=== PATIENT | male | born 1955 | race Caucasian/White ===

== ENCOUNTER 2019-07-03 11:59 | Outpatient (CLI) | payer BC, SELFPAY ==
--- NOTE | ~2019-07-03 | PE_ITS ---
EXAMINATION: PET skull to mid thigh DATE: 07/03/2019 13:53 INDICATION: Nodular sclerosis Hodgkin's lymphoma. TECHNIQUE: 11 mCi of 18-fluorodeoxyglucose (18-FDG) was administered i.v. Low dose computed tomograph y (CT) images were acquired from the base of the brain to the proximal thighs for attenuation correct ion and anatomic localization. Positron emission tomography (PET) images were acquired after injectio n. Images including fused PET/CT images were reconstructed in axial, coronal, and sagittal planes. Au tomatic exposure control is employed as a dose reduction technique. COMPARISON: None FINDINGS: Head/neck: There is mild symmetric uptake in the mucosal space without associated mass, likely physiologic. No s ignificant cervical lymphadenopathy. Chest: There is mediastinal lymphadenopathy. For instance right paratracheal lymph node measures 12 mm, imag e 251. No significant abnormal FDG uptake in these lymph nodes. No significant pleural or pericardial effusion. There is dependent atelectasis. No endobronchial lesions. No suspicious pulmonary nodules or masses. Abdomen/pelvis/proximal thighs: The liver, spleen, pancreas, adrenal glands and left kidney are unremarkable. There is a 5.5 cm hypod ense mass of the right kidney laterally measuring 29 Hounsfield units. Cannot exclude solid component s. There is a cyst in the lower pole of the right kidney measuring 7 cm. There are scattered areas of FDG uptake in the colon without associated mass, likely physiologic. There are enlarged left periaor tic lymph nodes without abnormal FDG uptake. For example on image 462, lymph node measures 4.3 cm. No nobstructive bowel gas pattern. No abnormal pelvic masses or fluid collections. Bones/Soft tissues: No hypermetabolic activity in the bones or soft tissues. IMPRESSION: 1. Enlarged mediastinal and retroperitoneal lymphadenopathy without abnormal FDG uptake, possibly courtney ated lymphoma versus reactive lymph nodes. No hypermetabolic activity is identified in the neck, ches t, abdomen or pelvis. Reviewed, dictated and finalized at location A. IMPRESSION: 1. Enlarged mediastinal and retroperitoneal lymphadenopathy without abnormal FD G uptake, possibly treated lymphoma versus reactive lymph nodes. No hypermetabo lic activity is identified in the neck, chest, abdomen or pelvis.
[2019-07-03 12:16] LABS: Glucose Point of Care 98 (65-105)
== END 2019-07-03 12:00 | disposition home or self-care (01) ==
LOC: ANHIMG 12:01
PROVIDERS: PCP Family Medicine; Visit Provider Internal Medicine Hematology & Oncology
DX: C81.18 Nodular sclerosis Hodgkin lymphoma, lymph nodes of multiple sites (principal); R59.0 Localized enlarged lymph nodes
CPT/HCPCS: 78815; A9552

== ENCOUNTER 2020-01-10 15:05 | Outpatient (CLI) | payer BC, SELFPAY ==
--- NOTE | ~2020-01-10 | CT_ITS ---
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 TECHNIQUE: Computed tomography (CT) of the chest, abdomen, and pelvis was performed without intraveno us contrast. Automated exposure control and iterative reconstruction technique were employed. The dos e-length product was 2097.10 mGy-cm. COMPARISON: PET/CT 07/03/19 FINDINGS: CHEST CT: There is mild emphysema. There is minimal atelectasis bilaterally. No pleural effusion. There is a ri ght internal jugular port with tip in region. The heart size is normal. There are coronary artery bismark cifications. No pericardial effusion. There is mediastinal and left supraclavicular lymphadenopathy. For example, a 2.5 x 1.6 cm right paratracheal node previously measured 1.7 x 1.0 cm. There is mild t horacic spondylosis. ABDOMEN/PELVIS CT: The liver and gallbladder are normal. There is mild splenomegaly measuring 13.5 cm. The pancreas and adrenal glands are normal. There are cysts in the kidneys measuring up to 6.9 cm on the right. The pr ostate is mildly enlarged. There are no dilated loops of bowel. There is gastrohepatic, periportal, a ortocaval, left para-aortic, and bilateral common iliac lymphadenopathy. For example, a 2.5 x 2.3 cm left common iliac node previously measured 2.1 x 1.9 cm. A 4.1 x 3.4 cm left para-aortic node previou sly measured 3.0 x 2.1 cm. There is no free intraperitoneal fluid. Is a benign bone island in left is chium. There are benign bone islands in the proximal femora. There is severe lumbar spondylosis. IMPRESSION: 1. Worsened lymphadenopathy in the chest, abdomen, and pelvis, consistent with lymphoma. 2. Mild splenomegaly. Reviewed, dictated and finalized at location A. ST PATHOLOGY ASSOCIATE PROFESSOR
[2020-01-10 15:51] LABS: Estimated Glomerular Filt Rate > 60
== END 2020-01-10 15:06 | disposition home or self-care (01) ==
LOC: ANHIMG 15:07
PROVIDERS: PCP Family Medicine; Visit Provider Internal Medicine Hematology & Oncology
DX: C81.18 Nodular sclerosis Hodgkin lymphoma, lymph nodes of multiple sites (principal); R16.1 Splenomegaly, not elsewhere classified
CPT/HCPCS: 71260; 74177; Q9967

== ENCOUNTER 2020-01-17 14:51 | Outpatient (CLI) | payer BC, SELFPAY ==
[2020-01-17 15:10] LABS: Basophils Percent Auto 0.4 % (0.2-1.2); Eosinophils Absolute Auto 0.2 K/mm3 (0-0.3); Eosinophils Percent Auto 3.2 % (0-4.4); Hematocrit 39.3 % (42.0-52.0); Hemoglobin 13.2 g/dL (14.0-18.0); Immature Granulocyte Absolute 0.15 K/mm3 (0.00-0.031); Immature Granulocyte Percent A 2.2 % (0-0.5); Lymphocytes Absolute Auto 1.31 K/mm3 (0.9-3.2); Mean Corpuscular HGB Conc 33.6 g/dl (32-36); Mean Corpuscular Hemoglobin 26.9 pg (26-34); Mean Corpuscular Volume 80.2 fl (80-100); Mean Platelet Volume 8.3 fl (7.4-10.4); Monocytes Absolute Auto 0.7 K/mm3 (0.1-0.6); Monocytes Percent Auto 9.6 % (2.6-8.5); Neutrophils Absolute Auto 4.5 K/mm3 (1.3-6.7); Neutrophils Percent Auto 65.6 % (45.5-73.1); Platelet Count Result 247 k/mm3 (150-375); Red Cell Distribution Width 14.6 % (11.5-14.5); White Blood Count 6.9 K/mm3 (4.5-10.0)
[2020-01-17 15:14] LABS: Blood Urea Nitrogen 16 mg/dL (8-26); Carbon Dioxide 25 mmol/L (22-30); Chloride 102 mmol/L (98-109); Estimated Glomerular Filt Rate > 60; Glucose 105 mg/dL (70-105); Potassium 4.2 mmol/L (3.5-4.9); Sodium 139 mmol/L (138-146)
[2020-01-17 18:10] LABS: Alanine Aminotransferase 30 U/L (4-50); Albumin Level 4.2 g/dL (3.5-5.1); Alkaline Phosphatase 164 U/L (38-126); Anion Gap 9 mmol/L (8-16); Aspartate Amino Transferase 28 U/L (17-59); Bilirubin,Total 0.9 mg/dL (0.2-1.3); Blood Urea Nitrogen 17 mg/dL (9-20); Calcium 10.2 mg/dL (8.4-10.2); Carbon Dioxide 27 mmol/L (22-30); Chloride 102 mmol/L (98-107); Estimated Glomerular Filt Rate > 60; Glucose 108 mg/dL (75-110); Lactate Dehydrogenase 390 U/L (313-618); Potassium 4.5 mmol/L (3.4-5.0); Sodium 138 mmol/L (137-145)
[2020-01-18 16:45] LABS: Erythrocyte Sedimentation Rate 28 mm/hr (0-20)
== END 2020-01-17 14:52 | disposition home or self-care (01) ==
LOC: ANHLAB 14:53
PROVIDERS: PCP Family Medicine; Visit Provider Internal Medicine Hematology & Oncology
DX: C81.18 Nodular sclerosis Hodgkin lymphoma, lymph nodes of multiple sites (principal)
CPT/HCPCS: 36415; 80048; 80053; 83615; 85025; 85652

== ENCOUNTER 2020-02-07 07:11 | Outpatient (CLI) | payer BC, SELFPAY ==
--- NOTE | ~2020-02-07 | PE_ITS ---
EXAMINATION: PET skull to mid thigh DATE: 02/07/2020 09:56 INDICATION: Hodgkin's lymphoma TECHNIQUE: 11.3 mCi of 18-fluorodeoxyglucose (18-FDG) was administered i.v. Low dose computed tomogra phy (CT) images were acquired from the base of the brain to the proximal thighs for attenuation corre ction and anatomic localization. Positron emission tomography (PET) images were acquired after inject ion. Images including fused PET/CT images were reconstructed in axial, coronal, and sagittal planes. Automatic exposure control is employed as a dose reduction technique. Automated exposure control and iterative reconstruction technique were employed. COMPARISON: CT dated 01/10/2020 and PET/CT dated 07/03/2019 FINDINGS: Head/neck: There is left supraclavicular lymphadenopathy measuring 2.3 cm greatest dimension. Max SUV is 4.6. Chest: There is enlarged mediastinal lymph nodes in the prevascular space, right paratracheal and subcarinal locations with abnormal FDG uptake, compatible with known lymphoma. For example right paratracheal l ymph node has a maximum SUV of 3.55. No focal airspace consolidation. No pulmonary nodules or masses. Abdomen/pelvis/proximal thighs: There is abnormal retroperitoneal lymphadenopathy with abnormal FDG uptake. There are enlarged lymph nodes in the gastrohepatic, periportal, aortocaval, left periaortic and bilateral common iliac artery locations. Nonobstructive bowel gas pattern. There is severe lumbar spondylosis. Bones/Soft tissues: No osseous abnormality. No hypermetabolic activity in the bones or soft tissues. IMPRESSION: 1. Progression of abnormal lymphadenopathy of the lower neck, chest, abdomen and pelvis with associat ed elevated FDG uptake, compatible with patient's known lymphoma. Reviewed, dictated and finalized at location B. MARKER IMPRESSION: 1. Progression of abnormal lymphadenopathy of the lower neck, chest, abdomen an d pelvis with associated elevated FDG uptake, compatible with patient's known l ymphoma.
[2020-02-07 07:57] LABS: Glucose Point of Care 105 (65-105)
== END 2020-02-07 07:12 | disposition home or self-care (01) ==
PROVIDERS: PCP Family Medicine; Visit Provider Internal Medicine Hematology & Oncology
DX: C81.18 Nodular sclerosis Hodgkin lymphoma, lymph nodes of multiple sites (principal)
CPT/HCPCS: 78815; A9552

== ENCOUNTER 2020-03-19 10:08 | Outpatient (CLI) | payer BC, SELFPAY ==
--- NOTE | ~2020-03-19 | US_ITS ---
EXAMINATION: US biopsy lymph node DATE: 03/19/2020 11:18 INDICATION: Left supraclavicular lymphadenopathy. Hodgkin's disease. TECHNIQUE: The procedure including the risks, benefits, and alternatives was discussed with the patie nt. Risks discussed included bleeding and infection. The patient understood the risks and agreed to p roceed. The skin overlying the left supraclavicular region was prepped and draped in usual sterile fa shion. Anesthetic was administered with 1% lidocaine subcutaneously. An 18 gauge core biopsy needle was then used to obtain 6 core biopsy specimens under continuous sonographic guidance. The entry sit e was cleaned and dressed. There were no immediate complications. FINDINGS: Ultrasound images demonstrate the needle in a 1.6 x 1.3 cm left supraclavicular lymph node. IMPRESSION: 1. Ultrasound-guided core needle biopsy of an enlarged left supraclavicular lymph node. Reviewed, dictated and finalized at location A. ER MANAGEMENT PROFESSOR IMPRESSION: 1. Ultrasound-guided core needle biopsy of an enlarged left supraclavicular lym ph node.
== END 2020-03-19 10:09 | disposition home or self-care (01) ==
PROVIDERS: PCP Family Medicine; Visit Provider Surgery
DX: C81.90 Hodgkin lymphoma, unspecified, unspecified site (principal)
CPT/HCPCS: 38505; 76942; 88108; 88184; 88185; 88305; 88342

== ENCOUNTER 2020-06-03 13:05 | Outpatient (CLI) | payer BC, SELFPAY ==
--- NOTE | ~2020-06-03 | PE_ITS ---
EXAMINATION: PET skull to mid thigh DATE: 06/03/2020 15:33 INDICATION: Classic Hodgkin's lymphoma. TECHNIQUE: Blood glucose level was 163 mg/dL. 11.470 mCi of 18-fluorodeoxyglucose (18-FDG) was admini stered i.v. Low dose computed tomography (CT) images were acquired from the base of the brain to the proximal thighs for attenuation correction and anatomic localization. Automated exposure control was employed. Dose-length product (DLP) was 1291 mGy-cm. Positron emission tomography (PET) images were a cquired in the same distribution. COMPARISON: PET CT 02/07/2020 FINDINGS: Head/neck: There is a mildly enlarged left supraclavicular node with maximum SUV of 2.8. Chest: There is mild atelectasis bilaterally. No pleural effusion. Cardiomegaly is noted. There are c oronary artery calcifications. No pericardial effusion. There is a right internal jugular port with t ip in right atrium. There is mediastinal lymphadenopathy with increased activity. For example, a 4.9 x 1.7 cm prevascular node demonstrates maximum SUV of 4.7 and previously measured 4.3 x 1.7 cm. Abdomen/pelvis/proximal thighs: The normal liver maximum SUV is 4.7. There is mild splenomegaly, whic h may be secondary to obesity. The pancreas and adrenal glands are normal. There are cysts in the kid neys measuring up to 7.1 cm on the right. There is periportal, aortocaval, left para-aortic, and bila teral common iliac lymphadenopathy with increased activity. For example, a left para-aortic node manfred ures 5.1 x 3.1 cm with maximum SUV of 4.1 that previously measured 4.6 x 4.0 cm. There are no dilated loops of bowel. There is no free intraperitoneal fluid. There is no osseous malignancy. IMPRESSION: 1. Lymphadenopathy in the neck, chest, abdomen, and pelvis with increased activity, stable from 2019, consistent with lymphoma. Reviewed, dictated and finalized at location A. IMPRESSION: 1. Lymphadenopathy in the neck, chest, abdomen, and pelvis with increased activ ity, stable from 02/07/2020, consistent with lymphoma.
[2020-06-03 13:43] LABS: Glucose Point of Care 163 (65-105)
== END 2020-06-03 13:06 | disposition home or self-care (01) ==
PROVIDERS: PCP Family Medicine
DX: C81.70 Other Hodgkin lymphoma, unspecified site (principal)
CPT/HCPCS: 78815; 82948; A9552

== ENCOUNTER 2023-12-21 15:44 | Outpatient (CLI) | payer OTHER, SELFPAY ==
--- NOTE | 2023-12-21 15:30 | ECG_ITS ---
Test Date: 2023-12-21 16:00:24 Measurements Intervals [place] Rate: 79 P: 263 VT: 99 QRS: -14 QRSD: 101 T: 50 QT: 356 QTc: 410 Interpretive Statements PROBABLE SINUS RHYTHM OR ECTOPIC ATRIAL RHYTHM ABNORMAL RHYTHM ECG WARNING: DATA QUALITY MAY AFFECT INTERPRETATION No previous ECG available for comparison Electronically Signed On 12-22-2023 10:07:37 CDT by Andrey Collins M.D.
== END 2023-12-21 15:45 | disposition home or self-care (01) ==
PROVIDERS: Visit Provider Urology
DX: R31.0 Gross hematuria (principal); I10 Essential (primary) hypertension; Z01.818 Encounter for other preprocedural examination; R94.31 Abnormal electrocardiogram [ECG] [EKG]
CPT/HCPCS: 87086; 93005

== ENCOUNTER 2023-12-28 04:48 | Day surgery (SDC) | payer OTHER, SELFPAY ==
[2023-12-19 12:59] VITALS: BMI 37.6
--- NOTE | 2023-12-19 13:37 | PC.NURSE ---
Addendum entered by Callie Haro RN 12/19/23 13:51: TYPO- DATE OF SURGERY IS 12/28/23. Original Note: Report to the Outpatient Waiting Room, entrance under the green pavilion located off [facility], at time ___12:30PM____ on date ___1-____. Planned Procedure Time: ___2:30PM .? Time changes happen often and if your time is changed the preop area will call you the afternoon before. - You and your visitor will be asked to self-screen and do not enter if you have any COVID symptoms. Please call surgeon if you need to reschedule. - A mask is optional within the hospital at this time. Patients may have clear liquids (water, carbonated beverages, clear teas, apple juice) until 3 hours prior to surgery with a maximum of 20 ounces. - No food from midnight until time of surgery and no smoking. Take only the following medications with a SIP of water on the morning of surgery: ___METOPROLOL. MAY TAKE OXYCODONE NEEDED. DO NOT STOP ANY OF YOUR OTHER PRESCRIPTION MEDICATIONS PRIOR TO SURGERY EXCEPT THE FOLLOWING Medications to discontinue per physician HOLD XERALTO PER DR MORENO'S CALLING TO CONFIRM. HOLD ALL VITAMINS/SUPPLEMENTS 3 DAYS PRE-OP PER ANESTHESIA- LAST DOSE 12/24/23. Please no make-up, nail hebrew, hairspray, perfume, deodorant, or body powder the day of surgery.? No jewelry (including any body piercings) or valuables the day of surgery, leave them at home.? Please take a shower or bath the night before, or the morning of, surgery with an antibacterial soap.? Wear comfortable, loose fitting clothing.? - Jewelry must be removed prior to entering the operating room.? Rings and piercings that are not removed may be cut off. - The hospital will not accept responsibility for valuables.? - Please leave all valuables, including medications, at home the day of surgery. If you are going home after surgery, a licensed dumpcart driver must drive you home.? - NO public transportation without another adult if you receive anesthesia. - We recommend that an adult stay with you for 24 hours following discharge. - We also recommend that you do not drive, make important decision, drink alcoholic beverages, or take any drugs that were not prescribed by your health care provider for at least 24 hours after your discharge time. Follow any additional instructions given to you from your surgeon. Telephone instructions given to ____PATIENT & WIFE and asked if any additional questions and then verbalized understanding. Patient advised to call surgeon office or pre surgery nurse liaison [phone] if any additional questions.
[2023-12-28] VITALS (9 sets, daily range): BP systolic 141–165; BP diastolic 51–82; PULSE 62–77; RESP 12–14; TEMP 36.1; O2SAT 93–100
[2023-12-28 09:38] LABS: Glucose Point of Care 124 mg/dl (65-105)
[2023-12-28] MEDS: ACETAMINOPHEN 500 MG TABLET 1000 MG PO (09:40)
[2023-12-28] MEDS: LACTATED RINGERS 1,000 ML 30 ML IV CONT ×2 (10:00→13:36)
--- NOTE | 2023-12-28 10:49 | WPDHPUPDATE1 ---
History and Physical Update Update Date/Time: 12/28/23 10:49 History and Physical has been reviewed, including an updated exam of the patient. There are NO changes in the patient's condition. Risks, benefits, and alternatives have been discussed and questions answered. Patient agrees to proceed with procedure.
--- NOTE | 2023-12-28 11:00 | WPDANESEPPF ---
Anes - Initial Pre Proc Eval Procedure: Operation Date: 12/28/23 11:00 Proposed Procedures p Circumcision, - Jose C Ramos MD s Flexible Cystoscopy - Jose C Ramos MD Date/Time: 12/28/23 11:00 Surgeon: Jose C Ramos MD Pre Op Diagnosis: phimosis, gross hematuria Patient Data Age: 67 Gender: M Height: 1.88 m Weight: 131.4 kg Last Vital Signs Temp 36.1 C L 12/28/23 10:00 Pulse 77 12/28/23 10:00 Resp 14 12/28/23 10:00 BP 141/68 H 12/28/23 10:00 Pulse Ox 98 12/28/23 10:00 O2 Del Method Room Air 12/28/23 10:00 Allergies Allergy/AdvReac Type Severity Reaction Status Date / Time codeine AdvReac Mild N & V Verified 12/28/23 10:19 Home Medications Medication Instructions Recorded Confirmed Type atorvastatin 40 mg tablet 40 mg PO DAILY 05/18/19 12/26/23 History lisinopril 10 mg tablet 10 mg PO QAM 05/18/19 12/26/23 History metformin 1,000 mg tablet 1,000 mg PO BID 05/18/19 12/26/23 History polyethylene glycol 3350 17 gram 17 g PO DAILY PRN Constipation 05/18/19 12/26/23 History oral powder packet (Miralax) docusate sodium 50 mg capsule 50 mg PO BID 11/22/23 12/26/23 History (Stool Softener) ferrous sulfate 325 mg (65 mg 325 mg PO DIRECTED 11/22/23 12/26/23 History iron) tablet furosemide 40 mg tablet 40 mg PO DIRECTED 11/22/23 12/26/23 History insulin glargine-yfgn 100 unit/mL See Rx Instructions .Route .COMPLEX 11/22/23 12/26/23 History (3 mL) subcutaneous pen metoprolol tartrate 50 mg tablet 50 mg PO BID 11/22/23 12/26/23 History oxycodone 5 mg tablet 5 mg PO Q4H PRN Pain (Scale Score 11/22/23 12/28/23 History 4-6) potassium chloride 20 mEq 20 meq PO DIRECTED 11/22/23 12/26/23 History tablet,extended release rivaroxaban 20 mg tablet (Xarelto) 20 mg PO DAILY 11/22/23 12/26/23 History spironolactone 50 mg tablet 50 mg PO QAM 11/22/23 12/26/23 History dapagliflozin propanediol 10 mg 10 mg PO DAILY 12/19/23 12/26/23 History tablet (Farxiga) insulin aspart U-100 100 unit/mL See Rx Instructions .Route .COMPLEX 12/19/23 12/26/23 History subcutaneous solution multivitamin (Multiple Vitamins 1 tablet PO DAILY 12/19/23 12/26/23 History tablet) tirzepatide 7.5 mg/0.5 mL 7.5 mg subcut WEEKLY 12/19/23 12/26/23 History subcutaneous pen injector (Mounjaro) Laboratory Tests 12/28/23 09:35 POC Capillary Glucose 124 H mg/dl (65-105) Patient hx anesthesia problems: none Family hx anesthesia problems: none Results Review: All pre-operative results and documents have been reviewed as part of the pre-operative evaluation. [facility] Past Medical History Medical History Diabetes High cholesterol HTN (hypertension) Surgical History Surgical History H/O skin graft Kidney stone Toe amputee Family History Family History Father Enlarged heart Mother Diabetes mellitus Breast cancer Heart disease Skin cancer Sibling Cancer Other Cancer Hypertension Social History Social History Smoking status: Never smoker Alcohol intake: never Substance use: unknown Living arrangements: with family Additional living arrangements comments: Occupation/Education: unemployed Additional occupation/education comments: disabled Gender identity (if verbalized by the patient): Male Spiritual care concerns: No Anes - Eval Final PreProcedure Day of Procedure 12/28/23 11:00 Patient weight: obese Heart: regular rate and rhythm Lungs: decreased breath sounds Airway: Mallampati scale class II Neurological: alert and oriented Last oral intake: >/= 8 hours ASA classification: III Emergent: no Anesthetic plan: proceed Anesthesia type and monitoring: general LMA Results Review
[2023-12-28] MEDS: ceFAZolin 3 GM/D5W 100 ML 100 ML IVPB (11:20)
--- NOTE | 2023-12-28 12:33 | P.OP_ITS ---
Procedure Note - Detailed Date of Procedure 12/28/23 Pre-op Diagnosis phimosis, gross hematuria Post-op Diagnosis Same Procedure Performed Circumcision Flexible cystoscopy Surgeon Jose C Ramos MD Anesthesia General Description of Procedure Informed consent was obtained. Patient taken aspirin. He was given p reoperative IV antibiotics. He was induced anesthesia. Patient was shaved and then prepped. The preputial skin was very phimotic and could not be fully retracted. We then performed a penile block with 0.5% Marcaine without epinephrine. This point we then incised the dorsal skin in order to expose the glans penis. Patient was then re-prepped with Betadine. The glans was irritated/erythematous with no mass noted. We irrigated copiously. This point, we inserted a flexible cystoscope the urethra was normal in caliber, there was mild bilobar prostatic hyperplasia, inspection of the bladder revealed mild/moderate trabeculation with no mass or lesion or stones, there were bilateral orthotopic ureteral orifices. Bladder was emptied through the scope. At this point the scope was removed. We then excised preputial skin ventrally and was sent to specimen. We then reapproximated the dartos layer with 3-0 Vicryl suture. The skin was thickened due to his years of phimosis however were able to nicely reapproximate skin layers without tension. Skin was reapproximated in quadrants of 3-0 chromic, followed by interrupted 3-0 and 4-0 chromic sutures. There was a nice cosmetic result. A compressive dressing was placed the patient was taken to recovery room stable condition Pathology Yes Complications No immediate complications Condition Stable Disposition PACU
[2023-12-28 12:43] LABS: Glucose Point of Care 102 mg/dl (65-105)
[2023-12-28] MEDS: ONDANSETRON INJ 4 MG/2 ML VIAL IV PUSH (13:40)
== END 2023-12-28 15:02 | disposition home or self-care (01) ==
PROVIDERS: Visit Provider Urology
PROC: (CPT 54161; principal; 2023-12-28 11:00)
PROC: 0TJB8ZZ Inspection of Bladder, Via Natural or Artificial Opening Endoscopic (ICD-10-PCS; CPT 52000; 2023-12-28 11:00)
DX: N47.1 Phimosis (principal); E11.9 Type 2 diabetes mellitus without complications; E78.00 Pure hypercholesterolemia, unspecified; I10 Essential (primary) hypertension; E66.9 Obesity, unspecified; Z68.37 Body mass index [BMI] 37.0-37.9, adult; Z79.891 Long term (current) use of opiate analgesic; Z79.01 Long term (current) use of anticoagulants; Z79.84 Long term (current) use of oral hypoglycemic drugs; Z79.1 Long term (current) use of non-steroidal anti-inflammatories (NSAID); Z79.85 Long-term (current) use of injectable non-insulin antidiabetic drugs; Z80.3 Family history of malignant neoplasm of breast; Z84.0 Family history of diseases of the skin and subcutaneous tissue; Z82.49 Family history of ischemic heart disease and other diseases of the circulatory system
CPT/HCPCS: 52000; 54150; 82948; 87086; 88304; 93005; A9270; J0690; J2405; J2590; J2704; J7030; J7120

== ENCOUNTER 2024-03-27 09:42 | Outpatient (CLI) | payer MEDICARE, SELFPAY ==
--- NOTE | ~2024-03-27 | CT_ITS ---
CT of the Abdomen and Pelvis: Indication: Renal cyst Technique: 2.5 mm axial scans were obtained through the abdomen and pelvis prior to and following in travenous administration of 100 cc of Omnipaque 350. Dose reduction technique was used on this scan b y utilizing automated exposure control and iterative reconstruction technique. The dose-length produc t (DLP) was 2455.24 mGy-cm. COMPARISON: 01/10/2020 Findings: Scans through the lung bases are unremarkable. There is a 3 cm hypodense, noncystic mass in the upper liver centrally (series 6 image 30), essential ly stable from prior exam. The spleen, pancreas, gallbladder, and adrenal glands are within normal li mits. Multiple bilateral nonobstructing stones are present, measuring 1 cm the right kidney, and 1 cm left kidney. Multiple bilateral renal cysts are present. A right upper pole renal cyst shows thin ca lcified septations, unchanged. No evidence of aortic aneurysm. There is extensive retroperitoneal/perinephric lymphadenopathy, similar in distribution to prior exam , with some lymph nodes increased in size (example (axial 76, node measuring 3.7 x 2.0 cm anterior to the aorta, previously 2.6 x 1.3 cm). No bowel obstruction or bowel wall thickening. There is no evid ence to suggest acute appendicitis. Images through the pelvis were performed. Urinary bladder unremarkable. No pelvic mass seen. No pelvi c or inguinal lymphadenopathy evident. No ascites. Impression: Retroperitoneal/para-aortic lymphadenopathy is similar in distribution, with mild increase in size, w hich could reflect mild interval progression of lymphoma. Multiple renal cysts, including a minimally complicated right renal cyst. No suspicious renal lesion seen. Multiple bilateral nonobstructing renal stones, as above. 3 cm nonspecific hypodense hepatic mass. Relative stability from prior exam suggests benignity, but t his is indeterminate. Reviewed, dictated and finalized at location M. D NURSE Impression: Retroperitoneal/para-aortic lymphadenopathy is similar in distribution, with mi ld increase in size, which could reflect mild interval progression of lymphoma. Multiple renal cysts, including a minimally complicated right renal cyst. No mora spicious renal lesion seen. Multiple bilateral nonobstructing renal stones, as above. 3 cm nonspecific hypodense hepatic mass. Relative stability from prior exam sug gests benignity, but this is indeterminate.
== END 2024-03-27 09:43 | disposition home or self-care (01) ==
PROVIDERS: Visit Provider Student in an Organized Health Care Education/Training Program
DX: N28.1 Cyst of kidney, acquired (principal); N20.0 Calculus of kidney
CPT/HCPCS: 74178; Q9967

== ENCOUNTER 2024-05-04 09:42 | Outpatient (CLI) | payer MEDICARE, SELFPAY | END 2024-05-04 09:43 | disposition home or self-care (01) | LOC: ANHIMG 09:44 | PROVIDERS: Visit Provider Urology | DX: N28.1 Cyst of kidney, acquired (principal) | CPT/HCPCS: 74018 ==

== ENCOUNTER 2024-07-13 11:14 | Outpatient (CLI) | payer MEDICARE, SELFPAY ==
--- OUTSIDE RECORDS SUMMARY | 2024-07-13 11:18 | XMS_ITS | Encounter Summary ---
Author Organization [facility] Address [address] [facility] [place] [address] Care Team Providers Care Wirer Name Role Phone Gi Pulliam MD Primary Care Provider [phone] Sea Humphries MD Unavailable [phone] Kael Negron MD Unavailable [phone] Jaqui Colin MD Unavailable [phone] Janene Arriaga MD Unavailable [phone] Federico Garcia MD Unavailable [phone] Vijaya Ulrich PharmD Unavailable Unavaila Chandler Avila PharmD Unavailable Unavailab Val Lenz RN Unavailable Unavailable Elaine Poole RN Unavailable Unavailab Rina Trinidad Unavailable Letty vailable Cathi, Ayanna John WORM PICKER-BUSINESS PROCESS MANAGER Unavailable [phone] Yadi Dean RN Unavailable Unavailable Nicole Ramos RN Unavailable Unavailable Loreto Oliveros RN Unavailable UnavailAditi Marin LCSW Unavailable Unavailab Kaia Agee WORM PICKER-BUSINESS PROCESS MANAGER Unavailable [phone] Kassandra Richard RN Unavailable Unavaila ble Ezra, Doris J RN Unavailable Unavailable Encounter Details Date Type Department Care Team (Late Contact Info) Description 03/19/[address] [facility] Care Pathology Lab [address] [place] [address] Venkat Pineda MD [address] [address] Hodgkin lymphoma, unspecified, unspecified site Social History Tobacco Use Types Packs/Day Years Used Date Smoking Tobacco: Never Smokeless Tobacco: Never Alcohol Use Standard Drinks/Week Comments No 0 (1 standard drink = 0.6 oz pur e alcohol) Sex and Gender Information Value Date Recorded Sex Assigned at Not on file Legal Sex Male 8:20 PM CDT Gender Identity Male 09/05/2023 9:57 AM CDT Sexual Orientation Not on file documented as of this encounter Plan of Treatment Upcoming Encounters Date Type Department Care Team ([facility] Contact Info) Description 09/11/2024 12:45 PM CDT Appointment [facility] [address] [place] [id number] Jaqui Colin MD [address] [place] [address] OF HEMATOLOGY [place] [address] 09/11/2024 1:45 PM CDT Appointment [facility] [address] [place] [id number] Jaqui Colin MD [address] [place] [address] OF HEMATOLOGY [place] [address] 09/11/2024 3:00 PM CDT Office Visit [facility] - Hematology/Oncology [address] [place] [phone] Jaqui Colin MD [address] [place] [address] OF HEMATOLOGY [place] [address] documented as of this encounter Procedures Procedure Name Priority Date/Time Associated Diagnosis Comments FLOW CYTOMETRY TISSUE PANEL Routine 03/19/2020 10:43 AM SENIOR INSTRUMENTATION ENGINEER Hodgkin lymphoma, unspecified, unspecified site documented in this encounter Results * FLOW CYTOMETRY TISSUE PANEL (03/19/2020 10:43 AM SENIOR INSTRUMENTATION ENGINEER) Case Report Flow Cytometry Case: [id number] Authorizing Provider: Venkat Pineda MD Collected: 03/19/2020 10:43 AM Ordering Location: [facility] Pathology Lab Received: 03/19/2020 02:29 PM Pathologist: Fredis Peres MD Specimen: 11:47 AM [facility] PATHOLOGY LAB Final Diagnosis Lymph node, L+ supr a , flow cytometric immunophenotypic analysis: - No clonal B-cell population detected - Mildly increased CD4:CD8 ratio in T-cells with no immunophenotypic aberrancies - See interpretation. 11:47 AM [facility] Flow Cytometry Interpretation The L+ supra lymph node specimen has a viability of 100%. Most of the cells are within the lymphocyte gate (92%). Within this region, there is no monotypic B-cell population identified (kappa: lambda ratio = 0.9:1). There is no aberrant co-expression of CD5 or CD10 on mature B-cells. There is no immunophenotypically aberrant or expanded T-cell population seen, but the CD4:CD8 ratio is mildly increased (CD4:CD8 ratio = 6.7:1). A cytospin prepared from the flow cytometry specimen is reviewed for quality assurance inspector purposes. Due to their large size outside the regular gating parameters, certain lymphomas such as Hodgkin lymphoma or anaplastic large cell lymphoma may not be detected by this analysis. Morphologic correlation is recommended. 11:47 AM [facility] Flow Cytometry Results Differential Result Comment Flow Cell Count /uL 1,800 Total Viability % 100.0 Lymphocytes % 940 Dim CD45 Region % 0 Monocytes % 2 Granulocytes % 4 11:47 AM [facility] Reason for test Hodgkin lymphoma, unspecified, unspecified site 11:47 AM [facility] Client Specimen ID # [id number] 11:47 AM [facility] Number of markers 16 were performed. A-2 Flow CD3 A-4 Flow CD10 A-6 Flow CD20 A-7 Flow CD23 A-12 Flow CD2 A-13 Flow CD4 A-16 Flow CD1a A-3 Flow CD5 A-5 Flow CD19 A-8 Flow CD34 A-9 Flow CD45 A-14 Flow CD7 A-15 Flow CD8 A-17 Flow CD30 A-10 [place]+CD19+ A-11 Lambda+CD19+ 11:47 AM [facility] Disclaimer Test performed at [facility], [address] [place], [place], [address]. *The established laboratory minimum viability is 70%. Values below the minimum may result in the failure to find an abnormal population of cells. This test was developed and its performance characteristics determined by the Flow Cytometry Laboratory. It has not been cleared by the [place] Food and Drug Administration (FDA). The FDA has determined that such clearance or approval is not necessary. This test is used for clinical purposes. It should not be regarded as investigational or for research. This laboratory is regulated under the Clinical Laboratory Improvement Amendments of 1998 (CLIA) as a qualified to perform high complexity clinical testing. 11:47 AM [facility] Embedded Images 11:47 AM [facility] Pathology/Cytolo gy 03/19/2020 10:43 AM SENIOR INSTRUMENTATION ENGINEER 03/19/2020 2:29 PM SENIOR INSTRUMENTATION ENGINEER Venkat Pineda MD LAB - PATHOLOGY/CYTOLOGY ORDER JOSE Final Result [facility] PATHOLOGY LAB [address] [place] [address]. [place], [place] [id number] [place] [address] documented in this encounter Visit Diagnoses Diagnosis Hodgkin lymphoma, unspecified, unspecified site (HCC) documented in this encounter Additional Health Concerns Infection Onset Date Last Indicated Resolved Time COVID-19 Under Investigation 09/15/2020 09/15/2020 09/15/2020 9:18 PM CDT COVID-19 Under Investigation 12/10/2020 12/10/2020 12/11/2020 4:17 AM CDT COVID-19 Confirmed 03/12/2021 04/02/2021 2 4:33 AM SENIOR INSTRUMENTATION ENGINEER COVID-19 Under Investigation 03/19/2021 03/19/2021 03/19/2021 4:42 PM SENIOR INSTRUMENTATION ENGINEER COVID-19 Under Investigation 04/14/2021 04/14/2021 04/25/2021 4:33 AM SENIOR INSTRUMENTATION ENGINEER COVID-19 Under Investigation 09/29/2021 09/29/2021 09/29/2021 8:59 PM CDT documented as of this encounter Care Teams Wirer Relationship Specialty Start Date End Date Gi Pulliam MD [address] [place] [address] PCP - General Family Medicine 10/17/18 Sea Humphries MD [address] [place] [address] Referring Physician Medical Oncology 02/19/20 Kael Negron MD [address] [place] [address] Hematology and Oncology 02/19/20 03/26/21 Jaqui Colin MD [address] OF HEMATOLOGY & [place] [address] Hematology and Oncology 02/19/20 Janene Arriaga MD [address] OF HEMATOLOGY [place] [address] Hematology and Oncology 02/19/20 Federico Garcia MD [address] OF HEMATOLOGY [place] [address] Hematology and Oncology 02/19/20 Vijaya Ulrich, PharmD 02/19/20 Chandler Rosario, PharmD Pharmacist 02/19/20 11/25/20 Val Pisano, RN 02/19/20 Elaine Poole RN 02/19/20 11/25/20 Rina Argueta 02/19/20 Ayanna Winkler, JOHNNA-BUSINESS PROCESS MANAGER Family Medicine 02/19/20 Yadi Dean, RN Registered Nurse 02/19/20 03/26/21 Nicole Ramos, RN Registered Nurse 02/19/20 11/25/20 Loreto Oliveros, RN Registered Nurse 02/19/20 11/25/20 Aditi Ladd, [facility] Surveillance Supervisor 02/19/20 Kaia Munroe, JOHNNA-BUSINESS PROCESS MANAGER [address] [facility] [place] [address] Advance Practice Nurse Family Medicine 08/05/20 Kassandra Richard, RN Registered Nurse 03/27/21 Doris Munguia, RN Registered Nurse 06/03/21 documented as of this encounter
--- OUTSIDE RECORDS SUMMARY | 2024-07-13 11:18 | XMS_ITS | Clinical Summary ---
Author Organization [facility] Next Jump Address [address] [place] [address] Care Team Providers Care Fish Farm Laborer Name Role Phone Gi Pulliam MD Primary Care Provider [phone] Sea Humphries MD Unavailable [phone] Jaqui Colin MD Unavailable [phone] Janene Arriaga MD Unavailable [phone] Federico Garcia MD Unavailable [phone] Vijaya Ulrich PharmD Unavailable Unavaila Val Licea RN Unavailable Unavailable AmadorRina Pineda Unavailable Letty vailable Cathi, Ayanna John SOAP WORKER-HEEL ROOM SUPERVISOR Unavailable [phone] Aditi Ladd LCSW Unavailable Unavailab Kaia Agee SOAP WORKER-HEEL ROOM SUPERVISOR Unavailable [phone] Kassandra Richard RN Unavailable Unavaila Doris Sandy RN Unavailable Unavailable Source Comments [facility],non-owned Affiliates and Associated Physician Practices is amultiple site organization consisting of ambulatory clinics and hospital sitesin [place], [place], [place] and [place]. This disclosure is being madepursuant to the Care Everywhere program and may not contain all information available regarding this patient. Last updated 17.[facility] Health Allergies Active Allergy Reactions Criticality Noted Date Comments Codeine Nausea and/or Vomiting,Dizziness Low 09/2018 Medications * Be aware that medications may not be up to date on this document. Alwaysverify current medications with the patient. atorvastatin (LIPITOR) 40 MG tabletIndication s:Altered mental status, unspecified altered mental status type Take 1 tablet by mouth once daily 30 tablet 1 12/21/19 19 Active docusate sodium (COLACE) 100 MG capsuleIndicatio ns:Constipation Take 1 (one) capsule by mouth 2 times daily Reasons: Constipation Active insulin glargine (Lantus/Semglee) 100 units/ml injection Inject 40 (forty) Units subcutaneously 2 times daily 05/16/19 22 Active insulin lispro (HUMALOG;ADMELOG ) 100 UNIT/ML pen Inject 30 (thirty) Units subcutaneously 3 times daily with meals 05/16/19 22 Active metoprolol tartrate (LOPRESSOR) 25 MG tablet Take 1 (one) tablet by mouth 2 times daily 05/17/19 22 Active rivaroxaban (XARELTO) 20 MG tablet Take 1 (one) tablet by mouth once daily 04/03/19 22 Active BD INSULIN SYRINGE U/F 30G X 1/2 0.5 ML MISC USE TO INJECT 4 TIMES DAILY 04/27/19 22 Active LAWRENCE CONTOUR NEXT TEST test strip USE TO TEST BLOOD SUGAR 3 TIMES DAILY 04/27/19 22 Active metFORMIN (GLUCOPHAGE) 1000 MG tablet Take 1 (one) tablet by mouth 2 times daily with morning and evening meal Active potassium chloride ER (KLOR-CON) 20 MEQ tablet TAKE 1 TABLET BY MOUTH EVERY DAY 90 tablet 2 07/14/19 22 Active furosemide (Lasix) 40 MG tablet TAKE 1 TABLET BY MOUTH EVERY DAY 90 tablet 1 10/31/19 22 Active Additional Information Patient taking differently: 40 mg Oral EVERY OTHER DAY, Reported on 09/27/2023 spironolactone (Aldactone) 50 MG tabletIndication s:Primary hypertension Take 1 (one) tablet by mouth once daily 03/24/19 24 Active multiple vitamins with iron tablet tablet Take 1 (one) tablet by mouth daily with food Active cetirizine (ZyrTEC) 10 MG tablet Take 1 (one) tablet by mouth once daily Active Mounjaro 7.5 MG/0.5ML injection INJECT 7.5 MG INTO THE SKIN ONCE A WEEK. 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) Take 1 (one) tablet by mouth every 6 hours as needed for Pain 120 tablet 04/19/19 25 Active ferrous sulfate 325 (65 FE) MG tabletIndication s:Low iron TAKE 1 TABLET BY MOUTH EVERY OTHER DAY NEEDED 45 tablet 1 05/18/19 25 Active Active Problems Problem Noted Date Diagnosed Date Hodgkin lymphoma, unspecifie d Hodgkin lymphoma type, unspecified body region 07/19/2023 BMI 40.0-44.9, adult 05/05/2023 Dyslipidemia 05/05/2023 History of auto stem cell transplant 05/26/2022 Colon adenomas 03/10/2021 Overview (03/10/2021): 11/15/16 colonoscopy ([facility] [place] polyps per patient 03/10/21 colonoscopy: multiple diminutive adenomas removed, repeat in 3 years. 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 Left proximal ureteral calculus is no longer seen however there is a tiny, 4 mm calculus within the proximal ureter. Left renal calculi are no longer seen. Stable right kidney including a complex midpole lesion containing calcified septations. These lesions are incompletely characterized without contrast. Further evaluation with MRI is suggested. Retroperitoneal and left iliac chain adenopathy. Considerations include neoplastic involvement such as metastatic disease and lymphoma as well as inflammatory or infectious adenopathy. 08/05/15 - CT abdomen/pelvis: the abnormal retroperitoneal adenopathy involving the distal periaortic lymph nodes as well as the left iliac lymph node is again appreciated. Overall, the appearance is stable. The previously noted left sided nephroureteral stent has been removed. Bilateral renal cysts are again demonstrated. A complex cyst is demonstrated involving the right kidney and appears unchanged. Last Assessment & Plan: He is stable clinically with no signs or symptoms of underlying lymphoma with no B symptoms or abdominal pain or lymphadenopathy. I will see him one more time in 6 months but advised him to contact us for B symptoms, frequent infections, peripheral lymphadenopathy. I reassured them that he may have mild reactive lymphadenopathy and there is no need for intervention for that. They both verbalized understanding of today's discussion, were satisfied with the office visit, and had no further questions. 03/20/2015 - CT abdomen/pelvis: New left ureteral stent extending from the renal pelvis to the bladder with slightly decreased hydronephrosis. Left proximal ureteral calculus is no longer seen however there is a tiny, 4 mm calculus within the proximal ureter. Left renal calculi are no longer seen. Stable right kidney including a complex midpole lesion containing calcified septations. These lesions are incompletely characterized without contrast. Further evaluation with MRI is suggested. Retroperitoneal and left iliac chain adenopathy. Considerations include neoplastic involvement such as metastatic disease and lymphoma as well as inflammatory or infectious adenopathy. 08/05/15 - CT abdomen/pelvis: the abnormal retroperitoneal adenopathy involving the distal periaortic lymph nodes as well as the left iliac lymph node is again appreciated. Overall, the appearance is stable. The previously noted left sided nephroureteral stent has been removed. Bilateral renal cysts are again demonstrated. A complex cyst is demonstrated involving the right kidney and appears unchanged. Last Assessment & Plan: He is stable clinically with no signs or symptoms of underlying lymphoma with no B symptoms or abdominal pain or lymphadenopathy. I will see him one more time in 6 months but advised him to contact us for B symptoms, frequent infections, peripheral lymphadenopathy. I reassured them that he may have mild reactive lymphadenopathy and there is no need for intervention for that. They both verbalized understanding of today's discussion, were satisfied with the office visit, and had no further questions. High triglycerides 10/09/2013 Benign hypertension 10/02/2013 Diabetes mellitus, type II Overview (09/21/2020): last A1C 08/2018 Resolved Problems Problem Noted Date Diagnosed Date Resolved Date Type 2 diabetes mellitus wit h hyperglycemia, with long-term current use of insulin 05/05/2021 Fever 12/10/2020 12/24/2020 Seizure 10/01/2020 05/19/2021 Hypocalcemia 09/21/2020 03/10/2021 Hyponatremia 09/21/2020 03/10/2021 UTI (urinary tract infection) 09/17/2020 10/02/2020 Altered mental status 09/17/20202021 Fever 09/17/2020 10/02/2020 Nausea vomiting and diarrhea 09/15/2020 09/17/2020 High risk for chemotherapy-i nduced infectious complication 07/08/2020 05/19/2021 COVID-19 03/05/2020 09/18/2020 Cough 04/15/2019 05/13/2019 Hypoxia 04/15/2019 02/25/2020 Community acquired pneumonia of left lower lobe of lung 04/15/2019 03/10/2021 Infiltrate of left lung pres ent on chest x-ray 04/15/2019 03/10/2021 Altered mental status 12/17/20182019 Chronic recurrent sinusitis 07/04/2018 02/25/2020 Dyspnea 01/03/2018 03/10/2021 Cough 12/27/2017 11/24/2018 Sinusitis 12/27/2017 11/24/2018 Hospital discharge follow-up 12/14/2017 02/25/2020 Cellulitis 08/12/2017 02/25/2020 BMI 36.0-36.9,adult 11/02/2016 02/25/20 20 Toe infection 10/27/2016 09/18/2020 Microcytic anemia 04/08/2015 09/18/2020 Overview (10/27/2018): Hb has been around 11 - 12 g, with MCV of 80. Last Assessment & Plan: Mild microcytosis persists, but his hemoglobin is within normal limits. We'll monitor it. Hb has been around 11 - 12 g, with MCV of 80. Last Assessment & Plan: Mild microcytosis persists, but his hemoglobin is within normal limits. We'll monitor it. Microcytic anemia 04/08/2015 09/18/2020 Overview (07/07/2020): Hb has been around 11 - 12 g, with MCV of 80. Last Assessment & Plan: Mild microcytosis persists, but his hemoglobin is within normal limits. We'll monitor it. 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) 05/08/2024 2:20 PM LEAD MASON TENDER - 05/08/2024 11:59 PM LEAD MASON TENDER Hospital Encounter [facility] [address] [place] [phone] Jaqui Colin MD Discharge Disposition: Home or Self Care 05/08/2024 12:15 PM LEAD MASON TENDER - 05/08/2024 2:19 PM LEAD MASON TENDER Hospital Encounter [facility] [address] [place] [address] Jaqui Colin MD Discharge Disposition: Home or Self Care 05/08/2024 11:15 AM LEAD MASON TENDER - 05/08/2024 12:14 PM LEAD MASON TENDER Hospital Encounter [facility] [address] [place] [address] Jaqui Colin MD Discharge Disposition: Home or Self Care 05/08/2024 Travel 05/03/2024 Orders Only [facility] - Hematology/Oncology [address] [place] [address] Jaqui Colin MD 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 (AF LURIA, FLUZONE TRIVALENT; 6MO+) (IIV3) 12/15/2015 COVID MODERNA 12+ yr 50mcg/0.5mL 02/07/2023 COVID PFIZER BIVALENT 12Y+ 30mcg/0.3ML 3,01/13/2022 Covid Pfizer primary Monoval ent 12+ yr 0.3ml 11/10/2021,09/08/2021,08/11/2021 DTAP 5 PERTUSSIS ANTIGENS 03/23/2022,01/13/2022, 11/10/2021 HEP A/HEP B 05/26/2022,01/13/2022,11/10/2021 HEP B VACCINE, ADULT 3 DOSE 12/14/2023, 4,10/06/2022 HIB-PRP-T 4 DOSE 03/23/2022,01/13/2022, 2 INFLUENZA VACCINE 12/27/2019,11/22/2017,12/12/19 17 INFLUENZA VACCINE, ADJUVANTE D, QUADR. (FLUAD QUADRIVALENT; 65Y+) (AIIV4) 12/14/2023,12/21/2022 INFLUENZA VACCINE, HIGH-DOSE , QUADR. (FLUZONE HIGH-DOSE QUADRIVALENT; 65Y+), 0.7 ML (HD-IIV4) 12/14/2023,01/13/2022,12/22/2020(Defer red: See Comments - held per conversation wth Meron OROPEZA/Dr. Colin, as paitent to receive high-dose steroids today) MENINGOCOCCAL ACWY MENVEO 01/13/2022,11/10/2021 MMR VACCINE 04/21/2023 Meningococcal B Recombinant 2 Dose, IM 4,04/21/2023 PNEUMOCOCCAL PPSV23 05/26/2022,11/22/2017 POLIO IPV 03/23/2022,01/13/2022,11/10/2021 Pneumococcal Pcv13 Conj 03/23/2022,01/13/2022, TDAP (7yrs+) 11/22/2017 Zoster Hzv Vacc Recombinant Inj Im 01/13/2022, iNFLUENZA VACCINE, RECOM-MICHAELS, QUADR. (FLUBLOCK QUADRIVALENT; 18Y+) (RIV4) 12/27/2019 Family History Medical History Relation Name Comments Cancer - Breast Mother Cancer - Other Mother Cancer - Skin, Non Melanoma Mother Diabetes - Type 2 Mother Cancer - Other Other Analilia/sister Cancer - Other Sister 1 Cancer - Other Sister 2 Relation Name Status Comments Mother Other Analilia/sister Alive Sister 1 Sister 2 Social History Tobacco Use Types Packs/Day Years Used Date Smoking Tobacco: Never Smokeless Tobacco: Never Alcohol Use Standard Drinks/Week Comments No 0 (1 standard drink = 0.6 oz pur e alcohol) AUDIT-C Answer Date Recorded Q1: How often do you have a drink containing alcohol? Never 07/26/2023 Q2: How many drinks containi ng alcohol do you have on a typical day when you are drinking? Patient does not drink Q3: How often do you have si x or more drinks on one occasion? Never 07/26/2023 Overall Financial Resource Strain (CARDIA) Answe r Date Recorded How hard is it for you to pa y for the very basics like food, housing, medical care, and heating? Not hard at all 07/26/2023 [facility] Occup[facility] - Occupational Stress Questionnaire Answer Date Recorded Do you feel stress - tense, restless, nervous, or anxious, or unable to sleep at night because your mind is troubled all the time - these days? To some extent 07/26/2023 Hunger Vital Sign Answer Date Recorded Within the past 12 months, y ou worried that your food would run out before you got the money to buy more. Never true 07/26/19 24 Within the past 12 months, t he food you bought just didn't last and you didn't have money to get more. Never true 07/26/2023 PRAPARE - Transportation Answer Date Re corded In the past 12 months, has l ack of transportation kept you from medical appointments or from getting medications? No 07/06 In the past 12 months, has l ack of transportation kept you from meetings, work, or from getting things needed for daily living? No 07/26/2023 Housing Stability Vital Sign Answer Silverio e Recorded In the last 12 months, was t here a time when you were not able to pay the mortgage or rent on time? No 07/26/2023 In the last 12 months, how many places have you lived? 1 07/26/2023 In the last 12 months, was t here a time when you did not have a steady place to sleep or slept in a alf (including now)? No 07/26/2023 Sex and Gender Information Value Date Recorded Sex Assigned at Not on file Legal Sex Male 8:20 PM CDT Gender Identity Male 09/05/2023 9:57 AM CDT Sexual Orientation Not on file Last Filed Vital Signs Vital Sign Reading Time Taken Comments Blood Pressure 137/74 05/08/2024 3:45 PM LEAD MASON TENDER Pulse 62 05/08/2024 3:45 PM LEAD MASON TENDER Temperature 36.3 C (97.3 F) 05/08/2024 3:45 PM LEAD MASON TENDER Respiratory Rate 20 05/08/2024 3:45 PM LEAD MASON TENDER Oxygen Saturation 97% 05/08/2024 3:45 PM LEAD MASON TENDER Inhaled Oxygen Concentration - - Weight 136.5 kg (301 lb) 05/08/2024 3:45 PM LEAD MASON TENDER Height 186.7 cm (6' 1.5 ) 12/23/2023 12:22 PM CD T Body Mass Index 39.17 12/23/2023 12:22 PM CDT Plan of Treatment Upcoming Encounters Date Type Department Care Team (Late st Contact Info) Description 09/11/2024 12:45 PM CDT Appointment [facility] [address] [place] [phone] Jaqui Colin MD [address] [place] [address] OF HEMATOLOGY & [place] [address] 09/11/2024 1:45 PM CDT Appointment [facility] [address] [place] [phone] Jaqui Colin MD [address] [place] [address] OF HEMATOLOGY & [place] [address] 09/11/2024 3:00 PM CDT Office Visit [facility] - Hematology/Oncology [address] [place] [address] Jaqui Colin MD [address] [place] [address] OF HEMATOLOGY & [place] [address] Health Maintenance Due Date Last Done Comments COLOGUARD (AGES 45-75) - COLON CA SCREENING 1956 CT COLONOGRAPHY - COLON CA SCREENING 1955 FIT - COLON CA SCREENING 1955 FLEX SIG - COLON CA SCREENING 1955 Respiratory Syncytial Virus (RSV) Vaccine Pt: or over 60 yrs (1 - Risk 60-74 years 1-dose series) 2016 DIABETES-FOOT EXAM WITH MONOFILAMENT 10/27/2018 DIABETES RETINOPATHY SCREENING 10/05/2022 10/05/2020, 10/04/2020 COVID-19 VACCINE ( season) 2023 02/07/2023, 10/06/2022, 01/13/2022, Additional history exists DEPRESSION SCREENING 03/07/2024 DIABETES - URINE PROTEIN SCREENING 03/07/2024 02/10/2022, 08/22/2018 MEDICARE AWV CALENDAR YEAR 2024 DIABETES-HGB A1C 08/23/2024 02/23/2024, 01/2024, 07/27/2023, Additional history exists DIABETES-SERUM CREATININE 05/08/20252024, 01/31/2024, 12/14/2023, Additional history exists COLON MONITORING 03/10/2031 03/10/2021, 03/10/2021 COLONOSCOPY - COLON CA SCREENING 03/10/2031 03/10/2021, 03/10/2021 Colorectal Cancer Screening 03/10/2031 DTAP/TDAP/TD VACCINES (5 - Td or Tdap) 03/23/2032 03/23/2022, 01/13/2022, 11/10/2021, Additional history exists HEPATITIS C SCREENING Completed 02/24/2021 , 02/25/2020, 12/19/2018, Additional history exists MENINGOCOCCAL GROUPS A/C/Y/W VACCINE Aged Out 01/13/2022, 11/10/2021 No longer eligibl e based on patient's age to complete this topic ZOSTER VACCINE Completed 01/13/2022, 09/08/2021 HIB VACCINE Aged Out 03/23/2022, 11/2021, 11/10/2021 No longer eligible based on patient's age to complete this topic PNEUMOCOCCAL VACCINE 50+ Completed 023, 03/23/2022, 01/13/2022, Additional history exists HEPATITIS B VACCINE Completed 12/14/2023, 04/21/2023, 10/06/2022, Additional history exists INFLUENZA VACCINE Completed 12/14/2023, , 12/21/2022, Additional history exists MENINGOCOCCAL (Group B) VACCINE SHARED DECISION-MAKING Aged Out 12/14/2023, 04/21/2023 No longer eligibl e based on patient's age to complete this topic HPV VACCINE Aged Out No longer eligi ble based on patient's age to complete this topic Goals Goal Patient Goal Type Associated Problems Recent Progress Patient-Stated? Author Medication Management General On track( 021 9:57 AM LEAD MASON TENDER) No Mercedes Cooper, RN Note: Expected end date: ongoing Interventions: Take all medications as prescribed Medical Devices Implanted Type Area Transferrer Device Identifier Shelf Expiration Date Model / Serial / Lot Tray Cath 12fr 23cm Hkmn Trifusion 3 Lum Implanted:Qty: 1 on 03/12/2021 by Julian Starks MD at [facility] Left: Chest Wall [employer] 10/04/2022 [id number] / / [id number] Procedures Procedure Name Priority Date/Time Associated Diagnosis Comments PET CT SKULL TO MID THIGH Routine 05/08/2024 2:21 PM LEAD MASON TENDER 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 ERYTHROCYTE SEDIMENTATION RATE STAT 05/08/2024 12:57 PM LEAD MASON TENDER 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 COMPREHENSIVE METABOLIC PANEL STAT 05/08/2024 12:57 PM LEAD MASON TENDER 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 CBC W AUTO DIFFERENTIAL STAT 05/08/2024 12:57 PM LEAD MASON TENDER 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 GLUCOSE SCREEN - POCT (IP) [facility] STAT 05/08/2024 12:40 PM LEAD MASON TENDER HEMOGLOBIN A1C Routine 07/27/2023 1:11 AM CDT ENDOSCOPY, COLON, SCREENING Routine 03/10/2021 11:38 AM LEAD MASON TENDER HEPATITIS C ANTIBODY Routine 02/24/2021 11:55 AM LEAD MASON TENDER Pre-transplant evaluation for stem cell transplant 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 Redemonstrated numerous hypermetabolic lymph nodes throughout the left lower neck, mediastinum, left hilum, and abdominopelvic regions as well as the spleen, many of which are grossly unchanged or slightly decreased in metabolic activity. However, there is slight interval increase of FDG uptake within a few of these regions including a right paraesophageal and a portacaval lymph node. Overall, findings are compatible with mixed response to therapy (Deauville 4). 2. Grossly unchanged multiple areas of increased FDG uptake throughout the cutaneous soft tissues of left anterior lower leg, likely representing cellulitis. 3. Interval decrease of FDG uptake of a hypermetabolic focus within the left hip joint, likely representing synovitis. Recommend clinical correlation with patient's history and exam findings. This study was dictated by resident inspector Chris Morocho MD and reviewed and edited by the attending. > Dictated by Chris Morocho (Plasterer Helper) 05/08/2024 1:09 PM I, Tod Bruno DO have personally reviewed and interpreted this examination/study. > Interpreting Provider: Tod Bruno DO on 05/08/2024 3:41 PM Narrative 05/08/2024 3:41 PM LEAD MASON TENDER PROCEDURE: PET CT SKULL TO MID THIGH DATE/TIME OF EXAM: 05/08/2024 1:08 PM CLINICAL INFORMATION: None relevant/not provided if blank. 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 Referring Physician: Jaqui Colin MD HISTORY: 68-year-old male patient with history of recurrent classical Hodgkin's lymphoma with multiple relapses, status post autologous stem cell transplant on 2021, status post immunotherapy, most recent PET scan from 01/31/2024 revealed disease progression, currently on immunotherapy maintenance. Evaluate for subsequent treatment strategy. TECHNIQUE: 10.6 mCi of F-18 FDG by IV in the right antecubital fossa. PET/CT image acquisition from top of the head to the feet after approximately 60 minutes post-injection with the CT being low-dose, non-contrast. No separate report for the CT was used for attenuation correction and anatomic localization. Blood glucose level at the time of injection was 175 mg/dl. Patient's BMI is 37.9 kg/m . COMPARISON: Multiple priors, most recent FDG PET/CT from 01/31/2024 reviewed. FINDINGS: For reference, SUVmax of liver is 4.8 (previously 5.2). SUV max of mediastinal blood pool is 4.2 (previously 4.2). Head and neck: There is physiological FDG activity throughout the brain parenchyma. No abnormal FDG focus is present. No hypermetabolic or enlarged cervical lymph node is identified. Chest: A right internal jugular accessed central venous catheter, with the tip in junction. There is slight interval increase in FDG uptake of a right paraesophageal lymph node located at the level of noah (SUV max 4.2 versus 3.9). A few other mediastinal lymph nodes in aortopulmonary window and paratracheal/precarinal regions are grossly unchanged or decreased in metabolic activity. For reference, a 1.2 cm short axis precarinal lymph node demonstrates FDG uptake with SUV max 3.3 (4.2 previously). Previously demonstrated FDG avid left hilar lymph node is also slightly decreased in metabolic activity (SUV max 3.4 versus 4.3 previously). A left lower cervical/supraclavicular lymph node is grossly stable in metabolic activity. The lungs are clear of focal consolidation. No pleural effusion or focal pleural thickening is identified. There is no evidence of pneumothorax. No suspicious hypermetabolic pulmonary nodule is identified. The heart size is normal. Coronary atherosclerosis is present. No pericardial effusion is present. Abdomen and pelvis: Redemonstrated heterogenous hypermetabolic foci throughout the spleen, overall with grossly unchanged metabolic activity. For reference, hypermetabolic lesions within the anterior spleen with SUV max of 6.6 (6.8 previously). There is interval increase of metabolic activity of a portocaval lymph node (SUV max 7.7 versus 6.9 previously). Numerous other hypermetabolic retroperitoneal lymph nodes are grossly unchanged in FDG avidity. For reference, conglomerated left paraortic lymph nodes demonstrate SUV max 11.6 (11.5 previously). Numerous photopenic bilateral renal cysts are grossly stable. Within the limitations of a noncontrast examination, the visceral abdominal organs are otherwise unremarkable. There is normal FDG activity throughout the small and large bowel. No free air or free fluid is identified within the abdomen. Atherosclerotic calcification of the abdominal aorta and its branches is identified. Musculoskeletal: No suspicious lytic or blastic lesions are identified. A hypermetabolic focus within the left hip joint is decreased in FDG uptake (SUV max 5.6 versus 9.3 previously) and likely represents synovitis. No abnormal FDG uptake is otherwise seen within the osseous structures. Multilevel degenerative changes throughout the spinal column are identified. There is grossly unchanged skin thickening with increased metabolic activity of the cutaneous soft tissues throughout the left anterior lower leg, likely representing cellulitis. Procedure Note Tod Bruno, DO - 05/08/2024 PROCEDURE: PET CT SKULL TO MID THIGH DATE/TIME OF EXAM: 05/08/2024 1:08 PM CLINICAL INFORMATION: None relevant/not provided if blank. 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 Referring Physician: Jaqui Colin MD HISTORY: 68-year-old male patient with history of recurrent classical Hodgkin's lymphoma with multiple relapses, status post autologous stemcell transplant on 2021, status post immunotherapy, most recent PET scan from 01/31/2024 revealed disease progression, currently on immunotherapy maintenance. Evaluate for subsequent treatment strategy. TECHNIQUE: 10.6 mCi of F-18 FDG by IV in the right antecubital fossa. PET/CT image acquisition from top of the head to the feet after approximately 60 minutes post-injection with the CT being low-dose, non-contrast. No separate report for the CT was used for attenuation correction and anatomic localization. Blood glucose level at the time of injection was 175 mg/dl. Patient's BMI is 37.9 kg/m . COMPARISON: Multiple priors, most recent FDG PET/CT from 01/31/2024 reviewed. FINDINGS: For reference, SUVmax of liver is 4.8 (previously 5.2). SUV max of mediastinal blood pool is 4.2 (previously 4.2). Head and neck: There is physiological FDG activity throughout the brain parenchyma. No abnormal FDG focus is present. No hypermetabolic or enlarged cervicallymph node is identified. Chest: A right internal jugular accessed central venous catheter, with the tipin junction. There is slight interval increase in FDG uptake of a rightparaesophageal lymph node located at the level of noah (SUV max 4.2 versus 3.9). Afew other mediastinal lymph nodes in aortopulmonary window and paratracheal/precarinal regions are grossly unchanged or decreased in metabolic activity. For reference, a 1.2 cm short axis precarinal lymph node demonstrates FDG uptake with SUV max 3.3 (4.2 previously).Previously demonstrated FDG avid left hilar lymph node is also slightly decreasedin metabolic activity (SUV max 3.4 versus 4.3 previously). A left lower cervical/supraclavicular lymph node is grossly stable in metabolic activity. The lungs are clear of focal consolidation. No pleural effusion or focal pleural thickening is identified. There is no evidence of pneumothorax.No suspicious hypermetabolic pulmonary nodule is identified. The heart size is normal. Coronary atherosclerosis is present. No pericardial effusion is present. Abdomen and pelvis: Redemonstrated heterogenous hypermetabolic foci throughout the spleen, overall with grossly unchanged metabolic activity. For reference, hypermetabolic lesions within the anterior spleen with SUV max of 6.6(6.8 previously). There is interval increase of metabolic activity of a portocaval lymphnode (SUV max 7.7 versus 6.9 previously). Numerous other hypermetabolic retroperitoneal lymph nodes are grossly unchanged in FDG avidity. For reference, conglomerated left paraortic lymph nodes demonstrate SUV max 11.6 (11.5 previously). Numerous photopenic bilateral renal cysts are grossly stable. Within the limitations of a noncontrast examination, the visceral abdominal organsare otherwise unremarkable. There is normal FDG activity throughout thesmall and large bowel. No free air or free fluid is identified within the abdomen.Atherosclerotic calcification of the abdominal aorta and its branches is identified. Musculoskeletal: No suspicious lytic or blastic lesions are identified. A hypermetabolic focus within the left hip joint is decreased in FDG uptake (SUV max 5.6 versus 9.3 previously) and likely represents synovitis. No abnormal FDG uptake is otherwise seen within the osseous structures. Multilevel degenerative changes throughout the spinal column are identified. Thereis grossly unchanged skin thickening with increased metabolic activity ofthe cutaneous soft tissues throughout the left anterior lower leg, likely representing cellulitis. IMPRESSION: 1. Redemonstrated numerous hypermetabolic lymph nodes throughout theleft lower neck, mediastinum, left hilum, and abdominopelvic regions as wellas the spleen, many of which are grossly unchanged or slightly decreased in metabolic activity. However, there is slight interval increase of FDG uptake within a few of these regions including a right paraesophageal bo portacaval lymph node. Overall, findings are compatible with mixedresponse to therapy (Deauville 4). 2. Grossly unchanged multiple areas of increased FDG uptake throughoutthe cutaneous soft tissues of left anterior lower leg, likely representing cellulitis. 3. Interval decrease of FDG uptake of a hypermetabolic focus within the left hip joint, likely representing synovitis. Recommend clinical correlation with patient's history and exam findings. This study was dictated by resident inspector Chris Morocho MD and reviewed and edited by the attending. > Dictated by Chris Morocho (Plasterer Helper) 05/08/2024 1:09 PM Tod Gupta DO have personally reviewed and interpreted this examination/study. > Interpreting Provider: Tod Bruno DO on 05/08/2024 3:41 PM Jaqui Colin MD NM ORDERABLES Final Result * (ABNORMAL) ERYTHROCYTE SEDIMENTATION RATE (05/08/2024 12:57 PM LEAD MASON TENDER) Erythrocyte Sedimentation Rate Westergren 22(H) 0 - 20 MM/HR 05/08/2024 1:16 PM [facility] Blood BLOOD SPECIMEN / Unknown Venipuncture / Unknown 05/08/2024 12:57 PM [employer]ON TENDER 05/08/2024 12:58 PM [employer]AD [employer]ON TENDER Jaqui Colin MD LAB - HEMATOLOGY ORDERABLES Fin al Result [facility] [address] [place] [id number] [phone] * (ABNORMAL) CBC W AUTO DIFFERENTIAL (05/08/2024 12:57 PM LEAD MASON TENDER) WBC 6.8 4.0 - 10.7 x10E9/L 05/08/2024 1:03 PM [facility] RBC Count 3.49(L) 4.30 - 5.80 x10E12/L 05/08/2024 1:03 PM [facility] Hemoglobin 10.1(L) 13.3 - 17.5 g/dL 05/08/2024 1:03 PM [facility] Hematocrit 31.0(L) 38.7 - 51.1 % 05/08/2024 1:03 PM [facility] MCV 88.8 80.0 - 98.0 fL 05/08/2024 1:03 PM [facility] MCH 28.9 26.7 - 33.6 pg 05/08/2024 1:03 PM [facility] MCHC 32.6 31.7 - 36.3 g/dL 05/08/2024 1:03 PM [facility] RDW-CV 14.2 11.3 - 14.8 % 05/08/2024 1:03 PM [facility] Platelet Count 251 150 - 420 x10E9/L 05/08/2024 1:03 PM [facility] MPV 8.6 7.8 - 11.4 fL 05/08/2024 1:03 PM [facility] Preliminary Absolute Neutrophil 4.44 1.60 - 7.50 x10E9/L 05/08/2024 1:03 PM [facility] Neutrophil % 65.9 41.0 - 74.0 % 05/08/2024 1:03 PM [facility] Lymphocyte % 16.4(L) 17.0 - 47.0 % 05/08/2024 1:03 PM [facility] Monocyte % 9.6 3.0 - 11.0 % 05/08/2024 1:03 PM [facility] Eosinophil % 6.5 0.0 - 7.0 % 05/08/2024 1:03 PM [facility] Basophil % 0.3 0.0 - 1.6 % 05/08/2024 1:03 PM [facility] Immature Granulocytes % 1.3(H) 0.0 - 1.0 % 05/08/2024 1:03 PM [facility] Neutrophil Absolute 4.44 1.60 - 7.50 x10E9/L 05/08/2024 1:03 PM [facility] Lymphocyte Absolute 1.11 1.00 - 4.40 x10E9/L 05/08/2024 1:03 PM [facility] Monocyte Absolute 0.65 0.15 - 1.00 x10E9/L 05/08/2024 1:03 PM [facility] Eosinophil Absolute 0.44 0.00 - 0.60 x10E9/L 05/08/2024 1:03 PM [facility] Basophil Absolute 0.02 0.00 - 0.13 x10E9/L 05/08/2024 1:03 PM [facility] Blood BLOOD SPECIMEN / Unknown Venipuncture / Unknown 05/08/2024 12:57 PM [employer] 05/08/2024 12:58 PM [employer]AD [employer]ON TENDER us Jaqui Colin MD LAB - HEMATOLOGY ORDERABLES Fin al Result [facility] [address] [place] [address], [facility] [phone] * (ABNORMAL) COMPREHENSIVE METABOLIC PANEL (05/08/2024 12:57 PM LEAD [employer]ON TENDER) BUN 30(H) 7 - 26 mg/dL 05/08/2024 1:28 PM [facility] Creatinine 1.13 0.71 - 1.16 mg/dL 05/08/2024 1:28 PM [facility] Sodium 138 136 - 145 mmol/L 05/08/2024 1:28 PM [facility] Potassium 4.7(H) 3.5 - 4.5 mmol/L 05/08/2024 1:28 PM [facility] Chloride 106 98 - 107 mmol/L 05/08/2024 1:28 PM [facility] CO2 25 22 - 29 mmol/L 05/08/2024 1:28 PM [facility] Glucose 158(H) 70 - 99 mg/dL 05/08/2024 1:28 PM [facility] Calcium 9.6 8.4 - 10.2 mg/dL 05/08/2024 1:28 PM [facility] Protein Total 6.4 6.0 - 8.3 g/dL 05/08/2024 1:28 PM [facility] Albumin 3.9 3.4 - 5.0 g/dL 05/08/2024 1:28 PM [facility] Bilirubin Total 0.7 0.2 - 1.2 mg/dL 05/08/2024 1:28 PM [facility] Alkaline Phosphatase 159(H) 40 - 150 U/L 05/08/2024 1:28 PM [facility] ALT 22 5 - 55 U/L 05/08/2024 1:28 PM [facility] AST 17 5 - 34 U/L 05/08/2024 1:28 PM [facility] Anion Gap 7 6 - 16 05/08/2024 1:28 PM [facility] BUN/Creatinine Ratio 27(H) 7 - 23 05/08/2024 1:28 PM [facility] Osmolality Calculated 295 275 - 295 mOsm/kg 05/08/2024 1:28 PM [facility] Albumin/Globulin Ratio 1.6 1.1 - 2.3 05/08/2024 1:28 PM [facility] eGFR by CKD-EPI 71(L) >=90 mL/min/1.7 3 m2 05/08/2024 1:28 PM [facility] Blood BLOOD SPECIMEN / Unknown Venipuncture / Unknown 05/08/2024 12:57 PM [employer]ON [employer]END[employer] 05/08/2024 12:58 PM [employer] TENDER Jaqui Colin MD LAB - CHEMISTRY ORDERABLES Christine l Result [facility] [address] [place] [address], [facility] [phone] * (ABNORMAL) GLUCOSE SCREEN - POCT (IP) [facility] (05/08/2024 12:40 PM LEAD MASON TENDER) Pathologist [facility] Glucose WB/POC 175(A) 70 - 99 mg/dL [facility] PO[facility] TEST[facility] Blood BLOOD SPECIMEN / Unknown 05/08/2024 12:40 PM LEAD [employer]ON TENDER Jaqui Colin MD LAB - POINT OF CARE ORDERABLES Final Result [facility] PO[facility] TEST[facility] [address] [place] [address], [place] [phone] * (ABNORMAL) HEMOGLOBIN A1C (07/27/2023 1:11 AM CDT) Hemoglobin A1c 6.6(H) <=5.6 % 07/27/2023 9:32 AM T [facility] Estimated Average Glucose 143 mg/dL 07/27/2023 9:32 AM T [facility] Comment: HbA1c Interpretation: Normal : < 5.7% Pre-diabetes: 5.7-6.4% Diabetes: Equal to or greater than 6.5% Test results diagnostic of diabetes should be repeated for confirmation. Treatment target values recommended by ADA and other clinical organizations should be used to evaluate metabolic control in patients. Reference: [place] [employer], Standards of Care in Diabetes -2020 In patients 70 years and older consider HbA1c target range of 7.0-7.5% (Reference: Timothy Hardy, et al. JAMDA. 2012) The Sebia assay for the measurement of HbA1c is a National Glycohemoglobin Standardization Program (NGSP) certified method. Blood BLOOD SPECIMEN / Unknown Venipuncture / Unknown 07/27/2023 1:11 AM CDT 07/27/2023 1:20 AM CDT Kitty Humphries MD LAB - CHEMISTRY ORDERABLES Final Result [address] [address], [facility] [phone] * ENDOSCOPY, COLON, SCREENING (03/10/2021 11:38 AM LEAD MASON TENDER) Report Endoscopy POC Endoscopy Department Report _ Patient Name: Nelson Bond Procedure Date: 03/10/2021 11:38 AM Date of : 1955 Classification: Outpatient Gender: Male Ethnicity: Not or Race: White _ Providers: Simone Mccallum MD, Stanton Louis (Fellow) Referring MD: Gi Pulliam (Referring MD) Procedure: Colonoscopy Indications: High risk colon cancer surveillance: Personal history of colonic polyps Medications: Monitored Anesthesia Care Description of Procedure: Pre-Anesthesia Assessment: - Prior to the procedure, a History and Physical was performed, and patient medications and allergies were reviewed. The patient's tolerance of previous anesthesia was also reviewed. The risks and benefits of the procedure and the sedation options and risks were discussed with the patient. All questions were answered, and informed consent was obtained. Prior Anticoagulants: The patient has taken Xarelto (rivaroxaban), last dose was 3 days prior to procedure. ASA Grade Assessment: III - A patient with severe systemic disease. After reviewing the risks and benefits, the patient was deemed in satisfactory condition to undergo the procedure. After I obtained informed consent, the scope was passed under direct vision. Throughout the procedure, the patient's blood pressure, pulse, and oxygen saturations were monitored continuously. The PCF-[id number] was introduced through the anus and advanced to the cecum, identified by appendiceal orifice and ileocecal valve. The colonoscopy was somewhat difficult due to inadequate bowel prep. Successful completion of the procedure was aided by applying abdominal pressure. The patient tolerated the procedure well. The quality of the bowel preparation was evaluated using the BBPS (Laughlin Bowel Preparation Scale) with scores of: Right Colon = 2 (minor amount of residual staining, small fragments of stool and/or opaque liquid, but mucosa seen well), Transverse Colon = 2 (minor amount of residual staining, small fragments of stool and/or opaque liquid, but mucosa seen well) and Left Colon = 2 (minor amount of residual staining, small fragments of stool and/or opaque liquid, but mucosa seen well). The total BBPS score equals 6. The quality of the bowel preparation was inadequate. The ileocecal valve, appendiceal orifice, and rectum were photographed. Findings: The perianal and digital rectal examinations were normal. Four sessile polyps were found in the transverse colon, ascending colon and cecum. The polyps were 3 to 5 mm in size. These polyps were removed with a jumbo cold forceps. Resection and retrieval were complete. Verification of patient identification for the specimen was done by the nurse using the patient's name and date. Estimated blood loss was minimal. Five sessile polyps were found in the transverse colon, ascending colon and cecum. The polyps were 6 to 8 mm in size. These polyps were removed with a cold snare. Resection and retrieval were complete. Verification of patient identification for the specimen was done by the nurse using the patient's name and date. Estimated blood loss was minimal. A 10 mm polyp was found in the sigmoid colon. The polyp was pedunculated. The polyp was removed with a cold snare. Resection and retrieval were complete. Verification of patient identification for the specimen was done by the nurse using the patient's name and date. Estimated blood loss was minimal. Semi-liquid stool was found in the entire colon, interfering with visualization. The retroflexed view of the distal rectum and anal verge was normal and showed no anal or rectal abnormalities. Estimated Blood Loss: Estimated blood loss was minimal. Complications: No immediate complications. Impression: - Preparation of the colon was inadequate. - Four 3 to 5 mm polyps in the transverse colon, in the ascending colon and in the cecum, removed with a jumbo cold forceps. Resected and retrieved. - Six 6 to 8 mm polyps in the transverse colon, in the ascending colon, in the cecum and the sigmoid, removed with a cold snare. Resected and retrieved. - Stool in the entire examined colon. - The distal rectum and anal verge are normal on retroflexion view. Recommendation: - Patient has a contact number available for emergencies. The signs and symptoms of potential delayed complications were discussed with the patient. Return to normal activities tomorrow. Written discharge instructions were provided to the patient. - Resume Xarelto tomorrow 03/11/2021 - Continue present medications. - Await pathology results. - Repeat colonoscopy in 3 years for surveillance with extended preparation, as the patient was not clear with two days prep. - Return to referring physician as previously scheduled. Attending Participation: I was present and participated during the entire procedure, including non-banegas portions. Procedure Code(s): --- Professional --- 62668, Colonoscopy, flexible; with removal of tumor(s), polyp(s), or other lesion(s) by snare technique 26355, 59, Colonoscopy, flexible; with biopsy, single or multiple Diagnosis Code(s): --- Professional --- K63.5, Polyp of colon Z86.010, Personal history of colonic polyps CPT copyright 2019 [place] [employer]. All rights reserved. The codes documented in this report are preliminary and upon medical records coder review may be revised to meet current compliance requirements. Simone Mccallum MD 03/10/2021 1:43:34 PM This report has been signed electronically. Note Initiated On: 03/10/2021 11:38 AM Number of Addenda: [address] [address] [facility] 03/10/2021 11:3 8 AM LEAD MASON TENDER us Stanton Louis MD GI PROCEDURE ORDERABLES Edited R esult - Final Performing Organization Address [facility] Co de Phone Number [facility] * HEPATITIS C ANTIBODY (02/24/2021 11:55 AM LEAD MASON TENDER) Hepatitis C Antibody Non-react marcy Non-reac tive 02/24/2021 1:11 PM LEAD MASON TENDER [facility] Comment:Hepatitis C Antibody screen indicates no serologic evidence of past or current infection with Hepatitis C Virus. Patients with unexplained liver disease who are immunocompromised or suspected of having acute Hepatitis C infection may benefit from Nucleic Acid Test (AJ) for Hepatitis C Viral RNA to confirm Hepatitis C status. Blood BLOOD SPECIMEN / Unknown Venipuncture / Unknown 02/24/2021 11:55 AM LEAD MASON TENDER 02/24/2021 12:03 PM LEAD MASON TENDER us Jaqui Colin MD LAB - CHEMISTRY ORDERABLES Christine l Result Performing Organization Address [facility]/ZIP Co de Phone Number [address] [address], [facility] [phone] from Last 3 Months or Most Recently Relevant to Health Maintenance Insurance [facility] MANAGED MEDICARE ADV Advance Directives Documents on File Type Date Recorded Patient Document Improvement Specialist Expl anation Adv Directive/Living Will/POA 06/22/2021 6:30 PM * Full Code (Latest Code Status on File) Date Activated Date Inactivated Comments 07/26/2023 6:13 PM 07/28/2023 3:20 PM * Full Code Date Activated Date Inactivated Comments 04/27/2021 5:45 PM 05/16/2021 7:48 PM * Full Code Date Activated Date Inactivated Comments 12/10/2020 10:15 PM 12/19/2020 4:23 PM * Full Code Date Activated Date Inactivated Comments 10/15/2020 6:25 PM 10/24/2020 11:57 AM * Full Code Date Activated Date Inactivated Comments 10/01/2020 2:23 PM 10/15/2020 6:04 PM Care Teams [employer] Farm Laborer Relationship Specialty Start Date End Date Gi Pulliam MD [address] [address] PCP - General Family Medicine 10/17/18 Sea Humphries MD [address] [address] Referring Physician Medical Oncology 02/19/20 Jaqui Colin MD [address] DIV OF HEMATOLOGY & [place] [address] Hematology and Oncology 02/19/20 Janene Arriaga MD [address] DIV OF HEMATOLOGY & [place] [address] Hematology and Oncology 02/19/20 Federico Garcia MD [address] DIV OF HEMATOLOGY & [place] [address] Hematology and Oncology 02/19/20 Vijaya Ulrich, PharmD 02/19/20 Val Pisano RN 02/19/20 Rina Argueta 02/19/20 Ayanna Winkler SOAP WORKER-HEEL ROOM SUPERVISOR Family Medicine 02/19/20 Aditi Ladd, [facility] Loan Expeditor 02/19/20 Kaia Munroe SOAP WORKER-HEEL ROOM SUPERVISOR [address] DIV OF HEMATOLOGY & [place] [address] Advance Practice Nurse Family Medicine 08/05/20 Kassandra Richard, RN Registered Nurse 03/27/21 Doris Munguia, RN Registered Nurse 06/03/21
--- OUTSIDE RECORDS SUMMARY | 2024-07-13 11:18 | XMS_ITS | Encounter Summary ---
Author Organization [facility] Address [address] [place] [address] Care Team Providers Care Avionics Installer Name Role Phone Gi Pulliam MD Primary Care Provider [phone] Taylor Ball RN Unavailable [phone] Tomás Howell MD Unavailable Jaqui Colin MD Unavailable Jose C Ramos MD Unavailable [phone] Sea Humphries MD Unavailable [phone] Encounter Details Date Type Department Care Team (Late st Contact Info) Description 01/13/2018 Abstract [facility] Family Medicine [facility] [address] [place] [address] Gi Pulliam MD [address] [place] [id number] Social History Tobacco Use Types Packs/Day Years Used Date Smoking Tobacco: Never Smokeless Tobacco: Never Alcohol Use Standard Drinks/Week Comments No 0 (1 standard drink = 0.6 oz pur e alcohol) AUDIT-C Answer Date Recorded Frequency of Alcohol Consumption Never 11/22/2017 Average Number of Drinks Not on file 018 Frequency of Binge Drinking Not on file 11/05 Sex and Gender Information Value Date Recorded Sex Assigned at Male 11/22/2017 9:54 PM CDT Legal Sex Male 8:08 PM CDT Gender Identity Male 11/22/2017 9:54 PM CDT Sexual Orientation Straight 11/22/2017 9: 54 PM CDT documented as of this encounter Plan of Treatment Upcoming Encounters Date Type Department Care Team (Late st Contact Info) Description 08/30/2024 2:40 PM CDT Office Visit [facility] Family Medicine [facility] [address] [place] [phone] Gi Pulliam MD [address] [place] [address] documented as of this encounter Visit Diagnoses Not on filedocumented in this encounter Additional Health Concerns Infection Onset Date Last Indicated Resolved Time COVID-19 Rule Out 01/25/2020 01/25/2020 01/30/2020 9:30 AM ANGLE ROLL OPERATOR COVID-19 Rule Out 01/22/2022 01/22/2022 01/22/2022 9:10 PM ANGLE ROLL OPERATOR Influenza - Seasonal 01/22/2022 01/22/2022 023 12:33 AM ANGLE ROLL OPERATOR COVID-19 Rule Out 03/05/2023 03/05/2023 03/05/2023 5:49 PM ANGLE ROLL OPERATOR COVID-19 Rule Out 03/07/2023 03/07/2023 03/08/2023 9:02 AM ANGLE ROLL OPERATOR Parainfluenza 03/07/2023 03/07/2023 03/17/2023 12: 32 AM ANGLE ROLL OPERATOR documented as of this encounter Care Teams Avionics Installer Relationship Specialty Start Date End Date Gi Pulliam MD PCP - General FAMILY PRACTICE 08/02/17 Taylor Ball, RN [address] [place] [address] Replanter (Ambulatory) REGISTERED NURSE 05/19/21 Tomás Howell MD [address] [place] [address] UROLOGY 01/24/24 Jaqui Colin MD [address] [facility] [place] [address] Gynecologic Oncology 01/24/24 Jose C Ramos MD [address] [facility] [address] [place] [address] Consulting Physician UROLOGY 03/12/24 Sea Humphries MD [address] [facility] [address] [place] [address] HEMATOLOGY/ONCOLOGY 03/12/24 documented as of this encounter
--- OUTSIDE RECORDS SUMMARY | 2024-07-13 11:18 | XMS_ITS | Encounter Summary ---
Author Organization [facility] Address [facility] [place] [address] Care Team Providers Care Therapist Radiation Name Role Phone Gi Pulliam MD Primary Care Provider [phone] Sea Humphries MD Unavailable [phone] Jaqui Colin MD Unavailable [phone] Janene Arriaga MD Unavailable [phone] Federico Garcia MD Unavailable [phone] Vijaya Ulrich PharmD Unavailable Unavaila Val Licea RN Unavailable Unavailable [facility] Mccloud Unavailable Letty vailable Cathi, Ayanna John GEOTHERMAL HEAT PUMP MACHINIST-PRODUCT REPRESENTATIVE Unavailable [phone] Aditi Ladd LCSW Unavailable Unavailab Kaia Agee GEOTHERMAL HEAT PUMP MACHINIST-PRODUCT REPRESENTATIVE Unavailable [phone] Kassandra Richard RN Unavailable Unavaila Doris Sandy RN Unavailable Unavailable Reason for Visit * Reason Comments Refill Request Encounter Details Date Type Department Care Team (Late st Contact Info) Description 11/27/2022 Refill [facility] - Hematology/Oncology [address] [place] [address] Jaqui Colin MD [address] [place] [address] OF HEMATOLOGY [place] [address] Refill Request Social History Tobacco Use Types Packs/Day Years Used Date Smoking Tobacco: Never Smokeless Tobacco: Never Alcohol Use Standard Drinks/Week Comments No 0 (1 standard drink = 0.6 oz pur e alcohol) AUDIT-C Answer Date Recorded Q1: How often do you have a drink containing alc ohol? Never 04/27/2021 Average Number of Drinks Not on file 022 Frequency of Binge Drinking Not on file 04/08 Sex and Gender Information Value Date Recorded Sex Assigned at Not on file Legal Sex Male 8:20 PM CDT Gender Identity Male 09/05/2023 9:57 AM CDT Sexual Orientation Not on file documented as of this encounter Functional Status * Is person deaf or have serious hearing difficulty? Answer Date of Assessment Author No 05/16/2021 4:55 PM Parmjit Bell RN * Is person blind or have serious difficulty seeing? Answer Date of Assessment Author No 05/16/2021 4:55 PM Parmjit Bell RN * Does person have serious difficulty walking/climbing stairs? Answer Date of Assessment Author No 05/16/2021 4:55 PM Parmjit Bell RN * Does person have difficulty dressing/bathing? Answer Date of Assessment Author No 05/16/2021 4:55 PM Parmjit Bell RN * Does person have difficulty doing errands alone? Answer Date of Assessment Author Yes 05/16/2021 4:55 PM Parmjit Bell RN documented as of this encounter Mental Status * Does person have difficulty concentrating/remembering/making decisions? Answer Entry Date Author No 05/16/2021 4:55 PM Parmjit Bell RN documented in this encounter Plan of Treatment Upcoming Encounters Date Type Department Care Team (Late st Contact Info) Description 09/11/2024 12:45 PM CDT Appointment [facility] [address] [place] [address] Jaqui Colin MD [address] [place] [address] OF HEMATOLOGY [place] [address] 09/11/2024 1:45 PM CDT Appointment [facility] [address] [place] [phone] Jaqui Colin MD [address] [facility] OF HEMATOLOGY [place] [address] 09/11/2024 3:00 PM CDT Office Visit [facility] - Hematology/Oncology [address] [place] [address] Jaqui Colin MD [address] [facility] OF HEMATOLOGY [place] [address] documented as of this encounter Goals Goal Patient Goal Type Associated Problems Recent Progress Patient-Stated? Author Medication Management General On track( 021 9:57 AM BAG SEWER) Mercedes Minor, RN Note: Expected end date: ongoing Interventions: Take all medications as prescribed documented as of this encounter Visit Diagnoses Not on filedocumented in this encounter Care Teams Therapist Radiation Relationship Specialty Start Date End Date Gi Pulliam MD [address] [place] [address] PCP - General Family Medicine 10/17/18 Sea Humphries MD [address] [place] [address] Referring Physician Medical Oncology 02/19/20 Jaqui Colin MD [address] [facility] OF HEMATOLOGY [place] [address] Hematology and Oncology 02/19/20 Janene Arriaga MD [address] [facility] OF HEMATOLOGY [place] [address] Hematology and Oncology 02/19/20 Federico Garcia MD [address] OF HEMATOLOGY [place] [address] Hematology and Oncology 02/19/20 Vijaya Ulrich, PharmD 02/19/20 Val Pisano, RN 02/19/20 Rina Argueta 02/19/20 Ayanna Winkler APRN-PRODUCT REPRESENTATIVE Family Medicine 02/19/20 Aditi Ladd, [facility] Chief Engineer Drilling And Recovery 02/19/20 Kaia Munroe GEOTHERMAL HEAT PUMP MACHINIST-PRODUCT REPRESENTATIVE [address] OF HEMATOLOGY [place] [address] Advance Practice Nurse Family Medicine 08/05/20 Kassandra Richard, RN Registered Nurse 03/27/21 Doris Munguia, RN Registered Nurse 06/03/21 documented as of this encounter
--- OUTSIDE RECORDS SUMMARY | 2024-07-13 11:18 | XMS_ITS ---
Author Organization [facility] Address [address] [place] [address] Care Team Providers Care Chief Environmental Commitment Officer Name Role Phone Gi Pulliam MD Primary Care Provider [phone] Sea Humphries MD Unavailable [phone] Jaqui Colin MD Unavailable [phone] Janene Arriaga MD Unavailable [phone] Federico Garcia MD Unavailable [phone] Vijaya Ulrich PharmD Unavailable Unavaila Val Licea RN Unavailable Unavailable AmadorRina Pineda Unavailable Letty vailable Cathi, Ayanna John FABRICATION LEAD-CLAIM PROCESSOR Unavailable [phone] Aidti Ladd LCSW Unavailable Unavailab Kaia Agee FABRICATION LEAD-CLAIM PROCESSOR Unavailable Kassandra Richard RN Unavailable Unavaila Doris Sandy RN Unavailable Unavailable Active Problems Problem Noted Date Diagnosed Date Hodgkin lymphoma, unspecifie d Hodgkin lymphoma type, unspecified body region 07/19/2023 BMI 40.0-44.9, adult 05/05/2023 Dyslipidemia 05/05/2023 History of auto stem cell transplant 05/26/2022 Colon adenomas 03/10/2021 Overview (03/10/2021): 11/15/16 colonoscopy ([facility]): polyps per patient 03/10/21 colonoscopy: multiple diminutive [...] type II Overview (09/21/2020): last A1C 08/2018 Current Treatment and Therapy Plans No current plan information found. Past Treatment and Therapy Plans ONCOLOGY ADJUNCTIVE CARE Plan Name Start Date Discontinue Date Treatment Medications Discontinue Reason Plan Provider Cycles BMT MOBILIZATION + COLLECTION - AUTOLOGOUS HPC APHERESIS (FILGRASTIM + PLERIXAFOR) 2 06/17/2021 No medications scheduled. Therapy Complete Jaqui Colin MD 3 of 3 cycles started BMT MOBILIZATION + COLLECTION - AUTOLOGOUS HPC APHERESIS (FILGRASTIM + PLERIXAFOR) 03/11/2021 03/22/2021 No medications scheduled. Not Started Jaqui Colin MD 3 of 3 cycles started ONCOLOGY TREATMENT Plan Name Start Date Discontinue Date Treatment Medications Discontinue Reason Plan Provider Cycles LYMPHOMA (NIVOLUMAB) Q14 DAYS 07/19/19 24 10/26/2023 nivolumab (Opdivo) infusion Patient Preference Jaqui Colin MD 7 of 13 cycles started ANAPLASTIC LYMPHOMA OR HODGKINS (BRENTUXIMAB) Q21 DAYS 07/01/19 22 07/05/2023 brentuximab vedotin (Adcetris) Infusion Therapy Complete Jaqui Colin MD 8 of 16 cycles started BMT CONDITIONING [id number] SCHEMA A - (BEAM) CARMUSTINE + ETOPOSIDE + CYTARABINE + MELPHALAN 05/04/19 22 06/17/2021 carmustine (BCNU) Infusioncytarabine (Cytosar) Infusionetoposide (Vepesid) 1250 mL infusionmelphalan (Alkeran) infusion Therapy Complete Jaqui Colin MD 2 of 2 cycles started LYMPHOMA OR HODGKINS (BRENTUXIMAB) Q21 DAYS 12/02/19 21 04/16/2021 brentuximab vedotin (Adcetris) Infusion Therapy Complete Jaqui Colin MD 5 of 16 cycles started HODGKINS (Pembrolizumab GEMCITABINE VINORELBINE DOXORUBICIN LIPOSOMAL) Q21 DAYS - TRANSPLANT NAIVE 07/22/19 21 11/19/2020 DOXOrubicin liposomal (Doxil)DOXOrubicin liposomal (Doxil) infusion </= 90 mggemcitabine (Gemzar)gemcitibine (Gemzar) infusion (38 mg/ml)pembrolizumab (Keytruda) InfusionvinORELbine (Navelbine) infusion Not Tolerated Jaqui Colin MD 1 of 2 cycles started HODGKINS (DOXORUBICIN BLEOMYCIN VINBLASTINE DACARBAZINE) Q28 DAYS (ABVD) 12/06/19 19 07/08/2020 dacarbazine (DTIC) infusionDOXOrubicin (Adriamycin)vinBLASti ne (Velsar) Infusion Therapy Complete Carolin Nguyen MD 5 of 6 cycles started THERAPY PLAN Plan Name Start Date Discontinue Date Treatment Medications Discontinue Reason Plan Provider BMT [facility] SUPPORTIVE CARE [facility] USE ONLY 06/16/2020 07/05/2023 No medications scheduled. Therapy Complete Ayanna Winkler, AALIYAH Lifetime Dose Tracking * Chemical Lifetime Dose Automatic Entry Manual Entr y Doxorubicin 278.358 mg/m2 (760 mg) 278.358 mg/m2 (760 mg) 0 mg/m2 (0 mg) Dose Length Product 26,051.94 mGy-cm 26,051.94 mGy-cm 0 mGy-cm Resolved Problems Problem Noted Date Diagnosed Date [...]
--- OUTSIDE RECORDS SUMMARY | 2024-07-13 11:18 | XMS_ITS | Encounter Summary ---
Author Organization [facility] Address [facility], [facility] [place] [address] Care Team Providers Care Cytotechnologist Supervisor Name Role Phone Gi Pulliam MD Primary Care Provider [phone] Taylor Ball RN Unavailable [phone] Tomás Howell MD Unavailable Jaqui Colin MD Unavailable Jose C Ramos MD Unavailable [phone] Sea Humphries MD Unavailable [phone] Encounter Details Date Type Department Care Team (Latest Contact Info) Description 11/21/2017 Abstract [facility] Slim Frank MD Social History Tobacco Use Types Packs/Day Years Used Date Smoking Tobacco: Never Assessed AUDIT-C Answer Date Recorded Frequency of Alcohol [...] PM CDT documented as of this encounter Functional Status documented as of this encounter Plan of Treatment Upcoming Encounters Date Type Department Care Team ( Contact Info) Description 08/30/2024 2:40 PM CDT Office Visit [facility] Family Medicine [place] [phone] Gi Pulliam MD [address] [place] [address] documented as of this encounter Visit Diagnoses Not on filedocumented in this encounter Additional Health Concerns Infection Onset Date Last Indicated Resolved Time COVID-19 Rule Out 01/25/2020 01/25/2020 01/30/2020 9:30 AM MOLDER APPRENTICE COVID-19 Rule Out 01/22/2022 01/22/2022 01/22/2022 9:10 PM MOLDER APPRENTICE Influenza - Seasonal 01/22/2022 01/22/2022 023 12:33 AM MOLDER APPRENTICE COVID-19 Rule Out 03/05/2023 03/05/2023 03/05/2023 5:49 PM MOLDER APPRENTICE COVID-19 Rule Out 03/07/2023 03/07/2023 03/08/2023 9:02 AM MOLDER APPRENTICE Parainfluenza 03/07/2023 03/07/2023 03/17/2023 12: 32 AM MOLDER APPRENTICE documented as of this encounter Care Teams Cytotechnologist Supervisor Relationship Specialty Start Date End Date Gi Pulliam MD PCP - General FAMILY PRACTICE 08/02/17 Taylor Ball RN [address] [place], [place] [address] Dealer Development Manager (Ambulatory) REGISTERED NURSE 05/19/21 Tomás Howell MD [address] [place] [address] UROLOGY 01/24/24 Jaqui Colin MD [address] OF HEMATOLOGY & [place] [address] Gynecologic Oncology 01/24/24 Jose C Ramos MD [address] [place] [address] Consulting Physician UROLOGY 03/12/24 Sea Humphries MD [address] [facility] [address] [place] [address] HEMATOLOGY/ONCOLOGY 03/12/24 documented as of this encounter
--- OUTSIDE RECORDS SUMMARY | 2024-07-13 11:18 | XMS_ITS ---
Author Organization [facility] Address [address] [facility] [address] [place], [place] [id number] Care Team Providers Care Commercial Pest Control Representative Name Role Phone LAURENCE BRANCH Unavailable [phone] Gi Pulliam Unavailable Unavailable REASON FOR VISIT *General care Encounters Encounter Location Date Provider Diagnosis [facility] [place] [address] [id number] 03/12/2024 LAURENCE BRANCH Plan Of Treatment Next Appt Details Provider Name:LAURENCE BRANCH, 02:40:00 PM, [address], [facility], [place], [place], [id number], Progress Notes * LINDA TAPIA RDOB: (68 yo M)Acc No.[id number]:03/12/2024 Patient: Tiara LINDA BONILLA Provider: Jaqui Branch DPM :1955 A ge:68 Y S ex:Male Date:03/12/2024 Address:[address] [place], [place] [id number] Subjective: * Chief Complaints: * 1 . *General care. * Medical History: Objective: * Vitals: Assessment: Plan: * Treatment: * Billing Information: * Visit Code: * Procedure Codes: * Electronic signature of LAURENCE BRANCH DPM on 07/13/2024 at 11:17 AM CDT Sign off status: Pending * Provider: Jaqui Branch DPM Date: 0 03/12/2024 Generated for Angel mckeon/Allyssa/Jyoti on: 0 07/13/2024 11:17 AM CDT
--- OUTSIDE RECORDS SUMMARY | 2024-07-13 11:18 | XMS_ITS | Encounter Summary ---
Author Organization [facility] Address [address] [facility] [place] [address] Care Team Providers Care Airframe Technical Officer Name Role Phone Gi Pulliam MD Primary Care Provider [phone] Sea Humphries MD Unavailable [phone] Kael Negron MD Unavailable [phone] Jaqui Colin MD Unavailable [phone] Janene Arriaga MD Unavailable [phone] Federico Garcia MD Unavailable [phone] Vijaya Ulrich PharmD Unavailable Unavaila Chandler Avila PharmD Unavailable Unavailab Val Lenz RN Unavailable Unavailable Elaine Poole RN Unavailable Unavailab Rina Trinidad Unavailable Letty vailable Cathi, Ayanna John OPTIMIZATION SPECIALIST-INVESTIGATIVE ASSISTANT Unavailable [phone] Yadi Dean RN Unavailable Unavailable Nicole Ramos RN Unavailable Unavailable Loreto Oliveros RN Unavailable UnavailAditi Marin LCSW Unavailable Unavailab Kaia Agee OPTIMIZATION SPECIALIST-INVESTIGATIVE ASSISTANT Unavailable [phone] Kassandra Richard RN Unavailable Unavaila ble Ezra, Doris J RN Unavailable Unavailable Encounter Details Date Type Department Care Team (Late Contact Info) Description 12/19/2018 Lab Requisition [facility] Care Pathology Lab [address] [place] [address] Roni Smallwood MD [address] [place] [address] Social History Tobacco Use Types Packs/Day Years [...] Encounters Date Type Department Care Team (Late Contact Info) Description 09/11/2024 12:45 PM CDT Appointment [facility] [address] [place] [address] Jaqui Colin MD [address] [place] [address] OF HEMATOLOGY [place] [address] 09/11/2024 1:45 PM CDT Appointment [facility] [address] [place] [address] Jaqui Colin MD [address] [place] [address] OF HEMATOLOGY [place] [address] 09/11/2024 3:00 PM CDT Office Visit [facility] - Hematology/Oncology [address] [place] [address] Jaqui Colin MD [address] [place] [address] OF HEMATOLOGY [place] [address] documented as of this encounter Procedures Procedure Name Priority Date/Time Associated Diagnosis Comments FLOW CYTOMETRY BLOOD PROFILE Routine 12/19/2018 12:05 PM CDT documented in this encounter Results * FLOW CYTOMETRY BLOOD PROFILE (12/19/2018 12:05 PM CDT) Case Report Flow Cytometry Case: [id number] Authorizing Provider: Roni Smallwood MD Collected: 12/19/2018 12:05 PM Ordering Location: [facility] Pathology Lab Received: 12/19/2018 02:51 PM Pathologist: Aurelia Sorto MD Specimen: Blood 9:08 AM CDT [facility] Final Diagnosis Peripheral blood, fl ow cytometric immunophenotypic analysis: - No evidence of non-Hodgkin lymphoma or high-grade myeloid neoplasm. - See interpretation. 9:08 AM T [facility] Flow Cytometry Results Differential Result Comment WBC Count /uL 3,700 Total Viability % 100.0 Lymphocytes % 71 Dim CD45 Region % 4 Monocytes % 12 Granulocytes % 13 9:08 AM CDT [facility] Flow Cytometry Interpretation The peripheral blood specimen has a viability of 100%. The lymphocyte gate is relatively expanded. Within this region, there is no monotypic B-cell population identified (kappa: lambda ratio = 1.1:1). There is no immunophenotypically aberrant T-cell population seen (CD4:CD8 ratio = 4:1). There is no significant blast population identified. A peripheral blood smear prepared from the flow cytometry specimen is reviewed for senior quality analyst purposes. Overall, the peripheral blood specimen shows no evidence of involvement by a non-Hodgkin lymphoma or a high-grade myeloid neoplasm. Correlation with clinical findings is required. KR/MM 9:08 AM CDT [facility] Reason for test Lymphocytosis 9:08 AM CDT [facility] Client Specimen ID # [id number] 9:08 AM T [facility] Disclaimer Test performed at [facility], [address] [place] [address], [address]. *The established laboratory minimum viability is 70%. [...] qualified to perform high complexity clinical testing. 9 9:08 AM CDT [facility] Embedded Images 9 9:08 AM CDT [facility] Number of markers 16 were performed. A-2 Flow CD10 A-3 Flow CD13 A-5 Flow CD20 A-11 Flow CD2 A-12 Flow CD4 A-15 Flow CD1a A-1 Flow CD5 A-4 Flow CD19 A-6 Flow CD33 A-7 Flow CD34 A-8 Flow CD45 A-13 Flow CD7 A-14 Flow CD8 A-16 Flow CD30 A-9 [place]+CD19+ A-10 Lambda+CD19+ 9 9:08 AM CDT [facility] Blood BLOOD SPECIMEN / Unknown 12/19/2018 12:05 PM CDT 12/19/2018 2:51 PM CDT us Imaad Anson Smallwood MD LAB - PATHOLOGY/CYTOLOGY ORD ERABLES Final Result Performing Organization Address City/State/[facility] Co de Phone Number [facility] [address] [phone] documented in this encounter Visit Diagnoses Not on filedocumented in this encounter Additional Health Concerns Infection Onset Date Last Indicated Resolved Time COVID-19 Under Investigation 09/15/2020 09/15/2020 09/15/2020 9:18 PM CDT COVID-19 Under Investigation 12/10/2020 12/10/2020 12/11/2020 4:17 AM CDT COVID-19 Confirmed 03/12/2021 04/02/2021 4:33 AM APPLICATION MANAGER COVID-19 Under Investigation 03/19/2021 03/19/2021 03/19/2021 4:42 PM APPLICATION MANAGER COVID-19 Under Investigation 04/14/2021 04/14/2021 04/25/2021 4:33 AM APPLICATION MANAGER COVID-19 Under Investigation 09/29/2021 09/29/2021 09/29/2021 8:59 PM CDT documented as of this encounter Care Teams Airframe Technical Officer Relationship Specialty Start Date End Date Gi Pulliam MD [address] [place] [address] PCP - General Family Medicine 10/17/18 Sea Humphries MD [address] [place] [address] Referring Physician Medical Oncology 02/19/20 Kael Negron MD [address] [place] [address] Hematology and Oncology 02/19/20 03/26/21 Jaqui Colin MD [address] DIV OF HEMATOLOGY [place] [address] Hematology and Oncology 02/19/20 Janene Arriaga MD [address] DIV OF HEMATOLOGY & [place] [address] Hematology and Oncology 02/19/20 Federico Garcia MD [address] DIV OF HEMATOLOGY & [place] [address] Hematology and Oncology 02/19/20 Vijaya Ulrich, PharmD 02/19/20 Chandler Rosario, MartD Pharmacist 02/19/20 11/25/20 Val Pisano RN 02/19/20 Elaine Poole RN 02/19/20 11/25/20 Rina Argueta 02/19/20 Ayanna Winkler, OPTIMIZATION SPECIALIST-INVESTIGATIVE ASSISTANT Family Medicine 02/19/20 Yadi Dean, RN Registered Nurse 02/19/20 03/26/21 Nicole Ramos, RN Registered Nurse 02/19/20 11/25/20 Loreto Oliveros, RN Registered Nurse 02/19/20 11/25/20 Aditi Ladd, [facility] Skiver Counter 02/19/20 Kaia Munroe, OPTIMIZATION SPECIALIST-INVESTIGATIVE ASSISTANT [address] [facility] [place] [address] Advance Practice Nurse Family Medicine 08/05/20 Kassandra Richard, RN Registered Nurse 03/27/21 Doris Munguia, RN Registered Nurse 06/03/21 documented as of this encounter
--- OUTSIDE RECORDS SUMMARY | 2024-07-13 11:18 | XMS_ITS | Clinical Summary ---
Author Organization [facility] Address [address] [place] [address] Care Team Providers Care Supply Chain Planner Name Role Phone Gi Pulliam MD Primary Care Provider [phone] Allergies Active Allergy Reactions Criticality Noted Date Comments Codeine Nausea And Vomiting,Nausea Only High 02/21/2015 Other reaction(s): Dizziness Medications amLODIPine (NORVASC) 10 MG tablet Take 1 tablet (10 mg total) by mouth daily. 30 tablet 10/24/2020 Active atorvastatin (LIPITOR) 40 MG tablet Take 1 tablet (40 mg total) by mouth daily. 30 tablet 10/24/2020 Active furosemide (LASIX) 20 MG tablet Take 1 tablet (20 mg total) by mouth 2 (two) times a day before meals. 60 tablet 10/23/2020 Active hydrALAZINE (APRESOLINE) 25 MG tablet Take 1 tablet (25 mg total) by mouth every 8 (eight) hours. 90 tablet 10/23/2020 Active insulin lispro 100 UNIT/ML injection Inject 30 Units under the skin 3 (three) times a day before meals. 10 mL 10/23/2020 Active insulin glargine (LANTUS) 100 UNIT/ML injection Inject 45 Units under the skin 2 (two) times a day. 10 mL 10/23/2020 Active lisinopril (ZESTRIL) 40 MG tablet Take 1 tablet (40 mg total) by mouth daily. 30 tablet 10/24/2020 Active melatonin (SM Melatonin) tablet Take 2 tablets (6 mg total) by mouth nightly. 0 10/23/2020 Active metoprolol tartrate (LOPRESSOR) 50 MG tablet Take 1 tablet (50 mg total) by mouth 2 (two) times a day. 60 tablet 10/23/2020 Active polyethylene glycol (MIRALAX) 17 g packet Take 17 g by mouth nightly. 10 each 10/23/2020 Active potassium chloride (KLOR-CON) 20 MEQ CR tablet Take 1 tablet (20 mEq total) by mouth daily. 30 tablet 10/24/2020 Active rivaroxaban (XARELTO) tablet Take 1 tablet (20 mg total) by mouth daily with dinner. 30 tablet 10/23/2020 Active thiamine (thiamine) 100 MG tablet Take 1 tablet (100 mg total) by mouth daily. 30 tablet 10/24/2020 Active valACYclovir (VALTREX) 500 MG tablet Take 1 tablet (500 mg total) by mouth 2 (two) times a day. 0 10/23/2020 Active Active Problems Problem Noted Date Diagnosed Date Encephalopathy 10/15/2020 Hodgkin lymphoma 10/15/2020 Essential hypertension 10/15/2020 Hyperlipidemia 10/15/2020 Neuropathy 10/15/2020 Atrial fibrillation 10/15/2020 Wernicke's encephalopathy 10/15/2020 Resolved Problems Problem Noted Date Diagnosed Date Resolved Date Meningitis 10/15/2020 10/15/2020 Family History Medical History Relation Name Comments Cancer Mother Diabetes Mother Relation Name Status Comments Mother Social History Tobacco Use Types Packs/Day Years Used Date Smoking Tobacco: Never Alcohol Use Standard Drinks/Week Comments Not Currently 0 (1 standard drink = 0.6 oz pur e alcohol) Sex and Gender Information Value Date Recorded Sex Assigned at Not on file Legal Sex Male 11:52 AM EDT Gender Identity Not on file Sexual Orientation Not on file Last Filed Vital Signs Vital Sign Reading Time Taken Comments Blood Pressure 121/58 10/24/2020 8:22 AM CDT Pulse 67 10/24/2020 8:22 AM CDT Temperature 37.1 C (98.7 F) 10/23/2020 7:25 PM CDT Respiratory Rate 18 10/23/2020 7:25 PM CDT Oxygen Saturation 95% 10/23/2020 7:25 PM CDT Inhaled Oxygen Concentration - - Weight 133.8 kg (295 lb) 10/19/2020 9:08 AM CDT Height 185.4 cm (6' 1 ) 10/15/2020 6:23 PM CDT Body Mass Index 38.92 10/15/2020 6:23 PM CDT Plan of Treatment Not on file Advance Directives * Full Resuscitation (Latest Code Status on File) Date Activated Date Inactivated Comments 10/15/2020 7:16 PM 10/24/2020 2:56 PM Care Teams Supply Chain Planner Relationship Specialty Start Date End Date Gi Pulliam MD [address] [place] [address] PCP - General Family Medicine 10/15/20
--- OUTSIDE RECORDS SUMMARY | 2024-07-13 11:18 | XMS_ITS | Encounter Summary ---
Author Organization [facility] Address [address] [facility] [place] [address] Care Team Providers Care Edge Banding Off Bearer Name Role Phone Gi Pulliam MD Primary Care Provider [phone] Sea Humphries MD Unavailable [phone] Kael Negron MD Unavailable [phone] Jaqui Colin MD Unavailable [phone] Janene Arriaga MD Unavailable [phone] Federico Garcia MD Unavailable [phone] Vijaya Ulrich PharmD Unavailable Unavaila Chandler Avila PharmD Unavailable Unavailab Val Lenz RN Unavailable Unavailable Elaine Poole RN Unavailable Unavailab Rina Trinidad Unavailable Letty vailable Cathi, Ayanna John FLEXIBLE SHAFT WINDER-MANAGER WATER Unavailable [phone] Yadi Dean RN Unavailable Unavailable Nicole Ramos RN Unavailable Unavailable Loreto Oliveros RN Unavailable UnavailAditi Marin LCSW Unavailable Unavailab Kaia Agee FLEXIBLE SHAFT WINDER-MANAGER WATER Unavailable [phone] Kassandra Richard RN Unavailable Unavaila ble Ezra, Doris J RN Unavailable Unavailable Encounter Details Date Type Department Care Team (Late Contact Info) Description 03/21/2020 Lab Requisition [facility] Care Pathology Lab [address] [place] [address] Venkat Pineda MD [address] [address] Illness, unspecified Social History Tobacco Use Types Packs/Day Years [...] Upcoming Encounters Date Type Department Care Team ([facility] Contact Info) Description 09/11/2024 12:45 PM CDT Appointment [facility] PET [address] [place] [address] Jaqui Colin MD [address] [place] [address] OF HEMATOLOGY & [place] [address] 09/11/2024 1:45 PM CDT Appointment [facility] PET [address] [place] [address] Jaqui Colin MD [address] [place] [address] OF HEMATOLOGY [place] [address] 09/11/2024 3:00 PM CDT Office Visit [facility] - Hematology/Oncology [address] [place] [phone] Jaqui Colin MD [address] [place] [address] OF HEMATOLOGY [place] [address] documented as of this encounter Procedures Procedure Name Priority Date/Time Associated Diagnosis Comments PATHOLOGY TISSUE Routine 03/19/2020 10:4 3 AM LOCKSTITCH FRONT EDGE TAPE SEWER Illness, unspecified documented in this encounter Results * PATHOLOGY TISSUE (03/19/2020 10:43 AM [facility]) Case Report Surgical Pathology Report Case: [id number] Authorizing Provider: Venkat Pineda MD Collected: 03/19/2020 10:43 AM Ordering Location: [facility] Pathology Lab Received: 03/21/2020 08:29 AM Pathologist: Fredis Peres MD Specimen: Lymph Node Biopsy 03/24/2020 2:[address] [facility] PATHOLOGY LAB Final Diagnosis Lymph node, needle core biopsy: - Small fragments of lymphoid tissue, limited for full evaluation of lymphoma. - See description. 03/24/2020 2:[address] [facility] PATHOLOGY LAB Microscopic Description and Comment Review of the lymph node core biopsy specimen reveals small fragments of lymphoid tissue, limited for full evaluation of lymphoma. CD30 and CD15 highlight a single larger cell. However, the specimen is too small for definitive evaluation. All controls worked appropriately. All controls worked appropriately. Recommend excision biopsy for further evaluation, if clinically indicated. Concurrent flow cytometry ([id number]) shows no clonal B-cell population detected, and mildly increased CD4:CD8 ratio in T-cells with no immunophenotypic aberrancies. 03/24/2020 2:[address] [facility] PATHOLOGY LAB Clinical History The patient is a 64 year-old man with left supraclavicular lymphadenopathy. 03/24/2020 2:[address] [facility] PATHOLOGY LAB Materials Received Received are 6 slide(s) and 1 block (A1) labeled [id number] along with a copy of the outside pathology report. [place] [address]. All original materials are returned to the referring institution, along with a copy of our final report. 03/24/2020 2:[address] [facility] PATHOLOGY LAB Disclaimer The performance characteristics of all immunohistochemical and indirect immunofluorescence stains (if any) cited in this report were determined by the Histopathology Laboratory of [facility]. Some of these tests were developed by our own laboratory and have not been cleared or approved by the US Food and Drug Administration. The FDA does not require this test to go through premarket FDA review. These tests are used for clinical purposes. They should not be regarded as investigational or for research. This laboratory is certified under the Clinical Laboratory Improvement Amendments (CLIA) as qualified to perform high complexity clinical laboratory testing. This case has been personally reviewed and interpreted by the attending (teaching) pathologist. 03/24/2020 2:[address] [facility] PATHOLOGY LAB Embedded Images 03/24/2020 2:[address] [facility] PATHOLOGY LAB Pathology/Cytolo gy BIOPSY OF LYMPH NODE / Unknown 03/19/2020 10:43 AM LOCKSTITCH FRONT EDGE TAPE SEWER 03/21/2020 8:29 AM LOCKSTITCH FRONT EDGE TAPE SEWER Venkat Pineda MD LAB - PATHOLOGY/CYTOLOGY ORDER JOSE Final Result [facility] PATHOLOGY LAB [address] [phone] documented in this encounter Visit Diagnoses Diagnosis Illness, unspecified documented in this encounter Additional Health Concerns Infection Onset Date Last Indicated Resolved Time COVID-19 Under Investigation 09/15/2020 09/15/2020 09/15/2020 9:18 PM CDT COVID-19 Under Investigation 12/10/2020 12/10/2020 12/11/2020 4:17 AM CDT COVID-19 Confirmed 03/12/2021 04/02/2021 4:33 AM LOCKSTITCH FRONT EDGE TAPE SEWER COVID-19 Under Investigation 03/19/2021 03/19/2021 03/19/2021 4:42 PM LOCKSTITCH FRONT EDGE TAPE SEWER COVID-19 Under Investigation 04/14/2021 04/14/2021 04/25/2021 4:33 AM LOCKSTITCH FRONT EDGE TAPE SEWER COVID-19 Under Investigation 09/29/2021 09/29/2021 09/29/2021 8:59 PM CDT documented as of this encounter Care Teams Edge Banding Off Bearer Relationship Specialty Start Date End Date Gi Pulliam MD [address] [place] [address] PCP - General Family Medicine 10/17/18 Sea Humphries MD [address] [place] [address] Referring Physician Medical Oncology 02/19/20 Kael Negron MD [address] [place] [address] Hematology and Oncology 02/19/20 03/26/21 Jaqui Colin MD [address] OF HEMATOLOGY [place] [address] Hematology and Oncology 02/19/20 Janene Arriaga MD [address] OF HEMATOLOGY [place] [address] Hematology and Oncology 02/19/20 Federico Garcia MD [address] OF HEMATOLOGY [place] [address] Hematology and Oncology 02/19/20 Vijaya Ulrich, PharmD 02/19/20 Chandler Rosario, PharmD Pharmacist 02/19/20 11/25/20 Val Pisano, RN 02/19/20 Elaine Poole RN 02/19/20 11/25/20 Rina Argueta 02/19/20 Ayanna Winkler APRN-MANAGER WATER Family Medicine 02/19/20 Yadi Dean, RN Registered Nurse 02/19/20 03/26/21 Nicole Ramos, RN Registered Nurse 02/19/20 11/25/20 Loreto Oliveros, RN Registered Nurse 02/19/20 11/25/20 Aditi Ladd, CLASSIFIED ADVERTISING SUPERVISOR Chief Human Resources Officer 02/19/20 Kaia Munroe APRN-TERRIE [address] [facility] OF HEMATOLOGY [place] [address] Advance Practice Nurse Family Medicine 08/05/20 Kassandra Richard, RN Registered Nurse 03/27/21 Doris Munguia RN Registered Nurse 06/03/21 documented as of this encounter
--- OUTSIDE RECORDS SUMMARY | 2024-07-13 11:18 | XMS_ITS ---
Author Organization [facility] Address [address] [facility] [address] [place], [place] [id number] Care Team Providers Care Utility Porter Name Role Phone LAURENCE BRANCH Unavailable [phone] Gi Pulliam Unavailable Unavailable REASON FOR VISIT *Diabetic foot exam, sick Encounters Encounter Location Date Provider Diagnosis [facility] [address] [id number] 06/11/2024 LAURENCE BRANCH Plan Of Treatment Next Appt Details Provider Name:LAURENCE BRANCH, 02:40:00 PM, [address], [facility], [place], [place], [id number], Progress Notes * LINDA TAPIA RDOB: (68 yo M)Acc No.[id number]:06/11/2024 Patient: Tiara LINDA BONILLA Provider: Jaqui Branch DPM :1955 A ge:68 Y S ex:Male Date:06/11/2024 Address:[address] [place], [place] [id number] Subjective: * Chief Complaints: * 1 . *Diabetic foot exam, sick. * Medical History: Objective: * Vitals: Assessment: Plan: * Treatment: * Billing Information: * Visit Code: * Procedure Codes: * Electronic signature of LAURENCE BRANCH DPM on 07/13/2024 at 11:18 AM CDT Sign off status: Pending * Provider: Jaqui Branch DPM Date: 0 06/11/2024 Generated for Angel Harris/Jyoti on: 0 07/13/2024 11:18 AM CDT
--- OUTSIDE RECORDS SUMMARY | 2024-07-13 11:18 | XMS_ITS ---
Author Organization [facility] Address [address] 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 Assessment & Plan (03/23/2016 4:14 PM SUPERVISOR AIRPLANE FLIGHT ATTENDANT): Mild microcytosis persists, but his hemoglobin is within normal limits. We'll monitor it. Assessment & Plan (04/08/2015 12:23 PM SUPERVISOR AIRPLANE FLIGHT ATTENDANT): Hb is sl better today, but he still has microcytosis. Will check serum iron panel and proceed further. Retroperitoneal lymphadenopathy 03/31/2015 Overview (08/07/2015): 03/20/2015 - CT abdomen/pelvis: New left ureteral [...] involving the right kidney and appears unchanged. Assessment & Plan (03/23/2016 4:15 PM SUPERVISOR AIRPLANE FLIGHT ATTENDANT): He is stable clinically with no signs [...] office visit, and had no further questions. Assessment & Plan (08/12/2015 12:08 PM CDT): I discussed the stable CT scan showing persistent and unchanged retroperitoneal lymphadenopathy. With no change in lymph node size, no B-symptoms, I don't believe he has underlying lymphoproliferative process, and they are probably reactive. I reassured him that it is safe to monitor him with no B-symptoms or change in his blood counts. Will see him in about 6 months with labs but sooner depending on his clinical situation and plan further imaging. They both verbalized understanding of today's discussion, were satisfied with the office visit, and had no further questions. Assessment & Plan (04/08/2015 12:28 PM SUPERVISOR AIRPLANE FLIGHT ATTENDANT): I had a long discussion with Zenon and his and explained the causes of abdominal lymphadenopathy. They include infection, inflammation, lymphoproliferative process, chronic leukemias. With his recent intra-abdominal inflammation due to renal calculi, I feel that he has reactive lymphadenopathy. He has no B-symptoms, organomegaly, or any other clinical features suggestive of a lymphoproliferative process. Will check basic labs including CBC, CMP and LDH and contact him with labs from today. Should they be within normal limits and not suggest marrow infiltration, I feel that it is safe to monitor him and repeat CT scan in about 3-4 months. I've explained that there is no role of PET/CT in him with no documented malignancy. I advised him to contact us in the interim for B-symptoms, frequent infections. Otherwise, we'll see him in about [address]. They both verbalized understanding of today's discussion, were satisfied with the office visit, and had no further questions. Current Treatment and Therapy Plans No current plan information found. Past Treatment and Therapy Plans No past plan information found. Lifetime Dose Tracking * Chemical Lifetime Dose Automatic Entry Manual Entr y Effective Dose 50 mSv 50 mSv 0 mSv Total DLP 4,253 DLP 4,253 DLP 0 DLP CTDIvol Max 74.9 mGy 74.9 mGy 0 mGy CTDIvol Min 74.9 mGy 74.9 mGy 0 mGy
--- OUTSIDE RECORDS SUMMARY | 2024-07-13 11:18 | XMS_ITS | Encounter Summary ---
Author Organization [facility] Address [address] [place] [address] Care Team Providers Care Linux Server Administrator Name Role Phone Gi Pulliam MD Primary Care Provider [phone] Sea Humphries MD Unavailable [phone] Kael Negron MD Unavailable [phone] Jaqui Colin MD Unavailable [phone] Janene Arriaga MD Unavailable [phone] Federico Garcia MD Unavailable [phone] Vijaya Ulrich PharmD Unavailable Unavaila Chandler Avila PharmD Unavailable Unavailab Val Lenz RN Unavailable Unavailable Elaine Poole RN Unavailable Unavailab Rina Trinidad Unavailable Letty vailable Cathi, Ayanna John TRAFFIC RECORDER-APARTMENT COORDINATOR Unavailable [phone] Yadi Dean RN Unavailable Unavailable Nicole Ramos RN Unavailable Unavailable Loreto Oliveros RN Unavailable UnavailAditi Marin LCSW Unavailable Unavailab Kaia Agee TRAFFIC RECORDER-APARTMENT COORDINATOR Unavailable [phone] Kassandra Richard RN Unavailable Unavaila ble Ezra, Doris J RN Unavailable Unavailable Encounter Details Date Type Department Care Team (Late Contact Info) Description 04/23/2019 Telephone [facility] [address] [place] [address] Tequila Hallman MD [address] [place] [address] Social History Tobacco Use Types Packs/Day Years [...] Upcoming Encounters Date Type Department Care Team ([facility] Contact Info) Description 09/11/2024 12:45 PM CDT Appointment [facility] [address] [place] [address] Jaqui Colin MD [address] [facility] OF HEMATOLOGY [place] [address] 09/11/2024 1:45 PM CDT Appointment [facility] [address] [place] [address] Jaqui Colin MD [address] [facility] OF HEMATOLOGY [place] [address] 09/11/2024 3:00 PM CDT Office Visit [facility] - Hematology/Oncology [address] [place] [address] [place] [address] [place] [address] OF HEMATOLOGY [place] [address] documented as of this encounter Visit Diagnoses Not on filedocumented in this encounter Additional Health Concerns Infection Onset Date Last Indicated Resolved Time COVID-19 Under Investigation 09/15/2020 09/15/2020 09/15/2020 9:18 PM CDT COVID-19 Under Investigation 12/10/2020 12/10/2020 12/11/2020 4:17 AM CDT COVID-19 Confirmed 03/12/2021 04/02/2021 4:33 AM MANAGER COMPETITIVE INTELLIGENCE COVID-19 Under Investigation 03/19/2021 03/19/2021 03/19/2021 4:42 PM MANAGER COMPETITIVE INTELLIGENCE COVID-19 Under Investigation 04/14/2021 04/14/2021 04/25/2021 4:33 AM MANAGER COMPETITIVE INTELLIGENCE COVID-19 Under Investigation 09/29/2021 09/29/2021 09/29/2021 8:59 PM CDT documented as of this encounter Care Teams Linux Server Administrator Relationship Specialty Start Date End Date Gi Pulliam MD [address] [place] [address] PCP - General Family Medicine 10/17/18 Sea Humphries MD [address] [place] [address] Referring Physician Medical Oncology 02/19/20 Kael Negron MD [address] [place] [address] Hematology and Oncology 02/19/20 03/26/21 Jaqui Colin MD [address] OF HEMATOLOGY [place] [address] Hematology and Oncology 02/19/20 Janene Arriaga MD [address] DIV OF HEMATOLOGY & [place] [address] Hematology and Oncology 02/19/20 Federico Garcia MD [address] DIV OF HEMATOLOGY & [place] [address] Hematology and Oncology 02/19/20 Vijaya Ulrich, PharmD 02/19/20 Chandler Rosario, PharmD Pharmacist 02/19/20 11/25/20 Val Pisano, RN 02/19/20 Elaine Poole RN 02/19/20 11/25/20 Rina Argueta 02/19/20 Ayanna Winkler TRAFFIC RECORDER-APARTMENT COORDINATOR Family Medicine 02/19/20 Yadi Dean, RN Registered Nurse 02/19/20 03/26/21 Nicole Ramos, RN Registered Nurse 02/19/20 11/25/20 Loreto Oliveros, RN Registered Nurse 02/19/20 11/25/20 Aditi Ladd, [facility] Cushion Padder 02/19/20 Kaia Munroe, TRAFFIC RECORDER-APARTMENT COORDINATOR [address] DIV OF HEMATOLOGY [place] [address] Advance Practice Nurse Family Medicine 08/05/20 Kassandra Richard, RN Registered Nurse 03/27/21 Doris Munguia, RN Registered Nurse 06/03/21 documented as of this encounter
--- OUTSIDE RECORDS SUMMARY | 2024-07-13 11:18 | XMS_ITS | Encounter Summary ---
Author Organization [facility] Address [address] [place] [address] Care Team Providers Care Etymology Teacher Name Role Phone Gi Pulliam MD Primary Care Provider Encounter Details Date Type Department Care Team (Late Contact Info) Description 07/09/2024 Orders Only [facility] Oncology and Hematology [address] [place] [address] Sea Humphries MD [address] [place] [address] Benign hypertension Social History Tobacco Use Types Packs/Day Years Used Date Smoking Tobacco: Never Smokeless Tobacco: Never Alcohol Use Standard Drinks/Week Comments No 0 (1 standard drink = 0.6 oz pur e alcohol) Sex and Gender Information Value Date Recorded Sex Assigned at Not on file Legal Sex Male 1:56 PM SENIOR QUALITY METHODS SPECIALIST Gender Identity Not on file Sexual Orientation Straight 12/16/2023 2: 59 PM CDT documented as of this encounter Plan of Treatment Upcoming Encounters Date Type Department Care Team (Late st Contact Info) Description 07/13/2024 1:00 PM CDT Office Visit [facility] Oncology and Hematology - [address] [place] [address] Sea Humphries MD [address] [place] [address] documented as of this encounter Visit Diagnoses Diagnosis Benign hypertension Essential hypertension, benign documented in this encounter Care Teams Etymology Teacher Relationship Specialty Start Date End Date Gi Pulliam MD [address] [place] [address] PCP - General Family Practice 10/10/17 documented as of this encounter
--- OUTSIDE RECORDS SUMMARY | 2024-07-13 11:18 | XMS_ITS | Patient Health Record ---
Author Organization [facility] Address [address] [place], [place] [id number] Care Team Providers Care [employer] Supervisor Name Role Phone LAURENCE BRANCH Unavailable [phone] Gi Pulliam Unavailable Unavailable Allergies Allergen (clinical drug ingredient) Drug/Non Drug Allergy documented on EMR Reaction Allergy Type Onset Date Status codeine Codeine Unknown Drug Allergy 12/01/2017 active Reason For Referral Reason ESSENCE REFERRAL ( L EVEL 3 ) [id number] Diagnosis 1 Tinea unguium (B35.1 ) Referring Provider First Name Gi Referring Provider Last Name Heraclio Referred Organization [facility] Referred Provider LAURENCE BRANCH Referred Address [address],[place], [id number], Referred Provider Specialty Podiatry Referral Priority Routine Medications Medication SIG (Take, Route, Frequency, Duration) Notes Start Date End Date Status potassium chloride 2.67 MEQ/ML Oral Solution ORAL potassium chloride 2.67 MEQ/ML Oral SolutionOriginal Medicationpotassium chloride 2.67 MEQ/ML Oral Solution *Reorder from [employer] for eRx and Interaction Alerts* 12/01/2017 Active metformin hydrochloride 1000 MG Oral Tablet ORAL metformin hydrochloride 1000 MG Oral TabletOriginal Medicationmetformin hydrochloride 1000 MG Oral Tablet *Reorder from [employer] for eRx and Interaction Alerts* 12/01/2017 Active aspirin 81 MG Delayed Release Oral Tablet [Aspir-Low] ORAL aspirin 81 MG Delayed Release Oral Tablet [Aspir-Low]Original Medicationaspirin 81 MG Delayed Release Oral Tablet [Aspir-Low] *Reorder from [facility] for eRx and Interaction Alerts* 12/01/2017 Active 3 ML insulin glargine 100 UNT/ML Pen Injector [Lantus] 3 ML insulin glargine 100 UNT/ML Pen Injector [Lantus]Original Medication3 ML insulin glargine 100 UNT/ML Pen Injector [Lantus] *Reorder from [facility] for eRx and Interaction Alerts* 12/01/2017 Active 0.5 ML dulaglutide 1.5 MG/ML Auto-Injector [Trulicity] 0.5 ML dulaglutide 1.5 MG/ML Auto-Injector [Trulicity]Original Medication0.5 ML dulaglutide 1.5 MG/ML Auto-Injector [Trulicity] *Reorder from [facility] for eRx and Interaction Alerts* 12/01/2017 Active Lisinopril 20 MG Oral Tablet ORAL lisinopril 20 MG Oral TabletOriginal Medicationlisinopril 20 MG Oral Tablet *Reorder from [facility] for eRx and Interaction Alerts* 12/01/2017 Active Immunizations Vaccine Route Administration Date Status Comme nts Influenza, high dose seasonal Unknown 02/14/2023 Admini stered Encounters Encounter Location Date Provider Diagnosis [facility] [address] [place] [address] [id number] 07/09/2024 LAURENCE SNOOK Tinea unguium B35.1 ; Pain in right toe(s) M79.674 ; Pain in left toe(s) M79.675 ; Atherosclerosis of [place] arteries of extremities with intermittent claudication, bilateral legs I70.213 and Type 2 diabetes mellitus with other circulatory complications E11.59 [facility] [address] [place] [address] [id number] 08/22/2023 LAURENCE SNOOK Tinea unguium B35.1 ; Pain in right toe(s) M79.674 ; Pain in left toe(s) M79.675 ; Atherosclerosis of [place] arteries of extremities with intermittent claudication, bilateral legs I70.213 and Type 2 diabetes mellitus with other circulatory complications E11.59 [facility] [address] [place] [address] [id number] 12/05/2023 LAURENCE SNOOK Tinea unguium B35.1 ; Type 2 diabetes mellitus with other circulatory complications E11.59 ; Pain in right toe(s) M79.674 ; Pain in left toe(s) M79.675 and Atherosclerosis of [place] arteries of extremities with intermittent claudication, bilateral legs I70.213 [facility] [address] [place], [place] [id number] 02/01/2024 LAURENCE BRANCH Assessments Encounter Date Diagnosis (ICD Code) Assessment Notes Treatment Notes Treatment Clinical Notes Section Notes 08/22/2023 Tinea unguium (ICD-10 - B35.1) NAIL DEBRIDEMENT: Nails 1-5 Bilateral were debrided extensively with nail nippers and emery board, reducing length and girth to pink healthy tissue with any subungual debris and necrotic tissue removed 08/22/2023 Pain in right toe(s) (ICD-10 - M79.674) 12/05/2023 Tinea unguium (ICD-10 - B35.1) NAIL DEBRIDEMENT: Nails 1-5 right, 1-4 left were debrided extensively with nail nippers and emery board, reducing length and girth to pink healthy tissue with any subungual debris and necrotic tissue removed 12/05/2023 Type 2 diabetes mellitus with other circulatory complications (ICD-10 - E11.59) Diabetic Foot Care: The patient was educated on diabetes and the lower extremity. The patient was instructed to check his feet daily to report any problems or signs of infection immediately. The patient was provided written information on Diabetic Foot Care as well as the Amputation Prevention Guide. 07/09/2024 Tinea unguium (ICD-10 - B35.1) NAIL DEBRIDEMENT: Nails 1-5 Bilateral were debrided extensively with nail nippers and emery board, reducing length and girth to pink healthy tissue with any subungual debris and necrotic tissue removed 07/09/2024 Pain in right toe(s) (ICD-10 - M79.674) 12/05/2023 Pain in right toe(s) (ICD-10 - M79.674) 08/22/2023 Pain in left toe(s) (ICD-10 - M79.675) 08/22/2023 Atherosclerosis of [place] arteries of extremities with intermittent claudication, bilateral legs (ICD-10 - I70.213) 12/05/2023 Pain in left toe(s) (ICD-10 - M79.675) 07/09/2024 Pain in left toe(s) (ICD-10 - M79.675) 07/09/2024 Atherosclerosis of [place] arteries of extremities with intermittent claudication, bilateral legs (ICD-10 - I70.213) 12/05/2023 Atherosclerosis of [place] arteries of extremities with intermittent claudication, bilateral legs (ICD-10 - I70.213) 08/22/2023 Type 2 diabetes mellitus with other circulatory complications (ICD-10 - E11.59) Diabetic Foot Care: The patient was educated on diabetes and the lower extremity. The patient was instructed to check his feet daily to report any problems or signs of infection immediately. The patient was provided written information on Diabetic Foot Care as well as the Amputation Prevention Guide. 07/09/2024 Type 2 diabetes mellitus with other circulatory complications (ICD-10 - E11.59) Diabetic Foot Care: The patient was educated on diabetes and the lower extremity. The patient was instructed to check his feet daily to report any problems or signs of infection immediately. The patient was provided written information on Diabetic Foot Care as well as the Amputation Prevention Guide. Plan Of Treatment Next Appt Details Provider Name:LAURENCE JOSE CARLOS, 02:40:00 PM, [address], [facility], [place], [place], [id number], Insurance Providers Payer Name Payer Address Payer Phone Subscriber Number Group Number Insured Name Patient Relationship to Insured Coverage Start Date Coverage End Date [employer] [place] [address] [id number] LINDA HARMON Self - patient is the insured Medical (General) History Medical History History ICD Code Diabetic
--- OUTSIDE RECORDS SUMMARY | 2024-07-13 11:18 | XMS_ITS | Clinical Summary ---
Author Organization [facility] Address [address] [place] [address] Care Team Providers Care Senior Commissary Agent Name Role Phone Gi Pulliam MD Primary Care Provider [phone] Taylor Ball RN Unavailable [phone] Tomás Howell MD Unavailable Jaqui Colin MD Unavailable Jose C Ramos MD Unavailable [phone] Sea Humphries MD Unavailable [phone] Allergies Active Allergy Reactions Criticality Noted Date Comments Codeine Nausea and Vomiting, Nausea Only,Dizziness High 02/21/2015 Medications polyethylene glycol packet Take 240 mLs (17 g total) by mouth daily as needed for Constipation. 0 019 Active Multiple Vitamin (MULTIVITAMIN ADULT OR)Indications:s upplement Take 1 tablet by mouth daily. Indications: supplement 021 Active docusate sodium 100 MG capsuleIndicatio ns:Stool softener Take 1 capsule (100 mg total) by mouth 2 (two) times daily. Indications: Stool softener 021 Active oxyCODONE 5 MG capsuleIndicatio ns:Chronic Pain Take 1 capsule (5 mg total) by mouth every 6 (six) hours as needed (pain). Indications: Chronic Pain 022 Active ferrous sulfate, 65 mg elemental, 325 (65 FE) MG tablet Taking QOD 022 Active cetirizine (ZYRTEC) 10 MG tablet Take 1 tablet (10 mg total) by mouth daily as needed. Active triamcinolone (KENALOG) 0.1 % creamIndications :Rash Apply topically 2 (two) times daily as needed. 15 g 1 024 Active dapagliflozin (FARXIGA) 10 MG tablet Take 1 tablet (10 mg total) by mouth daily. 024 Active insulin aspart (NOVOLOG) 100 UNIT/ML injection (VIAL)Indication s:Type 2 diabetes mellitus with hyperglycemia, with long-term current use of insulin ([facility]) INJECT 30 UNITS EACH MEAL ALONG WITH SLIDING SCALE UP TO 12 UNITS/MEAL. MAX 126 UNITS/DAY 120 mL 1 024 Active Glucose Blood (BLOOD GLUCOSE TEST STRIPS 333) StripIndications :Type 2 diabetes mellitus without complication, with long-term current use of insulin ([facility]) 1 strip by In Vitro route 4 (four) times daily. Use to test blood sugar QID 200 strip 2 024 Active Additional Information Patient taking differently:1 strip In VitroDaily as needed, Has CGM, Reported on 05/24/2024 spironolactone (ALDACTONE) 50 MG tabletIndication s:Primary hypertension TAKE 1 TABLET BY MOUTH EVERY DAY 90 tablet 1 024 Active metoprolol tartrate (LOPRESSOR) 50 MG tabletIndication s:Benign hypertension TAKE 1 TABLET BY MOUTH TWICE A DAY 180 tablet 2 025 Active Continuous Glucose Production Counter (FREESTYLE TERESITA 3 READER) DeviceIndication s:Type 2 diabetes mellitus with stage 2 chronic kidney disease, with long-term current use of insulin ([facility]) Use to monitor glucose continuously 1 each 025 Active Continuous Glucose Sensor (FREESTYLE TERESITA 3 PLUS SENSOR) MiscIndications: Type 2 diabetes mellitus with stage 2 chronic kidney disease, with long-term current use of insulin ([facility]) Use one sensor to continuously monitor glucose for 15 days 2 each 6 025 Active XARELTO 20 MG Tab tabletIndication s:Atrial fibrillation, unspecified type ([facility]) TAKE 1 TABLET BY MOUTH DAILY WITH SUPPER. 90 tablet 1 025 Active furosemide (LASIX) 40 MG tabletIndication s:Chronic diastolic heart failure ([facility]) Take 1 tablet (40 mg total) by mouth 3 (three) times a week. Takes 40 mg tue/tue/Tuesday per oncologist.- does not take other days 40 tablet 025 Active Insulin Syringe-Needle U-100 (INSULIN SYRINGE .5CC/31GX5/16 ) 31G X 5/16 0.5 ML MiscIndications: Type 2 diabetes mellitus with stage 2 chronic kidney disease, with long-term current use of insulin ([facility]) Use to administer insulin daily 100 each 1 025 Active metFORMIN (GLUCOPHAGE) 1000 MG tabletIndication s:Type 2 diabetes mellitus with hyperglycemia, with long-term current use of insulin ([facility]) TAKE 1 TABLET BY MOUTH TWICE A DAY FOR DIABETES 180 tablet 025 Active magnesium oxide (MAG-OX) 250 MG tablet Take 1 tablet (250 mg total) by mouth daily. Active insulin glargine (LANTUS) 100 UNIT/ML injection (PEN)Indications :Type 2 diabetes mellitus with hyperglycemia, with long-term current use of insulin ([facility]) Inject 42 units SQ QAM and 35 units SQ QPM 25 mL 2 025 Active semaglutide (OZEMPIC) 2 MG/3ML injection (PEN)Indications :Diabetes Mellitus Inject 0.25 mg into the skin every 7 days. Indications: Diabetes 3 mL 025 Active KLOR-CON M20 20 MEQ tabletIndication s:Hypokalemia TAKE 1 TABLET BY MOUTH EVERY DAY NEEDED FOR PREVENTION OF LOW POTASSIUM 90 tablet 025 Active hydrOXYzine (ATARAX) 25 MG tablet Take 1 tablet (25 mg total) by mouth every 8 (eight) hours as needed. 025 Active lisinopril (PRINIVIL) 10 MG tabletIndication s:Primary hypertension Take 0.5 tablets (5 mg total) by mouth daily. 025 Active atorvastatin (LIPITOR) 40 MG tabletIndication s:High triglycerides TAKE 1 TABLET BY MOUTH EVERY DAY 90 tablet 2 025 Active doxycycline hyclate (VIBRAMYCIN) 100 MG capsuleIndicatio ns:Chronic maxillary sinusitis Take 1 capsule (100 mg total) by mouth 2 (two) times daily for 7 days. 14 capsule 025 2024 Active atorvastatin (LIPITOR) 40 MG tabletIndication s:High triglycerides take 1 tablet by mouth every day 90 tablet 2 024 2024 Discontinued lisinopril (PRINIVIL) 10 MG tabletIndication s:Primary hypertension Take 1 tablet (10 mg total) by mouth daily. 024 2024 Discontinued(R eorder) Active Problems Problem Noted Date Diagnosed Date Polyneuropathy due to type 2 diabetes mellitus ([facility]/HCC) 03/14/2024 History of amputation of lesser toe ([facility]) Dyslipidemia 05/05/2023 Morbid (severe) obesity due to excess calories 0 03/17/2023 Body mass index (BMI) 40.0-44.9, adult Sepsis ([facility]) 03/05/2023 History of auto stem cell transplant ([facility]) 05/26/2022 Care Management 08/17/2021 Colon adenomas 03/10/2021 Overview (07/06/2021): 11/15/16 colonoscopy ([facility]): polyps per patient 03/10/21 colonoscopy: multiple diminutive adenomas removed, repeat in 3 years. NAFLD (nonalcoholic fatty liver disease) 021 Overview (07/06/2021): 02/24/21 Fibroscan CAP 400, LSM 15.6 kPa (highly variable readings, low confidence in stiffness measurement) 03/05/21 MRI/MRE: normal liver contours, no evidence of cirrhosis, normal liver stiffness Paroxysmal atrial fibrillation ([facility]HS/HCC) 10/15/2020 Hodgkin lymphoma, unspecifie d Hodgkin lymphoma type, unspecified body region ([facility]/HCC) 10/15/2020 Neuropathy 10/15/2020 Encephalopathy 10/15/2020 Wernicke's encephalopathy 10/15/2020 Hyperlipidemia 10/15/2020 Seizure ([facility]) 10/01/2020 Hypocalcemia 09/21/2020 Hyponatremia 09/21/2020 High risk for chemotherapy-induced infectious co mplication 07/08/2020 COVID-19 03/05/2020 Infiltrate of left lung present on chest x-ray 0 04/15/2019 Hypoxia 04/15/2019 Altered mental status 12/17/2018 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 ([facility]) 11/07/2018 Chronic recurrent sinusitis 07/04/2018 Seasonal allergies 07/04/2018 Dyspnea 01/03/2018 Sinusitis 12/27/2017 Cough 12/27/2017 Osteomyelitis of toe ([facility]) 8 Osteomyelitis ([facility]) 11/22/2017 Diabetes mellitus, type II ([facility]) Overview (07/06/2021): last A1C 8, 08/2018 Ulcer of toe due to diabetes ([facility]) 0 11/22/2017 Cellulitis 08/12/2017 Onychomycosis of toenail 07/14/2017 Type 2 diabetes mellitus wit h other diabetic neurological complication ([facility]) 05/05/2017 Class 3 obesity 10/27/2016 Severe obesity (BMI 35.0-39.9) with comorbidity 10/27/2016 Microcytic anemia 04/08/2015 Overview (11/09/2018): Overview: Hb has been around 11 - 12 g, with MCV of 80. Last Assessment & Plan: Mild microcytosis persists, but his hemoglobin is within normal limits. We'll monitor it. Overview: Hb has been around 11 - 12 g, with MCV of 80. Last Assessment & Plan: Mild microcytosis persists, but his hemoglobin is within normal limits. We'll monitor it. Hb has been around 11 - 12 g, with MCV of 80. Last Assessment & Plan: Mild microcytosis persists, but his hemoglobin is within normal limits. We'll monitor it. Retroperitoneal lymphadenopathy 03/31/2015 Overview (12/23/2017): Overview: 03/20/2015 - CT abdomen/pelvis: New left ureteral [...] had no further questions. High triglycerides 10/09/2013 Resolved Problems Problem Noted Date Diagnosed Date Resolved Date Community acquired pneumonia of left lower lobe of lung 04/15/2019 11/06/2019 Hospital discharge follow-up 12/14/2017 11/16/2019 Benign hypertension 10/02/2013 11/06/19 20 Encounters Date Type Department Care Team Description 07/09/2024 Telephone [facility] [address] [place] [address] Gi Pulliam MD Medication Request 07/05/2024 3:00 PM CDT Office Visit [facility] [address] [place] [address] Gi Pulliam MD Diabetes (On ozempic seems allright); Sinus Problem (Having sinus drainage started on Tuesday, has coughed up green tinted phlem but nose discharge is clear, no testing done, pt takes allergy med at , but denies using otc med) 07/05/2024 Results Follow-Up [address] [phone] Gi Pulliam MD A1C (BACK OFFICE), COMPREHENSIVE METABOLIC PANEL, LIPID PANEL, Additional followed-up results: 2 07/05/2024 Travel 06/08/2024 Scan HEALTH INFO SRVCS Scanned, [facility] 06/01/2024 Scan HEALTH INFO SRVCS Scanned, [facility] 05/30/2024 Patient Outreach [address] [phone] Jesica Laura, PARTS FABRICATOR Care Management 05/29/2024 Patient Outreach [address] [phone] Taylor Ball, RN Care Management 05/24/2024 3:00 PM CDT Office Visit [address] [phone] Gi Pulliam MD Diabetes (Discuss semglee change to lantus due to insurance formulary ); Chronic Kidney Disease; Atrial Fibrillation; Hypertension; Hyperlipidemia; Obesity 05/24/2024 Travel 05/08/2024 Scan HEALTH INFO SRVCS Scanned, [facility] 05/04/2024 Scan HEALTH INFO SRVCS Scanned, [facility] 04/24/2024 Scan HEALTH INFO SRVCS Scanned, [facility] from Last 3 Months Immunizations Immunization Administration Dates Next Due Arexvy Respiratory Syncytial Virus (RSV, adjuvanted) 0.5 mL, PF 12/30/2023 Dtap (Generic) 03/23/2022,01/13/2022,11/10/2021 Fluad influenza vaccine, Eyad drivalent (aIIV4), Inactivated, adjuvanted, preservative free, 0.5 mL,IM use 12/21/2022 Flublok (Quadrivalent) 12/27/2019 Fluzone High Dose (IIV, triv alent, 0.5mL) 02/14/2023 Fluzone High Dose - >Age 65 (Prefilled Syringe) 12/14/2023,01/13/2022 Hepatitis A/Hepatitis B(Twinrix) 05/26/2022,11/2021,11/10/2021 Hepatitis B (Generic: Adult) 12/14/2023,04/21/19 24,10/06/2022 Hib (Omni-Hib) 03/23/2022,01/13/2022,11/10/2021 Influenza (Generic) 12/27/2019, 8,12/10/2016,05/2015 Influenza Adult (Generic) 11/22/2017,12/10/2016 N-1-1 ([employer]) COVID-19 AD26 VACCINE 0.5 ML IM SUSP 05/13/2020 MENINGOCOCCAL A C Y&W-135 oligosaccharide (MENVEO) 01/13/2022,11/10/2021 MMR (MMRII) 04/21/2023 MODERNA COVID-19 (12+), MRNA , LNP-S, PF, 50 MCG/0.5 ML (SPIKEVAX) 12/30/2023,02/07/2023 Meningcoccal Group B (Bexser o)(aka Meningitis) 12/14/2023,04/21/2023 PFIZER COVID-19 (KINCAID CAP), MRNA, LNP-S, PF, 30 MCG/0.3 ML JOSE LUIS-SUCROSE, IM 11/10/2021,09/08/2021,08/11/2021 PFIZER COVID-19 BIVALENT (12 +) mRNA, LNP-S, PF, 30 MCG/0.3 ML DOSE 10/06/2022,01/13/2022 Pneumococcal (Pneumovax 23) 05/26/2022, 8 Pneumococcal (Prevnar 13) 03/23/2022,01/13/2022, 11/10/2021 Polio IPV (Ipol) 03/23/2022,01/13/2022, 2 Shingrix 01/13/2022,09/08/2021 Tdap (Generic) 11/22/2017 Family History Medical History Relation Comments Coronary artery disease Father Breast Cancer Mother Diabetes Mother Hypertension Mother Cancer Sister Relation Status Comments Father Mother Sister Social History Tobacco Use Types Packs/Day Years Used Date Smoking Tobacco: Never Smokeless Tobacco: Never Tobacco Cessation:Counseling Given: No Alcohol Use Standard Drinks/Week Comments No 0 (1 standard drink = 0.6 oz pur e alcohol) [facility] Utilities Answer Date Recorded In the past 12 months has th e [employer], gas, oil, or water [employer] threatened to shut off services in your home? No 03/06/2023 Humiliation, Afraid, Rape, and Kick questionnair e Answer Date Recorded Within the last year, have y ou been afraid of your partner or ex-partner? No 03/06/2023 Within the last year, have y ou been humiliated or emotionally abused in other ways by your partner or ex-partner? No Within the last year, have y ou been kicked, hit, slapped, or otherwise physically hurt by your partner or ex-partner? No 03/06/2023 Within the last year, have y ou been raped or forced to have any kind of sexual activity by your partner or ex-partner? No 03/06/2023 AUDIT-C Answer Date Recorded Frequency of Alcohol Consumption Never 11/22/2017 Average Number of Drinks Not on file 018 Frequency of Binge Drinking Not on file 11/05 Overall Financial Resource Strain (CARDIA) Answe r Date Recorded How hard is it for you to pa y for the very basics like food, housing, medical care, and heating? Not hard at all 03/06/2023 PHQ-2 Answer Date Recorded Patient Health Questionnaire-2 Score 0 07/05/2024 Hunger Vital Sign Answer Date Recorded Within the past 12 months, y ou worried that your food would run out before you got the money to buy more. Never true 03/06/20 23 Within the past 12 months, t he food you bought just didn't last and you didn't have money to get more. Never true 03/06/2023 PRAPARE - Transportation Answer Date Re corded In the past 12 months, has l ack of transportation kept you from medical appointments or from getting medications? No 02/06 In the past 12 months, has l ack of transportation kept you from meetings, work, or from getting things needed for daily living? No 03/06/2023 Housing Stability Vital Sign Answer Silverio e Recorded In the last 12 months, was t here a time when you were not able to pay the mortgage or rent on time? No 03/06/2023 In the last 12 months, how many places have you lived? 1 03/06/2023 In the last 12 months, was t here a time when you did not have a steady place to sleep or slept in a half-way (including now)? No 03/06/2023 Housing Stability Vital Sign Answer Silverio e Recorded In the last 12 months, was t here a time when you were not able to pay the mortgage or rent on time? No 03/06/2023 Number of Times Moved in the Last Year Not on fi le 03/06/2023 Homeless in the Last Year Not on file 2022 Sex and Gender Information Value Date Recorded Sex Assigned at Male 11/22/2017 9:54 PM CDT Legal Sex Male 8:08 PM CDT Gender Identity Male 11/22/2017 9:54 PM CDT Sexual Orientation Straight 11/22/2017 9: 54 PM CDT Last Filed Vital Signs Vital Sign Reading Time Taken Comments Blood Pressure 98/60 07/05/2024 3:[address] Nails's manual read Pulse 74 07/05/2024 2:50 PM CDT Temperature 36.3 C (97.4 F) 07/05/2024 2:50 PM CDT Respiratory Rate 16 07/05/2024 2:50 PM CDT Oxygen Saturation 96% 07/05/2024 2:5 0 PM CDT Inhaled Oxygen Concentration - - Weight 135.4 kg (298 lb 9.6 oz) 07/05/2024 2:50 PM CDT Height 190.5 cm (6' 3 ) 07/05/2024 2:50 PM CDT Body Mass Index 37.32 07/05/2024 2:50 PM CDT Plan of Treatment Upcoming Encounters Date Type Department Care Team (Late st Contact Info) Description 08/30/2024 2:40 PM CDT Office Visit [facility] Family Medicine [facility] [address] [place] [address] Gi Pulliam MD [address] [place] [address] Health Maintenance Due Date Last Done Comments Annual Medicare Wellness Visit 2021 COVID-19 Vaccine (8 - Pfizer risk 2023- season) 2024 12/30/2023, 02/07/2023, 10/06/2022, Additional history exists Diabetes: Retinopathy Eye Exam 11/16/2024 11/17/2023 Hemoglobin A1C 11/24/2024 05/24/2024, 02/04, 11/16/2023, Additional history exists Kidney Health Evaluation 07/02/2025 07/02/2024 Lipid Panel 07/02/2025 07/02/2024, 03/09, 04/05/2023, Additional history exists Colorectal Cancer Screening Colonoscopy (10 Years) 11/15/2026 11/15/2016 DTaP, Tdap and Td Vaccines (5 - Td or Tdap) 03/23/2032 03/23/2022, 01/13/2022, 11/10/2021, Additional history exists Meningococcal Vaccine Aged Out 01/13/2022, 022 No longer eligible based on patient's age to complete this topic Zoster Vaccines Completed 01/13/2022, 09/08/2021 Pneumococcal Vaccine: 50+ Years Completed 05/26/2022, 03/23/2022, 01/13/2022, Additional history exists Hepatitis C Completed 09/21/2022, 03/08, 02/24/2021, Additional history exists Meningococcal B Vaccine Aged Out 12/14/2023, 04/21 No longer eligible based on patient's age to complete this topic RSV Immunization or 60+ Years Completed 12/30/2023 PHQ-2 (Physician Conway) Completed 07/05/2024 RSV Immunizations Under 20 Months Aged Out No longer eligible based on patient's age to complete this topic Goals Goal Patient Goal Type Associated Problems Recent Progress Patient-Stated? Author Pt will attend follow up appts General On track(2024 12:44 PM CDT) Lindsey Ruiz RN Medications - demonstrates understanding of how and when to take anticoagulants, dietary restrictions, and signs and symptoms to report to PCP General On track(2024 12:44 PM CDT) Lindsey Ruiz RN Establish Plan for Symptom Monitoring DM General On track(2024 12:44 PM CDT) Taylor Desir, RN Note: DM: Patient to follow diabetic medication regimen. Patient will maintain a carb consistent diet and avoid concentrated sweets. Patient will monitor blood sugar readings at least twice a day and call provider with consistent readings <80 and >200. If symptoms of excessive hunger, blurred vision, shakiness, light headedness, anxiety present, check blood sugar if able or treat the hypoglycemia. If glucose is less than 70, take 15 grams of glucose that is half a cup of juice or milk or regular soda or 3 glucose tablets and recheck in 15 minutes. Establish Plan for Symptom Monitoring HTN General On track(2024 12:44 PM CDT) Taylor Desir, RN Note: HTN: Patient to monitor blood pressure daily and record readings and call provider with consistent readings >140/90. Patient will maintain a low sodium diet . Patient will call provider with any visual disturbances, headaches or dizziness. Patient to take all medications as prescribed. Procedures Procedure Name Priority Date/Time Associated Diagnosis Comments ALBUMIN URINE RANDOM W/CREATININE Routine 07/02/2024 2:10 PM CDT Type 2 diabetes mellitus with hyperglycemia, with long-term current use of insulin ([facility]) TSH W/REFLEX Routine 07/02/2024 2:10 PM CDT Hyperlipidemia, unspecified hyperlipidemia type LIPID PANEL Routine 07/02/2024 2:10 PM CDT Hyperlipidemia, unspecified hyperlipidemia type COMPREHENSIVE METABOLIC PANEL Routine 07/02/2024 2:10 PM CDT Type 2 diabetes mellitus with hyperglycemia, with long-term current use of insulin ([facility]) Hyperlipidemia, unspecified hyperlipidemia type Primary hypertension HEMOGLOBIN, GLYCOSYLATED Routine 05/24/2024 Type 2 diabetes mellitus with hyperglycemia, with long-term current use of insulin ([facility]) COLLECT.CAPILLARY (FNGR,HEEL,EAR) Routine 05/24/2024 Type 2 diabetes mellitus with hyperglycemia, with long-term current use of insulin ([facility]) DIABETIC RETINOPATHY EXAM (POSITIVE)(SCAN ORDER) Routine 11/17/2023 COLONOSCOPY GENERIC (SCAN ORDER) Routine 11/15/2016 from Last 3 Months or Most Recently Relevant to Health Maintenance Results * (ABNORMAL) TSH W/REFLEX (07/02/2024 2:10 PM CDT) TSH 11.61(H) 0.40 - 4.50 mIU/L [facility] [place] FREE T4 1.1 0.8 - 1.8 ng/dL [facility] [place] 07/02/2024 2:10 PM CDT 07/02/2024 2:10 PM CDT Narrative [facility] [employer] [place] [facility] - 07/03/2024 6:37 AM CDT FASTING:YES FASTING: YES Resulting Agency Comment Performing Organization Information: Site ID: [place] [facility] Address: [facility] [place] [address] Director: Magaly Harris us Gi Pulliam MD LABORATORY Final Result [facility] [employer] [facility] [place] [facility] [employer]line [employer] [phone] * ALBUMIN URINE RANDOM W/CREATININE (07/02/2024 2:10 PM CDT) CREATININE RANDOM (U) 112 20 - 320 mg/dL [facility] MICROALBUMIN (U) 1.1 See Note: mg/dL [employer] Comment: Reference Range: Reference Range Not established MICROALB/CREAT 10 <30 mg/g creat [employer] [facility] Comment: The ADA defines abnormalities in albumin excretion as follows: Albuminuria Category Result (mg/g creatinine) Normal to Mildly increased <30 Moderately increased 30-299 Severely increased > OR = 300 The ADA recommends that at least two of three specimens collected within a 3-6 month period be abnormal before considering a patient to be within a diagnostic category. URINE SPECIMEN / Unknown 07/02/2024 2:10 PM CDT 07/02/2024 2:10 PM CDT Narrative [facility] [place] [facility] - 07/03/2024 6:37 AM CDT FASTING:YES FASTING: YES Resulting Agency Comment Performing Organization Information: Site ID: [id number] Name: [facility] Address: [address] [place] [address] Director: Magaly Harris MD us Gi Pulliam MD URINE ORDERABLES Final Result [facility] [place] [facility] [employer] [facility] [id number] [place] [place] [place] [address] * (ABNORMAL) COMPREHENSIVE METABOLIC PANEL (07/02/2024 2:10 PM CDT) GLUCOSE 127(H) 65 - 99 mg/dL [place] Comment: Fasting reference interval For someone without known diabetes, a glucose value >125 mg/dL indicates that they may have diabetes and this should be confirmed with a follow-up test. BUN 25 7 - 25 mg/dL [place] CREATININE S/P/B 1.13 0.70 - 1.35 mg/dL [place] GFR ESTIMATE 71 > OR = 60 mL/min/1. 73m2 [place] BUN CREATININE RATIO SEE NOTE: (calc) [place] Comment: Not Reported: BUN and Creatinine are within reference range. SODIUM S/P/B 135 135 - 146 mmol/L [place] POTASSIUM S/P/B 4.6 3.5 - 5.3 mmol/L [place] CHLORIDE S/P/B 101 98 - 110 mmol/L [place] CO2 25 20 - 32 mmol/L [place] CALCIUM S/P/B 9.7 8.6 - 10.3 mg/dL [place] TOTAL PROTEIN S/P/B 6.6 6.1 - 8.1 g/dL [place] ALBUMIN S/P/B 4.4 3.6 - 5.1 g/dL [place] GLOBULIN 2.2 1.9 - 3.7 g/dL (calc) [place] ALBUMIN/GLOBULIN RATIO 2.0 1.0 - 2.5 (calc) [place] BILIRUBIN TOTAL S/P/B 1.1 0.2 - 1.2 mg/dL [place] ALKALINE PHOSPHATASE S/P/B 166(H) 35 - 144 U/L [place] AST 14 10 - 35 U/L [place] ALT 17 9 - 46 [facility] [place] 07/02/2024 2:10 PM CDT 07/02/2024 2:10 PM CDT Narrative [facility] - [place] [facility]DERS - 07/03/2024 6:37 AM CDT FASTING:YES FASTING: YES Resulting Agency Comment Performing Organization Information: Site ID: SL [facility] Address: [facility] [place] [address] Director: Magaly Harris us Gi Pulliam MD LABORATORY Final Result [facility] [facility] - [place] [facility] [address] [address], * (ABNORMAL) LIPID PANEL (07/02/2024 2:10 PM CDT) CHOLESTEROL 79 <200 mg/dL [place] HDL 14(L) > OR = 40 mg/dL [place] TRIGLYCERIDES 296(H) <150 mg/dL [place] Comment: If a non-fasting specimen was collected, consider repeat triglyceride testing on a fasting specimen if clinically indicated. Colby et al. J. of Clin. Lipidol. 2015;9:129-169. LDL (CALCULATED) 34 mg/dL (calc) [place] Comment: Reference range: <100 Desirable range <100 mg/dL for primary prevention; <70 mg/dL for patients with CHD or diabetic patients with > or = 2 CHD risk factors. LDL-C is now calculated using the Saniya calculation, which is a validated novel method providing better accuracy than the Friedewald equation in the estimation of LDL-C. Raudel MIRANDA et al. DESTINY. 2013;310(19): 0889-6105 (http://education.OmniLytics/faq/MTB578) CHOL/HDL RATIO 5.6(H) <5.0 (calc) [place] NON HDL CHOLESTEROL 65 <130 mg/dL (calc) [place] Comment: For patients with diabetes plus 1 major ASCVD risk factor, treating to a non-HDL-C goal of <100 mg/dL (LDL-C of <70 mg/dL) is considered a therapeutic option. 07/02/2024 2:10 PM CDT 07/02/2024 2:10 PM CDT Narrative [facility] - [place] [facility]DERS - 07/03/2024 6:37 AM CDT FASTING:YES FASTING: YES Resulting Agency Comment Performing Organization Information: Site ID: Name: [facility] Address: [facility] [place] [address] Director: Magaly Harris us Gi Pulliam MD LABORATORY Final Result [facility] [place] [facility] Offline [address] [address], * A1C (BACK OFFICE) (05/24/2024) [facility]GB A1C 6.9 % -IZABELA ROGERS 05/24/2024 us Gi Pulliam MD LABORATORY Final Result [facility]-IZABELA ROGERS [address] [place] [address], * COLLECT.CAPILLARY (FNGR,HEEL,EAR) (05/24/2024) Gi Pulliam MD PROCEDURES-UNRESULTED Final Resu lt [facility] - [place] ORDERS * DIABETIC RETINOPATHY EXAM (POSITIVE) (11/17/2023) [facility] Scanned SCANNING Final Resu lt [facility] ONBASE * COLONOSCOPY (11/15/2016) Documents Scanned SCANNING Final Result Performing Organization Address City/[facility]/ZIP Co de Phone Number [facility]-GERONIMO MARTINEZ from Last 3 Months or Most Recently Relevant to Health Maintenance Insurance Advance Directives Documents on File Type Date Recorded Patient Freelance Recruiter Expl anation Power of Hotel Valet Attendant Advance Directives and Living Will 11/24/2017 6:53 AM 11/23/17 [facility] * Full Code (Latest Code Status on File) Date Activated Date Inactivated Comments 03/05/2023 9:01 PM 03/09/2023 7:07 PM * Full Code Date Activated Date Inactivated Comments 05/23/2021 10:55 AM 01/22/2022 2:21 PM * Full Code Date Activated Date Inactivated Comments 12/24/2020 1:55 PM 05/23/2021 10:55 AM * Full Code Date Activated Date Inactivated Comments 12/23/2020 3:40 PM 12/24/2020 1:55 PM * Full Code Date Activated Date Inactivated Comments 12/16/2017 10:16 PM 12/23/2017 6:59 PM Care Teams Senior Commissary Agent Relationship Specialty Start Date End Date Gi Pulliam MD PCP - General FAMILY PRACTICE 08/02/17 Taylor Ball RN [address] [place] [address] Poultry Debeaker (Ambulatory) REGISTERED NURSE 05/19/21 Tomás Howell MD [address] [facility] 2L [place] [address] UROLOGY 01/24/24 Jaqui Colin MD [address] DIV OF HEMATOLOGY & [place] [address] Gynecologic Oncology 01/24/24 Jose C Ramos MD [address] [facility] [address] [place] [address] Consulting Physician UROLOGY 03/12/24 Sea Humphries MD [address] [facility] [address] [place] [address] HEMATOLOGY/ONCOLOGY 03/12/24
--- OUTSIDE RECORDS SUMMARY | 2024-07-13 11:18 | XMS_ITS | Encounter Summary ---
Author Organization [facility] Address [facility]ly [facility] [place] [address] Care Team Providers Care Fur Finisher Seamstress Name Role Phone Gi Pulliam MD Primary Care Provider [phone] Taylor Ball RN Unavailable [phone] Tomás Howell MD Unavailable Jaqui Colin MD Unavailable Jose C Ramos MD Unavailable [phone] Sea Humphries MD Unavailable [phone] Encounter Details Date Type Department Care Team (Late st Contact Info) Description 10/01/2021 Dormir Message [address] [phone] Liam, [facility] Provider DM eye exam Social History Tobacco Use Types Packs/Day Years Used Date Smoking Tobacco: Never Smokeless Tobacco: Never Alcohol Use Standard Drinks/Week Comments No 0 (1 standard drink = 0.6 oz pur e alcohol) AUDIT-C Answer Date Recorded Frequency of Alcohol Consumption Never 11/22/2017 Average Number of Drinks Not on file 018 Frequency of Binge Drinking Not on file 11/05 PHQ-2 Answer Date Recorded PHQ-2 Score - If the patient scores above 3, please move on to questions 3-9 1 10/01/2021 Sex and Gender Information Value Date Recorded Sex Assigned at Male 11/22/2017 9:54 PM CDT Legal Sex Male 8:08 PM CDT Gender Identity Male 11/22/2017 9:54 PM CDT Sexual Orientation Straight 11/22/2017 9: 54 PM CDT documented as of this encounter Plan of Treatment Upcoming Encounters Date Type Department Care Team (Late st Contact Info) Description 08/30/2024 2:40 PM CDT Office Visit [facility] Family [facility] [address] [place] [address] Gi Pulliam MD [address] [place] [address] documented as of this encounter Goals Goal [...] General On track(2024 12:44 PM CDT) Taylor Desir RN Note: DM: Patient to follow diabetic [...] Patient to take all medications as prescribed. documented as of this encounter Visit Diagnoses Not on filedocumented in this encounter Additional Health Concerns Infection Onset Date Last Indicated Resolved Time COVID-19 Rule Out 01/22/2022 01/22/2022 01/22/2022 9:10 PM DOCTOR OF CHIROPRACTIC Influenza - Seasonal 01/22/2022 01/22/2022 023 12:33 AM DOCTOR OF CHIROPRACTIC COVID-19 Rule Out 03/05/2023 03/05/2023 03/05/2023 5:49 PM DOCTOR OF CHIROPRACTIC COVID-19 Rule Out 03/07/2023 03/07/2023 03/08/2023 9:02 AM DOCTOR OF CHIROPRACTIC Parainfluenza 03/07/2023 03/07/2023 03/17/2023 12: 32 AM DOCTOR OF CHIROPRACTIC Assessment Noted Time PHQ-9 Depression Total Score: 6 02/26/20 2:22 PM DOCTOR OF CHIROPRACTIC documented as of this encounter Care Teams Fur Finisher Seamstress Relationship Specialty Start Date End Date Gi Pulliam MD PCP - General FAMILY PRACTICE 08/02/17 Taylor Ball, RN [address] [place], [place] [address] Mixer Machine Feeder (Ambulatory) REGISTERED NURSE 05/19/21 Tomás Howell MD [address] [place] [address] UROLOGY 01/24/24 Jaqui Colin MD [address] DIV OF HEMATOLOGY & [place] [address] Gynecologic Oncology 01/24/24 Jose C Ramos MD [address] [place] [phone] Consulting Physician UROLOGY 03/12/24 Sea Humphries MD [address] [address] HEMATOLOGY/ONCOLOGY 03/12/24 documented as of this encounter
--- OUTSIDE RECORDS SUMMARY | 2024-07-13 11:18 | XMS_ITS | Encounter Summary ---
Author Organization [facility] Address [address] [place] [address] Care Team Providers Care Owner/Operator Name Role Phone Gi Pulliam MD Primary Care Provider [phone] Taylor Ball RN Unavailable [phone] Tomás Howell MD Unavailable Jaqui Colin MD Unavailable Jose C Ramos MD Unavailable [phone] Sae Humphries MD Unavailable [phone] Encounter Details Date Type Department Care Team (Latest Contact Info) Description 07/05/2024 Results Follow-Up [facility] Medical Group Family Medicine [facility] [address] [place] [address] Gi Pulliam MD [facility]6 [place] [address] A1C (BACK OFFICE), COMPREHENSIVE METABOLIC PANEL, LIPID PANEL, Additional followed-up results: 2 Social History Tobacco Use Types Packs/Day Years Used Date Smoking Tobacco: Never Smokeless Tobacco: Never Alcohol Use Standard Drinks/Week Comments No 0 (1 standard drink = 0.6 oz pur e alcohol) [facility] Utilities Answer Date Recorded In the past 12 months has [employer] electric, gas, oil, or water company threatened to shut off services in your [...] place to sleep or slept in a fdc (including now)? No 03/06/2023 Housing Stability Vital [...] as of this encounter Functional Status * Are you deaf or do you have serious difficulty hearing Answer Date of Assessment Author Status No 03/05/2023 9:08 PM Marion Andrews RN Active * Are you blind or do you have serious difficulty seeing, even when wearing glasses? Answer Date of Assessment Author Status No 03/05/2023 9:08 PM Marion Andrews RN Active * Do you have serious difficulty walking or climbing stairs? Answer Date of Assessment Author Status No 03/05/2023 9:08 PM Marion Andrews RN Active * Do you have difficulty dressing or bathing? Answer Date of Assessment Author Status No 03/05/2023 9:08 PM Marion Andrews RN Active * Because of a physical, mental, or emotional condition, do you have difficulty doing errands alone such as visiting a doctor's office or shopping? Answer Date of Assessment Author Status No 03/05/2023 9:08 PM Marion Andrews RN Active * Over the past 2 weeks, how often have you been bothered by any of the following problems? Question Answer Date of Assessment Author Status Little interest or pleasure in doing things Not at all 07/05/2024 2:42 PM SELWYNT Gerri Camara MA Active Feeling down, depressed, or hopeless Not at all 07/05/2024 2:42 PM CDT Viraj Camara MA Active Patient Health Questionnaire-2 Score 0 07/05/2024 2:42 PM SELWYNT Osmin Camara MA Active * If you checked off any problems on this questionnaire so far, Question Answer Date of Assessment Author Status How difficult have these problems made it for you to do your work, take care of things at home, or get along with other people? Not difficult at all 07/05/2024 2:42 PM CDT Gerri Camara MA Active documented as of this encounter Mental Status * Because of a physical, mental, or emotional condition, do you have serious difficulty concentrating, remembering, or making decisions? Answer Entry Date Author Status No 03/05/2023 9:08 PM BLAST FURNACE BLOWER Marion Youngblood RN Active documented in this encounter Progress Notes * Gi Pulliam MD - 07/05/2024 3:32 PM CDT Discussed results with patient and plan going forward in clinic. documented in this encounter Plan of Treatment Upcoming Encounters Date Type Department Care Team (Late st Contact Info) Description 08/30/2024 2:40 PM CDT Office Visit [facility] Medical Group Family Medicine [facility] [address] [place] [address] Gi Pulliam MD [address] [place], [place] [id number] documented as of this encounter Goals Goal Patient Goal Type Associated Problems Recent Progress Patient-Stated? Author Pt will attend follow up appts General On track(2024 12:44 PM CDT) No Lindsey Dimas RN Medications - demonstrates understanding of how [...] 12:44 PM CDT) Taylor Desir RN Note: HTN: Patient to monitor blood pressure daily and record readings and call provider with consistent readings >140/90. Patient will maintain a low sodium diet . Patient will call provider with any visual disturbances, headaches or dizziness. Patient to take all medications as prescribed. documented as of this encounter Visit Diagnoses Not on filedocumented in this encounter Additional Health Concerns Assessment Noted Time PHQ-9 Depression Total Score: 2 05/25/19 25 3:17 PM CDT documented as of this encounter Care Teams Owner/Operator Relationship Specialty Start Date End Date Gi Pulliam MD PCP - General FAMILY PRACTICE 08/02/17 Taylor Ball, RN [address] [place] [address] Au Pair (Ambulatory) REGISTERED NURSE 05/19/21 Tomás Howell MD [address] [place] [address] UROLOGY 01/24/24 Jaqui Colin MD [address] DIV OF HEMATOLOGY & [place] [address] Gynecologic Oncology 01/24/24 Jose C Ramos MD [address] [place] [address] Consulting Physician UROLOGY 03/12/24 Sea Humphries MD [facility] [address] HEMATOLOGY/ONCOLOGY 03/12/24 documented as of this encounter
--- OUTSIDE RECORDS SUMMARY | 2024-07-13 11:18 | XMS_ITS | Encounter Summary ---
Author Organization [facility] Address [facility] [place] [address] Care Team Providers Care Operations Manager Name Role Phone Gi Pulliam MD Primary Care Provider [phone] Sea Humphries MD Unavailable [phone] Kael Negron MD Unavailable [phone] Jaqui Colin MD Unavailable [phone] Janene Arriaga MD Unavailable Federico Garcia MD Unavailable [phone] Vijaya Ulrich PharmD Unavailable Unavaila Val Licea RN Unavailable [facility]available [facility] Unavailable Letty vailable Cathi, Ayanna John SINGLE POINTED OPERATOR-COURTROOM REPORTER Unavailable [phone] Yadi Dean RN Unavailable Unavailable Aditi Ladd LCSW Unavailable Unavailab Kaia Agee SINGLE POINTED OPERATOR-COURTROOM REPORTER Unavailable [phone] Kassandra Richard RN Unavailable Unavaila Doris Sandy RN Unavailable Unavailable Encounter Details Date Type Department Care Team (Late st Contact Info) Description 12/01/2020 Telephone [facility] CLINIC [address] [place] [address] Nicole Ramos RN Social History Tobacco Use Types Packs/Day Years Used Date Smoking Tobacco: Never Smokeless Tobacco: Never Alcohol Use Standard Drinks/Week Comments No 0 (1 standard drink = 0.6 oz pur e alcohol) Sex and Gender Information Value Date Recorded Sex Assigned at Not on file Legal Sex Male 8:20 PM CDT Gender Identity Male 09/05/2023 9:57 AM CDT Sexual Orientation Not on file COVID-19 Exposure Response Date Recorded In the last month, have you been in contact with someone who was confirmed or suspected to have Coronavirus / COVID-19? No / Unsure 12/01/2020 11:46 AM CDT documented as of this encounter Functional Status * Is person deaf or have serious hearing difficulty? Answer Date of Assessment Author No 10/01/2020 1:45 PM CDT Alfredo Lin RN * Is person blind or have serious difficulty seeing? Answer Date of Assessment Author No 10/01/2020 1:45 PM CDT Alfredo Lin RN * Does person have serious difficulty walking/climbing stairs? Answer Date of Assessment Author Yes 10/01/2020 1:45 PM CDT Alfredo Lin RN * Does person have difficulty dressing/bathing? Answer Date of Assessment Author Yes 10/01/2020 1:45 PM CDT Alfredo Lin RN * Does person have difficulty doing errands alone? Answer Date of Assessment Author Yes 10/01/2020 1:45 PM CDT Alfredo Lin RN documented as of this encounter Mental Status * Does person have difficulty concentrating/remembering/making decisions? Answer Entry Date Author Yes 10/01/2020 1:45 PM CDT Alfredo Lin RN documented in this encounter Plan of Treatment Upcoming Encounters Date Type Department Care Team (Late st Contact Info) Description 09/11/2024 12:45 PM CDT Appointment [facility] PET [address] [place] [address] Jaqui Colin MD [address] [facility] DIV OF HEMATOLOGY & [place] [address] 09/11/2024 1:45 PM CDT Appointment [facility] PET [address] [place] [phone] Jaqui Colin MD [address] [place] [address] OF HEMATOLOGY [place] [address] 09/11/2024 3:00 PM CDT Office Visit [facility] - Hematology/Oncology [address] [place] [address] Jaqui Colin MD [address] [place] [address] OF HEMATOLOGY [place] [address] documented as of this encounter Visit Diagnoses Not on filedocumented in this encounter Additional Health Concerns Infection Onset Date Last Indicated Resolved Time COVID-19 Under Investigation 12/10/2020 12/10/2020 12/11/2020 4:17 AM CDT COVID-19 Confirmed 03/12/2021 04/02/2021 4:33 AM PRINTED CIRCUIT BOARD LAYOUT DESIGNER COVID-19 Under Investigation 03/19/2021 03/19/2021 03/19/2021 4:42 PM PRINTED CIRCUIT BOARD LAYOUT DESIGNER COVID-19 Under Investigation 04/14/2021 04/14/2021 04/25/2021 4:33 AM PRINTED CIRCUIT BOARD LAYOUT DESIGNER COVID-19 Under Investigation 09/29/2021 09/29/2021 09/29/2021 8:59 PM CDT documented as of this encounter Care Teams Operations Manager Relationship Specialty Start Date End Date Gi Pulliam MD [address] [address] PCP - General Family Medicine 10/17/18 Sea Humphries MD [address] [address] Referring Physician Medical Oncology 02/19/20 [place] [address] [place] [address] Hematology and Oncology 02/19/20 03/26/21 Jaqui Colin MD [address] DIV OF HEMATOLOGY & [place] [address] Hematology and Oncology 02/19/20 Janene Arriaga MD [address] DIV OF HEMATOLOGY & [place] [address] Hematology and Oncology 02/19/20 Federico Garcia MD [address] DIV OF HEMATOLOGY & [place]ICAL [place] [address] Hematology and Oncology 02/19/20 Vijaya Ulrich, PharmD 02/19/20 Val Pisano, MELISSA 02/19/20 Rina Argueta 02/19/20 Ayanna Winkler APRN-COURTROOM REPORTER Family Medicine 02/19/20 Yadi Dean, MELISSA Registered Nurse 02/19/20 03/26/21 Aditi Ladd, SENIOR RECRUITER Loss Prevention Detective 02/19/20 Kaia Munroe SINGLE POINTED OPERATOR-COURTROOM REPORTER [address] DIV OF HEMATOLOGY [place] [address] Advance Practice Nurse Family Medicine 08/05/20 Kassandra Richard, RN Registered Nurse 03/27/21 Doris Munguia, RN Registered Nurse 06/03/21 documented as of this encounter
--- OUTSIDE RECORDS SUMMARY | 2024-07-13 11:18 | XMS_ITS | Encounter Summary ---
Author Organization [facility] Address [address] [place] [address] Care Team Providers Care Stone Dresser Name Role Phone Gi Pulliam MD Primary Care Provider [phone] Taylor Ball RN Unavailable [phone] Tomás Howell MD Unavailable Jaqui Colin MD Unavailable Jose C Ramos MD Unavailable [phone] Sea Humphries MD Unavailable [phone] Encounter Details Date Type Department Care Team (Late st Contact Info) Description 05/23/2020 Hyperpot Message Enc [facility] Medical Group Family Medicine [address] [address] Liam, [facility] Provider blood sugar Social History Tobacco Use Types Packs/Day Years [...] Description 08/30/2024 2:40 PM CDT Office Visit [facility] Medical Group Family Medicine [facility] [address] [place] [phone] Gi Pulliam MD [address] [place] [address] documented as of this encounter Visit Diagnoses Not on filedocumented in this encounter Additional Health Concerns Infection Onset Date Last Indicated Resolved Time COVID-19 Rule Out 01/22/2022 01/22/2022 01/22/2022 9:10 PM CINEMA OR THEATRE MANAGER Influenza - Seasonal 01/22/2022 01/22/2022 023 12:33 AM CINEMA OR THEATRE MANAGER COVID-19 Rule Out 03/05/2023 03/05/2023 03/05/2023 5:49 PM CINEMA OR THEATRE MANAGER COVID-19 Rule Out 03/07/2023 03/07/2023 03/08/2023 9:02 AM CINEMA OR THEATRE MANAGER Parainfluenza 03/07/2023 03/07/2023 03/17/2023 12: 32 AM CINEMA OR THEATRE MANAGER documented as of this encounter Care Teams Stone Dresser Relationship Specialty Start Date End Date Gi Pulliam MD PCP - General FAMILY PRACTICE 08/02/17 Taylor Ball RN [address] [place] [address] Hazmat Cdl A Driver (Ambulatory) REGISTERED NURSE 05/19/21 Tomás Howell MD [address] [place] [address] UROLOGY 01/24/24 Jaqui Colin MD [address] DIV OF HEMATOLOGY [place] [address] Gynecologic Oncology 01/24/24 Jose C Ramos MD [address] [facility] [address] [place] [address] Consulting Physician UROLOGY 03/12/24 Sea Humphries MD [address] [facility] [address] [place] [address] HEMATOLOGY/ONCOLOGY 03/12/24 documented as of this encounter
--- OUTSIDE RECORDS SUMMARY | 2024-07-13 11:18 | XMS_ITS | Patient Health Record ---
Author Organization [address] [facility] Address [address] [address] [place] [address] Care Team Providers Care Saturator Name Role Phone Gi Pulliam M.D. Primary Care Provider Unavail able Hannah Giles Unavailable [phone] Allergies Allergen (clinical drug ingredient) Drug/Non Drug Allergy documented on EMR Reaction Allergy Type Onset Date Status codeine Codeine Unknown Drug Allergy Active Reason For Referral No Information Medications Medication SIG (Take, Route, Fr equency, Duration) Notes Start Date End Date Status Semglee Active Lisinopril Active Metoprolol Tartrate Active Atorvastatin Calcium Active metFORMIN HCl Active Trulicity Active Problems Problem Type SNOMED Code ICD Code Onset Dates Problem Status W/U Status Risk Notes Problem [id number] Type 2 diabetes mellitus with other diabetic neurological complication (E11.49) Active confirmed Problem 531776998 History of amputation of lesser toe of left foot (Z89.422) Active confirmed Problem Controlled type 2 diabetes mellitus with diabetic polyneuropathy, unspecified whether terminal operations supervisor insulin use (E11.42) Active confirmed Plan Of Treatment No Information Insurance Providers Payer Name Payer Address Payer Phone Subscriber Number Group Number Insured Name Patient Relationship to Insured Coverage Start Date Coverage End Date [employer] [address] [address] [place] [id number] Nelson Carroll Self - patient is the insured Medical (General) History Medical History History ICD Code CANCER (HODGKINS) DIABETES high blood pressure high cholesterol neuropathy Surgical History Surgery Date(Month/Year) LT T4 toe amputation
--- OUTSIDE RECORDS SUMMARY | 2024-07-13 11:18 | XMS_ITS | Clinical Summary ---
Author Organization [facility] Address [address] [place] [address] Phone Care Team Providers Care Health And Wellness Advisor Name Role Phone Gi Pulliam MD Primary Care Provider Allergies Active Allergy Reactions Criticality Noted Date Comments Codeine Nausea and Vomiting,Dizziness High 2014 Medications metFORMIN (GLUCOPHAGE) 1,000 mg tablet Take 1,000 mg by mouth 2 times daily with meals. Active insulin aspart (NOVOLOG) 100 unit/mL Solution Inject 20 Units by subcutaneous injection 3 times daily with meals. Active atorvastatin (LIPITOR) 40 mg tablet TAKE 1 TABLET BY MOUTH ONCE DAILY 9 Active blood sugar diagnostic (OneTouch Ultra Blue Test Strip) Strip 0 Active omeprazole (PriLOSEC) 20 mg Capsule, Delayed Release(E.C.) Take 20 mg by mouth. 9 Active polyethylene glycol 3350 (MIRALAX) 17 gram/dose Powder DISSOLVE AND DRINK 17 GRAMS OF POWDER ONCE DAILY NEEDED FOR CONSTIPATION 0 Active rivaroxaban (Xarelto) 20 mg Tablet Take 20 mg by mouth daily with supper. 2 Active spironolactone (ALDACTONE) 50 mg tablet Take 50 mg by mouth daily. 4 Active insulin glargine-yfgn 100 unit/mL pen syringe Inject 78 Units by subcutaneous injection daily. 4 Active ferrous sulfate 325 mg (65 mg iron) tablet Take 325 mg by mouth. 2 Active docusate sodium (COLACE) 100 mg capsule Take 100 mg by mouth 2 times daily. 1 Active dapagliflozin propanediol (FARXIGA) 10 mg Tablet Take 10 mg by mouth. 4 Active furosemide (LASIX) 40 mg tablet Take 40 mg by mouth daily. Active oxyCODONE (ROXICODONE) 5 mg tablet Take 5 mg by mouth every 6 hours as needed. 4 Active lisinopriL (PRINIVIL) 10 mg tablet Take 10 mg by mouth daily. 4 Active semaglutide (Ozempic) 0.25 mg or 0.5 mg(2 mg/1.5 mL) Pen Injector Inject 0.25 mg by subcutaneous injection every 7 days. Active hydrOXYzine HCL (ATARAX) 25 mg tablet Take 1 Tablet (25 mg) by mouth 3 times daily as needed for Itching. 30 Tablet 1 5 Active Active Problems Problem Noted Date Diagnosed [...] Assessment & Plan (03/23/2016 4:14 PM SUPERVISOR LIQUID YEAST): Mild microcytosis persists, but his hemoglobin is within normal limits. We'll monitor it. Assessment & Plan (04/08/2015 12:23 PM SUPERVISOR LIQUID YEAST): Hb is sl better today, but he [...] Assessment & Plan (03/23/2016 4:15 PM SUPERVISOR LIQUID YEAST): He is stable clinically with no signs [...] Assessment & Plan (04/08/2015 12:28 PM SUPERVISOR LIQUID YEAST): I had a long discussion with eZnon and his and explained the causes of [...] office visit, and had no further questions. 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 ([facility]/HCC) 06/25/2024 Orders Only [facility] On[facility]ology - [place] Kai Thomason [address] Sea Humphries MD Benign hypertension 06/18/2024 Orders Only [facility]ology - [place] Kai Thomason [address] Sea Humphries MD 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 ([facility]/HCC) 06/12/2024 Orders Only [facility] On[facility] and Hematology - [place] [address]Katya [address]ason [address] [place] [address] Sea Humphries MD 06/11/2024 Orders Only [facility]ology - [place] [address] [place] [address] Sea Humphries MD Benign hypertension 06/08/2024 12:30 PM CDT Office Visit [facility] - [place] [address] [place] [address] Sea Humphries MD 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) (Primary Dx) 06/04/2024 Orders Only [facility]ology - [place] [address] [place] [address] Sea Humphries MD 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) 05/28/2024 Orders Only [facility]ology - [place] [address] [place] [address] Sea Humphries MD Benign hypertension 05/21/2024 Telephone [facility]ology - [place] [address] [place] [address] Sea Humphries MD Cough 05/21/2024 Orders Only [facility] - [place] [address] [place] [address] Sea Humphries MD 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) 05/18/2024 Orders Only [facility] - [place] [address] [place] [address] Sea Humphries MD 05/14/2024 Abstract [facility] - [place] [address] [place] [address] Sea Humphries MD 05/14/2024 Orders Only [facility]ology - [place] [address] [place] [address] Sea Humphries MD Benign hypertension 05/10/2024 Orders Only [facility]ology - [place] [address] [place] [address] Sea Humphries MD 05/10/2024 Abstract [facility]ology - [place] [address] [place] [address] Sea Humphries MD 05/07/2024 Orders Only [facility]ology - [place] [address] [place] [address] Sea Humphries MD 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) 05/04/2024 12:45 PM SUPERVISOR LIQUID YEAST Office Visit [facility]ology - [place] [address] [place] [address] Sea Humphries MD 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) (Primary Dx) 04/30/2024 Orders Only [facility]ology - [place] [address] [place] [address] Sea Humphries MD Benign hypertension 04/25/2024 External Device Data STL ABSTRACTION Provider, Abstract 04/23/2024 Orders Only [facility]ology - [place] [address] [place] [address] Sea Humphries MD 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) 04/19/2024 Orders Only [facility]ology - [place] [address] [place] [address] Sea Humphries MD Benign hypertension (Primary Dx) from Last 3 Months Immunizations Immunization Administration Dates Next Due Influenza Seasonal Unspecified Formulation IM Family History Medical History Relation Name Comments Heart Disease Father Breast Cancer Mother Cancer Mother Diabetes Mother Heart Disease Mother Other Mother Skin cancer, ?m elanoma Cancer Sister 1 Ovarian Cancer Sister 1 Cancer Sister 2 Colon Cancer Neg Hx Relation Name Status Comments Father Mother Sister 1 Sister 2 Alive Social History Tobacco Use Types Packs/Day Years Used Date Smoking Tobacco: Never Smokeless Tobacco: Never Tobacco Cessation:Counseling Given: Not Answered Alcohol Use Standard Drinks/Week Comments No 0 (1 standard drink = 0.6 oz pur e alcohol) Sex and Gender Information Value Date Recorded Sex Assigned at Not on file Legal Sex Male 1:56 PM SUPERVISOR LIQUID YEAST Gender Identity Not on file Sexual Orientation Straight 12/16/2023 2: 59 PM CDT Last Filed Vital Signs Vital Sign Reading Time Taken Comments Blood Pressure 97/58 06/08/2024 12:26 PM CDT Pulse 70 06/08/2024 12:26 PM CDT Temperature 36 C (96.8 F) 06/08/2024 12:26 PM CDT Respiratory Rate 16 06/08/2024 12:2 6 PM CDT Oxygen Saturation 97% 06/08/2024 12: 26 PM CDT Inhaled Oxygen Concentration - - Weight 135.8 kg (299 lb 6.4 oz) 025 12:26 PM CDT Height 185.4 cm (6' 1 ) 11/02/2023 2:51 PM CDT Body Mass Index 39.5 11/02/2023 2:51 PM CDT Plan of Treatment Upcoming Encounters Date Type Department Care Team (Late st Contact Info) Description 07/13/2024 1:00 PM CDT Office Visit [facility] Oncology and Hematology - [place] [address] [facility] 200 [place] [address] Sea Humphries MD [address] [facility] [address] [place] [address] Health Maintenance Due Date Last Done Comments DIABETES ANNUAL FOOT EXAM 1974 DIABETES MICROALBUMIN ANNUAL SCREEN 1974 LDL CHOLESTEROL ANNUAL 1974 FIT-DNA Q 3 years 2001 FIT/FOBT Q 1 year 2001 Flex Sig/CT Colonography Q 5 years 2001 RSV VACCINE (60+ or ) (1 - Risk 60-74 years 1-dose series) 2016 DIABETES ANNUAL RETINAL EXAM 10/05/2021 10/05/2020 COVID-19 Vaccine (8 - Pfizer risk season) 2024 12/30/2023, 02/07/2023, 10/06/2022, Additional history exists DIABETES HBA1C Q 6 MONTHS 11/24/20242024, 02/23/2024, 11/16/2023, Additional history exists COLORECTAL SCREENING 03/10/2031 03/10/2021, 11/15/2016, 11/15/2016 Colorectal Cancer Screening 03/10/2031 DTAP/TDAP/TD VACCINES (8 - T d or Tdap) 03/23/2032 03/23/2022, 03/23/2022, 01/13/2022, Additional history exists ZOSTER VACCINE Completed 01/13/2022, 09/08/2021 PNEUMOCOCCAL VACCINE 50+ YEARS Completed 0 05/26/2022, 03/23/2022, 01/13/2022, Additional history exists INFLUENZA VACCINE Completed 12/14/2023, , 02/14/2023, Additional history exists Medical Devices Explanted Type Area Senior Bookkeeper Device Identifier Shelf Expiration Date Model / Serial / Lot Stent Polaris Ultra [id number] - [id number] Implanted:Qty : 1 on 03/03/2015 by Chang Tolentino MD at [facility] Explanted:Qty : 1 on 04/21/2015 by Chang Tolentino MD at [facility] Stent Left: Ureter [employer] [id number] 10/28/2017 192-134 / / [id number] Procedures Procedure Name Priority Date/Time Associated Diagnosis Comments COMPREHENSIVE METABOLIC PANEL Routine 06/29/2024 1:27 PM CDT CBC MIXED CELL DIFFERENTIAL Routine 06/29/2024 1:04 PM CDT BASIC METABOLIC PANEL Routine 06/29/2024 12:59 PM CDT COMPREHENSIVE METABOLIC PANEL Routine 06/08/2024 3:12 PM CDT BASIC METABOLIC PANEL Routine 06/08/2024 11:50 AM CDT CBC WITH DIFFERENTIAL Routine 05/04/2024 1:57 PM SUPERVISOR LIQUID YEAST COMPREHENSIVE METABOLIC PANEL Routine 05/04/2024 9:50 AM SUPERVISOR LIQUID YEAST HEMOGLOBIN A1C Routine 10/26/2016 11:08 PM CDT from Last 3 Months or Most Recently Relevant to Health Maintenance Results * COMPREHENSIVE METABOLIC PANEL (06/29/2024 1:27 PM CDT) Only the most recent of3 resultswithin the time period is included. Blood us Sea Humphries MD CHEMISTRY ORDERABLES Final Resu lt * CBC MIXED CELL DIFFERENTIAL (06/29/2024 1:04 PM CDT) Blood Sea Humphries MD HEMATOLOGY ORDERABLES Final Res ult * BASIC METABOLIC PANEL (06/29/2024 12:59 PM CDT) Only the most recent of2 resultswithin the time period is included. Blood Result [facility] us Sea Humphries MD CHEMISTRY ORDERABLES Final Resu lt * CBC WITH DIFFERENTIAL (05/04/2024 1:57 PM SUPERVISOR LIQUID YEAST) Blood Result [facility] Sea Humphries MD HEMATOLOGY ORDERABLES Final Res ult * (ABNORMAL) HEMOGLOBIN A1C (10/26/2016 11:08 PM CDT) HEMOGLOBIN A1C 11.1(H) 4.0 - 6.0 % 10/27/2016 7:21 AM CDT [facility] Comment:Note: Effective as o f 03/28/2015 a new methodology, Turbidimetric inhibition immunoassay (TINIA),has been implemented. EST. AVG GLUCOSE, A1C 272 mg/dL 10/27/2016 7:21 AM CDT [facility] Blood Collection / Unknown 10/26/2016 11:08 PM CDT 10/27/2016 6:57 AM CDT Kaia Solomon MD CHEMISTRY ORDERABLES Final Result [facility]# [id number] [address] [place] [place] [address] from Last 3 Months or Most Recently Relevant to Health Maintenance Insurance [employer] [address] Advance Directives For more information, please contact: [phone] * Full Code (Latest Code Status on File) Date Activated Date Inactivated Comments 11/15/2016 10:14 AM 11/15/2016 4:40 PM * Full Code Date Activated Date Inactivated Comments 10/27/2016 4:44 AM 10/27/2016 3:44 PM * Full Code Date Activated Date Inactivated Comments 04/21/2015 7:48 AM 04/21/2015 5:35 PM * Full Code Date Activated Date Inactivated Comments 03/03/2015 10:39 AM 03/03/2015 6:24 PM Care Teams Health And Wellness Advisor Relationship Specialty Start Date End Date Gi Pulliam MD [address] [place] [address] PCP - General Family Practice 10/10/17
--- OUTSIDE RECORDS SUMMARY | 2024-07-13 11:19 | XMS_ITS | Encounter Summary ---
Author Organization [facility] Address [address] [place] [address] Care Team Providers Care Machine Operator Replanter Name Role Phone Gi Pulliam MD Primary Care Provider [phone] Sea Humphries MD Unavailable [phone] Kael Negron MD Unavailable [phone] Jaqui Colin MD Unavailable [phone] Janene Arriaga MD Unavailable [phone] Federico Garcia MD Unavailable [phone] Vijaya Ulrich PharmD Unavailable Unavaila Chandler Avila PharmD Unavailable Unavailab Val Lenz RN Unavailable Unavailable Elaine Poole RN Unavailable Unavailab Rina Trinidad Unavailable Letty vailable Cathi, Ayanna John ALMOND GRINDER-COMPLIANCE AUDITOR Unavailable [phone] Yadi Dean RN Unavailable Unavailable Nicole Ramos RN Unavailable Unavailable Loreto Oliveros RN Unavailable UnavailAditi Marin LCSW Unavailable Unavailab Kaia Agee ALMOND GRINDER-COMPLIANCE AUDITOR Unavailable [phone] Kassandra Richard RN Unavailable Unavaila ble Ezra, Doris J RN Unavailable Unavailable Encounter Details Date Type Department Care Team (Late st Contact Info) Description 10/04/2020 Ophth Exam [facility] [address] [facility], [place] [address] Pi, [place] [address] [facility] [address] [place] [address] Social History Tobacco Use Types Packs/Day Years [...] have Coronavirus / COVID-19? No / Unsure 09/15/2020 12:28 PM CDT documented as of this encounter [...] Info) Description 09/11/2024 12:45 PM CDT Appointment [facility] [address] [place] [phone] Jaqui Colin MD [address] [place] [address] OF HEMATOLOGY & [place] [address] 09/11/2024 1:45 PM CDT Appointment [facility] [address] [place] [address] Jaqui Colin MD [address] [place] [address] HEMATOLOGY [place] [address] 09/11/2024 3:00 PM CDT Office Visit [facility] - Hematology/Oncology [address] [place] [phone] Jaqui Colin MD [address] [place] [address] OF HEMATOLOGY & [place] [address] documented as of this encounter Visit Diagnoses Not on filedocumented in this encounter Additional Health Concerns Infection Onset Date Last Indicated Resolved Time COVID-19 Under Investigation 12/10/2020 12/10/2020 12/11/2020 4:17 AM CDT COVID-19 Confirmed 03/12/2021 04/02/2021 4:33 AM ENVELOPE FOLDER COVID-19 Under Investigation 03/19/2021 03/19/2021 03/19/2021 4:42 PM ENVELOPE FOLDER COVID-19 Under Investigation 04/14/2021 04/14/2021 04/25/2021 4:33 AM ENVELOPE FOLDER COVID-19 Under Investigation 09/29/2021 09/29/2021 09/29/2021 8:59 PM CDT documented as of this encounter Care Teams Machine Operator Replanter Relationship Specialty Start Date End Date Gi Pulliam MD [facility] [place] [address] PCP - General Family Medicine 10/17/18 Sea Humphries MD [address] [place] [address] Referring Physician Medical Oncology 02/19/20 Kael Negron MD [address] [place] [address] Hematology and Oncology 02/19/20 03/26/21 Jaqui Colin MD [address] OF HEMATOLOGY & [place] [address] Hematology and Oncology 02/19/20 Janene Arriaga MD [address] DIV OF HEMATOLOGY [place] [address] Hematology and Oncology 02/19/20 Federico Garcia MD [address] OF HEMATOLOGY [place] [address] Hematology and Oncology 02/19/20 Vijaya Ulrich, PharmD 02/19/20 Chandler Rosario, PharmD Pharmacist 02/19/20 11/25/20 Val Pisano, RN 02/19/20 Elaine Poole RN 02/19/20 11/25/20 Rina Argueta 02/19/20 Ayanna Winkler APRN-TERRIE Family Medicine 02/19/20 Yadi Dean, RN Registered Nurse 02/19/20 03/26/21 Nicole Ramos, RN Registered Nurse 02/19/20 11/25/20 Loreto Oliveros, RN Registered Nurse 02/19/20 11/25/20 Aditi Ladd LCSW Quality Control 02/19/20 Kaia Munroe APRN-TERRIE [address] [facility] OF HEMATOLOGY & [place] [address] Advance Practice Nurse Family Medicine 08/05/20 Kassandra Richard, RN Registered Nurse 03/27/21 Doris Munguia, RN Registered Nurse 06/03/21 documented as of this encounter
--- OUTSIDE RECORDS SUMMARY | 2024-07-13 11:19 | XMS_ITS | Clinical Summary ---
Author Organization [facility] Address [facility] [place] [address] Care Team Providers Care Sorter Laundry Articles Name Role Phone Gi Pulliam MD Primary Care Provider Carolin Nguyen MD Unavailable [phone] Kiera Jay MD Unavailable [phone] Medications No known medications Active Problems Problem Noted Date Diagnosed Date 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 02/05/2020 Social History Tobacco Use Types Packs/Day Years Used Date Smoking Tobacco: Never Assessed Personal Safety Answer Date Recorded Getting School Help Needed Not on file 02/26 Sex and Gender Information Value Date Recorded Sex Assigned at Not on file Legal Sex Male 3:38 PM CDT Gender Identity Not on file Sexual Orientation Not on file Last Filed Vital Signs Vital Sign Reading Time Taken Comments Blood Pressure 147/79 02/26/2013 1:28 PM STUDENT FINANCIAL SERVICES COUNSELOR Pulse 80 02/26/2013 1:28 PM STUDENT FINANCIAL SERVICES COUNSELOR Temperature 36.7 C (98 F) 02/26/2013 1:28 PM STUDENT FINANCIAL SERVICES COUNSELOR Respiratory Rate - - Oxygen Saturation 97% 02/26/2013 1:28 PM STUDENT FINANCIAL SERVICES COUNSELOR Inhaled Oxygen Concentration - - Weight 133.8 kg (295 lb) 02/26/2013 1:28 PM STUDENT FINANCIAL SERVICES COUNSELOR Height 193 cm (6' 4 ) 02/26/2013 1:28 PM STUDENT FINANCIAL SERVICES COUNSELOR Body Mass Index 35.91 02/26/2013 1:28 PM STUDENT FINANCIAL SERVICES COUNSELOR Plan of Treatment Health Maintenance Due Date Last Done Comments Colon Cancer Screening-Colonoscopy 1955 Depression Screening 1956 Fall Risk Assessment 1955 Hepatitis C Screening 1955 Prostate Cancer Screening-PSA 1956 Abdominal Aortic Aneurysm (A AA) Screen 2021 Well Visit 65+ 2021 Covid-19 Vaccine (5 - 2023-2 5 season) 2023 01/13/2022, 11/10/2021, 09/08/2021, Additional history exists Influenza Vaccine (Season Ended) 2024 01/13/2022, 12/27/2019, 12/27/2019, Additional history exists DTaP/Tdap/Td Vaccine (7 - Td or Tdap) 03/23/2032 03/23/2022, 01/13/2022, 01/13/2022, Additional history exists Zoster Vaccine Completed 01/13/2022, 09/08/2021 Hepatitis B Screening Completed 05/26/2022 , 01/13/2022, 11/10/2021 Pneumococcal vaccine 65+ Completed 023, 03/23/2022, 01/13/2022, Additional history exists Insurance [facility] Address: [facility] [address] [place] [address] [facility] Care Teams Sorter Laundry Articles Relationship Specialty Start Date End Date Gi Pulliam MD [address] [facility] [place] [address] PCP - General Family Practice 01/22/20 Carolin Nguyen MD [address] [address] Referring Physician Internal Medicine 01/23/20 Kiera Jay MD [address] [address] Consulting Physician Medical Oncology 01/23/20
--- OUTSIDE RECORDS SUMMARY | 2024-07-13 11:19 | XMS_ITS | Referral Summary ---
Author Organization [facility] Address [address] [place] [address] Care Team Providers Care Residential Construction Instructor Name Role Phone Gi Pulliam MD Primary Care Provider Carolin Nguyen MD Unavailable [phone] Kiera Jay MD Unavailable [phone] Medications No known medications Active Problems Problem [...] Comments Blood Pressure 147/79 02/26/2013 1:28 PM REFRIGERATOR REPAIR TECHNICIAN Pulse 80 02/26/2013 1:28 PM REFRIGERATOR REPAIR TECHNICIAN Temperature 36.7 C (98 F) 02/26/2013 1:28 PM REFRIGERATOR REPAIR TECHNICIAN Respiratory Rate - - Oxygen Saturation 97% 02/26/2013 1:28 PM REFRIGERATOR REPAIR TECHNICIAN Inhaled Oxygen Concentration - - Weight 133.8 kg (295 lb) 02/26/2013 1:28 PM REFRIGERATOR REPAIR TECHNICIAN Height 193 cm (6' 4 ) 02/26/2013 1:28 PM REFRIGERATOR REPAIR TECHNICIAN Body Mass Index 35.91 02/26/2013 1:28 PM REFRIGERATOR REPAIR TECHNICIAN Plan of Treatment Not on file Insurance [employer] Care Teams Residential Construction Instructor Relationship Specialty Start Date End Date Gi Pulliam MD [address] [place] [address] [place] [address] PCP - General Family Practice 01/22/20 Carolin Nguyen MD [address] [address] Referring Physician Internal Medicine 01/23/20 Kiera Jay MD [address] [facility] [address] [place] [address] Consulting Physician Medical Oncology 01/23/20
--- OUTSIDE RECORDS SUMMARY | 2024-07-13 11:19 | XMS_ITS | Encounter Summary ---
Author Organization [facility] Address [address] [place] [id number] Care Team Providers Care Life Insurance Sales Name Role Phone Gi Pulliam MD Primary Care Provider Taylor Ball RN Unavailable [phone] Tomás Howell MD Unavailable Jaqui Colin MD Unavailable Jose C Ramos MD Unavailable [phone] Sea Humphries MD Unavailable [phone] Encounter Details Date Type Department Care Team (Late st Contact Info) Description 03/13/2024 Jiahehart Message Enc [facility] Family Medicine [facility] [address] [place] [address] [place] [address] [place] [id number] New Insurance Card - [employer] Social History Tobacco Use Types Packs/Day Years Used Date Smoking Tobacco: Never Smokeless Tobacco: Never Alcohol Use Standard Drinks/Week Comments No 0 (1 standard drink = 0.6 oz pur e alcohol) [facility] Utilities Answer Date Recorded In the past 12 months has e electric, gas, oil, or water company threatened [...] Answer Date Recorded Patient Health Questionnaire-2 Score 1 03/14/2024 Hunger Vital Sign Answer Date Recorded Within [...] place to sleep or slept in a senior care (including now)? No 03/06/2023 Housing Stability Vital [...] Little interest or pleasure in doing things Several days 03/14/2024 9:21 AM Alexa Mcpherson MA Activ e Feeling down, depressed, or hopeless Not at all 03/14/2024 9:21 AM Alexa Mcpherson M A Active Patient Health Questionnaire-2 Score 1 03/14/2024 9:21 AM Alexa Mcpherson MA Active * Question Answer Date of Assessment Author Status Trouble falling or staying asleep, or sleeping too much More than half the days 03/14/2024 9:21 AM Alexa Mcpherson MA Active Feeling tired or having little energy More than half the days 03/14/2024 9:21 AM Alexa Mcpherson MA Active Poor appetite or overeating Not at all 03/14/2024 9:21 AM Alexa Mcpherson MA Active Feeling bad about yourself - or that you are a failure or have let yourself or your family down Not at all 03/14/2024 9:21 AM Alexa Mcpherson MA Active Trouble concentrating on things, such as reading the newspaper or watching television Several days 03/14/2024 9:21 AM Alexa Mcpherson MA Active Moving or speaking so slowly that other people could have noticed? Or the opposite - being so fidgety or restless that you have been moving around a lot more than usual. Not at all 03/14/2024 9:21 AM Alexa Mcpherson MA Active Thoughts that you would be better off or hurting yourself in some way Not at all 03/14/2024 9:21 AM Alexa Mcpherson MA Active Patient Health Questionnaire-9 Score 6 03/14/2024 9:21 AM Alexa Mcpherson MA Active * If you checked off any problems on this questionnaire so far, Question Answer Date of Assessment Author Status How difficult have these problems made it for you to do your work, take care of things at home, or get along with other people? Somewhat difficult 03/14/2024 9:21 AM Alexa Mcpherson MA Active * Over the last 2 weeks, how often have you been bothered by any of the following problems? Question Answer Date of Assessment Author Status Feeling nervous, anxious, or on edge 1 03/14/2024 9:23 AM Alexa Mcpherson MA Activ e Not being able to stop or control worrying 0 03/14/2024 9:23 AM Alexa Mcpherson MA Acti ve Worrying too much about different things 1 03/14/2024 9:23 AM Alexa Mcpherson MA Acti ve Trouble relaxing 0 03/14/2024 9:23 AM Alexa Mcpherson MA Active Being so restless that it is hard to sit still 0 03/14/2024 9:23 AM Alexa Mcpherson MA Act marcy Becoming easily annoyed or irritable 0 03/14/2024 9:23 AM Alexa Mcpherson MA Activ e Feeling afraid as if something awful might happen 0 03/14/2024 9:23 AM Eze Mcpherson MA Active PEACE-7 Total Score 2 03/14/2024 9:23 AM Alexa Mcpherson MA Active documented as of this encounter Mental Status * Because of a physical, mental, or emotional condition, do you have serious difficulty concentrating, remembering, or making decisions? Answer Entry Date Author Status No 03/05/2023 9:08 PM Marion Andrews RN Active documented in this encounter Plan of Treatment Upcoming Encounters Date Type Department Care Team (Late st Contact Info) Description 08/30/2024 2:40 PM CDT Office Visit [facility] Family Medicine [facility] [address] [place] [address] Gi Pulliam MD [address] [place] [address] documented as of this encounter Goals Goal Patient Goal Type Associated Problems Recent Progress Patient-Stated? Author Pt will attend follow up appts General On track(2024 12:44 PM CDT) Lindsey Ruiz RN Medications - demonstrates understanding of how and when to take anticoagulants, dietary restrictions, and signs and symptoms to report to PCP General On track(2024 12:44 PM CDT) No Lindsey Dimas RN Establish Plan for Symptom Monitoring DM [...] HTN General On track(2024 12:44 PM CDT) No Taylor Ball RN Note: HTN: Patient to monitor blood [...] Assessment Noted Time PHQ-9 Depression Total Score: 7 02/23/20 24 2:19 PM FOOD SERVICE COUNTER CLERK documented as of this encounter Care Teams Life Insurance Sales Relationship Specialty Start Date End Date Gi Pulliam MD PCP - General FAMILY PRACTICE 08/02/17 Taylor Ball, RN [address] [place] [address] Stitcher Standard Machine (Ambulatory) REGISTERED NURSE 05/19/21 Tomás Howell MD [address] [place] [address] UROLOGY 01/24/24 Jaqui Colin MD [address] DIV OF HEMATOLOGY & [place] [address] Gynecologic Oncology 01/24/24 Jose C Ramos MD [address] [id number] Consulting Physician UROLOGY 03/12/24 Sea Humphries MD [address] [address] HEMATOLOGY/ONCOLOGY 03/12/24 documented as of this encounter
--- OUTSIDE RECORDS SUMMARY | 2024-07-13 11:19 | XMS_ITS | Encounter Summary ---
Author Organization [facility] Address [address] [facility] [place] [address] Care Team Providers Care Tabulating Machine Mechanic Name Role Phone Gi Pulliam MD Primary Care Provider [phone] Sea Humphries MD Unavailable [phone] Kael Negron MD Unavailable [phone] Jaqui Colin MD Unavailable [phone] Janene Arriaga MD Unavailable [phone] Federico Garcia MD Unavailable [phone] Vijaya Ulrich PharmD Unavailable Unavaila Chandler Avila PharmD Unavailable Unavailab Val Lenz RN Unavailable Unavailable Elaine Poole RN Unavailable Unavailab Rina Trinidad Unavailable Letty vailable Cathi, Ayanna John SPIRAL RUNNER-ERP BUSINESS ANALYST Unavailable Yadi Dean RN Unavailable Unavailable Nicole Ramos RN Unavailable Unavailable Loreto Oliveros RN Unavailable UnavailAditi Marin LCSW Unavailable Unavailab Kaia Agee SPIRAL RUNNER-ERP BUSINESS ANALYST Unavailable [phone] Kassandra Richard RN Unavailable Unavaila ble Ezra, Doris J RN Unavailable Unavailable Encounter Details Date Type Department Care Team ([facility] Contact Info) Description 10/05/2020 Ophth Exam [facility] [address] [facility], [place] [address] Antoine Kee MD [address] [place] [address] Social History Tobacco Use Types Packs/Day Years [...] Info) Description 09/11/2024 12:45 PM CDT Appointment [facility] [address] [place] [phone] Jaqui Colin MD [address] [place] [address] OF HEMATOLOGY & [place] [address] 09/11/2024 1:45 PM CDT Appointment [facility] [address] [place] [phone] Jaqui Colin MD [address] [place] [address] OF HEMATOLOGY [place] [address] 09/11/2024 3:00 PM CDT Office Visit [facility] - Hematology/Oncology [address] [place] [phone] Jaqui Colin MD [address] [place] [address] OF HEMATOLOGY [place] [address] documented as of this encounter Visit Diagnoses Not on filedocumented in this encounter Additional Health Concerns Infection Onset Date Last Indicated Resolved Time COVID-19 Under Investigation 12/10/2020 12/10/2020 12/11/2020 4:17 AM CDT COVID-19 Confirmed 03/12/2021 04/02/2021 4:33 AM MOLD CLOSER COVID-19 Under Investigation 03/19/2021 03/19/2021 03/19/2021 4:42 PM MOLD CLOSER COVID-19 Under Investigation 04/14/2021 04/14/2021 04/25/2021 4:33 AM MOLD CLOSER COVID-19 Under Investigation 09/29/2021 09/29/2021 09/29/2021 8:59 PM CDT documented as of this encounter Care Teams Tabulating Machine Mechanic Relationship Specialty Start Date End Date Gi Pulliam MD [address] [place] [address] PCP - General Family Medicine 10/17/18 Sea Humphries MD [address] [place] [address] Referring Physician Medical Oncology 02/19/20 Kael Negron MD [address] [place] [address] Hematology and Oncology 02/19/20 03/26/21 Jaqui Colin MD [address] DIV OF HEMATOLOGY & [place] [address] Hematology and Oncology 02/19/20 Janene Arriaga MD [address] DIV OF HEMATOLOGY & [place] [address] Hematology and Oncology 02/19/20 Federico Garcia MD [address] DIV OF HEMATOLOGY & [place] [address] Hematology and Oncology 02/19/20 Vijaya Ulrich, PharmD 02/19/20 Chandler Rosario, PharmD [facility] 02/19/20 11/25/20 Val Pisano, RN 02/19/20 Elaine Poole RN 02/19/20 11/25/20 Rina Argueta 02/19/20 Ayanna Winkler APRN-TERRIE Family Medicine 02/19/20 Yadi Dean, RN Registered Nurse 02/19/20 03/26/21 Nicole Ramos RN Registered Nurse 02/19/20 11/25/20 Loreto Oliveros, RN Registered Nurse 02/19/20 11/25/20 Aditi Ladd, BARREL LOADER Batter Out 02/19/20 Kaia Munroe, SPIRAL RUNNER-ERP BUSINESS ANALYST [address] [facility] OF HEMATOLOGY [place] [address] Advance Practice Nurse Family Medicine 08/05/20 Kassandra Richard, RN Registered Nurse 03/27/21 Doris Munguia, RN Registered Nurse 06/03/21 documented as of this encounter
--- OUTSIDE RECORDS SUMMARY | 2024-07-13 11:19 | XMS_ITS ---
Author Organization [facility] Address [address] [place], [place] [id number] Care Team Providers Care Probe Operator Name Role Phone LAURENCE BRANCH Unavailable [phone] Gi Pulliam Unavailable Unavailable Allergies Allergen (clinical drug ingredient) Drug/Non Drug Allergy documented on EMR Reaction Allergy Type Onset Date Status codeine Codeine Unknown Drug Allergy 12/01/2017 active REASON FOR VISIT The patient lost his right 5th digit. He has been using neosporin and a bandaid and it is getting better, Patient presents for at-risk foot care . The patient has painful toenails that are causing difficulty with ambulation and shoegear. The onset is gradual. The patient has diabetes mellitus Medications Medication SIG (Take, Route, Frequency, Duration) Notes Start Date End Date Status potassium chloride 2.67 MEQ/ML Oral Solution ORAL potassium chloride 2.67 MEQ/ML Oral SolutionOriginal Medicationpotassium chloride 2.67 MEQ/ML Oral Solution *Reorder from [employer] for eRx and Interaction Alerts* 12/01/2017 Active metformin hydrochloride 1000 MG Oral Tablet ORAL metformin hydrochloride 1000 MG Oral TabletOriginal Medicationmetformin hydrochloride 1000 MG Oral Tablet *Reorder from [employer] for eRx and Interaction Alerts* 12/01/2017 Active aspirin 81 MG Delayed Release Oral Tablet [Aspir-Low] ORAL aspirin 81 MG Delayed Release Oral Tablet [Aspir-Low]Original Medicationaspirin 81 MG Delayed Release Oral Tablet [Aspir-Low] *Reorder from [employer] for eRx and Interaction Alerts* 12/01/2017 Active 0.5 ML dulaglutide 1.5 MG/ML Auto-Injector [Trulicity] 0.5 ML dulaglutide 1.5 MG/ML Auto-Injector [Trulicity]Original Medication0.5 ML dulaglutide 1.5 MG/ML Auto-Injector [Trulicity] *Reorder from [facility] for eRx and Interaction Alerts* 12/01/2017 Active Lisinopril 20 MG Oral Tablet ORAL lisinopril 20 MG Oral TabletOriginal Medicationlisinopril 20 MG Oral Tablet *Reorder from [facility] for eRx and Interaction Alerts* 12/01/2017 Active 3 ML insulin glargine 100 UNT/ML Pen Injector [Lantus] 3 ML insulin glargine 100 UNT/ML Pen Injector [Lantus]Original Medication3 ML insulin glargine 100 UNT/ML Pen Injector [Lantus] *Reorder from [facility] for eRx and Interaction Alerts* 12/01/2017 Active Encounters Encounter Location Date Provider Diagnosis [facility] [address] [id number] 07/09/2024 LAURENCE MATAK Tinea unguium B35.1 ; Pain in right toe(s) M79.674 ; Pain in left toe(s) M79.675 ; Atherosclerosis of [place] arteries of extremities with intermittent claudication, bilateral legs I70.213 and Type 2 diabetes mellitus with other circulatory complications E11.59 Assessments Encounter Date Diagnosis (ICD Code) Assessment Notes Treatment Notes Treatment Clinical Notes Section Notes 07/09/2024 Tinea unguium (ICD-10 - B35.1) NAIL DEBRIDEMENT: Nails 1-5 Bilateral were debrided extensively with nail nippers and emery board, reducing length and girth to pink healthy tissue with any subungual debris and necrotic tissue removed 07/09/2024 Pain in right toe(s) (ICD-10 - M79.674) 07/09/2024 Pain in left toe(s) (ICD-10 - M79.675) 07/09/2024 Atherosclerosis of [place] arteries of extremities with intermittent claudication, bilateral legs (ICD-10 - I70.213) 07/09/2024 Type 2 diabetes mellitus with other circulatory complications (ICD-10 - E11.59) Diabetic Foot Care: The patient was educated on diabetes and the lower extremity. The patient was instructed to check his feet daily to report any problems or signs of infection immediately. The patient was provided written information on Diabetic Foot Care as well as the Amputation Prevention Guide. Plan Of Treatment Treatment Notes Assessment Notes Tinea unguium NAIL DEBRIDEMENT: Na ils 1-5 Bilateral were debrided extensively with nail nippers and emery board, reducing length and girth to pink healthy tissue with any subungual debris and necrotic tissue removed Type 2 diabetes mellitus wit h other circulatory complications Diabetic Foot Care: The patient was educated on diabetes and the lower extremity. The patient was instructed to check his feet daily to report any problems or signs of infection immediately. The patient was provided written information on Diabetic Foot Care as well as the Amputation Prevention Guide. Next Appt Details Follow Up: 10 - 12 weeks, Re ason: At-Risk Foot care, sooner if problems develop. Provider Name:LAURENCE BRANCH, 02:40:00 PM, [address], [id number], Progress Notes * LINDA TAPIA RDOB: (68 yo M)Acc No.[id number]:07/09/2024 Patient: LINDA BORREGO Provider: Jaqui Branch DPM :1955 A ge:68 Y S ex:Male Date:07/09/2024 Address:[address] [place] [address] Subjective: * Chief Complaints: * 1 . The patient lost his right 5th digit. He has been using neosporin and a bandaid and it is getting better. 2. Patient presents for at-risk foot care . The patient has painful toenails that are causing difficulty with ambulation and shoegear. The onset is gradual. The patient has diabetes mellitus. * HPI: H PI: New Complaint E stablished patient presents with a new complaint., Patient complains of an issue to toe nail came off on the right foot. PAtient didn't even notice it was hanging by a thread until too late and by then he just pulledit off completely., Duration of problem is Tuesday., Patient denies any injury., MA: kaylynn. * ROS: G eneral / Constitutional: Patient denies c hange in appetite, chills, night sweats.? C ardiovascular: Patient denies e sonia. P atient complains of h air loss on legs. P eripheral Vascular: Patient denies p ain / cramping in legs after exertion.?Patient complains of h istory ulceration of feet. S kin: Patient complains of f ungal nails, nail changes. ? N eurologic: Patient complains of n umbness, burning/ tingling. ? * Medical History: D iabetic. * Family History: F ather: PRN - Father: :: Hypertension,,known absent . M other: PRN - Mother: :: Arthritis,,known absent , :: Diabetes,,known absent , :: Cancer,,known absent , :: Hypertension,,known absent . S ister: SIB - Sister: , :: Cancer,,known absent . * Medications: T aking Lisinopril 20 MG Oral Tablet ORAL , Notes to Pharmacist: lisinopril 20 MG Oral TabletOriginal Medicationlisinopril 20 MG Oral Tablet *Reorder from [employer] for eRx and Interaction Alerts*, Taking 0.5 ML dulaglutide 1.5 MG/ML Auto-Injector [Trulicity] , Notes to Pharmacist: 0.5 ML dulaglutide 1.5 MG/ML Auto-Injector [Trulicity]Original Medication0.5 ML dulaglutide 1.5 MG/ML Auto-Injector [Trulicity] *Reorder from [employer] for eRx and Interaction Alerts*, Taking 3 ML insulin glargine 100 UNT/ML Pen Injector [Lantus] , Notes to Pharmacist: 3 ML insulin glargine 100 UNT/ML Pen Injector [Lantus]Original Medication3 ML insulin glargine 100 UNT/ML Pen Injector [Lantus] *Reorder from [facility] for eRx and Interaction Alerts*, Taking aspirin 81 MG Delayed Release Oral Tablet [Aspir-Low] ORAL , Notes to Pharmacist: aspirin 81 MG Delayed Release Oral Tablet [Aspir-Low]Original Medicationaspirin 81 MG Delayed Release Oral Tablet [Aspir-Low] *Reorder from [facility] for eRx and Interaction Alerts*, Taking metformin hydrochloride 1000 MG Oral Tablet ORAL , Notes to Pharmacist: metformin hydrochloride 1000 MG Oral TabletOriginal Medicationmetformin hydrochloride 1000 MG Oral Tablet *Reorder from [facility] for eRx and Interaction Alerts*, Taking potassium chloride 2.67 MEQ/ML Oral Solution ORAL , Notes to Pharmacist: potassium chloride 2.67 MEQ/ML Oral SolutionOriginal Medicationpotassium chloride 2.67 MEQ/ML Oral Solution *Reorder from [facility] for eRx and Interaction Alerts*, Medication List reviewed and reconciled with the patient * Allergies: C odeine: Allergy - Onset Date 12/01/2017. Objective: * Vitals: * Examination: P hysical Examination: General appearance: A lert, pleasant, well-nourished and in no acute distress. D ermatologic: Skin findings: S kin is thin, atrophic and lacking pedal hair. The right 5th digit toenail is absent. The nail bed is healthy and granular. No erythema, no calor, no active drainage. Nail pathology: N ails 1, 2, 3, 4, and 5 bilateral are elongated, thick, discolored, and dystrophic with subungual debris. They are painful to palpation. ? V ascular: Dorsalis pedis pulse: 1 /4 b ilateral. Posterior tibial pulse: 0 /4 bilateral. Capillary refill: g reater than 3 seconds. Edema: N o edema bilateral. N eurologic: Gross sensation G rossly intact to light touch. There is negative Tinel's sign. M usculoskeletal: Muscle Strength M uscle strength is 5/5 in regards to dorsiflexion, plantarflexion, inversion, and eversion in bilateral lower extremities. ? Assessment: * Assessment: 1. T inea unguium - B35.1 (Primary) 2 . P ain in right toe(s) - M79.674? 3. P ain in left toe(s) - M79.675 4 . A therosclerosis of [place] arteries of extremities with intermittent claudication, bilateral legs - I70.213 5 . T ype 2 diabetes mellitus with other circulatory complications - E11.59 Plan: * Treatment: 2. T ype 2 diabetes mellitus with other circulatory complications Notes: Diabetic Foot Care: The patient was educated on diabetes and the lower extremity. The patient was instructed to check his feet daily to report any problems or signs of infection immediately. The patient was provided written information on Diabetic Foot Care as well as the Amputation Prevention Guide. * Follow Up: 1 0 - 12 weeks (Reason: At-Risk Foot care, sooner if problems develop.) * Billing Information: * Visit Code: * Procedure Codes: * Electronic signature of LAURENCE BRANCH DPM on 07/13/2024 at 11:19 AM CDT Sign off status: Pending * Provider: Jaqui Branch DPM Date: 0 07/09/2024 Generated for Angel mckeon/Allyssa/Jyoti on: 0 07/13/2024 11:19 AM CDT History and Physical Notes * HPI (History of Present Illness) Category Sub-Category Detail Notes Category Not es HPI New Complaint Established earl ent presents with a new complaint., Patient complains of an issue to toe nail came off on the right foot. PAtient didn't even notice it was hanging by a thread until too late and by then he just pulledit off completely., Duration of problem is Tuesday., Patient denies any injury., MA: mf Examination Category Sub-Category Detail Notes Category Not es Dermatologic Skin findings: Skin is thin, at rophic and lacking pedal hair. The right 5th digit toenail is absent. The nail bed is healthy and granular. No erythema, no calor, no active drainage Nail pathology: Nails 1, 2, 3, 4, an d 5 bilateral are elongated, thick, discolored, and dystrophic with subungual debris. They are painful to palpation Neurologic Gross sensation Grossly intact t o light touch. There is negative Tinel's sign Vascular Dorsalis pedis pulse: 1/4 bilateral Edema: No edema bilateral Capillary refill: greater than 3 secon ds Posterior tibial pulse: 0/4 bilateral Physical Examination General appearance: Alert, pleasant, well-nourished and in no acute distress Musculoskeletal Muscle Strength Muscle strength is 5/5 in regards to dorsiflexion, plantarflexion, inversion, and eversion in bilateral lower extremities
--- OUTSIDE RECORDS SUMMARY | 2024-07-13 11:19 | XMS_ITS | Encounter Summary ---
Author Organization [facility] Address [address] [place] [address] Care Team Providers Care Gynecologist Name Role Phone Gi Pulliam MD Primary Care Provider [phone] Sea Humphries MD Unavailable [phone] Kael Negron MD Unavailable [phone] Jaqui Colin MD Unavailable [phone] Janene Arriaga MD Unavailable [phone] Federico Garcia MD Unavailable Vijaya Ulrich PharmD Unavailable Unavaila Chandler Avila PharmD Unavailable Unavailab Val Lenz RN Unavailable Unavailable Elaine Poole RN Unavailable Unavailab Rina Trinidad Unavailable Letty vailable Cathi, Ayanna John TECHNOLOGY SALES REPRESENTATIVE-GRAPHIC DESIGN INTERN Unavailable [phone] Yadi Dean RN Unavailable Unavailable Nicole Ramos RN Unavailable Unavailable Loreto Oliveros RN Unavailable UnavailAditi Marin LCSW Unavailable Unavailab Kaia Agee TECHNOLOGY SALES REPRESENTATIVE-GRAPHIC DESIGN INTERN Unavailable [phone] Encounter Details Date Type Department Care Team (Latest Contact Info) Description 10/09/2020 10:40 AM CDT Hospital Encounter [facility] [address] [place] [address] [place] [address] [place] [address] Select Direct Social History Tobacco Use Types Packs/Day Years [...] and heating? Not hard at all 07/26/2023 [facility] - Occupational Stress [...] place to sleep or slept in a [place] (including now)? No 07/26/2023 Sex and Gender Information Value Date Recorded Sex Assigned at Not on file Legal Sex Male 8:20 PM CDT Gender Identity Male 09/05/2023 9:57 AM CDT Sexual Orientation Not on file COVID-19 Exposure Response Date Recorded In the last 10 days, have yo u been in contact with someone who was confirmed or suspected to have Coronavirus/COVID-19? No / Unsure 01/13/2022 3:54 PM WEB SOLUTIONS ARCHITECT documented as of this encounter Functional Status * Question Answer Date of Assessment Author Q1: How often do you have a drink containing alcohol? Never 07/26/2023 4:20 PM CDT José Miguel Adam RN Q2: How many drinks containing alcohol do you have on a typical day when you are drinking? Patient does not drink 07/26/2023 4:20 PM CDT Felicity Adam RN Q3: How often do you have six or more drinks on one occasion? Never 07/26/2023 4:20 PM CDT José Miguel Adma RN * Audit-C Score Answer Date of Assessment Author 0 07/26/2023 4:20 PM CDT Felicity Brennan RN * Is person deaf or have serious [...] Assessment Author Yes 10/01/2020 1:45 PM CDT Lokeomani zee, Alfredo, RN documented as of this encounter Mental Status * Does person have difficulty concentrating/remembering/making decisions? Answer Entry Date Author Yes 10/01/2020 1:45 PM CDT Alfredo Lin, MELISSA documented in this encounter Plan of Treatment Upcoming Encounters Date Type Department Care Team (Late st Contact Info) Description 09/11/2024 12:45 PM CDT Appointment [facility] [address] [place] [address] Jaqui Colin MD [address] [place] [address] OF HEMATOLOGY & [place] [address] 09/11/2024 1:45 PM CDT Appointment [facility] [address] [place] [address] Jaqui Colin MD [address] [place] [address] HEMATOLOGY & [place] [address] 09/11/2024 3:00 PM CDT Office Visit [facility] - Hematology/Oncology [address] [place] [phone] Jaqui Colin MD [address] [place] [address] OF HEMATOLOGY & [place] [address] documented as of this encounter Goals Goal Patient Goal Type Associated Problems Recent Progress Patient-Stated? Author Medication Management General On track( 021 9:57 AM WEB SOLUTIONS ARCHITECT) Mercedes Minor, RN Note: Expected end date: ongoing Interventions: Take all medications as prescribed documented as of this encounter Visit Diagnoses Not on filedocumented in this encounter Additional Health Concerns Infection Onset Date Last Indicated Resolved Time COVID-19 Under Investigation 12/10/2020 12/10/2020 12/11/2020 4:17 AM CDT COVID-19 Confirmed 03/12/2021 04/02/2021 4:33 AM WEB SOLUTIONS ARCHITECT COVID-19 Under Investigation 03/19/2021 03/19/202103/19/2021 4:42 PM WEB SOLUTIONS ARCHITECT COVID-19 Under Investigation 04/14/2021 04/14/2021 04/25/2021 4:33 AM WEB SOLUTIONS ARCHITECT COVID-19 Under Investigation 09/29/2021 09/29/2021 09/29/2021 8:59 PM CDT documented as of this encounter Care Teams Gynecologist Relationship Specialty Start Date End Date Gi Pulliam MD [address] [facility] [place] [address] PCP - General Family Medicine 10/17/18 Sea Humphries MD [address] [facility] [place] [address] Referring Physician Medical Oncology 02/19/20 Kael Negron MD [address] [facility] [place] [address] Hematology and Oncology 02/19/20 03/26/21 Jqaui Colin MD [address] OF HEMATOLOGY & [place] [address] Hematology and Oncology 02/19/20 Janene Arriaga MD [address] OF HEMATOLOGY & [place] [address] Hematology and Oncology 02/19/20 Federico Garcia MD [address] OF HEMATOLOGY & [place] [address] Hematology and Oncology 02/19/20 Vijaya Ulrich, PharmD 02/19/20 Chandler Rosario, MartD Pharmacist 02/19/20 11/25/20 Val Pisano, RN 02/19/20 Elaine Poole RN 02/19/20 11/25/20 Rina Argueta 02/19/20 Ayanna Winkler APRN-CNP Family Medicine 02/19/20 Yadi Dean, RN Registered Nurse 02/19/20 03/26/21 Nicole Ramos RN Registered Nurse 02/19/20 11/25/20 Loreto Oliveros, MELISSA Registered Nurse 02/19/20 11/25/20 Aditi Ladd PILATES COORDINATOR Managed Care Liaison 02/19/20 Kaia Munroe APRN-TERRIE [address] [facility]AT[facility] & [place] [address] Advance Practice Nurse Family Medicine 08/05/20 documented as of this encounter
--- OUTSIDE RECORDS SUMMARY | 2024-07-13 11:19 | XMS_ITS | Encounter Summary ---
Author Organization [facility] Address [address] [facility] [place] [address] Care Team Providers Care Manager Branch Name Role Phone Gi Pulliam MD Primary Care Provider [phone] Sea Humphries MD Unavailable [phone] Jaqui Colin MD Unavailable [phone] Janene Arriaga MD Unavailable [phone] Federico Garcia MD Unavailable [phone] Vijaya Ulrich PharmD Unavailable Unavaila Val Licea RN Unavailable Unavailable [facility] Mc[facility]uod Unavailable Letty vailable Cathi, Ayanna John MATERIAL PLANNER-BRAKE TESTER Unavailable [phone] Aditi Ladd LCSW Unavailable Unavailab Kaia Agee MATERIAL PLANNER-BRAKE TESTER Unavailable Kassandra Richard RN Unavailable Unavaila Doris Sandy RN Unavailable Unavailable Reason for Visit * Reason Onset Date Comments MEDICATION REFILL 04/13/2024 Encounter Details Date Type Department Care Team (Late st Contact Info) Description 04/13/2024 Refill [facility] [address] [place] [address] Yanni Navarro APRN-TERRIE [address] [facility] [place] [id number] MEDICATION REFILL Social History Tobacco Use Types Packs/Day Years [...] and heating? Not hard at all 07/26/2023 [facility] - Occupational Stress [...] slept in a half-way (including now)? No 07/26/2023 Sex and Gender Information Value Date Recorded Sex Assigned at Not on file Legal Sex Male 8:20 PM CDT Gender Identity Male 09/05/2023 9:57 AM CDT Sexual Orientation Not on file documented as of this encounter Functional Status * Is person deaf or have serious hearing difficulty? Answer Date of Assessment Author No 07/26/2023 4:20 PM CDT Felicity Brennan RN * Is person blind or have serious difficulty seeing? Answer Date of Assessment Author No 07/26/2023 4:20 PM CDT Felicity Brennan RN * Does person have serious difficulty walking/climbing stairs? Answer Date of Assessment Author No 07/26/2023 4:20 PM CDT Felicity Brennan RN * Does person have difficulty dressing/bathing? Answer Date of Assessment Author No 07/26/2023 4:20 PM CDT Feliicty Brennan RN * Does person have difficulty doing errands alone? Answer Date of Assessment Author No 07/26/2023 4:20 PM CDT Felicity Brennan RN documented as of this encounter Mental Status * Does person have difficulty concentrating/remembering/making decisions? Answer Entry Date Author No 07/26/2023 4:20 PM CDT Felicity Brennan RN documented in this encounter Plan of Treatment Upcoming Encounters Date Type Department Care Team (Late st Contact Info) Description 09/11/2024 12:45 PM CDT Appointment [facility] [address] [place] [address] Jaqui Colin MD [address] [place] [address] OF HEMATOLOGY & [place] [address] 09/11/2024 1:45 PM CDT Appointment [facility] [address] [place] [address] Jaqui Colin MD [address] [place] [address] OF HEMATOLOGY & [place] [address] 09/11/2024 3:00 PM CDT Office Visit [facility] - Hematology/Oncology [address] [place] [address] Jaqui Colin MD [address] OF HEMATOLOGY & [place] [address] documented as of this encounter Goals Goal Patient Goal Type Associated Problems Recent Progress Patient-Stated? Author Medication Management General On track( 021 9:57 AM ADOBE BALL MIXER) Mercedes Minor, RN Note: Expected end date: ongoing Interventions: Take all medications as prescribed documented as of this encounter Visit Diagnoses Diagnosis Low iron Iron deficiency anemia, unspecified documented in this encounter Care Teams Manager Branch Relationship Specialty Start Date End Date Gi Pulliam MD [address] [place] [address] PCP - General Family Medicine 10/17/18 Sea Humphries MD [address] [place] [address] Referring Physician Medical Oncology 02/19/20 Jaqui Colin MD [address] OF HEMATOLOGY & [place] [address] Hematology and Oncology 02/19/20 Janene Arriaga MD [address] OF HEMATOLOGY & [place] [address] Hematology and Oncology 02/19/20 Federico Garcia MD [address] OF HEMATOLOGY & [place] [address] Hematology and Oncology 02/19/20 Vijaya Ulrich PharmD 02/19/20 Val Pisano, RN 02/19/20 Rina Argueta 02/19/20 Ayanna Winkler APRN-TERRIE Family Medicine 02/19/20 Aditi Ladd, [facility] Results Technician 02/19/20 Kaia Munroe APRN-BRAKE TESTER [facility] [facility] OF H[facility]AT[facility] & [place] [address] Advance Practice Nurse Family Medicine 08/05/20 Kassandra Richard, RN Registered Nurse 03/27/21 Doris Munguia, RN Registered Nurse 06/03/21 documented as of this encounter
[2024-07-13 12:08] LABS: INR 1.8; Prothrombin Time 21.8 Seconds (11.1-14.7)
[2024-07-13 12:09] LABS: Partial Thromboplastin Time 36.8 Seconds (22.3-36.8)
== END 2024-07-13 11:15 | disposition home or self-care (01) ==
PROVIDERS: Visit Provider Urology
DX: Z01.818 Encounter for other preprocedural examination (principal); N20.0 Calculus of kidney
CPT/HCPCS: 36415; 85610; 85730; 87086

== ENCOUNTER 2024-07-17 13:24 | Outpatient (CLI) | payer MEDICARE, SELFPAY ==
--- NOTE | ~2024-07-17 | US_ITS ---
Thyroid ultrasound. Clinical History: Subclinical hypothyroidism Findings: Real-time sonography of the thyroid gland was performed. The right lobe measures 4.0 x 2.5 x 1.8 cm. The left lobe measures 3.3 x 1.5 x 1.6 cm. The isthmus is 7 mm in AP diameter. There is a 9 mm cystic nodule in the left thyroid lobe. Impression: No significant abnormality. Reviewed, dictated and finalized at location . Impression: No significant abnormality.
== END 2024-07-17 13:25 | disposition home or self-care (01) ==
LOC: GOSHIMG 13:24
DX: E03.8 Other specified hypothyroidism (principal)
CPT/HCPCS: 76536

== ENCOUNTER 2024-07-20 00:53 | Day surgery (SDC) | payer MEDICARE, SELFPAY ==
--- NOTE | 2024-07-09 14:23 | PC.NURSE ---
Report to the Outpatient Waiting Room, entrance under the green pavilion located off [facility], at time __8:30 AM on date __07/20/24 . Planned Procedure Time: _1030AM . Time changes happen often and if your time is changed the preop area will call you the afternoon before. - You and your visitor will be asked to self-screen and do not enter if you have any COVID symptoms. Please call surgeon if you need to reschedule. - A mask is optional within the hospital at this time. Patients may have clear liquids (water, carbonated beverages, clear teas, apple juice) until 3 hours prior to surgery ( 7:30 AM) with a maximum of 20 ounces. - No food from midnight until time of surgery and no smoking, or chewing tobacco (or any form of nicotine). No chewing gum, candy or mints. Take only the following medications with a SIP of water on the morning of surgery: ____METOPROLOL,OXYCODONE IF NEEDED DO NOT STOP ANY OF YOUR OTHER PRESCRIPTION MEDICATIONS PRIOR TO SURGERY EXCEPT THE FOLLOWING Hold all vitamins and supplements for 3 days per anesthesiologist.LAST DOSE 07/16/24 Medications to discontinue per physician ____XARELTO PER DR SMITH Please no make-up, nail micronesian, hairspray, perfume, deodorant, or body powder the day of surgery. No jewelry (including any body piercings) or valuables the day of surgery, leave them at home. Please take a shower or bath the night before, or the morning of, surgery with an antibacterial soap. Wear comfortable, loose fitting clothing. Children are encouraged to wear pajamas. - Jewelry must be removed prior to entering the operating room. Rings and piercings that are not removed may be cut off. - The hospital will not accept responsibility for valuables. - Please leave all valuables, including medications, at home the day of surgery. If you are going home after surgery, a licensed pile driver must drive you home. - NO public transportation without another adult if you receive anesthesia. - We recommend that an adult stay with you for 24 hours following discharge. - We also recommend that you do not drive, make important decision, drink alcoholic beverages, or take any drugs that were not prescribed by your health care provider for at least 24 hours after your discharge time. For Pediatric surgeries, we recommend two adults accompany the child home. Follow any additional instructions given to you from your surgeon. Telephone instructions given to _PT AND ARASELI and asked if any additional questions and then verbalized understanding. Patient advised to call surgeon office or pre surgery nurse liaison [phone] if any additional questions.
[2024-07-09 14:55] VITALS: BMI 37.8
--- NOTE | 2024-07-11 11:58 | P.HP_ITS ---
History of Present Illness History of Present Illness Consent: Risks, benefits, and alternatives have been discussed and questions answered. Patient agrees to proceed with procedure. Chief complaint: Lt Kidney Stone Narrative: Nelson Bond is a 68 year old male recently underwent evaluation for for intermittent gross hematuria. Cystoscopy was unremarkable but CT scan showed bilateral 1 cm renal calculi. By KUB these appeared to be faintly calcified. After discussion of options he elects for ESWL starting on the left side. He is aware we will not treat both sides simultaneously. He is aware the risk of ESWL including,but not limited to, failure to completely clear stone fragments with need for additional procedures, hematuria and perinephric hematoma Review of Systems Review of Systems: All systems reviewed & are unremarkable except as noted in HPI and below PMFSH Past Medical History Medical History Diabetes High cholesterol HTN (hypertension) Surgical History Surgical History H/O skin graft Kidney stone Toe amputee Family History Family History Father Enlarged heart Mother Diabetes mellitus Breast cancer Heart disease Skin cancer Sibling Cancer Other Cancer Hypertension Social History Social History Smoking status: Never smoker Alcohol intake: never Substance use: unknown Living arrangements: with family Additional living arrangements comments: Occupation/Education: unemployed Additional occupation/education comments: disabled Gender identity (if verbalized by the patient): Male Spiritual care concerns: No Meds Home Medications and Allergies Home Medications Medication Instructions Recorded Confirmed Type atorvastatin 40 mg tablet 40 mg PO DAILY 05/18/19 07/09/24 History lisinopril 10 mg tablet 10 mg PO QAM 05/18/19 07/09/24 History metformin 1,000 mg tablet 1,000 mg PO BID 05/18/19 07/09/24 History polyethylene glycol 3350 17 gram 17 g PO DAILY PRN Constipation 05/18/19 07/09/24 History oral powder packet (Miralax) docusate sodium 50 mg capsule 50 mg PO BID 11/22/23 07/09/24 History (Stool Softener) ferrous sulfate 325 mg (65 mg 325 mg PO DIRECTED 11/22/23 07/09/24 History iron) tablet furosemide 40 mg tablet 40 mg PO DIRECTED 11/22/23 07/09/24 History insulin glargine-yfgn 100 unit/mL See Rx Instructions .Route .COMPLEX 11/22/23 07/09/24 History (3 mL) subcutaneous pen metoprolol tartrate 50 mg tablet 50 mg PO BID 11/22/23 07/09/24 History oxycodone 5 mg tablet 5 mg PO Q4H PRN Pain (Scale Score 11/22/23 07/09/24 History 4-6) potassium chloride 20 mEq 20 meq PO DIRECTED 11/22/23 07/09/24 History tablet,extended release rivaroxaban 20 mg tablet (Xarelto) 20 mg PO DAILY 11/22/23 07/09/24 History spironolactone 50 mg tablet 50 mg PO QAM 11/22/23 07/09/24 History dapagliflozin propanediol 10 mg 10 mg PO DAILY 12/19/23 07/09/24 History tablet (Farxiga) insulin aspart U-100 100 unit/mL See Rx Instructions .Route .COMPLEX 12/19/23 07/09/24 History subcutaneous solution multivitamin (Multiple Vitamins 1 tablet PO DAILY 12/19/23 07/09/24 History tablet) tirzepatide 7.5 mg/0.5 mL 7.5 mg subcut WEEKLY 12/19/23 07/09/24 History subcutaneous pen injector (Zac) magnesium oxide 400 mg PO DAILY 06/08/24 07/09/24 History semaglutide 0.25 mg or 0.5 mg (2 0.25 mg subcut WEEKLY 06/08/24 07/09/24 History mg/3 mL) subcutaneous pen injector (Ozempic) semaglutide 0.25 mg or 0.5 mg (2 0.5 mg subcut WEEKLY 06/29/24 07/09/24 History mg/3 mL) subcutaneous pen injector (Ozempic) insulin glargine 100 unit/mL (3 42 unit subcut .AM 07/09/24 07/09/24 History mL) subcutaneous pen (Lantus Solostar U-100 Insulin) Allergies Allergy/AdvReac Type Severity Reaction Status Date / Time codeine AdvReac Mild N & V Verified 07/09/24 13:13 pembrolizumab (From Keytruda) AdvReac Hallucinati Verified 07/09/24 14:35 ng tirzepatide (From Mounjaro) AdvReac Other Verified 07/09/24 14:28 Exam Const: General: no acute distress Resp: Effort & Inspection: normal respiratory effort GI: Inspection: non-distended GI Palp: No abdominal tenderness and No Guarding due to palpation present (GI) Auscultation: normal bowel sounds Assessment and Plan Assessment and plan (1) Bilateral kidney stones: Code(s): N20.0 - Calculus of kidney Status: Acute Assessment and Plan: * left ESWL
[2024-07-20] VITALS (11 sets, daily range): BP systolic 102–131; BP diastolic 51–71; PULSE 59–72; RESP 11–16; TEMP 36.6–36.8; O2SAT 96–100; BMI 38.4
--- NOTE | ~2024-07-20 | XR_ITS ---
XR abdomen/kub 1V 07/20/2024 07:39 INDICATION: Preop lithotripsy. Left renal stone. TECHNIQUE: KUB COMPARISON: 05/04/2024 FINDINGS: Bowel gas pattern is normal. There is no evidence of free air, mass, organomegaly, ascites or obstruction. There is a vague density in the lower pole of the left kidney, suspicious for renal stone. The bones appear intact. Mild lumbar spondylosis. Mild osteoarthritis of the hips. There are pelvic phleboliths. IMPRESSION: 1: Possible left nephrolithiasis.. Reviewed, dictated and finalized at location A.
--- OUTSIDE RECORDS SUMMARY | 2024-07-20 00:56 | XMS_ITS | Clinical Summary ---
Author Organization [facility] [employer] Address [address] [facility] [place] [address] Care Team Providers Care Gun Tester Name Role Phone Gi Pulliam MD Primary Care Provider [phone] Sea Humphries MD Unavailable [phone] Jaqui Colin MD Unavailable [phone] Janene Ariraga MD Unavailable [phone] Federico Garcia MD Unavailable [phone] Vijaya Ulrich PharmD Unavailable Unavaila Val Licea RN Unavailable Unavailable AmadorRina Pineda Unavailable Letty vailable Cathi, Ayanna John HEEL GUMMER-[employer] Unavailable [phone] Aditi Ladd LCSW Unavailable Unavailab Kaia Agee HEEL G[employer]MER-[employer] Unavailable [phone] Kassandra Richard RN Unavailable Unavaila Doris Sandy RN Unavailable Unavailable Source Comments [facility],non-owned Affiliates and Associated Physician Practices is amultiple site organization consisting of ambulatory clinics and hospital sitesin [place], [place], [place] and [place]. This disclosure is being madepursuant to the Care Everywhere program and may not contain all information available regarding this patient. Last updated 17.[facility] Health Allergies Active Allergy Reactions Criticality Noted [...] Colon adenomas 03/10/2021 Overview (03/10/2021): 11/15/16 colonoscopy ([facility]): polyps per patient 03/10/21 colonoscopy: multiple diminutive [...] Type Department Care Team Description 05/17/2024 Refill [facility] [address] [place] [address] Yanni Navarro APRN-[employer] Refill Request 05/08/2024 3:40 PM HOSPITAL FELLOW Office Visit [facility] - Hematology/Oncology [address] [place] [phone] Jaqui Colin MD 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) 05/08/2024 2:20 PM HOSPITAL FELLOW - 05/08/2024 11:59 PM HOSPITAL FELLOW Hospital Encounter [facility] [address] [place] [address] Jaqui Colin MD Discharge Disposition: Home or Self Care 05/08/2024 12:15 PM HOSPITAL FELLOW - 05/08/2024 2:19 PM HOSPITAL FELLOW Hospital Encounter [facility] PET [address] [place] [address] Jaqui Colin MD Discharge Disposition: Home or Self Care 05/08/2024 11:15 AM HOSPITAL FELLOW - 05/08/2024 12:14 PM HOSPITAL FELLOW Hospital Encounter [facility] PET [address] [place] [address] Jaqui Colin MD Discharge Disposition: Home or Self Care 05/08/2024 Travel 05/03/2024 Orders Only [facility] - Hematology/Oncology [address] [place] [address] Jaqui Colin MD Nodular sclerosis Hodgkin lymphoma [...] See Comments - held per conversation wth L.Cathi HEEL GUMMER/Dr. Colin, as paitent to receive high-dose steroids [...] and heating? Not hard at all 07/26/2023 [facility] - Occupational Stress [...] place to sleep or slept in a halfway (including now)? No 07/26/2023 Sex and Gender Information Value Date Recorded Sex Assigned at Not on file Legal Sex Male 8:20 PM CDT Gender Identity Male 09/05/2023 9:57 AM CDT Sexual Orientation Not on file Last Filed Vital Signs Vital Sign Reading Time Taken Comments Blood Pressure 137/74 05/08/2024 3:45 PM HOSPITAL FELLOW Pulse 62 05/08/2024 3:45 PM HOSPITAL FELLOW Temperature 36.3 C (97.3 F) 05/08/2024 3:45 PM HOSPITAL FELLOW Respiratory Rate 20 05/08/2024 3:45 PM HOSPITAL FELLOW Oxygen Saturation 97% 05/08/2024 3:45 PM HOSPITAL FELLOW Inhaled Oxygen Concentration - - Weight 136.5 kg (301 lb) 05/08/2024 3:45 PM HOSPITAL FELLOW Height 186.7 cm (6' 1.5 ) 12/23/2023 12:22 PM CD T Body Mass Index 39.17 12/23/2023 12:22 PM CDT Plan of Treatment Upcoming Encounters Date Type Department Care Team (Late st Contact Info) Description 09/11/2024 12:45 PM CDT Appointment [facility] PET [address] [place] [phone] Jaqui Colin MD [address] [place] [address] OF HEMATOLOGY & [place]ICAL [place] [address] 09/11/2024 1:45 PM CDT Appointment [facility] PET [address] [place] [phone] Jaqui Colin MD [address] [place] [address] OF HEMATOLOGY & [place]ICAL [place] [address] 09/11/2024 3:00 PM CDT Office Visit [facility] - Hematology/Oncology [address] [place] [address] Jaqui Colin MD [address] [place] [address] OF HEMATOLOGY & [place] [address] Health Maintenance Due Date Last Done Comments [...] Management General On track( 021 9:57 AM HOSPITAL FELLOW) No Mercedes Cooper RN Note: Expected end date: ongoing Interventions: Take all medications as prescribed Medical Devices Implanted Type Area Claims Service Representative Device Identifier Shelf Expiration Date Model / Serial / Lot Tray Cath 12fr 23cm Hkmn Trifusion 3 Lum Implanted:Qty: 1 on 03/12/2021 by Julian Starks MD at 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 CBC W AUTO DIFFERENTIAL STAT 05/08/2024 12:57 PM HOSPITAL FELLOW 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 GLUCOSE SCREEN - POCT (IP) [facility] STAT 05/08/2024 12:40 PM HOSPITAL FELLOW HEMOGLOBIN A1C Routine 07/27/2023 1:11 AM CDT ENDOSCOPY, COLON, SCREENING Routine 03/10/2021 11:38 AM HOSPITAL FELLOW HEPATITIS C ANTIBODY Routine 02/24/2021 11:55 AM HOSPITAL FELLOW Pre-transplant evaluation for stem cell transplant 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 Redemonstrated numerous hypermetabolic lymph nodes [...] findings. This study was dictated by resident care manager rn Chris Morocho MD and reviewed and edited by the attending. > Dictated by Chris Morocho (Grain Manager) 05/08/2024 1:09 PM I, Tod Bruno DO have personally reviewed and interpreted this examination/study. > Interpreting Provider: Tod Bruno DO on 05/08/2024 3:41 PM Narrative 05/08/2024 3:41 PM HOSPITAL FELLOW PROCEDURE: PET CT SKULL TO MID THIGH [...] findings. This study was dictated by resident care manager rn Chris Morocho MD and reviewed and edited by the attending. > Dictated by Chris Morocho (Grain Manager) 05/08/2024 1:09 PM Tod Gupta DO have personally reviewed and interpreted this examination/study. > Interpreting Provider: Tod Bruno DO on 05/08/2024 3:41 PM Jaqui Colin MD NM ORDERABLES Final Result * (ABNORMAL) ERYTHROCYTE SEDIMENTATION RATE (05/08/2024 12:57 PM HOSPITAL FELLOW) Erythrocyte Sedimentation Rate Westergren 22(H) 0 - 20 MM/HR 05/08/2024 1:16 PM [facility] Blood BLOOD SPECIMEN / Unknown Venipuncture / Unknown 05/08/2024 12:57 PM HOSPITAL FELLOW 05/08/2024 12:58 PM HOSPITAL FELLOW Jaqui Colin MD LAB - HEMATOLOGY ORDERABLES Fin al Result [facility] [address] [place] [address] [phone] * (ABNORMAL) CBC W AUTO DIFFERENTIAL (05/08/2024 12:57 PM HOSPITAL FELLOW) WBC 6.8 4.0 - 10.7 x10E9/L 05/08/2024 1:03 PM [facility] RBC Count 3.49(L) 4.30 - 5.80 x10E12/L 05/08/2024 1:03 PM [facility] Hemoglobin 10.1(L) 13.3 - 17.5 g/dL 05/08/2024 1:03 PM [facility] Hematocrit 31.0(L) 38.7 - 51.1 % 05/08/2024 1:03 PM [facility] MCV 88.8 80.0 - 98.0 fL 05/08/2024 1:03 PM [facility] MCH 28.9 26.7 - 33.6 pg 05/08/2024 1:03 PM [facility] MCHC 32.6 31.7 - 36.3 g/dL 05/08/2024 1:03 PM [facility] RDW-CV 14.2 11.3 - 14.8 % 05/08/2024 1:03 PM [facility] Platelet Count 251 150 - 420 x10E9/L 05/08/2024 1:03 PM [facility] MPV 8.6 7.8 - 11.4 fL 05/08/2024 1:03 PM [facility] Preliminary Absolute Neutrophil 4.44 1.60 - 7.50 x10E9/L 05/08/2024 1:03 PM [facility] Neutrophil % 65.9 41.0 - 74.0 % 05/08/2024 1:03 PM [facility] Lymphocyte % 16.4(L) 17.0 - 47.0 % 05/08/2024 1:03 PM [facility] Monocyte % 9.6 3.0 - 11.0 % 05/08/2024 1:03 PM [facility] Eosinophil % 6.5 0.0 - 7.0 % 05/08/2024 1:03 PM [facility] Basophil % 0.3 0.0 - 1.6 % 05/08/2024 1:03 PM [facility] Immature Granulocytes % 1.3(H) 0.0 - 1.0 % 05/08/2024 1:03 PM [facility] Neutrophil Absolute 4.44 1.60 - 7.50 x10E9/L 05/08/2024 1:03 PM [facility] Lymphocyte Absolute 1.11 1.00 - 4.40 x10E9/L 05/08/2024 1:03 PM [facility] Monocyte Absolute 0.65 0.15 - 1.00 x10E9/L 05/08/2024 1:03 PM [facility] Eosinophil Absolute 0.44 0.00 - 0.60 x10E9/L 05/08/2024 1:03 PM [facility] Basophil Absolute 0.02 0.00 - 0.13 x10E9/L 05/08/2024 1:03 PM [facility] Blood BLOOD SPECIMEN / Unknown Venipuncture / Unknown 05/08/2024 12:57 PM HOSPITAL FELLOW 05/08/2024 12:58 PM HOSPITAL FELLOW us Jaqui Colin MD LAB - HEMATOLOGY ORDERABLES Fin al Result [facility] [address] [place] [address], [facility] [phone] * (ABNORMAL) COMPREHENSIVE METABOLIC PANEL (05/08/2024 12:57 PM HOSPITAL FELLOW) BUN 30(H) [id number]|2024-07-20 00:56:00|2024-07-20 00:55:00|XMS_ITS|BKG DAEMON|External Medical Summaries|[id number]|" Patient Health Record Created on: July 20, 2024 LINDA TAPIA : 1955 Sex: Male Author Organization [facility] Address [address] [place] [id number] Care Team Providers Care Gun Tester Name Role Phone LAURENCE ZABALA Unavailable [phone] Gi Pulliam Unavailable Unavailable Allergies Allergen (clinical drug ingredient) Drug/Non Drug Allergy documented on EMR Reaction Allergy Type Onset Date Status codeine Codeine Unknown Drug Allergy 12/01/2017 active Reason For Referral No Information Medications Medication SIG (Take, Route, Frequency, Duration) Notes Start Date End Date Status potassium chloride 2.67 MEQ/ML Oral Solution ORAL potassium chloride 2.67 MEQ/ML Oral SolutionOriginal Medicationpotassium chloride 2.67 MEQ/ML Oral Solution *Reorder from [facility] for eRx and Interaction Alerts* 12/01/2017 Active metformin hydrochloride 1000 MG Oral Tablet ORAL metformin hydrochloride 1000 MG Oral TabletOriginal Medicationmetformin hydrochloride 1000 MG Oral Tablet *Reorder from [facility] for eRx and Interaction Alerts* 12/01/2017 Active aspirin 81 MG Delayed Release Oral Tablet [Aspir-Low] ORAL aspirin 81 MG Delayed Release Oral Tablet [Aspir-Low]Original Medicationaspirin 81 MG Delayed Release Oral Tablet [Aspir-Low] *Reorder from [facility] for eRx and Interaction Alerts* 12/01/2017 Active 3 ML insulin glargine 100 UNT/ML Pen Injector [Lantus] 3 ML insulin glargine 100 UNT/ML Pen Injector [Lantus]Original Medication3 ML insulin glargine 100 UNT/ML Pen Injector [Lantus] *Reorder from [facility] for eRx and Interaction Alerts* 12/01/2017 Active 0.5 ML dulaglutide 1.5 MG/ML Auto-Injector [Trulicity] 0.5 ML dulaglutide 1.5 MG/ML Auto-Injector [Trulicity]Original Medication0.5 ML dulaglutide 1.5 MG/ML Auto-Injector [Trulicity] *Reorder from [facility] for eRx and Interaction Alerts* 12/01/2017 Active Lisinopril 20 MG Oral Tablet ORAL lisinopril 20 MG Oral TabletOriginal Medicationlisinopril 20 MG Oral Tablet *Reorder from [facility] for eRx and Interaction Alerts* 12/01/2017 Active Immunizations Vaccine Route Administration Date Status Comme nts Influenza, high dose seasonal Unknown 02/14/2023 Admini stered Encounters Encounter Location Date Provider Diagnosis [facility] [address] [place], [place] [id number] 07/09/2024 LAURENCE SNOOK Tinea unguium B35.1 ; Pain in right toe(s) M79.674 ; Pain in left toe(s) M79.675 ; 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 [address] 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 [address] [place] [id number] LINDA HARMON Self - patient is the insured Medical (General) History Medical History History ICD Code Diabetic "
--- OUTSIDE RECORDS SUMMARY | 2024-07-20 00:56 | XMS_ITS | Patient Health Record ---
Author Organization [facility] Address [address] [address] [place] [address] Care Team Providers Care Print Producer Name Role Phone Gi Pulliam M.D. Primary Care Provider Unavail able Hannah Giles Unavailable [phone] Allergies Allergen (clinical drug ingredient) Drug/Non Drug [...] Problem Status W/U Status Risk Notes Problem [id number] Type 2 diabetes mellitus with other diabetic neurological complication (E11.49) Active confirmed Problem 772184295 History of amputation of lesser toe of left foot (Z89.422) Active confirmed Problem Controlled type 2 diabetes mellitus with diabetic polyneuropathy, unspecified whether long-term insulin use (E11.42) Active confirmed Plan Of Treatment No Information Insurance Providers Payer Name Payer Address Payer Phone Subscriber Number Group Number Insured Name Patient Relationship to Insured Coverage Start Date Coverage End Date [employer] [address] [address] [place] [id number] Nelson Carroll Self - patient is the insured Medical (General) History Medical History History ICD Code CANCER (HODGKINS) DIABETES high blood pressure high cholesterol neuropathy Surgical History Surgery Date(Month/Year) LT T4 toe amputation
--- OUTSIDE RECORDS SUMMARY | 2024-07-20 00:56 | XMS_ITS ---
Author Organization [facility] Address [address] [place] [address] Phone Care Team Providers Care Riprap Placer Name Role Phone Gi Pulliam MD Primary [...] 81. Assessment & Plan (03/23/2016 4:14 PM TEENAGE BABYSITTER): Mild microcytosis persists, but his hemoglobin is within normal limits. We'll monitor it. Assessment & Plan (04/08/2015 12:23 PM TEENAGE BABYSITTER): Hb is sl better today, but he [...] unchanged. Assessment & Plan (03/23/2016 4:15 PM TEENAGE BABYSITTER): He is stable clinically with no signs [...] questions. Assessment & Plan (04/08/2015 12:28 PM TEENAGE BABYSITTER): I had a long discussion with Zenon [...]
--- OUTSIDE RECORDS SUMMARY | 2024-07-20 00:56 | XMS_ITS | Encounter Summary ---
Author Organization [facility] Address [address] [place] [address] Care Team Providers Care First Assistant Name Role Phone Gi Pulliam MD Primary Care Provider [phone] Taylor Ball RN Unavailable [phone] Tomás Howell MD Unavailable Jaqui Colin MD Unavailable Jose C Ramos MD Unavailable [phone] Sea Humphries MD Unavailable [phone] Encounter Details Date Type Department Care Team (Late st Contact Info) Description 05/23/2020 real5D Message Enc [facility] Family Medicine [address] [address] Liam, [facility] Provider blood sugar Social History Tobacco Use [...] Description 08/30/2024 2:40 PM CDT Office Visit [facility] Family Medicine [facility] [address] [place] [phone] Gi Pulliam MD [address] [place] [address] documented as of this encounter Visit Diagnoses Not on filedocumented in this encounter Additional Health Concerns Infection Onset Date Last Indicated Resolved Time COVID-19 Rule Out 01/22/2022 01/22/2022 01/22/2022 9:10 PM TEAM ASSISTANT Influenza - Seasonal 01/22/2022 01/22/2022 023 12:33 AM TEAM ASSISTANT COVID-19 Rule Out 03/05/2023 03/05/2023 03/05/2023 5:49 PM TEAM ASSISTANT COVID-19 Rule Out 03/07/2023 03/07/2023 03/08/2023 9:02 AM TEAM ASSISTANT Parainfluenza 03/07/2023 03/07/2023 03/17/2023 12: 32 AM TEAM ASSISTANT documented as of this encounter Care Teams First Assistant Relationship Specialty Start Date End Date Gi Pulliam MD PCP - General FAMILY PRACTICE 08/02/17 Taylor Ball RN [address] [place] [address] Registered Appraiser (Ambulatory) REGISTERED NURSE 05/19/21 Tomás Howell MD [address] [place] [address] UROLOGY 01/24/24 Jaqui Colin MD [address] DIV OF HEMATOLOGY & [place] [address] Gynecologic Oncology 01/24/24 Jose C Ramos MD [address] [facility] [address] [place] [address] Consulting Physician UROLOGY 03/12/24 Sea Humphries MD [address] [facility] [address] [place] [address] HEMATOLOGY/ONCOLOGY 03/12/24 documented as of this encounter
--- OUTSIDE RECORDS SUMMARY | 2024-07-20 00:56 | XMS_ITS | Clinical Summary ---
Author Organization [facility] Address [address] [place] [address] Care Team Providers Care Link And Link Knitting Machine Operator Name Role Phone Gi Pulliam MD Primary Care Provider [phone] Taylor Ball RN Unavailable [phone] Tomás Howell MD Unavailable Jaqui Colin MD Unavailable Jose C Ramos MD Unavailable [phone] Sea Humphries MD Unavailable [phone] Allergies Active Allergy Reactions Criticality Noted [...] hyperglycemia, with long-term current use of insulin ([facility]) INJECT 30 UNITS EACH MEAL ALONG WITH SLIDING SCALE UP TO 12 UNITS/MEAL. MAX 126 UNITS/DAY 120 mL 1 024 Active Glucose Blood (BLOOD GLUCOSE TEST STRIPS 333) StripIndications :Type 2 diabetes mellitus without complication, with long-term current use of insulin ([facility]) 1 strip by In Vitro route 4 [...] 180 tablet 2 025 Active Continuous Glucose Slat Pickler (FREESTYLE TERESITA 3 READER) DeviceIndication s:Type 2 diabetes mellitus with stage 2 chronic kidney disease, with long-term current use of insulin ([facility]) Use to monitor glucose continuously 1 each 025 Active Continuous Glucose Sensor (FREESTYLE TERESITA 3 PLUS SENSOR) MiscIndications: Type 2 diabetes mellitus with stage 2 chronic kidney disease, with long-term current use of insulin ([facility]) Use one sensor to continuously monitor glucose for 15 days 2 each 6 025 Active XARELTO 20 MG Tab tabletIndication s:Atrial fibrillation, unspecified type ([facility]) TAKE 1 TABLET BY MOUTH DAILY WITH SUPPER. 90 tablet 1 025 Active furosemide (LASIX) 40 MG tabletIndication s:Chronic diastolic heart failure ([facility]) Take 1 tablet (40 mg total) by mouth 3 (three) times a week. Takes 40 mg tue/tue/Tuesday per oncologist.- does not take other days 40 tablet 025 Active Insulin Syringe-Needle U-100 (INSULIN SYRINGE .5CC/31GX5/16 ) 31G X 5/16 0.5 ML MiscIndications: Type 2 diabetes mellitus with stage 2 chronic kidney disease, with long-term current use of insulin ([facility]) Use to administer insulin daily 100 each 1 025 Active magnesium oxide (MAG-OX) 250 MG tablet Take 1 tablet (250 mg total) by mouth daily. Active insulin glargine (LANTUS) 100 UNIT/ML injection (PEN)Indications :Type 2 diabetes mellitus with hyperglycemia, with long-term current use of insulin ([facility]) Inject 42 units SQ QAM and 35 units SQ QPM 25 mL 2 025 Active KLOR-CON M20 20 MEQ tabletIndication [...] EVERY DAY 90 tablet 2 025 Active semaglutide (OZEMPIC, 0.25 OR 0.5 MG/DOSE,) 2 MG/3ML injection (PEN)Indications :Diabetes Mellitus Inject 0.5 mg into the skin every 7 days. Indications: Diabetes 3 mL 2 025 Active metFORMIN (GLUCOPHAGE) 1000 MG tabletIndication s:Type 2 diabetes mellitus with hyperglycemia, with long-term current use of insulin ([facility]) Take 1 tablet (1,000 mg total) by mouth daily with breakfast. TAKE 1 TABLET BY MOUTH TWICE A DAY for diabetes 90 tablet 025 Active atorvastatin (LIPITOR) 40 MG tabletIndication s:High triglycerides take 1 tablet by mouth every day 90 tablet 2 024 2024 Discontinued lisinopril (PRINIVIL) 10 MG tabletIndication s:Primary hypertension Take 1 tablet (10 mg total) by mouth daily. 024 2024 Discontinued(R eorder) metFORMIN (GLUCOPHAGE) 1000 MG tabletIndication s:Type 2 diabetes mellitus with hyperglycemia, with long-term current use of insulin ([facility]) TAKE 1 TABLET BY MOUTH TWICE A DAY FOR DIABETES 180 tablet 025 2024 Discontinued semaglutide (OZEMPIC) 2 MG/3ML injection (PEN)Indications :Diabetes Mellitus Inject 0.25 mg into the skin every 7 days. Indications: Diabetes 3 mL 025 2024 Discontinued doxycycline hyclate (VIBRAMYCIN) 100 MG capsuleIndicatio ns:Chronic maxillary sinusitis Take 1 capsule (100 mg total) by mouth 2 (two) times daily for 7 days. 14 capsule 025 2024 metFORMIN (GLUCOPHAGE) 1000 MG tabletIndication s:Type 2 diabetes mellitus with hyperglycemia, with long-term current use of insulin ([facility]) TAKE 1 TABLET BY MOUTH TWICE A DAY FOR DIABETES 180 tablet 025 2024 Discontinued(R eorder) Active Problems Problem Noted Date Diagnosed Date Polyneuropathy due to type 2 diabetes mellitus ([facility]) 03/14/2024 History of amputation of lesser toe ([facility]) Dyslipidemia 05/05/2023 Morbid (severe) obesity due to excess calories 0 03/17/2023 Body mass index (BMI) 40.0-44.9, adult Sepsis ([facility]) 03/05/2023 History of auto stem cell transplant ([facility]) 05/26/2022 Care Management 08/17/2021 Colon adenomas 03/10/2021 Overview (07/06/2021): 11/15/16 colonoscopy ([facility]): polyps per patient 03/10/21 colonoscopy: multiple diminutive adenomas removed, repeat in 3 years. NAFLD (nonalcoholic fatty liver disease) 021 Overview (07/06/2021): 02/24/21 Fibroscan CAP 400, LSM 15.6 kPa (highly variable readings, low confidence in stiffness measurement) 03/05/21 MRI/MRE: normal liver contours, no evidence of cirrhosis, normal liver stiffness Paroxysmal atrial fibrillation ([facility]) 10/15/2020 Hodgkin lymphoma, unspecifie d Hodgkin lymphoma type, unspecified body region ([facility]) 10/15/2020 Neuropathy 10/15/2020 Encephalopathy 10/15/2020 Wernicke's encephalopathy 10/15/2020 Hyperlipidemia 10/15/2020 Seizure ([facility]) 10/01/2020 Hypocalcemia 09/21/2020 Hyponatremia 09/21/2020 High risk for chemotherapy-induced infectious co mplication 07/08/2020 COVID-19 03/05/2020 Infiltrate of left lung present on chest x-ray 0 04/15/2019 Hypoxia 04/15/2019 Altered mental status 12/17/2018 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 ([facility]) 11/07/2018 Chronic recurrent sinusitis 07/04/2018 Seasonal allergies 07/04/2018 Dyspnea 01/03/2018 Sinusitis 12/27/2017 Cough 12/27/2017 Osteomyelitis of toe ([facility]) 8 Osteomyelitis ([facility]) 11/22/2017 Diabetes mellitus, type II ([facility]) Overview (07/06/2021): last A1C 8, 08/2018 Ulcer of toe due to diabetes ([facility]) 0 11/22/2017 Cellulitis 08/12/2017 Onychomycosis of toenail 07/14/2017 Type 2 diabetes mellitus wit h other diabetic neurological complication ([facility]) 05/05/2017 Class 3 obesity 10/27/2016 Severe obesity [...] Encounters Date Type Department Care Team Description 07/17/[address] [address] Gi Pulliam MD Medication Information 07/17/2024 Patient Outreach [address] [address] Taylor Ball, RN Care Management 07/16/[address] [address] Gi Pulliam MD Orders 07/09/[address] [address] Gi Pulliam MD Medication Request 07/05/2024 3:00 PM CDT Office Visit [address] [address] Gi Pulliam MD Diabetes (On ozempic seems allright); Sinus Problem (Having sinus drainage started on Tuesday, has coughed up green tinted phlem but nose discharge is clear, no testing done, pt takes allergy med at , but denies using otc med) 07/05/2024 Results Follow-Up [address] [place] [address] Gi Pulliam MD A1C (BACK OFFICE), COMPREHENSIVE METABOLIC PANEL, LIPID PANEL, Additional followed-up results: 2 07/05/2024 Travel 06/08/2024 Scan [facility] INFO SRVCS Scanned, [facility] 06/01/2024 Scan HEALTH INFO SRVCS Scanned, [facility] 05/30/2024 Patient Outreach [address] [address] Jesica Laura, PACKAGE CLERK Care Management 05/29/2024 Patient Outreach [address] [address] Taylor Ball, RN Care Management 05/24/2024 3:00 PM CDT Office Visit [address] [address] Gi Pulliam MD Diabetes (Discuss [...] 66 (Prefilled Syringe) 12/14/2023,01/13/2022 Hepatitis A/Hepatitis B(Twinrix) 05/26/2022,11/0 11/2021,11/10/2021 Hepatitis B (Generic: Adult) 12/14/2023,04/21/19 24,10/06/2022 Hib (Omni-Hib) 03/23/2022,01/13/2022,11/10/2021 Influenza (Generic) 12/27/2019, 8,12/10/2016,05/2015 Influenza Adult (Generic) 11/22/2017,12/10/2016 [employer] ([employer]) COVID-19 AD26 VACCINE 0.5 ML IM SUSP [...] drink = 0.6 oz pur e alcohol) [facility] Utilities Answer Date Recorded In the past 12 months has [employer], oil, or water Att[employer]ments[employer]me threatened to shut off services in your [...] place to sleep or slept in a fpc (including now)? No 03/06/2023 Housing Stability Vital [...] Description 08/30/2024 2:40 PM CDT Office Visit [facility] Family Medicine [facility] [address] [place] [address] Gi Pulliam MD [address] [place] [id number] Health Maintenance Due Date Last Done Comments Annual Medicare Wellness Visit 2021 COVID-19 Vaccine (8 - Pfizer risk season) [...] or 60+ Years Completed 12/30/2023 PHQ-2 (Physician [place]) Completed 07/05/2024 RSV Immunizations Under 20 Months Aged Out No longer eligible based on patient's age to complete this topic Goals Goal Patient Goal Type Associated Problems Recent Progress Patient-Stated? Author Pt will attend follow up appts General On track(2024 12:28 PM CDT) Lindsey Ruiz RN Medications - demonstrates understanding of how and when to take anticoagulants, dietary restrictions, and signs and symptoms to report to PCP General On track(2024 12:29 PM CDT) Lindsey Ruiz RN Establish Plan for Symptom Monitoring DM General On track(2024 12:29 PM CDT) Taylor Desir RN Note: DM: [...] for Symptom Monitoring HTN General On track(2024 12:29 PM CDT) Taylor Desir RN Note: HTN: [...] hyperglycemia, with long-term current use of insulin ([facility]) TSH W/REFLEX Routine 07/02/2024 2:10 PM CDT Hyperlipidemia, unspecified hyperlipidemia type LIPID PANEL Routine 07/02/2024 2:10 PM CDT Hyperlipidemia, unspecified hyperlipidemia type COMPREHENSIVE METABOLIC PANEL Routine 07/02/2024 2:10 PM CDT Type 2 diabetes mellitus with hyperglycemia, with long-term current use of insulin ([facility]) Hyperlipidemia, unspecified hyperlipidemia type Primary hypertension HEMOGLOBIN, GLYCOSYLATED Routine 05/24/2024 Type 2 diabetes mellitus with hyperglycemia, with long-term current use of insulin ([facility]) COLLECT.CAPILLARY (FNGR,HEEL,EAR) Routine 05/24/2024 Type 2 diabetes mellitus with hyperglycemia, with long-term current use of insulin ([facility]) DIABETIC RETINOPATHY EXAM (POSITIVE)(SCAN ORDER) Routine 11/17/2023 COLONOSCOPY GENERIC (SCAN ORDER) Routine 11/15/2016 from Last 3 Months or Most Recently Relevant to Health Maintenance Results * (ABNORMAL) TSH W/REFLEX (07/02/2024 2:10 PM CDT) TSH 11.61(H) 0.40 - 4.50 mIU/L [facility] [employer] [place] FREE T4 1.1 0.8 - 1.8 ng/dL [facility] 07/02/2024 2:10 PM CDT 07/02/2024 2:10 PM CDT Narrative [facility] - 07/03/2024 6:37 AM CDT FASTING:YES FASTING: YES Resulting Agency Comment Performing Organization Information: Site ID: [id number] Name: [facility] Address: [address] [place] [id number] Director: Magaly Harris Gi Pulliam MD LABORATORY Final Result [facility] [employer] [address], * ALBUMIN URINE RANDOM W/CREATININE (07/02/2024 2:10 PM CDT) CREATININE RANDOM (U) 112 20 - 320 mg/dL [facility] MICROALBUMIN (U) 1.1 See Note: mg/dL [facility] Comment: Reference Range: Reference Range Not established MICROALB/CREAT 10 <30 mg/g creat [facility] [employer] [facility] Comment: The ADA defines abnormalities in albumin [...] PM CDT 07/02/2024 2:10 PM CDT Narrative [facility] - 07/03/2024 6:37 AM CDT FASTING:YES FASTING: YES Resulting Agency Comment Performing Organization Information: Site ID: [id number] Name: [facility] Address: [address] [address] Director: Magaly Harris MD Gi Pulliam MD URINE ORDERABLES Final Result [facility] [place] [address] [address] [id number], * (ABNORMAL) COMPREHENSIVE METABOLIC PANEL (07/02/2024 2:10 PM CDT) GLUCOSE 127(H) 65 - 99 mg/dL [place] Comment: Fasting reference interval For someone without known diabetes, a glucose value >125 mg/dL indicates that they may have diabetes and this should be confirmed with a follow-up test. BUN 25 7 - 25 mg/dL [place] CREATININE S/P/B 1.13 0.70 - 1.35 mg/dL [place] GFR ESTIMATE 71 > OR = 60 mL/min/1. 73m2 [place] BUN CREATININE RATIO SEE NOTE: 6 - 22 (calc) [place] Comment: Not Reported: BUN and Creatinine are within reference range. SODIUM S/P/B 135 135 - 146 mmol/L [place] POTASSIUM S/P/B 4.6 3.5 - 5.3 mmol/L [place] CHLORIDE S/P/B 101 98 - 110 mmol/L [place] CO2 25 20 - 32 mmol/L [place] CALCIUM S/P/B 9.7 8.6 - 10.3 mg/dL [place] TOTAL PROTEIN S/P/B 6.6 6.1 - 8.1 g/dL [place] ALBUMIN S/P/B 4.4 3.6 - 5.1 g/dL [place] GLOBULIN 2.2 1.9 - 3.7 g/dL (calc) [place] ALBUMIN/GLOBULIN RATIO 2.0 1.0 - 2.5 (calc) [place] BILIRUBIN TOTAL S/P/B 1.1 0.2 - 1.2 mg/dL [place] ALKALINE PHOSPHATASE S/P/B 166(H) 35 - 144 U/L [place] AST 14 10 - 35 U/L [place] ALT 17 9 - 46 U/L [place] 07/02/2024 2:10 PM CDT 07/02/2024 2:10 PM CDT Narrative [facility] [place] [facility] - 07/03/2024 6:37 AM CDT FASTING:YES FASTING: YES Resulting Agency Comment Performing Organization Information: Site ID: [id number] Name: [facility] Address: [address] [place] [id number] Director: Magaly Harris Gi Pulliam MD LABORATORY Final Result Performing Organization Address City/State/[facility] Co de Phone Number [facility] [address] [address], * (ABNORMAL) LIPID PANEL (07/02/2024 2:10 PM CDT) CHOLESTEROL 79 <200 mg/dL [place] HDL 14(L) > OR = 40 mg/dL [place] TRIGLYCERIDES 296(H) <150 mg/dL [place] Comment: If a non-fasting specimen was collected, consider repeat triglyceride testing on a fasting specimen if clinically indicated. Colby et al. J. of Clin. Lipidol. 2015;9:129-169. LDL (CALCULATED) 34 mg/dL (calc) [place] Comment: Reference range: <100 Desirable range <100 mg/dL for primary prevention; <70 mg/dL for patients with CHD or diabetic patients with > or = 2 CHD risk factors. LDL-C is now calculated using the Raudel-Bolaños calculation, which is a validated novel method providing better accuracy than the Friedewald equation in the e [id number]|2024-07-20 00:56:00|2024-07-20 00:56:00|XMS_ITS|[place]OR[place] JARA|External Medical Summaries|[id number]|" Encounter Summary Created on: July 20, 2024 Nelson Bond : 1955 Sex: Male Author Organization [facility] Address [facility] [place] [address] Care Team Providers Care Link And Link Knitting Machine Operator Name Role Phone Gi Pulliam MD Primary Care Provider [phone] Sea Humphries MD Unavailable [phone] Kael Negron MD Unavailable [phone] Jaqui Colin MD Unavailable [phone] Janene Arriaga MD Unavailable [phone] Federico Garcia MD Unavailable [phone] Vijaya Ulrich PharmD Unavailable Unavaila Chandler Avila PharmD Unavailable Unavailab Val Lenz RN Unavailable Unavailable Elaine Poole RN Unavailable Unavailab Rina Trinidad Unavailable Letty vailable Cathi, Ayanna John APRN-PRINTER APPRENTICE Unavailable [phone] Yadi Dean RN Unavailable Unavailable Nicole Ramos RN Unavailable Unavailable Loreto Oliveros RN Unavailable UnavailAditi Marin LCSW Unavailable Unavailab le Ludwig, Kaia [employer] OFFICER-PRINTER APPRENTICE Unavailable Kassandra Richard RN Unavailable Unavaila Doris Sandy RN Unavailable Unavailable Encounter Details Date Type Department Care Team (Late Contact Info) Description 04/23/2019 Telephone [facility] [address] [place] [address] Tequila Hallman MD [address] [place] [place] [address] Social History Tobacco Use Types Packs/Day Years [...] Info) Description 09/11/2024 12:45 PM CDT Appointment [facility] [address] [place] [phone] Jaqui Colin MD [address] [facility] DIV OF HEMATOLOGY & [place] [address] 09/11/2024 1:45 PM CDT Appointment [facility] [address] [place] [phone] Jaqui Colin MD [address] [facility] DIV OF HEMATOLOGY & [place] [address] 09/11/2024 3:00 PM CDT Office Visit [facility] [address] [place] [phone] Jaqui Colin MD [address] [facility] DIV OF HEMATOLOGY & [place] [address] documented as of this encounter Visit Diagnoses Not on filedocumented in this encounter Additional Health Concerns Infection Onset Date Last Indicated Resolved Time COVID-19 Under Investigation 09/15/2020 09/15/2020 09/15/2020 9:18 PM CDT COVID-19 Under Investigation 12/10/2020 12/10/2020 12/11/2020 4:17 AM CDT COVID-19 Confirmed 03/12/2021 04/02/2021 4:33 AM BALL MACHINE OPERATOR COVID-19 Under Investigation 03/19/2021 03/19/2021 03/19/2021 4:42 PM BALL MACHINE OPERATOR COVID-19 Under Investigation 04/14/2021 04/14/2021 04/25/2021 4:33 AM BALL MACHINE OPERATOR COVID-19 Under Investigation 09/29/2021 09/29/2021 09/29/2021 8:59 PM CDT documented as of this encounter Care Teams Link And Link Knitting Machine Operator Relationship Specialty Start Date End Date Gi Pulliam MD [address] [place] [address] PCP - General Family Medicine 10/17/18 Sea Humphries MD [address] [place] [address] Referring Physician Medical Oncology 02/19/20 Kael Negron MD [address] [place] [address] Hematology and Oncology 02/19/20 03/26/21 Jaqui Colin MD [address] DIV OF HEMATOLOGY & [place] [address] Hematology and Oncology 02/19/20 Janene Arriaga MD [address] DIV OF HEMATOLOGY & [place] [address] Hematology and Oncology 02/19/20 Federico Garcia MD [address] DIV OF HEMATOLOGY & [place] [address] Hematology and Oncology 02/19/20 Vijaya Ulrich, PharmD 02/19/20 Chandler Rosario, PharmD Pharmacist 02/19/20 11/25/20 Val Pisano, RN 02/19/20 Elaine Poole RN 02/19/20 11/25/20 Rina Argueta 02/19/20 Ayanna Winkler APRN-PRINTER APPRENTICE Family Medicine 02/19/20 Yadi Dean, RN Registered Nurse 02/19/20 03/26/21 Nicole Ramos, RN Registered Nurse 02/19/20 11/25/20 Loreto Oliveros, RN Registered Nurse 02/19/20 11/25/20 Aditi Ladd, [facility] E Commerce Developer 02/19/20 Kaia Munroe APRN-PRINTER APPRENTICE [address] DIV OF HEMATOLOGY & [place] [address] Advance Practice Nurse Family Medicine 08/05/20 Kassandra Richard, RN Registered Nurse 03/27/21 Doris Munguia, RN Registered Nurse 06/03/21 documented as of this encounter "
--- OUTSIDE RECORDS SUMMARY | 2024-07-20 00:56 | XMS_ITS | Encounter Summary ---
Author Organization [facility] Address [facility] [place] [address] Care Team Providers Care Administrative Nursing Supervisor Name Role Phone Gi Pulliam MD Primary Care Provider [phone] Sea Humphries MD Unavailable [phone] Jaqui Colin MD Unavailable [phone] Janene Arriaga MD Unavailable [phone] Federico Garcia MD Unavailable [phone] Vijaya Ulrich PharmD Unavailable Unavaila Val Licea RN Unavailable Unavailable [facility] Unavailable Letty vailable Cathi, Ayanna John CONSUMER LOAN OFFICER-GARBAGE TRUCK DRIVER Unavailable [phone] Aditi Ladd LCSW Unavailable Unavailab Kaia Agee CONSUMER LOAN OFFICER-GARBAGE TRUCK DRIVER Unavailable [phone] Kassandra Richard RN Unavailable Unavaila Doris Sandy RN Unavailable Unavailable Reason for Visit * Reason Comments Refill Request Encounter Details Date Type Department Care Team (Late st Contact Info) Description 11/27/2022 Refill [facility] - Hematology/Oncology [address] [place] [address] Jaqui Colin MD [address] [place] [address] OF HEMATOLOGY [place] [address] Refill Request Social History Tobacco Use Types [...] Info) Description 09/11/2024 12:45 PM CDT Appointment [facility] [address] [place] [address] Jaqui Colin MD [address] [place] [address] OF HEMATOLOGY [place] [address] 09/11/2024 1:45 PM CDT Appointment [facility] [address] [place] [phone] Jaqui Colin MD [address] [facility] [address] OF HEMATOLOGY [place] [address] 09/11/2024 3:00 PM CDT Office Visit [facility] - Hematology/Oncology [address] [place] [address] Jaqui Colin MD [address] [facility] [address] OF HEMATOLOGY [place] [address] documented as of this encounter Goals Goal Patient Goal Type Associated Problems Recent Progress Patient-Stated? Author Medication Management General On track( 021 9:57 AM DIRECTOR CLINICAL APPLICATIONS) Mercedes Minor, RN Note: Expected end date: ongoing Interventions: Take all medications as prescribed documented as of this encounter Visit Diagnoses Not on filedocumented in this encounter Care Teams Administrative Nursing Supervisor Relationship Specialty Start Date End Date Gi Pulliam MD [address] [place] [address] PCP - General Family Medicine 10/17/18 Sea Humphries MD [address] [place] [address] Referring Physician Medical Oncology 02/19/20 Jaqui Colin MD [address] [facility] [address] OF HEMATOLOGY [place] [address] Hematology and Oncology 02/19/20 Janene Arriaga MD [address] [facility] [address] OF HEMATOLOGY & [place] [address] Hematology and Oncology 02/19/20 Federico Garcia MD [address] OF HEMATOLOGY & [place]ICAL [place] [address] Hematology and Oncology 02/19/20 Vijaya Ulrich, PharmD 02/19/20 Val Pisano, RN 02/19/20 Rina Argueta 02/19/20 Ayanna Winkler APRN-GARBAGE TRUCK DRIVER Family Medicine 02/19/20 Aditi Ladd, [facility] Registered Nurse Maternal Child 02/19/20 Kaia Munroe CONSUMER LOAN OFFICER-GARBAGE TRUCK DRIVER [address] OF HEMATOLOGY [place] [address] Advance Practice Nurse Family Medicine 08/05/20 Kassandra Richard, RN Registered Nurse 03/27/21 Doris Munguia, RN Registered Nurse 06/03/21 documented as of this encounter
--- OUTSIDE RECORDS SUMMARY | 2024-07-20 00:56 | XMS_ITS | Encounter Summary ---
Author Organization [facility] Address [address] [facility] [place] [address] Care Team Providers Care Director Of Architecture Name Role Phone Gi Pulliam MD Primary Care Provider [phone] Sea Humphries MD Unavailable [phone] Kael Negron MD Unavailable [phone] Jaqui Colin MD Unavailable [phone] Janene Arriaga MD Unavailable [phone] Federico Garcia MD Unavailable Vijaya Ulrich PharmD Unavailable Unavaila Chandler Avila PharmD Unavailable Unavailab Val Lenz RN Unavailable Unavailable Elaine Poole RN Unavailable Unavailab Rina Trinidad Unavailable Letty vailable Cathi, Ayanna John LAPIDARY APPRENTICE-FINISH CARPENTER Unavailable [phone] Yadi Dean RN Unavailable Unavailable Nicole Ramos RN Unavailable Unavailable Loreto Oliveros RN Unavailable UnavailAditi Marin LCSW Unavailable Unavailab Kaia Agee LAPIDARY APPRENTICE-FINISH CARPENTER Unavailable [phone] Kassandra Richard RN Unavailable Unavaila ble Ezra, Doris J RN Unavailable Unavailable Encounter Details Date Type Department Care Team (Late Contact Info) Description 12/19/2018 Lab Requisition [facility] [address] [place] [address] Roni Smallwood MD [address] [place] [address] Social History Tobacco Use Types Packs/Day Years [...] Info) Description 09/11/2024 12:45 PM CDT Appointment [facility] [address] [place] [phone] Jaqui Colin MD [address] [place] [address] OF HEMATOLOGY [place] [address] 09/11/2024 1:45 PM CDT Appointment [facility] [address] [place] [address] Jaqui Colin MD [address] [place] [address] OF HEMATOLOGY [place] [address] 09/11/2024 3:00 PM CDT Office Visit [facility] - Hematology/Oncology [address] [place] [address] Jaqui Colin MD [address] [place] [address] OF HEMATOLOGY [place] [address] documented as of this encounter Procedures Procedure Name Priority Date/Time Associated Diagnosis Comments FLOW CYTOMETRY BLOOD PROFILE Routine 12/19/2018 12:05 PM CDT documented in this encounter Results * FLOW CYTOMETRY BLOOD PROFILE (12/19/2018 12:05 PM CDT) Case Report Flow Cytometry Case: [id number] Authorizing Provider: Roni Smallwood MD Collected: 12/19/2018 12:05 PM Ordering Location: [facility] Received: 12/19/2018 02:51 PM Pathologist: Aurelia Sorto MD Specimen: Blood 9:08 AM CDT [facility] Final Diagnosis Peripheral blood, fl ow cytometric immunophenotypic analysis: - No evidence of non-Hodgkin lymphoma or high-grade myeloid neoplasm. - See interpretation. 9:08 AM T [facility] Flow Cytometry Results Differential Result Comment WBC Count /uL 3,700 Total Viability % 100.0 Lymphocytes % 71 Dim CD45 Region % 4 Monocytes % 12 Granulocytes % 13 9:08 AM CDT [facility] Flow Cytometry Interpretation The [...] the flow cytometry specimen is reviewed for manufacturing quality inspector purposes. Overall, the peripheral blood specimen shows no evidence of involvement by a non-Hodgkin lymphoma or a high-grade myeloid neoplasm. Correlation with clinical findings is required. KR/MM 9:08 AM CDT [facility] Reason for test Lymphocytosis 9:08 AM CDT [facility] Client Specimen ID # [id number] 9:08 AM T [facility] Disclaimer Test performed at [facility], [address] [place] [address], [address]. *The established laboratory minimum viability is 70%. [...] complexity clinical testing. 9 9:08 AM CDT [facility] Embedded Images 9 9:08 AM CDT [facility] Number of markers 16 were performed. A-2 Flow CD10 A-3 Flow CD13 A-5 Flow CD20 A-11 Flow CD2 A-12 Flow CD4 A-15 Flow CD1a A-1 Flow CD5 A-4 Flow CD19 A-6 Flow CD33 A-7 Flow CD34 A-8 Flow CD45 A-13 Flow CD7 A-14 Flow CD8 A-16 Flow CD30 A-9 Ponder+CD19+ A-10 Lambda+CD19+ 9 9:08 AM CDT [facility] Blood BLOOD SPECIMEN / Unknown 12/19/2018 12:05 PM CDT 12/19/2018 2:51 PM CDT us Imaad Anson Smallwood MD LAB - PATHOLOGY/CYTOLOGY ORD ERABLES Final Result Performing Organization Address City/State/[facility] Co de Phone Number [facility] [address] [phone] documented in this encounter Visit Diagnoses Not on filedocumented in this encounter Additional Health Concerns Infection Onset Date Last Indicated Resolved Time COVID-19 Under Investigation 09/15/2020 09/15/2020 09/15/2020 9:18 PM CDT COVID-19 Under Investigation 12/10/2020 12/10/2020 12/11/2020 4:17 AM CDT COVID-19 Confirmed 03/12/2021 04/02/2021 4:33 AM FINISH CARPENTER COVID-19 Under Investigation 03/19/2021 03/19/2021 03/19/2021 4:42 PM FINISH CARPENTER COVID-19 Under Investigation 04/14/2021 04/14/2021 04/25/2021 4:33 AM FINISH CARPENTER COVID-19 Under Investigation 09/29/2021 09/29/2021 09/29/2021 8:59 PM CDT documented as of this encounter Care Teams Director Of Architecture Relationship Specialty Start Date End Date Gi Pulliam MD [address] [place] [address] PCP - General Family Medicine 10/17/18 Sea Humphries MD [address] [place] [address] Referring Physician Medical Oncology 02/19/20 Kael Negron MD [address] [place] [address] Hematology and Oncology 02/19/20 03/26/21 Jaqui Colin MD [address] OF HEMATOLOGY [place] [address] Hematology and Oncology 02/19/20 Janene Arriaga MD [address] OF HEMATOLOGY [place] [address] Hematology and Oncology 02/19/20 Federico Garcia MD [address] OF HEMATOLOGY [place] [address] Hematology and Oncology 02/19/20 Vijaya Ulrich, PharmD 02/19/20 Chandler Rosario, MartD Pharmacist 02/19/20 11/25/20 Val Pisano RN 02/19/20 Elaine Poole RN 02/19/20 11/25/20 Rina Argueta 02/19/20 Ayanna Winkler, LAPIDARY APPRENTICE-FINISH CARPENTER Family Medicine 02/19/20 Yadi Dean, RN Registered Nurse 02/19/20 03/26/21 Nicole Ramos, RN Registered Nurse 02/19/20 11/25/20 Loreto Oliveros, RN Registered Nurse 02/19/20 11/25/20 Aditi Ladd, [facility] Anti Tank Missileman 02/19/20 Kaia Munroe, LAPIDARY APPRENTICE-FINISH CARPENTER [address] [facility] OF HEMATOLOGY [place] [address] Advance Practice Nurse Family Medicine 08/05/20 Kassandra Richard, RN Registered Nurse 03/27/21 Doris Munguia, RN Registered Nurse 06/03/21 documented as of this encounter
--- OUTSIDE RECORDS SUMMARY | 2024-07-20 00:56 | XMS_ITS | Encounter Summary ---
Author Organization [facility] Address [facility] [place] [address] Care Team Providers Care Representative Phlebotomy Services Name Role Phone Gi Pulliam MD Primary Care Provider [phone] Taylor Ball RN Unavailable [phone] Tomás Howell MD Unavailable Jaqui Colin MD Unavailable Jose C Ramos MD Unavailable [phone] Sea Humphries MD Unavailable [phone] Encounter Details Date Type Department Care Team (Late st Contact Info) Description 10/01/2021 [facility] Message [address] [phone] Liam, [facility] Provider DM eye exam Social History Tobacco [...] Description 08/30/2024 2:40 PM CDT Office Visit [facility] Medical [facility] Family Medicine [facility] [address] [place] [address] Gi Pulliam MD [address] [place] [address] documented as of this encounter Goals Goal [...] General On track(2024 12:29 PM CDT) Taylor Desir, RN Note: HTN: [...] Rule Out 01/22/2022 01/22/2022 01/22/2022 9:10 PM POSTDOCTORAL RESEARCH ASSOCIATE Influenza - Seasonal 01/22/2022 01/22/2022 023 12:33 AM POSTDOCTORAL RESEARCH ASSOCIATE COVID-19 Rule Out 03/05/2023 03/05/2023 03/05/2023 5:49 PM POSTDOCTORAL RESEARCH ASSOCIATE COVID-19 Rule Out 03/07/2023 03/07/2023 03/08/2023 9:02 AM POSTDOCTORAL RESEARCH ASSOCIATE Parainfluenza 03/07/2023 03/07/2023 03/17/2023 12: 32 AM POSTDOCTORAL RESEARCH ASSOCIATE Assessment Noted Time PHQ-9 Depression Total Score: 6 02/26/20 2:22 PM POSTDOCTORAL RESEARCH ASSOCIATE documented as of this encounter Care Teams Representative Phlebotomy Services Relationship Specialty Start Date End Date Gi Pulliam MD PCP - General FAMILY PRACTICE 08/02/17 Taylor Ball, RN [address] [place], [place] [address] Energy Sales Consultant (Ambulatory) REGISTERED NURSE 05/19/21 Tomás Howell MD [address] [place] [address] UROLOGY 01/24/24 Jaqui Colin MD [address] DIV OF HEMATOLOGY [place] [address] Gynecologic Oncology 01/24/24 Jose C Ramos MD [address] [place] [phone] Consulting Physician UROLOGY 03/12/24 Sea Humphries MD [address] [address] HEMATOLOGY/ONCOLOGY 03/12/24 documented as of this encounter
--- OUTSIDE RECORDS SUMMARY | 2024-07-20 00:56 | XMS_ITS | Encounter Summary ---
Author Organization [facility] Address [address] [place] [address] Care Team Providers Care Pearl Cutter Name Role Phone iG Saucedo MD Primary Care Provider [phone] Taylor Ball RN Unavailable [phone] Tomás Howell MD Unavailable Jaqui Colin MD Unavailable Jose C Ramos MD Unavailable [phone] Sea Humphries MD Unavailable [phone] Reason for Visit * Reason Onset Date Comments Medication Information 07/17/2024 Encounter Details Date Type Department Care Team (Late st Contact Info) Description 07/17/2024 Telephone [facility] Family Medicine [facility] [address] [place] [address] Gi Saucedo MD [facility] [place] [address] Medication Information Social History Tobacco Use Types Packs/Day Years [...] place to sleep or slept in a mcc (including now)? No 03/06/2023 Housing Stability Vital [...] Status No 03/05/2023 9:08 PM Marion Andrews R N Active * Because of a physical, mental, or emotional condition, do you have difficulty doing errands alone such as visiting a doctor's office or shopping? Answer Date of Assessment Author Status No 03/05/2023 9:08 PM Marion Andrews RN Active documented as of this encounter Mental Status * Because of a physical, mental, or emotional condition, do you have serious difficulty concentrating, remembering, or making decisions? Answer Entry Date Author Status No 03/05/2023 9:08 PM Marion Andrews RN Active documented in this encounter Progress Notes * Taylor Ball RN - 07/19/2024 8:22 AM CDT Cc left message on patient's voicemail, regarding above. Requested call back with any questions. * iG Saucedo MD - 07/19/2024 12:05 AM CDTAddended by: GI SAUCEDO on: 07/19/2024 12:05 AM Modules accepted: Orders * Gi Saucedo MD - 07/19/2024 12:02 AM CDT Ozempic increased to 0.5mg sq weekly. Pt to decrease Metformin from 1000mg po bid to 1000mg po qam.Lantus, Novolog and Farxiga stay the same. Pt to call with fasting sugar readings on new regimen in 2 weeks. Thanks! ~Dr Nails * Taylor Ball RN - 07/17/2024 12:31 PM CDT Kavon, I spoke with patient today who is asking about his ozempic refill. He is out but stated at last appt pcp talked about increasing the ozempic so he wanted to double check. Patient also gave me his fasting blood sugar readings: Fasting blood sugars: 07/06/2024: 106 07/07/2024: 108 07/09/2024: 109 07/10/2024: 175 thinks he because he drank milk in the middle of night. 07/11/2024: 111 07/12/2024: 89 07/13/2024: 108 07/14/2024: 111 07/16/2024: 99 Please advise. Thank you. documented in this encounter Plan of Treatment Upcoming Encounters Date Type Department Care Team (Late st Contact Info) Description 08/30/2024 2:40 PM CDT Office Visit [facility] Family Medicine - [place] [address] [place] [address] Gi Saucedo MD [address] [place] [address] documented as of this encounter Goals Goal [...] DM General On track(2024 12:29 PM CDT) No Taylor Ball, MELISSA Note: DM: Patient to follow diabetic medication [...] as of this encounter Visit Diagnoses Diagnosis Type 2 diabetes mellitus with hyperglycemia, with long-term current use of insulin ([facility]) documented in this encounter Additional Health Concerns Assessment Noted Time PHQ-9 Depression Total Score: 2 05/25/19 25 3:17 PM CDT documented as of this encounter Care Teams Pearl Cutter Relationship Specialty Start Date End Date Gi Saucedo MD PCP - General FAMILY PRACTICE 08/02/17 Taylor Ball, RN [address] [place] [address] Exterior Door Installer (Ambulatory) REGISTERED NURSE 05/19/21 Tomás Howell MD [address] [place] [address] UROLOGY 01/24/24 Jaqui Colin MD [address] DIV OF HEMATOLOGY [place] [address] Gynecologic Oncology 01/24/24 Jose C Ramos MD [address] [place] [address] Consulting Physician UROLOGY 03/12/24 Sea Humphries MD [address] [facility] [address] [place] [address] HEMATOLOGY/ONCOLOGY 03/12/24 documented as of this encounter
--- OUTSIDE RECORDS SUMMARY | 2024-07-20 00:56 | XMS_ITS | Encounter Summary ---
Author Organization [facility] Address [address] [place] [address] Care Team Providers Care Unit Aide Tech Name Role Phone Gi Pulliam MD Primary Care Provider [phone] Taylor Ball RN Unavailable [phone] Tomás Howell MD Unavailable Jaqui Colin MD Unavailable Jose C Ramos MD Unavailable [phone] Sea Humphries MD Unavailable [phone] Encounter Details Date Type Department Care Team (Late st Contact Info) Description 01/13/[address] [facility] Family Medicine [facility] [place] [address] [place] [address] Gi Pulliam MD [address] [place] [id number] Social History Tobacco Use Types Packs/Day Years [...] 2:40 PM CDT Office Visit [facility] Family Medicine [facility] [place] [address] [place] [phone] Gi Pulliam MD [address] [place] [address] documented as of this encounter Visit Diagnoses Not on filedocumented in this encounter Additional Health Concerns Infection Onset Date Last Indicated Resolved Time COVID-19 Rule Out 01/25/2020 01/25/2020 01/30/2020 9:30 AM AERIAL GUNNER COVID-19 Rule Out 01/22/2022 01/22/2022 01/22/2022 9:10 PM AERIAL GUNNER Influenza - Seasonal 01/22/2022 01/22/2022 023 12:33 AM AERIAL GUNNER COVID-19 Rule Out 03/05/2023 03/05/2023 03/05/2023 5:49 PM AERIAL GUNNER COVID-19 Rule Out 03/07/2023 03/07/2023 03/08/2023 9:02 AM AERIAL GUNNER Parainfluenza 03/07/2023 03/07/2023 03/17/2023 12: 32 AM AERIAL GUNNER documented as of this encounter Care Teams Unit Aide Tech Relationship Specialty Start Date End Date Gi Pulliam MD PCP - General FAMILY PRACTICE 08/02/17 Taylor Ball, RN [address] [place] [address] Customer Success Associate (Ambulatory) REGISTERED NURSE 05/19/21 Tomás Howell MD [address] [place] [address] UROLOGY 01/24/24 Jaqui Colin MD [address] [facility] OF HEMATOLOGY [place] [address] Gynecologic Oncology 01/24/24 Jose C Ramos MD [address] [facility] [address] [place] [address] Consulting Physician UROLOGY 03/12/24 Sea Humphries MD [address] [facility] [address] [place] [address] HEMATOLOGY/ONCOLOGY 03/12/24 documented as of this encounter
--- OUTSIDE RECORDS SUMMARY | 2024-07-20 00:56 | XMS_ITS | Encounter Summary ---
Author Organization [facility] Address [facility] [place] [address] Care Team Providers Care Rn First Assistant Name Role Phone Gi Pulliam MD Primary Care Provider [phone] Taylor Ball RN Unavailable [phone] Tomás Howell MD Unavailable Jaqui Colin MD Unavailable Jose C Ramos MD Unavailable [phone] Sea Humphries MD Unavailable [phone] Encounter Details Date Type Department Care Team (Latest Contact Info) Description 11/21/2017 Abstract [facility] Slim Frank MD Social History [...] Description 08/30/2024 2:40 PM CDT Office Visit [facility] Family Medicine [place] [phone] Gi Pulliam MD [address] [place] [address] documented as of this encounter Visit Diagnoses Not on filedocumented in this encounter Additional Health Concerns Infection Onset Date Last Indicated Resolved Time COVID-19 Rule Out 01/25/2020 01/25/2020 01/30/2020 9:30 AM REINFORCED CONCRETE INSPECTOR COVID-19 Rule Out 01/22/2022 01/22/2022 01/22/2022 9:10 PM REINFORCED CONCRETE INSPECTOR Influenza - Seasonal 01/22/2022 01/22/2022 023 12:33 AM REINFORCED CONCRETE INSPECTOR COVID-19 Rule Out 03/05/2023 03/05/2023 03/05/2023 5:49 PM REINFORCED CONCRETE INSPECTOR COVID-19 Rule Out 03/07/2023 03/07/2023 03/08/2023 9:02 AM REINFORCED CONCRETE INSPECTOR Parainfluenza 03/07/2023 03/07/2023 03/17/2023 12: 32 AM REINFORCED CONCRETE INSPECTOR documented as of this encounter Care Teams Rn First Assistant Relationship Specialty Start Date End Date Gi Pulliam MD PCP - General FAMILY PRACTICE 08/02/17 Taylor Ball RN [address] [place], [place] [phone] Biazzi Nitrator Operator (Ambulatory) REGISTERED NURSE 05/19/21 Tomás Howell MD [address] [place] [address] UROLOGY 01/24/24 Jaqui Colin MD [address] DIV OF HEMATOLOGY & [place] [address] Gynecologic Oncology 01/24/24 Jose C Ramos MD [address] [place] [address] Consulting Physician UROLOGY 03/12/24 Sea Humphries MD [address] [facility] [address] [place] [address] HEMATOLOGY/ONCOLOGY 03/12/24 documented as of this encounter
--- OUTSIDE RECORDS SUMMARY | 2024-07-20 00:56 | XMS_ITS ---
Author Organization [facility] Address [address] [facility] [place] [address] Care Team Providers Care Timber Sizer Operator Name Role Phone Gi Pulliam MD Primary Care Provider [phone] Sea Humphries MD Unavailable [phone] Jaqui Colin MD Unavailable [phone] Janene Arriaga MD Unavailable [phone] Federico Garcia MD Unavailable [phone] Vijaya Ulrich PharmD Unavailable Unavaila Val Licea RN Unavailable Unavailable AmadorRina Pineda Unavailable Letty vailable Cathi, Ayanna John DIRECTOR VIDEO-PRODUCTION FOREMAN Unavailable [phone] Aditi Ladd LCSW Unavailable Unavailab Kaia Agee DIRECTOR VIDEO-PRODUCTION FOREMAN Unavailable [phone] Kassandra Richard RN Unavailable Unavaila Doris Sandy RN Unavailable Unavailable Active Problems Problem Noted Date Diagnosed Date Hodgkin lymphoma, unspecifie d Hodgkin lymphoma type, unspecified body region 07/19/2023 BMI 40.0-44.9, adult 05/05/2023 Dyslipidemia 05/05/2023 History of auto stem cell transplant 05/26/2022 Colon adenomas 03/10/2021 Overview (03/10/2021): 11/15/16 colonoscopy ([facility]): polyps per patient 03/10/21 colonoscopy: multiple [...] 8 of 16 cycles started BMT CONDITIONING [id number] SCHEMA A - (BEAM) CARMUSTINE + ETOPOSIDE [...] Treatment Medications Discontinue Reason Plan Provider BMT [facility] SUPPORTIVE [facility]ARE [facility] USE ONLY 06/16/2020 07/05/2023 No medications [...]
--- OUTSIDE RECORDS SUMMARY | 2024-07-20 00:56 | XMS_ITS | Encounter Summary ---
Author Organization [facility] Address [address] [facility] [place] [address] Care Team Providers Care Foot Setter Name Role Phone Gi Pulliam MD Primary Care Provider [phone] Sea Humphries MD Unavailable [phone] Kael Negron MD Unavailable [phone] Jaqui Colin MD Unavailable [phone] Janene Arriaga MD Unavailable [phone] Federico Garcia MD Unavailable [phone] Vijaya Ulrich PharmD Unavailable Unavaila Chandler Avila PharmD Unavailable Unavailab Val Lenz RN Unavailable Unavailable Elaine Poole RN Unavailable Unavailab Rina Trinidad Unavailable Letty vailable Cathi, Ayanna John MONUMENT CARVER-FAMILY THERAPIST Unavailable [phone] Yadi Dean RN Unavailable Unavailable Nicole Ramos RN Unavailable Unavailable Loreto Oliveros RN Unavailable UnavailAditi Marin LCSW Unavailable Unavailab Kaia gAee MONUMENT CARVER-FAMILY THERAPIST Unavailable [phone] Kassandra Richard RN Unavailable Unavaila ble Ezra, Doris J RN Unavailable Unavailable Encounter Details Date Type Department Care Team (Late Contact Info) Description 03/21/2020 Lab Requisition [facility] Care Pathology Lab [address] [place] [address] Venkat Pineda MD [address] [address] Illness, unspecified Social History Tobacco Use Types [...] Upcoming Encounters Date Type Department Care Team ([facility] Contact Info) Description 09/11/2024 12:45 PM CDT Appointment [facility] [address] [place] [address] Jaqui Colin MD [address] [place] [address] OF HEMATOLOGY & [place] [address] 09/11/2024 1:45 PM CDT Appointment [facility] [address] [place] [address] Jaqui Colin MD [address] [place] [address] OF HEMATOLOGY & [place] [address] 09/11/2024 3:00 PM CDT Office Visit [facility] - Hematology/Oncology [address] [place] [address] Jaqui Colin MD [address] [place] [address] OF HEMATOLOGY & [place] [address] documented as of this encounter Procedures Procedure Name Priority Date/Time Associated Diagnosis Comments PATHOLOGY TISSUE Routine 03/19/2020 10:4 3 AM CATERING CONVENTION SERVICES MANAGER Illness, unspecified documented in this encounter Results * PATHOLOGY TISSUE (03/19/2020 10:43 AM [facility]) Case Report Surgical Pathology Report Case: [id number] Authorizing Provider: Venkat Pineda MD Collected: 03/19/2020 10:43 AM Ordering Location: [facility] Pathology Lab Received: 03/21/2020 08:29 AM Pathologist: Fredis Peres MD Specimen: Lymph Node Biopsy 03/24/2020 2:02 PM [facility] Final Diagnosis Lymph node, needle core biopsy: - Small fragments of lymphoid tissue, limited for full evaluation of lymphoma. - See description. 03/24/2020 2:02 PM [facility] Microscopic Description and Comment Review of the lymph node core biopsy specimen reveals small fragments of lymphoid tissue, limited for full evaluation of lymphoma. CD30 and CD15 highlight a single larger cell. However, the specimen is too small for definitive evaluation. All controls worked appropriately. All controls worked appropriately. Recommend excision biopsy for further evaluation, if clinically indicated. Concurrent flow cytometry ([id number]) shows no clonal B-cell population detected, and mildly increased CD4:CD8 ratio in T-cells with no immunophenotypic aberrancies. 03/24/2020 2:02 PM [facility] Clinical History The patient is a 64 year-old man with left supraclavicular lymphadenopathy. 03/24/2020 2:02 PM [facility] Materials Received Received are 6 slide(s) and 1 block (A1) labeled [id number] along with a copy of the outside pathology report. [place] [address]. All original materials are returned to the referring institution, along with a copy of our final report. 03/24/2020 2:02 PM [facility] Disclaimer The performance characteristics of all immunohistochemical and indirect immunofluorescence stains (if any) cited in this report were determined by the Histopathology Laboratory of [facility]. Some of these tests were developed [...] the attending (teaching) pathologist. 03/24/2020 2:02 PM [facility] Embedded Images 03/24/2020 2:02 PM [facility] Pathology/Cytolo gy BIOPSY OF LYMPH NODE / Unknown 03/19/2020 10:43 AM CATERING CONVENTION SERVICES MANAGER 03/21/2020 8:29 AM CATERING CONVENTION SERVICES MANAGER Venkat Pineda MD LAB - PATHOLOGY/CYTOLOGY ORDER JOSE Final Result [facility] PATHOLOGY LAB [address] [phone] documented in this encounter Visit Diagnoses Diagnosis Illness, unspecified documented in this encounter Additional Health Concerns Infection Onset Date Last Indicated Resolved Time COVID-19 Under Investigation 09/15/2020 09/15/2020 09/15/2020 9:18 PM CDT COVID-19 Under Investigation 12/10/2020 12/10/2020 12/11/2020 4:17 AM CDT COVID-19 Confirmed 03/12/2021 04/02/2021 4:33 AM CATERING CONVENTION SERVICES MANAGER COVID-19 Under Investigation 03/19/2021 03/19/2021 03/19/2021 4:42 PM CATERING CONVENTION SERVICES MANAGER COVID-19 Under Investigation 04/14/2021 04/14/2021 04/25/2021 4:33 AM CATERING CONVENTION SERVICES MANAGER COVID-19 Under Investigation 09/29/2021 09/29/2021 09/29/2021 8:59 PM CDT documented as of this encounter Care Teams Foot Setter Relationship Specialty Start Date End Date Gi Pulliam MD [address] [place] [address] PCP - General Family Medicine 10/17/18 Sea Humphries MD [address] [place] [address] Referring Physician Medical Oncology 02/19/20 Kael Negron MD [address] [place] [address] Hematology and Oncology 02/19/20 03/26/21 Jaqui Colin MD [address] OF HEMATOLOGY & [place] [address] Hematology and Oncology 02/19/20 Janene Arriaga MD [address] OF HEMATOLOGY & [place] [address] Hematology and Oncology 02/19/20 Federico Garcia MD [address] OF HEMATOLOGY & [place] [address] Hematology and Oncology 02/19/20 Vijaya Ulrich, PharmD 02/19/20 Chandler Rosario, PharmD Pharmacist 02/19/20 11/25/20 Val Pisano, RN 02/19/20 Elaine Poole RN 02/19/20 11/25/20 Rina Argueta 02/19/20 Ayanna Winkler APRN-FAMILY THERAPIST Family Medicine 02/19/20 Yadi Dean, RN Registered Nurse 02/19/20 03/26/21 Nicole Ramos, RN Registered Nurse 02/19/20 11/25/20 Loreto Oliveros, RN Registered Nurse 02/19/20 11/25/20 Aditi Ladd, WILDLIFE REFUGE MANAGER Dice Manager 02/19/20 Kaia Munroe APRN-TERRIE [address] [facility] OF HEMATOLOGY [place] [address] Advance Practice Nurse Family Medicine 08/05/20 Kassandra Richard, RN Registered Nurse 03/27/21 Doris Munguia RN Registered Nurse 06/03/21 documented as of this encounter
--- OUTSIDE RECORDS SUMMARY | 2024-07-20 00:56 | XMS_ITS ---
Author Organization [facility] Address [address] [facility] [address] [place], [place] [id number] Care Team Providers Care Program Management Analyst Name Role Phone LAURENCE BRANCH Unavailable [phone] Gi Pulliam Unavailable Unavailable REASON FOR VISIT *General care Encounters Encounter Location Date Provider Diagnosis [facility] [place] [address] [id number] 03/12/2024 LAURENCE BRANCH Plan Of Treatment Next Appt Details Provider Name:LAURENCE BRANCH, 02:40:00 PM, [address], [facility], [place], [place], [id number], Progress Notes * LINDA TAPIA RDOB: (68 yo M)Acc No.[id number]:03/12/2024 Patient: Tiara LINDA BONILLA Provider: Jaqui Branch DPM :1955 A ge:68 Y S ex:Male Date:03/12/2024 Address:[address] [place], [place] [id number] Subjective: * Chief Complaints: * 1 . *General care. * Medical History: Objective: * Vitals: Assessment: Plan: * Treatment: * Billing Information: * Visit Code: * Procedure Codes: * Electronic signature of LAURENCE BRANCH DPM on 07/20/2024 at 12:55 AM CDT Sign off status: Pending * Provider: Jaqui Branch DPM Date: 0 03/12/2024 Generated for Angel mckeon/Allyssa/Jyoti on: 0 07/20/2024 12:55 AM CDT
--- OUTSIDE RECORDS SUMMARY | 2024-07-20 00:56 | XMS_ITS | Encounter Summary ---
Author Organization [facility] Address [address] [facility] [address] [place] [address] Care Team Providers Care Controller Coal Or Ore Name Role Phone Gi Pulliam MD Primary Care Provider [phone] Sea Humphries MD Unavailable [phone] Kael Negron MD Unavailable [phone] Jaqui Colin MD Unavailable Janene Arriaga MD Unavailable [phone] Federico Garcia MD Unavailable [phone] Vijaya Ulrich PharmD Unavailable Unavaila Chandler Avila PharmD Unavailable Unavailab Val Lenz RN Unavailable Unavailable Elaine Poole RN Unavailable Unavailab Rina Trinidad Unavailable Letty vailable Cathi, Ayanna John CAMPUS ADMINISTRATOR-POULTRY PICKER Unavailable [phone] Yadi Dean RN Unavailable Unavailable Nicole Ramos RN Unavailable Unavailable Loreto Oliveros RN Unavailable UnavailAditi Marin LCSW Unavailable Unavailab Kaia Agee CAMPUS ADMINISTRATOR-POULTRY PICKER Unavailable [phone] Kassandra Richard RN Unavailable Unavaila ble Ezra, Doris J RN Unavailable Unavailable Encounter Details Date Type Department Care Team (Late Contact Info) Description 03/19/2020 Lab Requisition [facility] Care Pathology Lab [address] [place] [address] Venkat Pineda MD [address] [address] Hodgkin lymphoma, unspecified, unspecified site Social History [...] Upcoming Encounters Date Type Department Care Team ([facility] Contact Info) Description 09/11/2024 12:45 PM CDT Appointment [facility] [address] [place] [phone] Jaqui Colin MD [address] [place] [address] OF HEMATOLOGY & [place] [address] 09/11/2024 1:45 PM CDT Appointment [facility] [address] [place] [address] Jaqui Colin MD [address] [place] [address] OF HEMATOLOGY & [place] [address] 09/11/2024 3:00 PM CDT Office Visit [facility] - Hematology/Oncology [address] [place] [address] Jaqui Colin MD [address] [place] [address] OF HEMATOLOGY & [place] [address] documented as of this encounter Procedures Procedure Name Priority Date/Time Associated Diagnosis Comments FLOW CYTOMETRY TISSUE PANEL Routine 03/19/2020 10:43 AM MEDICAL RECORDS DIRECTOR Hodgkin lymphoma, unspecified, unspecified site documented in this encounter Results * FLOW CYTOMETRY TISSUE PANEL (03/19/2020 10:43 AM MEDICAL RECORDS DIRECTOR) Case Report Flow Cytometry Case: [id number] Authorizing Provider: Venkat Pineda MD Collected: 03/19/2020 10:43 AM Ordering Location: [facility] Pathology Lab Received: 03/19/2020 02:29 PM Pathologist: Fredis Peres MD Specimen: 11:47 AM [facility] PATHOLOGY LAB Final Diagnosis Lymph node, L+ supr a , flow cytometric immunophenotypic analysis: - No clonal B-cell population detected - Mildly increased CD4:CD8 ratio in T-cells with no immunophenotypic aberrancies - See interpretation. 11:47 AM [facility] PATHOLOGY LAB Flow Cytometry Interpretation The L+ [...] the flow cytometry specimen is reviewed for software quality assurance analyst purposes. Due to their large size outside the regular gating parameters, certain lymphomas such as Hodgkin lymphoma or anaplastic large cell lymphoma may not be detected by this analysis. Morphologic correlation is recommended. 11:47 AM [facility] PATHOLOGY LAB Flow Cytometry Results Differential Result Comment Flow Cell Count /uL 1,800 Total Viability % 100.0 Lymphocytes % 940 Dim CD45 Region % 0 Monocytes % 2 Granulocytes % 4 11:47 AM [facility] Reason for test Hodgkin lymphoma, unspecified, unspecified site 11:47 AM [facility] PATHOLOGY LAB Client Specimen ID # [id number] 11:47 AM [facility] PATHOLOGY LAB Number of markers 16 were performed. A-2 Flow CD3 A-4 Flow CD10 A-6 Flow CD20 A-7 Flow CD23 A-12 Flow CD2 A-13 Flow CD4 A-16 Flow CD1a A-3 Flow CD5 A-5 Flow CD19 A-8 Flow CD34 A-9 Flow CD45 A-14 Flow CD7 A-15 Flow CD8 A-17 Flow CD30 A-10 [place]+CD19+ A-11 Lambda+CD19+ 11:47 AM [facility] PATHOLOGY LAB Disclaimer Test performed at [facility], [address] [place], [place], [address]. *The established laboratory minimum viability is 70%. [...] perform high complexity clinical testing. 11:47 AM [facility] PATHOLOGY LAB Embedded Images 11:47 AM [facility] PATHOLOGY LAB Pathology/Cytolo gy 03/19/2020 10:43 AM MEDICAL RECORDS DIRECTOR 03/19/2020 2:29 PM MEDICAL RECORDS DIRECTOR Venkat Pineda MD LAB - PATHOLOGY/CYTOLOGY ORDER JOSE Final Result [facility] PATHOLOGY LAB [address] [place] [address]. [place], [place] [id number] [place] [address] documented in this encounter Visit Diagnoses Diagnosis Hodgkin lymphoma, unspecified, unspecified site (HCC) documented in this encounter Additional Health Concerns Infection Onset Date Last Indicated Resolved Time COVID-19 Under Investigation 09/15/2020 09/15/2020 09/15/2020 9:18 PM CDT COVID-19 Under Investigation 12/10/2020 12/10/2020 12/11/2020 4:17 AM CDT COVID-19 Confirmed 03/12/2021 04/02/2021 2 4:33 AM MEDICAL RECORDS DIRECTOR COVID-19 Under Investigation 03/19/2021 03/19/2021 03/19/2021 4:42 PM MEDICAL RECORDS DIRECTOR COVID-19 Under Investigation 04/14/2021 04/14/2021 04/25/2021 4:33 AM MEDICAL RECORDS DIRECTOR COVID-19 Under Investigation 09/29/2021 09/29/2021 09/29/2021 8:59 PM CDT documented as of this encounter Care Teams Controller Coal [place] Ore Relationship Specialty Start Date End Date Gi Pulliam MD [address] [place] [address] PCP - General Family Medicine 10/17/18 Sea Humphries MD [address] [place] [address] Referring Physician Medical Oncology 02/19/20 Kael Negron MD [address] [place] [address] Hematology and Oncology 02/19/20 03/26/21 Jaqui Colin MD [address] OF HEMATOLOGY & [place] [address] Hematology and Oncology 02/19/20 Janene Arriaga MD [address] DIV OF HEMATOLOGY & [place] [address] Hematology and Oncology 02/19/20 Federico Garcia MD [address] DIV OF HEMATOLOGY & [place] [address] Hematology and Oncology 02/19/20 Vijaya Ulrich, PharmD 02/19/20 Chandler Rosario, PharmD Pharmacist 02/19/20 11/25/20 Val Pisano, RN 02/19/20 Elaine Poole RN 02/19/20 11/25/20 Rina Argueta 02/19/20 Ayanna Winkler, JOHNNA-POULTRY PICKER Family Medicine 02/19/20 Yadi Dean, RN Registered Nurse 02/19/20 03/26/21 Nicole Ramos, RN Registered Nurse 02/19/20 11/25/20 Loreto Oliveros, RN Registered Nurse 02/19/20 11/25/20 Aditi Ladd, [facility] Emergency Planning And Response Manager 02/19/20 Kaia Munroe, JOHNNA-POULTRY PICKER [address] [facility] OF HEMATOLOGY & [place] [address] Advance Practice Nurse Family Medicine 08/05/20 Kassandra Richard, RN Registered Nurse 03/27/21 Doris Munguia, RN Registered Nurse 06/03/21 documented as of this encounter
--- OUTSIDE RECORDS SUMMARY | 2024-07-20 00:56 | XMS_ITS | Encounter Summary ---
Author Organization [facility] Address [address] [place] [address] Care Team Providers Care Scrap Separator Name Role Phone Gi Pulliam MD Primary Care Provider Taylor Ball RN Unavailable [phone] Tomás Howell MD Unavailable Jaqui Colin MD Unavailable Jose C Ramos MD Unavailable [phone] Sea Humphries MD Unavailable [phone] Encounter Details Date Type Department Care Team (Latest Contact Info) Description 07/05/2024 Results Follow-Up [facility] Medical Group Family Medicine [facility] [address] [place] [address] Gi Pulliam MD [facility] [place] [address] A1C (BACK OFFICE), COMPREHENSIVE METABOLIC PANEL, LIPID PANEL, Additional followed-up results: 2 Social History Tobacco Use Types Packs/Day Years Used Date Smoking Tobacco: Never Smokeless Tobacco: Never Alcohol Use Standard Drinks/Week Comments No 0 (1 standard drink = 0.6 oz pur e alcohol) [facility] Utilities Answer Date Recorded In the past 12 months has [employer] electric, gas, oil, or water company threatened [...] place to sleep or slept in a group home (including now)? No 03/06/2023 Housing Stability Vital [...] Date Author Status No 03/05/2023 9:08 PM SPRING MAKER Marion Youngblood RN Active documented in this encounter Progress Notes * Gi Pulliam MD - 07/05/2024 3:32 PM CDT Discussed results with patient and plan going forward in clinic. documented in this encounter Plan of Treatment Upcoming Encounters Date Type Department Care Team (Late st Contact Info) Description 08/30/2024 2:40 PM CDT Office Visit [facility] Medical Group Family Medicine [facility] [address] [place] [address] Gi Pulliam MD [address] [place], [place] [id number] documented as of this encounter Goals Goal [...] documented as of this encounter Care Teams Scrap Separator Relationship Specialty Start Date End Date Gi Pulliam MD PCP - General FAMILY PRACTICE 08/02/17 Taylor Ball, RN [address] [place] [address] Building Specialist (Ambulatory) REGISTERED NURSE 05/19/21 Tomás Howell MD [address] [place] [address] UROLOGY 01/24/24 Jaqui Colin MD [address] DIV OF HEMATOLOGY [place] [address] Gynecologic Oncology 01/24/24 Jose C Ramos MD [address] [place] [address] Consulting Physician UROLOGY 03/12/24 Sea Humphries MD [facility] [address] HEMATOLOGY/ONCOLOGY 03/12/24 documented as of this encounter
--- OUTSIDE RECORDS SUMMARY | 2024-07-20 00:56 | XMS_ITS | Clinical Summary ---
Author Organization [facility] Address [address] [place] [address] Care Team Providers Care Toxicology Supervisor Name Role Phone Gi Pulliam MD Primary Care Provider [phone] Allergies Active Allergy Reactions Criticality Noted Date [...] 7:16 PM 10/24/2020 2:56 PM Care Teams Toxicology Supervisor Relationship Specialty Start Date End Date Gi Pulliam MD [address] [place] [address] PCP - General Family Medicine 10/15/20
--- OUTSIDE RECORDS SUMMARY | 2024-07-20 00:57 | XMS_ITS | Encounter Summary ---
Author Organization [facility] Address [address] [place] [address] Care Team Providers Care Leave Manager Name Role Phone Gi Pulliam MD Primary Care Provider [phone] Sea Humphries MD Unavailable [phone] Kael Negron MD Unavailable [phone] Jaqui Colin MD Unavailable [phone] Janene Arriaga MD Unavailable [phone] Federico Garcia MD Unavailable Vijaya Ulrich PharmD Unavailable Unavaila Chandler Avila PharmD Unavailable Unavailab Val Lenz RN Unavailable Unavailable Elaine Poole RN Unavailable Unavailab Rina Trinidad Unavailable Letty vailable Cathi, Ayanna John RN BIRTHING-FISH FARM LABORER Unavailable [phone] Yadi Dean RN Unavailable Unavailable Nicole Ramos RN Unavailable Unavailable Loreto Oliveros RN Unavailable UnavailAditi Marin LCSW Unavailable Unavailab Kaia Agee RN BIRTHING-FISH FARM LABORER Unavailable [phone] Encounter Details Date Type Department Care Team (Latest Contact Info) Description 10/09/2020 10:40 AM CDT Hospital Encounter [facility] [address]rd [place] [address] [place] [address] [place] [address] [facility] Social History Tobacco Use Types [...] and heating? Not hard at all 07/26/2023 [facility] - Occupational [...] to sleep or slept in a senior living (including now)? No 07/26/2023 Sex and Gender [...] Coronavirus/COVID-19? No / Unsure 01/13/2022 3:54 PM PASTEURIZING SUPERVISOR documented as of this encounter Functional Status [...] 4:20 PM CDT José Miguel Adam RN * Audit-C Score Answer Date of [...] Author Yes 10/01/2020 1:45 PM CDT Alfredo Costa RN * Does person have difficulty doing [...] Info) Description 09/11/2024 12:45 PM CDT Appointment [facility] [address] [place] [address] Jaqui Colin MD [address] [place] [address] OF HEMATOLOGY & [place] [address] 09/11/2024 1:45 PM CDT Appointment [facility] [address] [place] [address] Jaqui Colin MD [address] [place] [address] HEMATOLOGY & [place] [address] 09/11/2024 3:00 PM CDT Office Visit [facility] - Hematology/Oncology [address] [place] [address] Jaqui Colin MD [address] [place] [address] OF HEMATOLOGY & [place] [address] documented as of this encounter Goals Goal Patient Goal Type Associated Problems Recent Progress Patient-Stated? Author Medication Management General On track( 021 9:57 AM PASTEURIZING SUPERVISOR) Mercedes Minor RN Note: Expected end date: ongoing Interventions: Take all medications as prescribed documented as of this encounter Visit Diagnoses Not on filedocumented in this encounter Additional Health Concerns Infection Onset Date Last Indicated Resolved Time COVID-19 Under Investigation 12/10/2020 12/10/2020 12/11/2020 4:17 AM CDT COVID-19 Confirmed 03/12/2021 04/02/2021 4:33 AM PASTEURIZING SUPERVISOR COVID-19 Under Investigation 03/19/2021 03/19/2021 03/19/2021 4:42 PM PASTEURIZING SUPERVISOR COVID-19 Under Investigation 04/14/2021 04/14/2021 04/25/2021 4:33 AM PASTEURIZING SUPERVISOR COVID-19 Under Investigation 09/29/2021 09/29/2021 09/29/2021 8:59 PM CDT documented as of this encounter Care Teams Leave Manager Relationship Specialty Start Date End Date Gi Pulliam MD [address] [place] [address] PCP - General Family Medicine 10/17/18 Sea Humphries MD [address] [facility] [place] [address] Referring Physician Medical Oncology 02/19/20 Kael Negron MD [address] [place] [address] Hematology and Oncology 02/19/20 03/26/21 Jaqui Colin MD [address] DIV OF HEMATOLOGY & [place] [address] Hematology and Oncology 02/19/20 Janene Arriaga MD [address] DIV OF HEMATOLOGY & [place] [address] Hematology and Oncology 02/19/20 Federico Garcia MD [address] DIV OF HEMATOLOGY & [place] [address] Hematology and Oncology 02/19/20 Vijaya Ulrich, PharmD 02/19/20 Chandler Rosario, MartD Pharmacist 02/19/20 11/25/20 Val Pisano, RN 02/19/20 Elaine Poole RN 02/19/20 11/25/20 Rina Argueta 02/19/20 Ayanna Winkler APRN-TERRIE Family Medicine 02/19/20 Yadi Dean, RN Registered Nurse 02/19/20 03/26/21 Nicole Ramos RN Registered Nurse 02/19/20 11/25/20 Loreto Oliveros, MELISSA Registered Nurse 02/19/20 11/25/20 Aditi Ladd MEDICAL DIR Merchant Banker 02/19/20 Kaia Munroe APRN-TERRIE [address] [facility] OF HEMATOLOGY & [place] [address] Advance Practice Nurse Family Medicine 08/05/20 documented as of this encounter
--- OUTSIDE RECORDS SUMMARY | 2024-07-20 00:57 | XMS_ITS | Encounter Summary ---
Author Organization [facility] Address [address] [facility] [place] [address] Care Team Providers Care Director Corporate Security Name Role Phone Gi Pulliam MD Primary Care Provider [phone] Sea Humphries MD Unavailable [phone] Kael Negron MD Unavailable [phone] Jaqui Colin MD Unavailable [phone] Janene Arriaga MD Unavailable [phone] Federico Garcia MD Unavailable [phone] Vijaya Ulrich PharmD Unavailable Unavaila Chandler Avila PharmD Unavailable Unavailab Val Lenz RN Unavailable Unavailable Elaine Poole RN Unavailable Unavailab Rina Trinidad Unavailable Letty vailable Cathi, Ayanna John LABOR DELIVERY SPECIALIST-LEAD JAVA PROGRAMMER Unavailable [phone] Yadi Dean RN Unavailable Unavailable Nicole Ramos RN Unavailable Unavailable Loreto Oliveros RN Unavailable UnavailAditi Marin LCSW Unavailable Unavailab Kaia Agee LABOR DELIVERY SPECIALIST-LEAD JAVA PROGRAMMER Unavailable [phone] Kassandra Richard RN Unavailable Unavaila ble Ezra, Doris J RN Unavailable Unavailable Encounter Details Date Type Department Care Team (Late st Contact Info) Description 10/04/2020 Ophth Exam [facility] [address] [facility], [place] [id number] Pi, [place] [address] [facility] [address] [place] [address] Social History Tobacco Use Types [...] Info) Description 09/11/2024 12:45 PM CDT Appointment [facility] [address] [place] [phone] Jaqui Colin MD [address] [place] [address] OF HEMATOLOGY [place] [address] 09/11/2024 1:45 PM CDT Appointment [facility] [address] [place] [address] Jaqui Colin MD [address] [place] [address] HEMATOLOGY [place] [address] 09/11/2024 3:00 PM CDT Office Visit [facility] - Hematology/Oncology [address] [place] [phone] Jaqui Colin MD [address] [place] [address] OF HEMATOLOGY [place] [address] documented as of this encounter Visit Diagnoses Not on filedocumented in this encounter Additional Health Concerns Infection Onset Date Last Indicated Resolved Time COVID-19 Under Investigation 12/10/2020 12/10/2020 12/11/2020 4:17 AM CDT COVID-19 Confirmed 03/12/2021 04/02/2021 4:33 AM OFFICE TECHNOLOGY PROFESSOR COVID-19 Under Investigation 03/19/2021 03/19/2021 03/19/2021 4:42 PM OFFICE TECHNOLOGY PROFESSOR COVID-19 Under Investigation 04/14/2021 04/14/2021 04/25/2021 4:33 AM OFFICE TECHNOLOGY PROFESSOR COVID-19 Under Investigation 09/29/2021 09/29/2021 09/29/2021 8:59 PM CDT documented as of this encounter Care Teams Director Corporate Security Relationship Specialty Start Date End Date Gi Pulliam MD [facility] [address] PCP - General Family Medicine 10/17/18 Sea Humphries MD [address] [place] [address] Referring Physician Medical Oncology 02/19/20 Kael Negron MD [address] [place] [address] Hematology and Oncology 02/19/20 03/26/21 Jaqui Colin MD [address] OF HEMATOLOGY [place] [address] Hematology and Oncology 02/19/20 Janene Arriaga MD [address] OF HEMATOLOGY [place] [address] Hematology and Oncology 02/19/20 Federico Garcia MD [address] OF HEMATOLOGY [place] [address] Hematology and Oncology 02/19/20 Vijaya Ulrich, PharmD 02/19/20 Chandler Rosario, PharmD Pharmacist 02/19/20 11/25/20 Val Pisano, RN 02/19/20 Elaine Poole RN 02/19/20 11/25/20 Rina Argueta 02/19/20 Ayanna Winkler APRN-TERRIE Family Medicine 02/19/20 Yadi Dean, RN Registered Nurse 02/19/20 03/26/21 Nicole Ramos, RN Registered Nurse 02/19/20 11/25/20 Loreto Oliveros, RN Registered Nurse 02/19/20 11/25/20 Aditi Ladd LCSW Teacher Physically Impaired 02/19/20 Kaia Munroe APRN-TERRIE [address] [facility] [place] [address] Advance Practice Nurse Family Medicine 08/05/20 Kassandra Richard, RN Registered Nurse 03/27/21 Doris Munguia, RN Registered Nurse 06/03/21 documented as of this encounter
--- OUTSIDE RECORDS SUMMARY | 2024-07-20 00:57 | XMS_ITS | Encounter Summary ---
Author Organization [facility] Address [address] [place] [address] Care Team Providers Care Grappler Name Role Phone Gi Pulliam MD Primary Care Provider [phone] Sea Humphries MD Unavailable [phone] Kael Negron MD Unavailable [phone] Jaqui Colin MD Unavailable [phone] Janene Arriaga MD Unavailable [phone] Federico Garcia MD Unavailable [phone] Vijaya Ulrich PharmD Unavailable Unavaila Chandler Avila PharmD Unavailable Unavailab Val Lenz RN Unavailable Unavailable Elaine Poole RN Unavailable Unavailab Rina Trinidad Unavailable Letty vailable Cathi, Ayanna John SEAMAN OFFICER-GREEN PIPEFITTER Unavailable [phone] Yadi Dean RN Unavailable Unavailable Nicole Ramos RN Unavailable Unavailable Loreto Oliveros RN Unavailable UnavailAditi Marin LCSW Unavailable Unavailab Kaia Agee SEAMAN OFFICER-GREEN PIPEFITTER Unavailable [phone] Kassandra Richard RN Unavailable Unavaila ble Ezra, Doris J RN Unavailable Unavailable Encounter Details Date Type Department Care Team ([facility] Contact Info) Description 10/05/2020 Ophth Exam [facility] [address] [facility] [place], [place] [address] Antoine Kee MD [address] [place] [address] Social History Tobacco Use Types Packs/Day Years [...] Author Yes 10/01/2020 1:45 PM CDT Alfredo Lni RN * Does person have difficulty dressing/bathing? [...] Info) Description 09/11/2024 12:45 PM CDT Appointment [facility] [address] [place] [phone] Jaqui Colin MD [address] [place] [address] OF HEMATOLOGY & [place] [address] 09/11/2024 1:45 PM CDT Appointment [facility] [address] [place] [phone] Jaqui Colin MD [address] [place] [address] OF HEMATOLOGY & [place] [address] 09/11/2024 3:00 PM CDT Office Visit [facility] - Hematology/Oncology [address] [place] [address] Jaqui Colin MD [address] [place] [address] OF HEMATOLOGY & [place] [address] documented as of this encounter Visit Diagnoses Not on filedocumented in this encounter Additional Health Concerns Infection Onset Date Last Indicated Resolved Time COVID-19 Under Investigation 12/10/2020 12/10/2020 12/11/2020 4:17 AM CDT COVID-19 Confirmed 03/12/2021 04/02/2021 4:33 AM MODEL TECHNICIAN COVID-19 Under Investigation 03/19/2021 03/19/2021 03/19/2021 4:42 PM MODEL TECHNICIAN COVID-19 Under Investigation 04/14/2021 04/14/2021 04/25/2021 4:33 AM MODEL TECHNICIAN COVID-19 Under Investigation 09/29/2021 09/29/2021 09/29/2021 8:59 PM CDT documented as of this encounter Care Teams Grappler Relationship Specialty Start Date End Date Gi Pulliam MD [address] [place] [address] PCP - General Family Medicine 10/17/18 Sea Humphries MD [address] [place] [address] Referring Physician Medical Oncology 02/19/20 Kael Negron MD [address] [place] [address] Hematology and Oncology 02/19/20 03/26/21 Jaqui Colin MD [address] OF HEMATOLOGY & [place] [address] Hematology and Oncology 02/19/20 Janene Arriaga MD [address] OF HEMATOLOGY [place] [address] Hematology and Oncology 02/19/20 Federico Garcia MD [address] OF HEMATOLOGY [place] [address] Hematology and Oncology 02/19/20 Vijaya Ulrich, PharmD 02/19/20 Chandler Rosario, PharmD [facility] 02/19/20 11/25/20 Val Pisano, RN 02/19/20 Elaine Poole RN 02/19/20 11/25/20 Rina Argueta 02/19/20 Ayanna Winkler APRN-TERRIE Family Medicine 02/19/20 Yadi Dean, RN Registered Nurse 02/19/20 03/26/21 Nicole Ramos RN Registered Nurse 02/19/20 11/25/20 Loreto Oliveros, RN Registered Nurse 02/19/20 11/25/20 Aditi Ladd, ORACLE PROGRAMMER ANALYST Trash Collector 02/19/20 Kaia Munroe, SEAMAN OFFICER-GREEN PIPEFITTER [address] [facility] OF HEMATOLOGY [place] [address] Advance Practice Nurse Family Medicine 08/05/20 Kassandra Richard, RN Registered Nurse 03/27/21 Doris Munguia, RN Registered Nurse 06/03/21 documented as of this encounter
--- OUTSIDE RECORDS SUMMARY | 2024-07-20 00:57 | XMS_ITS | Encounter Summary ---
Author Organization [facility] Address [address] [facility] [place] [address] Care Team Providers Care Marketing Development Representative Name Role Phone Gi Pulliam MD Primary Care Provider [phone] Sea Humphries MD Unavailable [phone] Jaqui Colin MD Unavailable [phone] Janene Arriaga MD Unavailable [phone] Federico Garcia MD Unavailable [phone] Vijaya Ulrich PharmD Unavailable Unavaila Val Licea RN Unavailable Unavailable [facility] Mccloud Unavailable Letty vailable Cathi, Ayanna John RN SUPPORT SERVICES-THRESHING OPERATOR Unavailable [phone] Aditi Ladd LCSW Unavailable Unavailab Kaia Agee RN SUPPORT SERVICES-THRESHING OPERATOR Unavailable Kassandra Richard RN Unavailable Unavaila Doris Sandy RN Unavailable Unavailable Reason for Visit * Reason Onset Date Comments MEDICATION REFILL 04/13/2024 Encounter Details Date Type Department Care Team (Late st Contact Info) Description 04/13/2024 Refill [facility] [address] [place] [address] Yanni Navarro APRN-TERRIE [address] [place] [address] MEDICATION REFILL Social History Tobacco Use Types [...] and heating? Not hard at all 07/26/2023 [facility] - Occupational [...] place to sleep or slept in a snf (including now)? No 07/26/2023 Sex and Gender [...] Info) Description 09/11/2024 12:45 PM CDT Appointment [facility] [address] [place] [address] Jaqui Colin MD [address] [place] [address] OF HEMATOLOGY & [place] [address] 09/11/2024 1:45 PM CDT Appointment [facility] [address] [place] [address] Jaqui Colin MD [address] [place] [address] OF HEMATOLOGY & [place] [address] 09/11/2024 3:00 PM CDT Office Visit [facility] - Hematology/Oncology [address] [place] [address] Jaqui Colin MD [address] OF HEMATOLOGY & [place] [address] documented as of this encounter Goals Goal Patient Goal Type Associated Problems Recent Progress Patient-Stated? Author Medication Management General On track( 021 9:57 AM GOLDSMITH APPRENTICE) Mercedes Minor, RN Note: Expected end date: ongoing Interventions: Take all medications as prescribed documented as of this encounter Visit Diagnoses Diagnosis Low iron Iron deficiency anemia, unspecified documented in this encounter Care Teams Marketing Development Representative Relationship Specialty Start Date End Date Gi Pulliam MD [address] [place] [address] PCP - General Family Medicine 10/17/18 Sea Humphries MD [address] [place] [address] Referring Physician Medical Oncology 02/19/20 Jaqui Colin MD [address] OF HEMATOLOGY & [place] [address] Hematology and Oncology 02/19/20 Janene Arriaga MD [address] OF HEMATOLOGY [place] [address] Hematology and Oncology 02/19/20 Federico Garcia MD [address] OF HEMATOLOGY [place] [address] Hematology and Oncology 02/19/20 Vijaya Ulrich PharmD 02/19/20 Val Pisano, RN 02/19/20 Rina Argueta 02/19/20 Ayanna Winkler APRN-TERRIE Family Medicine 02/19/20 Aditi Ladd, [facility] Brood Hatchery Manager 02/19/20 Kaia Munroe APRN-THRESHING OPERATOR [facility] [facility] OF HEMATOLOGY & [place] [address] Advance Practice Nurse Family Medicine 08/05/20 Kassandra Richard, RN Registered Nurse 03/27/21 Doris Munguia, RN Registered Nurse 06/03/21 documented as of this encounter
--- OUTSIDE RECORDS SUMMARY | 2024-07-20 00:57 | XMS_ITS | Referral Summary ---
Author Organization [facility] Address [address] [place] [address] Care Team Providers Care Direct Care Specialist Name Role Phone Gi Pulliam MD Primary Care Provider Carolin Nguyen MD Unavailable [phone] Kiera Jay MD Unavailable [phone] Medications No known medications Active Problems Problem [...] Comments Blood Pressure 147/79 02/26/2013 1:28 PM TRANSPORTATION SECURITY SCREENER Pulse 80 02/26/2013 1:28 PM TRANSPORTATION SECURITY SCREENER Temperature 36.7 C (98 F) 02/26/2013 1:28 PM TRANSPORTATION SECURITY SCREENER Respiratory Rate - - Oxygen Saturation 97% 02/26/2013 1:28 PM TRANSPORTATION SECURITY SCREENER Inhaled Oxygen Concentration - - Weight 133.8 kg (295 lb) 02/26/2013 1:28 PM TRANSPORTATION SECURITY SCREENER Height 193 cm (6' 4 ) 02/26/2013 1:28 PM TRANSPORTATION SECURITY SCREENER Body Mass Index 35.91 02/26/2013 1:28 PM TRANSPORTATION SECURITY SCREENER Plan of Treatment Not on file Insurance [employer] Care Teams Direct Care Specialist Relationship Specialty Start Date End Date Gi Pulliam MD [address] [place] [address] [place] [address] PCP - General Family Practice 01/22/20 Carolin Nguyen MD [address] [address] Referring Physician Internal Medicine 01/23/20 Kiera Jay MD [address] [place] [address] Consulting Physician Medical Oncology 01/23/20
--- OUTSIDE RECORDS SUMMARY | 2024-07-20 00:57 | XMS_ITS | Encounter Summary ---
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) Social History Tobacco Use Types Packs/Day Years Used Date Smoking Tobacco: Never Smokeless Tobacco: Never Alcohol Use Standard Drinks/Week Comments No 0 (1 standard drink = 0.6 oz pur e alcohol) Sex and Gender Information Value Date Recorded Sex Assigned at Not on file Legal Sex Male 1:56 PM CASING INSPECTOR Gender Identity Not on file Sexual Orientation Straight 12/16/2023 2: 59 PM CDT documented as of this encounter Plan of Treatment Upcoming Encounters Date Type Department Care Team (Late Contact Info) Description 08/10/2024 12:45 PM CDT Office Visit [facility] Oncology and Hematology [facility] [place] [address] [place] [address] Sea Humphries MD [address] [employer] [address] [place] [address] documented as of this encounter Procedures Procedure Name Priority Date/Time Associated Diagnosis Comments T4 FREE Routine 07/13/2024 11:09 AM CDT COMPREHENSIVE METABOLIC PANEL Routine 07/13/2024 10:35 AM CDT BASIC METABOLIC PANEL Routine 07/13/2024 10:07 AM CDT documented in this encounter Results * T4 FREE (07/13/2024 11:09 AM CDT) Blood us Sea Humphries MD CHEMISTRY ORDERABLES Final Resu lt * COMPREHENSIVE METABOLIC PANEL (07/13/2024 10:35 AM CDT) Blood us Sea Humphries MD CHEMISTRY ORDERABLES Final Resu lt * BASIC METABOLIC PANEL (07/13/2024 10:07 AM CDT) Blood us Sea Humphries MD CHEMISTRY ORDERABLES Final Resu lt documented in this encounter Visit Diagnoses Diagnosis 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
--- OUTSIDE RECORDS SUMMARY | 2024-07-20 00:57 | XMS_ITS | Clinical Summary ---
Author Organization [facility] Address [address] [place] [address] Phone Care Team Providers Care Senior Solutions Workflow Consultant Name Role Phone Gi Pulliam MD Primary [...] for Itching. 30 Tablet 1 5 Active doxycycline hyclate (VIBRAMYCIN) 100 mg capsule Take 100 mg by mouth 2 times daily. 5 025 Active Problems Problem Noted Date Diagnosed Date [...] 80. Assessment & Plan (03/23/2016 4:14 PM IMMUNOHEMATOLOGIST): Mild microcytosis persists, but his hemoglobin is within normal limits. We'll monitor it. Assessment & Plan (04/08/2015 12:23 PM IMMUNOHEMATOLOGIST): Hb is sl better today, but he [...] unchanged. Assessment & Plan (03/23/2016 4:15 PM IMMUNOHEMATOLOGIST): He is stable clinically with no signs [...] questions. 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) 07/13/2024 1:00 PM CDT Office Visit [facility] Kai [address] [place] [address] Sea Humphries MD 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) (Primary Dx); Hypothyroidism, unspecified type 07/09/2024 Orders Only [facility] Kai [address] [place] [address] Sea Humphries MD Benign hypertension 07/06/2024 Telephone [facility] Kai [address] [place] [address] Sea Humphries MD Upper Respiratory Symptoms 07/02/2024 Orders Only [facility] Kai [address]ason [address] [place] [address] Sea Humphries MD 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) 06/25/2024 Orders Only [facility] Oncology and Hematology - [address] [place] [phone] Sea Humphries MD Benign hypertension 06/18/2024 Orders Only [facility] - [place] [address] [place] [address] Sea Humphries MD 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) 06/12/2024 Orders Only [facility] Oncology and Hematology - [place] [address] [place] [address] Sea Humphries MD 06/11/2024 Orders Only [facility] - [place] [address] [place] [address] Sea Humphries MD Benign hypertension 06/08/2024 12:30 PM CDT Office Visit [facility] - [place] [address] [place] [address] Sea Humphries MD 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) (Primary Dx) 06/04/2024 Orders Only [facility] - [place] [address] [place] [address] Sea Humphries MD 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) 05/28/2024 Orders Only [facility] Oncology and Hematology - [place] [place] [address] Sea Humphries MD Benign hypertension 05/21/2024 Telephone [facility] - [place] [address] [place] [address] Sea Humphries MD Cough 05/21/2024 Orders Only [facility] - [place] [address] Sea Humphries MD 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) 05/18/2024 Orders Only [facility] - [place] [address] [place] [phone] Sea Humphries MD 05/14/2024 Abstract [facility] - [place] [address] [place] [phone] Sea Humphries MD 05/14/2024 Orders Only [facility] - [place] [address] Sea Humphries MD Benign hypertension 05/10/2024 Orders Only [facility] - [place] [address] [place] [phone] Sea Humphries MD 05/10/2024 Abstract [facility] - [place] [address] [place] [phone] Sea Humphries MD 05/07/2024 Orders Only [facility] - [place] [address] [place] [address] Sea Humphries MD 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) 05/04/2024 12:45 PM IMMUNOHEMATOLOGIST Office Visit [facility] - [place] [address] [place] [address] Sea Humphries MD 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) (Primary Dx) 04/30/2024 Orders Only [facility] - [place] [address] [place] [address] Sea Humphries MD Benign hypertension 04/25/2024 External Device Data STL ABSTRACTION Provider, Abstract 04/23/2024 Orders Only [facility] [address] [place] [address] Sea Humphries MD 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) from Last 3 Months Immunizations Immunization Administration [...] on file Legal Sex Male 1:56 PM IMMUNOHEMATOLOGIST Gender Identity Not on file Sexual Orientation Straight 12/16/2023 2: 59 PM CDT Last Filed Vital Signs Vital Sign Reading Time Taken Comments Blood Pressure 103/60 07/13/2024 12:42 PM CDT Pulse 81 07/13/2024 12:42 PM CDT Temperature 36 C (96.8 F) 07/13/2024 12:42 PM CDT Respiratory Rate 15 07/13/2024 12:4 2 PM CDT Oxygen Saturation 95% 07/13/2024 12: 42 PM CDT Inhaled Oxygen Concentration - - Weight 133.1 kg (293 lb 6.4 oz) 025 12:42 PM CDT Height 185.4 cm (6' 1 ) 11/02/2023 2:51 PM CDT Body Mass Index 38.71 11/02/2023 2:51 PM CDT Plan of Treatment Upcoming Encounters Date Type Department Care Team (Late st Contact Info) Description 08/10/2024 12:45 PM CDT Office Visit [facility] [address] [place] [address] Sea Humphries MD [address] [address] Health Maintenance Due Date Last Done [...] history exists Medical Devices Explanted Type Area Production Graphic Designer Device Identifier Shelf Expiration Date Model / Serial / Lot Stent Polaris Ultra [id number] - [id number] Implanted:Qty : 1 on 03/03/2015 by [facility] at [facility] Explanted:Qty : 1 on 04/21/2015 by Chang Tolentino MD at [facility] Stent Left: [employer] [id number] 10/28/2017 192-134 / / [id number] Procedures Procedure Name Priority Date/Time Associated Diagnosis Comments T4 FREE Routine 07/13/2024 11:09 AM CDT COMPREHENSIVE METABOLIC PANEL Routine 07/13/2024 10:35 AM CDT BASIC METABOLIC PANEL Routine 07/13/2024 10:07 AM CDT COMPREHENSIVE METABOLIC PANEL Routine 06/29/2024 1:27 PM CDT CBC MIXED CELL DIFFERENTIAL Routine 06/29/2024 1:04 PM CDT BASIC METABOLIC PANEL Routine 06/29/2024 12:59 PM CDT COMPREHENSIVE METABOLIC PANEL Routine 06/08/2024 3:12 PM CDT BASIC METABOLIC PANEL Routine 06/08/2024 11:50 AM CDT CBC WITH DIFFERENTIAL Routine 05/04/2024 1:57 PM IMMUNOHEMATOLOGIST COMPREHENSIVE METABOLIC PANEL Routine 05/04/2024 9:50 AM IMMUNOHEMATOLOGIST HEMOGLOBIN A1C Routine 10/26/2016 11:08 PM CDT from Last 3 Months or Most Recently Relevant to Health Maintenance Results * T4 FREE (07/13/2024 11:09 AM CDT) Blood us Sea Humphries MD CHEMISTRY ORDERABLES Final Resu lt * COMPREHENSIVE METABOLIC PANEL (07/13/2024 10:35 AM CDT) Only the most recent of4 resultswithin the time period is included. Blood us Sea Humphries MD CHEMISTRY ORDERABLES Final Resu lt * BASIC METABOLIC PANEL (07/13/2024 10:07 AM CDT) Only the most recent of3 resultswithin the time period is included. Blood us Sea Humphries MD CHEMISTRY ORDERABLES Final Resu lt * CBC MIXED CELL DIFFERENTIAL (06/29/2024 1:04 PM CDT) Blood us Sea Humphries MD HEMATOLOGY ORDERABLES Final Res ult * CBC WITH DIFFERENTIAL (05/04/2024 1:57 PM IMMUNOHEMATOLOGIST) Blood us Sea Humphries MD HEMATOLOGY ORDERABLES Final Res ult * (ABNORMAL) HEMOGLOBIN A1C (10/26/2016 11:08 PM CDT) HEMOGLOBIN A1C 11.1(H) 4.0 - 6.0 % 10/27/2016 7:21 AM CDT [facility] Comment:Note: Effective as o f 03/28/2015 a new methodology, Turbidimetric inhibition immunoassay (TINIA),has been implemented. EST. AVG GLUCOSE, A1C 272 mg/dL 10/27/2016 7:21 AM CDT [facility] Blood Collection / Unknown 10/26/2016 11:08 PM CDT 10/27/2016 6:57 AM CDT us Kaia Solomon MD CHEMISTRY ORDERABLES Final Result [facility] CLIA# [id number] [address] [place] [address] from Last 3 Months or Most Recently Relevant to Health Maintenance Insurance [employer] [place] [id number] Advance Directives For more information, please contact: [phone] * Full Code (Latest Code Status on File) Date Activated Date Inactivated Comments 11/15/2016 10:14 AM 11/15/2016 4:40 PM * Full Code Date Activated Date Inactivated Comments 10/27/2016 4:44 AM 10/27/2016 3:44 PM * Full Code Date Activated Date Inactivated Comments 04/21/2015 7:48 AM 04/21/2015 5:35 PM * Full Code Date Activated Date Inactivated Comments 03/03/2015 10:39 AM 03/03/2015 6:24 PM Care Teams Senior Solutions Workflow Consultant Relationship Specialty Start Date End Date Gi Pulliam MD [address] [place] [address] PCP - General Family Practice 10/10/17
--- OUTSIDE RECORDS SUMMARY | 2024-07-20 00:57 | XMS_ITS | Encounter Summary ---
Author Organization [facility] Address [facility] [place] [address] Care Team Providers Care Television Repairer Name Role Phone Gi Pulliam MD Primary Care Provider [phone] Sea Humphries MD Unavailable [phone] Kael Negron MD Unavailable [phone] Jaqui Colin MD Unavailable [phone] Janene Arriaga MD Unavailable [phone] Federico Garcia MD Unavailable [phone] Vijaya Ulrich PharmD Unavailable Unavaila Val Licea RN Unavailable [facility]available [facility] Unavailable Letty vailable Cathi, Ayanna John NUT THREADER-SALES AND RETAIL MANAGEMENT RECRUITER Unavailable [phone] Yadi Dean RN Unavailable Unavailable Aditi Ladd LCSW Unavailable Unavailab Kaia Agee NUT THREADER-SALES AND RETAIL MANAGEMENT RECRUITER Unavailable [phone] Kassandra Richard RN Unavailable Unavaila Doris Sandy RN Unavailable Unavailable Encounter Details Date Type Department Care Team (Late st Contact Info) Description 12/01/2020 Telephone [facility] [address] [place] [address] Nicole Ramos RN Social History [...] Description 09/11/2024 12:45 PM CDT Appointment [facility] [address] [place] [address] Jaqui Colin MD [address] [facility] DIV OF HEMATOLOGY & [place] [address] 09/11/2024 1:45 PM CDT Appointment [facility] [address] [place] [address] Jaqui Colin MD [address] [place] [address] OF HEMATOLOGY & [place] [address] 09/11/2024 3:00 PM CDT Office Visit [facility] - Hematology/Oncology [address] [place] [address] Jaqui Colin MD [address] [place] [address] OF HEMATOLOGY & [place] [address] documented as of this encounter Visit Diagnoses Not on filedocumented in this encounter Additional Health Concerns Infection Onset Date Last Indicated Resolved Time COVID-19 Under Investigation 12/10/2020 12/10/2020 12/11/2020 4:17 AM CDT COVID-19 Confirmed 03/12/2021 04/02/2021 4:33 AM SOCIAL SERVICES MANAGER COVID-19 Under Investigation 03/19/2021 03/19/2021 03/19/2021 4:42 PM SOCIAL SERVICES MANAGER COVID-19 Under Investigation 04/14/2021 04/14/2021 04/25/2021 4:33 AM SOCIAL SERVICES MANAGER COVID-19 Under Investigation 09/29/2021 09/29/2021 09/29/2021 8:59 PM CDT documented as of this encounter Care Teams Television Repairer Relationship Specialty Start Date End Date Gi Pulliam MD [address] [address] PCP - General Family Medicine 10/17/18 Sea Humphries MD [address] [address] Referring Physician Medical Oncology 02/19/20 [place] [address] [place] [address] Hematology and Oncology 02/19/20 03/26/21 Jaqui Colin MD [address] DIV OF HEMATOLOGY & [place] [address] Hematology and Oncology 02/19/20 Janene Arriaga MD [address] DIV OF HEMATOLOGY & [place] [address] Hematology and Oncology 02/19/20 Federico Garcia MD [address] DIV OF HEMATOLOGY & [place] [address] Hematology and Oncology 02/19/20 Vijaya Ulrich, PharmD 02/19/20 Val Pisano, MELISSA 02/19/20 Rina Argueta 02/19/20 Ayanna Winkler APRN-SALES AND RETAIL MANAGEMENT RECRUITER Family Medicine 02/19/20 Yadi Dean, MELISSA Registered Nurse 02/19/20 03/26/21 Aditi Ladd, GYMNASTICS COACH OR INSTRUCTOR Supervisor Parking Lot 02/19/20 Kaia Munroe NUT THREADER-SALES AND RETAIL MANAGEMENT RECRUITER [address] DIV OF HEMATOLOGY & [place] [address] Advance Practice Nurse Family Medicine 08/05/20 Kassandra Richard, RN Registered Nurse 03/27/21 Doris Munguia, RN Registered Nurse 06/03/21 documented as of this encounter
--- OUTSIDE RECORDS SUMMARY | 2024-07-20 00:57 | XMS_ITS | Clinical Summary ---
Author Organization [facility] Address [facility] [place] [address] Care Team Providers Care Manager Council Name Role Phone Gi Pulliam MD Primary Care Provider Carolin Nguyen MD Unavailable [phone] Kiera Jay MD Unavailable [phone] Medications No known medications Active Problems Problem [...] Comments Blood Pressure 147/79 02/26/2013 1:28 PM PHOTOGRAPHIC PROCESS SCREEN MAKER Pulse 80 02/26/2013 1:28 PM PHOTOGRAPHIC PROCESS SCREEN MAKER Temperature 36.7 C (98 F) 02/26/2013 1:28 PM PHOTOGRAPHIC PROCESS SCREEN MAKER Respiratory Rate - - Oxygen Saturation 97% 02/26/2013 1:28 PM PHOTOGRAPHIC PROCESS SCREEN MAKER Inhaled Oxygen Concentration - - Weight 133.8 kg (295 lb) 02/26/2013 1:28 PM PHOTOGRAPHIC PROCESS SCREEN MAKER Height 193 cm (6' 4 ) 02/26/2013 1:28 PM PHOTOGRAPHIC PROCESS SCREEN MAKER Body Mass Index 35.91 02/26/2013 1:28 PM PHOTOGRAPHIC PROCESS SCREEN MAKER Plan of Treatment Health Maintenance Due Date [...] 023, 03/23/2022, 01/13/2022, Additional history exists Insurance [facility] Care Teams Manager Council Relationship Specialty Start Date End Date Gi Pulliam MD [address] [facility] [place] [address] PCP - General Family Practice 01/22/20 Carolin Nguyen MD [address] [address] Referring Physician Internal Medicine 01/23/20 Kiera Jay MD [address] [address] Consulting Physician Medical Oncology 01/23/20
--- OUTSIDE RECORDS SUMMARY | 2024-07-20 00:57 | XMS_ITS | Encounter Summary ---
Author Organization [facility] Address [address] [place] [address] Care Team Providers Care Brick Maker Name Role Phone Gi Pulliam MD Primary Care Provider Taylor Ball RN Unavailable [phone] Tomás Howell MD Unavailable Jaqui Colin MD Unavailable Jose C Ramos MD Unavailable [phone] Sea Humphries MD Unavailable [phone] Encounter Details Date Type Department Care Team (Late st Contact Info) Description 03/13/2024 BugSensehart Message Enc [facility] Family Medicine [facility] [address] [place] [address] [place] [address] [place] [address] New Insurance Card - [employer] Social History Tobacco Use Types Packs/Day Years Used Date Smoking Tobacco: Never Smokeless Tobacco: Never Alcohol Use Standard Drinks/Week Comments No 0 (1 standard drink = 0.6 oz pur e alcohol) [facility] Utilities Answer Date Recorded In the past [...] Description 08/30/2024 2:40 PM CDT Office Visit [facility] Family Medicine [facility] [address] [place] [address] Gi Pulliam MD [address] [place] [address] documented as of this encounter Goals Goal [...] HTN General On track(2024 12:29 PM CDT) No Taylor Ball RN Note: [...] Total Score: 7 02/23/20 24 2:19 PM STRANNER documented as of this encounter Care Teams Brick Maker Relationship Specialty Start Date End Date Gi Pulliam MD PCP - General FAMILY PRACTICE 08/02/17 Taylor Ball, RN [address] [place] [address] Head Of Sales Promotion (Ambulatory) REGISTERED NURSE 05/19/21 Tomás Howell MD [address] [place] [address] UROLOGY 01/24/24 Jaqui Colin MD [address] DIV OF HEMATOLOGY & [place] [address] Gynecologic Oncology 01/24/24 Jose C Ramos MD [address] [id number] Consulting Physician UROLOGY 03/12/24 Sea Humphries MD [address] [address] HEMATOLOGY/ONCOLOGY 03/12/24 documented as of this encounter
--- OUTSIDE RECORDS SUMMARY | 2024-07-20 00:57 | XMS_ITS ---
Author Organization [facility] Address [address] [place], [place] [id number] Care Team Providers Care Area Captain Name Role Phone LAURENCE BRANCH Unavailable [phone] Gi Pulliam Unavailable Unavailable REASON FOR VISIT *Diabetic foot exam, sick Encounters Encounter Location Date Provider Diagnosis [facility] [address] [id number] 06/11/2024 LAURENCE BRANCH Plan Of Treatment Next Appt Details Provider Name:LAURENCE BRANCH, 02:40:00 PM, [address], [facility], [place], [place], [id number], Progress Notes * LINDA TAPIA RDOB: (68 yo M)Acc No.[id number]:06/11/2024 Patient: Tiara LINDA BONILLA Provider: Jaqui Branch DPM :1955 A ge:68 Y S ex:Male Date:06/11/2024 Address:[address] [place], [place] [id number] Subjective: * Chief Complaints: * 1 . *Diabetic foot exam, sick. * Medical History: Objective: * Vitals: Assessment: Plan: * Treatment: * Billing Information: * Visit Code: * Procedure Codes: * Electronic signature of LAURENCE BRANCH DPM on 07/20/2024 at 12:56 AM CDT Sign off status: Pending * Provider: Jaqui Branch DPM Date: 0 06/11/2024 Generated for Angel mckeon/Allyssa/Jyoti on: 0 07/20/2024 12:56 AM CDT
--- OUTSIDE RECORDS SUMMARY | 2024-07-20 00:57 | XMS_ITS ---
Author Organization [facility] Address [address] [place], [place] [address] Care Team Providers Care Supervisor Patching Name Role Phone LAURENCE BRANCH Unavailable [phone] Gi Pulliam Unavailable Unavailable Allergies Allergen (clinical [...] chloride 2.67 MEQ/ML Oral Solution *Reorder from [facility] for eRx and Interaction Alerts* 12/01/2017 Active metformin hydrochloride 1000 MG Oral Tablet ORAL metformin hydrochloride 1000 MG Oral TabletOriginal Medicationmetformin hydrochloride 1000 MG Oral Tablet *Reorder from [facility] for eRx and Interaction Alerts* 12/01/2017 Active aspirin 81 MG Delayed Release Oral Tablet [Aspir-Low] ORAL aspirin 81 MG Delayed Release Oral Tablet [Aspir-Low]Original Medicationaspirin 81 MG Delayed Release Oral Tablet [Aspir-Low] *Reorder from [facility] for eRx and Interaction Alerts* 12/01/2017 Active 0.5 ML dulaglutide 1.5 MG/ML Auto-Injector [Trulicity] 0.5 ML dulaglutide 1.5 MG/ML Auto-Injector [Trulicity]Original Medication0.5 ML dulaglutide 1.5 MG/ML Auto-Injector [Trulicity] *Reorder from [facility] for eRx and Interaction Alerts* 12/01/2017 Active Lisinopril 20 MG Oral Tablet ORAL lisinopril 20 MG Oral TabletOriginal Medicationlisinopril 20 MG Oral Tablet *Reorder from [facility] for eRx and Interaction Alerts* 12/01/2017 Active 3 ML insulin glargine 100 UNT/ML Pen Injector [Lantus] 3 ML insulin glargine 100 UNT/ML Pen Injector [Lantus]Original Medication3 ML insulin glargine 100 UNT/ML Pen Injector [Lantus] *Reorder from [facility] for eRx and Interaction Alerts* 12/01/2017 Active Encounters Encounter Location Date Provider Diagnosis [facility] [address] [id number] 07/09/2024 LAURENCE MATAK Tinea unguium B35.1 ; Pain in right toe(s) M79.674 ; Pain in left toe(s) M79.675 ; Atherosclerosis of osage arteries of extremities with intermittent claudication, bilateral [...] toe(s) (ICD-10 - M79.675) 07/09/2024 Atherosclerosis of osage arteries of extremities with intermittent claudication, bilateral [...] Provider Name:LAURENCE BRANCH, 02:40:00 PM, [address], [id number], Progress Notes * LINDA TAPIA RDOB: (68 yo M)Acc No.[id number]:07/09/2024 Patient: LINDA BORREGO Provider: Jaqui Branch DPM :1955 A ge:68 Y S ex:Male Date:07/09/2024 Address:[address] [place] [address] Subjective: * Chief Complaints: * 1 . [...] denies c hange in appetite, chills, night sweats. C ardiovascular: Patient denies e sonia. P atient complains of h air loss on legs. P eripheral Vascular: Patient denies p ain / cramping in legs after exertion. Patient complains of h istory ulceration of feet. S kin: Patient complains of f ungal nails, nail changes. N eurologic: Patient complains of n umbness, burning/ tingling. * Medical History: D iabetic. * Family [...] Medicationlisinopril 20 MG Oral Tablet *Reorder from [email or web address] for eRx and Interaction Alerts*, Taking 0.5 ML dulaglutide 1.5 MG/ML Auto-Injector [Trulicity] , Notes to Pharmacist: 0.5 ML dulaglutide 1.5 MG/ML Auto-Injector [Trulicity]Original Medication0.5 ML dulaglutide 1.5 MG/ML Auto-Injector [Trulicity] *Reorder from [facility] for eRx and Interaction Alerts*, Taking 3 ML insulin glargine 100 UNT/ML Pen Injector [Lantus] , Notes to Pharmacist: 3 ML insulin glargine 100 UNT/ML Pen Injector [Lantus]Original Medication3 ML insulin glargine 100 UNT/ML Pen Injector [Lantus] *[facility] and Interaction Alert[facility]*, Taking aspirin 81 MG Delayed Release Oral Tablet [Aspir-Low] ORAL , Notes to Pharmacist: aspirin 81 MG Delayed Release Oral Tablet [Aspir-Low]Original Medicationaspirin 81 MG Delayed Release Oral Tablet [Aspir-Low] *Reorder from [facility] for eRx and Interaction Alerts*, Taking metformin hydrochloride 1000 MG Oral Tablet ORAL , Notes to Pharmacist: metformin hydrochloride 1000 MG Oral TabletOriginal Medicationmetformin hydrochloride 1000 MG Oral Tablet *[facility]*, Taking potassium chloride 2.67 MEQ/ML Oral Solution ORAL , Notes to Pharmacist: potassium chloride 2.67 MEQ/ML Oral SolutionOriginal Medicationpotassium chloride 2.67 MEQ/ML Oral Solution *[facility] and Interaction [facility]*, Medication List reviewed and reconciled with the patient * Allergies: Celso saenz: Allergy - Onset Date 12/01/2017. Objective: * [...] subungual debris. They are painful to palpation. V ascular: Dorsalis pedis pulse: 1 /4 b ilateral. Posterior tibial pulse: 0 /4 bilateral. Capillary refill: g reater than 3 seconds. Edema: N o edema bilateral. N eurologic: Gross sensation G rossly intact to light touch. There is negative Tinel's sign. M usculoskeletal: Muscle Strength M uscle strength is 5/5 in regards to dorsiflexion, plantarflexion, inversion, and eversion in bilateral lower extremities. Assessment: * Assessment: 1. T inea unguium - B35.1 (Primary) 2 . P ain in right toe(s) - M79.674 3. P ain in left toe(s) - M79.675 4 . A therosclerosis of osage arteries of extremities with intermittent claudication, bilateral [...] of LAURENCE BRANCH DPM on 07/20/2024 at 12:57 AM CDT Sign off status: Pending * Provider: Jaqui Branch DPM Date: 0 07/09/2024 Generated for Angel mckeon/Allyssa/Jyoti on: 0 07/20/2024 12:57 AM CDT History and Physical Notes * [...]
--- NOTE | 2024-07-20 06:44 | WPDHPUPDATE1 ---
History and Physical Update Update Date/Time: 07/20/24 06:44 History and Physical has been reviewed, including an updated exam of the patient. There are NO changes in the patient's condition. Risks, benefits, and alternatives have been discussed and questions answered. Patient agrees to proceed with procedure.
[2024-07-20] MEDS: LACTATED RINGERS 1,000 ML 30 ML IV CONT ×2 (08:20→11:31)
[2024-07-20 08:26] LABS: Glucose Point of Care 94 mg/dl (65-105)
[2024-07-20 08:41] LABS: Prothrombin Time 13.6 Seconds (11.1-14.7)
--- NOTE | 2024-07-20 10:06 | P.PNAN_ITS ---
Anes - Initial Pre Proc Eval Procedure: Operation Date: 07/20/24 09:30 Proposed Procedures p Left Extracorporeal Shock Wave Lithotripsy - Miles Randolph MD Date/Time: 07/20/24 10:06 Surgeon: Miles Randolph MD Pre Op Diagnosis: Lt Kidney Stone Patient Data Age: 68 Gender: M Height: 1.88 m Weight: 135.8 kg Last Vital Signs Temp 97.8 F 07/20/24 08:00 Pulse 72 07/20/24 08:00 Resp 16 07/20/24 08:00 BP 116/63 07/20/24 08:00 Pulse Ox 98 07/20/24 08:00 O2 Del Method Room Air 07/20/24 08:00 Allergies Allergy/AdvReac Type Severity Reaction Status Date / Time codeine AdvReac Mild N & V Verified 07/20/24 08:03 pembrolizumab (From Keytruda) AdvReac Hallucinati Verified 07/20/24 08:03 ng tirzepatide (From Mounjaro) AdvReac Other Verified 07/20/24 08:03 Home Medications Medication Instructions Recorded Confirmed Type atorvastatin 40 mg tablet 40 mg PO DAILY 05/18/19 07/09/24 History lisinopril 10 mg tablet 10 mg PO QAM 05/18/19 07/09/24 History metformin 1,000 mg tablet 1,000 mg PO BID 05/18/19 07/09/24 History polyethylene glycol 3350 17 gram 17 g PO DAILY PRN Constipation 05/18/19 07/09/24 History oral powder packet (Miralax) docusate sodium 50 mg capsule 50 mg PO BID 11/22/23 07/09/24 History (Stool Softener) ferrous sulfate 325 mg (65 mg 325 mg PO DIRECTED 11/22/23 07/09/24 History iron) tablet furosemide 40 mg tablet 40 mg PO DIRECTED 11/22/23 07/09/24 History metoprolol tartrate 50 mg tablet 50 mg PO BID 11/22/23 07/09/24 History oxycodone 5 mg tablet 5 mg PO Q4H PRN Pain (Scale Score 11/22/23 07/09/24 History 4-6) potassium chloride 20 mEq 20 meq PO DIRECTED 11/22/23 07/09/24 History tablet,extended release rivaroxaban 20 mg tablet (Xarelto) 20 mg PO DAILY 11/22/23 07/20/24 History spironolactone 50 mg tablet 50 mg PO QAM 11/22/23 07/09/24 History dapagliflozin propanediol 10 mg 10 mg PO DAILY 12/19/23 07/09/24 History tablet (Farxiga) insulin aspart U-100 100 unit/mL See Rx Instructions .Route .COMPLEX 12/19/23 07/09/24 History subcutaneous solution multivitamin (Multiple Vitamins 1 tablet PO DAILY 12/19/23 07/09/24 History tablet) magnesium oxide 400 mg PO DAILY 06/08/24 07/09/24 History semaglutide 0.25 mg or 0.5 mg (2 0.5 mg subcut WEEKLY 06/29/24 07/20/24 History mg/3 mL) subcutaneous pen injector (Ozempic) insulin glargine 100 unit/mL (3 42 unit subcut .AM 07/09/24 07/20/24 History mL) subcutaneous pen (Lantus Solostar U-100 Insulin) hydrocodone 5 mg-acetaminophen 325 1 - 2 tablet PO Q6H PRN pain #20 07/20/24 Rx mg tablet tabs Laboratory Tests 07/20/24 07/20/24 08:07 08:21 PT 13.6 D Seconds (11.1-14.7) INR 1.0 POC Capillary Glucose 94 mg/dl (65-105) Patient hx anesthesia problems: none Family hx anesthesia problems: none Results Review: All pre-operative results and documents have been reviewed as part of the pre- operative evaluation. [facility] Past Medical History Medical History Diabetes High cholesterol HTN (hypertension) Surgical History Surgical History H/O skin graft Kidney stone Toe amputee Family History Family History Father Enlarged heart Mother Diabetes mellitus Breast cancer Heart disease Skin cancer Sibling Cancer Other Cancer Hypertension Social History Social History Smoking status: Never smoker Alcohol intake: never Substance use: unknown Living arrangements: with family Additional living arrangements comments: Occupation/Education: unemployed Additional occupation/education comments: disabled Gender identity (if verbalized by the patient): Male Spiritual care concerns: No Anes - Eval Final PreProcedure Day of Procedure 07/20/24 10:06 Patient weight: obese Heart: regular rate and rhythm Lungs: clear to auscultation Airway: Mallampati scale class III Neurological: alert and oriented Last oral intake: >/= 8 hours ASA classification: III Emergent: no Anesthetic plan: proceed Anesthesia type and monitoring: general LMA and standard monitoring Results Review: All pre-operative results and documents have been reviewed as part of the pre- operative evaluation. Informed Consent: The patient's anesthetic plan and its attendant risks and benefits were discussed with the patient/family/POA. Questions were solicited and answers provided to the satisfaction of the patient/family/POA.
[2024-07-20] MEDS: ceFAZolin 3 GM/D5W 100 ML 100 ML IVPB (10:15)
[2024-07-20] MEDS: LIDOCAINE 2% GEL UROJET 10 ML PKG MUCOUS MEM (10:37)
--- NOTE | 2024-07-20 10:41 | W.PM.PROC2 ---
Procedure Note - Detailed Date of Procedure 07/20/24 Pre-op Diagnosis Lt Kidney Stone, hematuria Post-op Diagnosis Same Procedure Performed Flexible cystoscopy, left ESWL Surgeon Miles Randolph MD Anesthesia General Description of Procedure The patient was brought to the operative suite where he was placed in the supine position on the Dornier lithotripter table. Flexible cystoscopy was undertaken with a 16F flexible cystoscopy. There were no urethral strictures. The prostatic urethra estimated length was 2.5cm. There was moderate obstruction of the prostatic urethra with moderate median lobe enlargement. The bladder mucosa was normal and there was a single, orthotopic ureteral orifice bilaterally. The patient was then repositioned in the supine position with the focal point of the lithotriptor on a 9-10mm left renal calculus. A total of 2500 shocks were delivered at a power setting of 4. There appeared to be good fragmentation of the stone. The patient tolerated the procedure well and was taken to the recovery room in good condition. Drains No Packing Yes Pathology None sent Complications No immediate complications
[2024-07-20 11:28] LABS: Glucose Point of Care 85 mg/dl (65-105)
== END 2024-07-20 13:38 | disposition home or self-care (01) ==
PROVIDERS: Visit Provider Urology
PROC: (CPT 50590; principal; 2024-07-20 09:30)
DX: N20.0 Calculus of kidney (principal); N40.0 Benign prostatic hyperplasia without lower urinary tract symptoms; I10 Essential (primary) hypertension; E11.9 Type 2 diabetes mellitus without complications; E78.00 Pure hypercholesterolemia, unspecified; E66.9 Obesity, unspecified; Z68.38 Body mass index [BMI] 38.0-38.9, adult; Z79.84 Long term (current) use of oral hypoglycemic drugs; Z79.4 Long term (current) use of insulin; Z79.891 Long term (current) use of opiate analgesic; Z79.01 Long term (current) use of anticoagulants; Z79.85 Long-term (current) use of injectable non-insulin antidiabetic drugs; Z98.890 Other specified postprocedural states; Z80.3 Family history of malignant neoplasm of breast; Z84.0 Family history of diseases of the skin and subcutaneous tissue; Z82.49 Family history of ischemic heart disease and other diseases of the circulatory system
CPT/HCPCS: 52000; 50590; 36415; 74018; 82948; 85610; J0690; J2003; J2250; J2405; J2704; J3010; J7120

== ENCOUNTER 2024-07-31 13:59 | Outpatient (CLI) | payer MEDICARE, SELFPAY ==
--- NOTE | ~2024-07-31 | XR_ITS ---
Exam: Abdomen 1V HISTORY: N20.0 - Calculus of kidney. RECENT LT LITHO COMPARISON: 07/20/2024 and 05/04/2024. Reference is made to CT examination of the abdomen and pelvis da emelyn 03/27/2024 TECHNIQUE: Supine images of the abdomen FINDINGS: Bowel gas pattern is non-obstructive. Extensive fecal stasis within the left mid to lower abdomen preclude adequate evaluation of both the renal shadow and the presence or absence of renal calculi. There is no free air or deep sulci. Vascular calcifications are identified within the left upper quadrant Lung bases are unremarkable. Bones and soft tissues are unremarkable. IMPRESSION: Nonspecific, nonobstructive bowel gas pattern. Extensive fecal stasis preclude adequate evaluation of the renal shadow as well as the presence or ab sence of renal calculi. Reviewed, dictated and finalized at location A. IMPRESSION: Nonspecific, nonobstructive bowel gas pattern. Extensive fecal stasis preclude adequate evaluation of the renal shadow as well as the presence or absence of renal calculi.
--- OUTSIDE RECORDS SUMMARY | 2024-07-31 14:08 | XMS_ITS | Patient Health Record ---
Author Organization 1 OF [facility] Address [address] [address] [place] [address] Care Team Providers Care Environmental Consultant Name Role Phone Gi Pulliam M.D. Primary Care Provider Unavail able Hannah Giles Unavailable [phone] Allergies Allergen (clinical drug ingredient) Drug/Non Drug [...] Problem Status W/U Status Risk Notes Problem 16516314 Type 2 diabetes mellitus with other diabetic neurological complication (E11.49) Active confirmed Problem 562098331 History of amputation of lesser toe of left foot (Z89.422) Active confirmed Problem Controlled type 2 diabetes mellitus with diabetic polyneuropathy, unspecified whether care home insulin use (E11.42) Active confirmed Plan Of Treatment No Information Insurance Providers Payer Name Payer Address Payer Phone Subscriber Number Group Number Insured Name Patient Relationship to Insured Coverage Start Date Coverage End Date [employer] [address] [address] [place] [id number] Nelson Carrlol Self - patient is the insured Medical (General) History Medical History History ICD Code CANCER (HODGKINS) DIABETES high blood pressure high cholesterol neuropathy Surgical History Surgery Date(Month/Year) LT T4 toe amputation
--- OUTSIDE RECORDS SUMMARY | 2024-07-31 14:08 | XMS_ITS ---
Author Organization [facility] Address [address] [facility] [address] [place], [place] [id number] Care Team Providers Care Client Manager Name Role Phone LAURENCE BRANCH Unavailable [phone] Gi Pulliam Unavailable Unavailable REASON FOR VISIT *General care Encounters Encounter Location Date Provider Diagnosis [facility] [address] [id number] 03/12/2024 LAURENCE BRANCH Plan Of Treatment Next Appt Details Provider Name:LAURENCE BRANCH, 02:40:00 PM, [address], [facility], [place], [place], [id number], Progress Notes * LINDA TAPIA RDOB: (68 yo M)Acc No.[id number]:03/12/2024 Patient: Tiara LINDA BONILLA Provider: Jaqui Branch DPM :1955 A ge:68 Y S ex:Male Date:03/12/2024 Address:[address] [place], [place] [phone] Subjective: * Chief Complaints: * 1 . *General care. * Medical History: Objective: * Vitals: Assessment: Plan: * Treatment: * Billing Information: * Visit Code: * Procedure Codes: * Electronic signature of LAURENCE BRANCH DPM on 07/31/2024 at 02:08 PM CDT Sign off status: Pending * Provider: Jaqui Branch DPM Date: 0 03/12/2024 Generated for Angel mckeon/Allyssa/Jyoti on: 0 07/31/2024 02:08 PM CDT
--- OUTSIDE RECORDS SUMMARY | 2024-07-31 14:08 | XMS_ITS | Encounter Summary ---
Author Organization [facility] Address [facility] [facility] [place] [address] Care Team Providers Care Calender Roll Operator Name Role Phone Gi Pulliam MD Primary Care Provider [phone] Sea Humphries MD Unavailable [phone] Jaqui Colin MD Unavailable [phone] Janene Arriaga MD Unavailable [phone] Federico Garcia MD Unavailable [phone] Vijaya Ulrich PharmD Unavailable Unavaila Val Licea RN Unavailable Unavailable [facility] Unavailable Letty vailable Cathi, Ayanna John DIRECTOR TRADING-ACCESS REP Unavailable Aditi Ladd LCSW Unavailable Unavailab Kaia Agee DIRECTOR TRADING-ACCESS REP Unavailable [phone] Kassandra Richard RN Unavailable Unavaila Doris Sandy RN Unavailable Unavailable Reason for Visit * Reason Comments Refill Request Encounter Details Date Type Department Care Team (Late st Contact Info) Description 11/27/2022 Refill [facility] - Hematology/Oncology [address] [place] [address] Jaqui Colin MD [address] [place] [address] OF HEMATOLOGY & [place] [address] Refill Request Social History Tobacco Use Types [...] PM CDT Appointment [facility] [address] [place] [address] Jaqui Colin MD [address] [place] [address] OF HEMATOLOGY [place] [address] 09/11/2024 1:45 PM CDT Appointment [facility] [address] [place] [phone] Jaqui Colin MD [address] [facility] OF HEMATOLOGY [place] [address] 09/11/2024 3:00 PM CDT Office Visit [facility] - Hematology/Oncology [address] [place] [address] Jaqui Colin MD [address] [facility] OF HEMATOLOGY [place] [address] documented as of this encounter Goals Goal Patient Goal Type Associated Problems Recent Progress Patient-Stated? Author Medication Management General On track( 021 9:57 AM EXPELLER WORKER) Mercedes Minor, RN Note: Expected end date: ongoing Interventions: Take all medications as prescribed documented as of this encounter Visit Diagnoses Not on filedocumented in this encounter Care Teams Calender Roll Operator Relationship Specialty Start Date End Date Gi Pulliam MD [address] [place] [address] PCP - General Family Medicine 10/17/18 Sea Humphries MD [address] [place] [address] Referring Physician Medical Oncology 02/19/20 Jaqui Colin MD [address] [facility] OF HEMATOLOGY [place] [address] Hematology and Oncology 02/19/20 Janene Arriaga MD [address] [facility] OF HEMATOLOGY [place] [address] Hematology and Oncology 02/19/20 Federico Garcia MD [address] OF HEMATOLOGY & [place] [address] Hematology and Oncology 02/19/20 Vijaya Ulrich, PharmD 02/19/20 Val Pisano, RN 02/19/20 Rina Argueta 02/19/20 Ayanna Winkler APRN-ACCESS REP Family Medicine 02/19/20 Aditi Ladd, [facility] Wire Cutter 02/19/20 Kaia Munroe DIRECTOR TRADING-ACCESS REP [address] OF HEMATOLOGY & [place] [address] Advance Practice Nurse Family Medicine 08/05/20 Kassandra Richard, RN Registered Nurse 03/27/21 Doris Munguia, RN Registered Nurse 06/03/21 documented as of this encounter
--- OUTSIDE RECORDS SUMMARY | 2024-07-31 14:09 | XMS_ITS | Encounter Summary ---
Author Organization [facility] Address [address] [place] [address] Care Team Providers Care Senior Pharmacy Technician Name Role Phone Gi Pulliam MD Primary Care Provider [phone] Sea Humphries MD Unavailable [phone] Kael Negron MD Unavailable [phone] Jaqui Colin MD Unavailable [phone] Janene Arriaga MD Unavailable [phone] Federico Garcia MD Unavailable [phone] Vijaya Ulrich PharmD Unavailable Unavaila Chandler Avila PharmD Unavailable Unavailab Val Lenz RN Unavailable Unavailable Elaine Poole RN Unavailable Unavailab Rina Trinidad Unavailable Letty vailable Cathi, Ayanna John CASINO CONTROLLER-SENIOR UNDERWRITING ASSISTANT Unavailable [phone] Yadi Dean RN Unavailable Unavailable Nicole Ramos RN Unavailable Unavailable Loreto Oliveros RN Unavailable UnavailAditi Marin LCSW Unavailable Unavailab Kaia Agee CASINO CONTROLLER-SENIOR UNDERWRITING ASSISTANT Unavailable [phone] Kassandra Richard RN Unavailable Unavaila ble Ezra, Doris J RN Unavailable Unavailable Encounter Details Date Type Department Care Team (Late Contact Info) Description 04/23/2019 Telephone [facility] [address] [place] [address] Tequila Hallman MD [address] [place] [address] Social History Tobacco Use Types Packs/Day Years [...] Upcoming Encounters Date Type Department Care Team ([facility] Contact Info) Description 09/11/2024 12:45 PM CDT Appointment [facility] [address] [place] [address] Jaqui Colin MD [address] [facility] OF HEMATOLOGY & [place] [address] 09/11/2024 1:45 PM CDT Appointment [facility] [address] [place] [address] Jaqui Colin MD [address] [facility] OF HEMATOLOGY & [place] [address] 09/11/2024 3:00 PM CDT Office Visit [facility] - Hematology/Oncology [address] [place] [address] [place] [address] [place] [address] OF HEMATOLOGY & [place] [address] documented as of this encounter Visit Diagnoses Not on filedocumented in this encounter Additional Health Concerns Infection Onset Date Last Indicated Resolved Time COVID-19 Under Investigation 09/15/2020 09/15/2020 09/15/2020 9:18 PM CDT COVID-19 Under Investigation 12/10/2020 12/10/2020 12/11/2020 4:17 AM CDT COVID-19 Confirmed 03/12/2021 04/02/2021 4:33 AM FIRE FIGHTER CRASH FIRE AND RESCUE COVID-19 Under Investigation 03/19/2021 03/19/2021 03/19/2021 4:42 PM FIRE FIGHTER CRASH FIRE AND RESCUE COVID-19 Under Investigation 04/14/2021 04/14/2021 04/25/2021 4:33 AM FIRE FIGHTER CRASH FIRE AND RESCUE COVID-19 Under Investigation 09/29/2021 09/29/2021 09/29/2021 8:59 PM CDT documented as of this encounter Care Teams Senior Pharmacy Technician Relationship Specialty Start Date End Date Gi Pulliam MD [address] [place] [address] PCP - General Family Medicine 10/17/18 Sea Humphries MD [address] [place] [address] Referring Physician Medical Oncology 02/19/20 Kael Negron MD [address] [place] [address] Hematology and Oncology 02/19/20 03/26/21 Jaqui Colin MD [address] OF HEMATOLOGY & [place] [address] Hematology and Oncology 02/19/20 Janene Arriaga MD [address] OF HEMATOLOGY [place] [address] Hematology and Oncology 02/19/20 Federico Garcia MD [address] OF HEMATOLOGY [place] [address] Hematology and Oncology 02/19/20 Vijaya Ulrich, PharmD 02/19/20 Chandler Rosario, PharmD Pharmacist 02/19/20 11/25/20 Val Pisano, RN 02/19/20 Elaine Poole RN 02/19/20 11/25/20 Rina Argueta 02/19/20 Ayanna Winkler CASINO CONTROLLER-SENIOR UNDERWRITING ASSISTANT Family Medicine 02/19/20 Yadi Dean, RN Registered Nurse 02/19/20 03/26/21 Nicole Ramos, RN Registered Nurse 02/19/20 11/25/20 Loreto Oliveros, RN Registered Nurse 02/19/20 11/25/20 Aditi Ladd, [facility] Superintendent Drivers 02/19/20 Kaia Munroe, CASINO CONTROLLER-SENIOR UNDERWRITING ASSISTANT [address] OF HEMATOLOGY & [place] [address] Advance Practice Nurse Family Medicine 08/05/20 Kassandra Richard, RN Registered Nurse 03/27/21 Doris Munguia, RN Registered Nurse 06/03/21 documented as of this encounter
--- OUTSIDE RECORDS SUMMARY | 2024-07-31 14:09 | XMS_ITS | Encounter Summary ---
Author Organization [facility] Address [address] [facility] [address] Care Team Providers Care Bilingual Instructor Name Role Phone Gi Pulliam MD Primary Care Provider [phone] Sea Humphries MD Unavailable [phone] Kael Negron MD Unavailable [phone] Jaqui Colin MD Unavailable [phone] Janene Arriaga MD Unavailable [phone] Federico Garcia MD Unavailable [phone] Vijaya Ulrich PharmD Unavailable Unavaila Chandler Avila PharmD Unavailable Unavailab aVl Lenz RN Unavailable Unavailable Elaine Poole RN Unavailable Unavailab Rina Trinidad Unavailable Letty vailable Cathi, Ayanna John MARINE FIREMAN-SPINNER CONTINUOUS Unavailable [phone] Yadi Dean RN Unavailable Unavailable Nicole Ramos RN Unavailable Unavailable Loreto Oliveros RN Unavailable UnavailAditi Marin LCSW Unavailable Unavailab Kaia Agee MARINE FIREMAN-SPINNER CONTINUOUS Unavailable [phone] Kassandra Richard RN Unavailable Unavaila ble Ezra, Doris J RN Unavailable Unavailable Encounter Details Date Type Department Care Team (Late Contact Info) Description 12/19/2018 Lab Requisition [facility] Care Pathology Lab [address] [place] [address] Roni Smallwood MD [address] [place] [address] Social History Tobacco Use Types Packs/Day Years [...] Info) Description 09/11/2024 12:45 PM CDT Appointment [facility] PET [address] [place] [phone] Jaqui Colin MD [address] [place] [address] OF HEMATOLOGY & [place] [address] 09/11/2024 1:45 PM CDT Appointment [facility] PET [address] [place] [address] Jaqui Colin MD [address] [place] [address] OF HEMATOLOGY & [place] [address] 09/11/2024 3:00 PM CDT Office Visit [facility] - Hematology/Oncology [address] [place] [phone] Jaqui Colin MD [address] [place] [address] OF HEMATOLOGY & [place] [address] documented as of this encounter Procedures Procedure Name Priority Date/Time Associated Diagnosis Comments FLOW CYTOMETRY BLOOD PROFILE Routine 12/19/2018 12:05 PM CDT documented in this encounter Results * FLOW CYTOMETRY BLOOD PROFILE (12/19/2018 12:05 PM CDT) Case Report Flow Cytometry Case: [id number] Authorizing Provider: Roni Smallwood MD Collected: 12/19/2018 12:05 PM Ordering Location: [facility] Pathology Lab Received: 12/19/2018 02:51 PM Pathologist: Aurelia Sorto MD Specimen: Blood 9:08 AM CDT [facility] PATHOLOGY [facility] Final Diagnosis Peripheral blood, fl ow cytometric immunophenotypic analysis: - No evidence of non-Hodgkin lymphoma or high-grade myeloid neoplasm. - See interpretation. 9:08 AM CDT [facility] PATHOLOGY LAB at 0908 CDT Flow Cytometry Results Differential Result Comment WBC Count /uL 3,700 Total Viability % 100.0 Lymphocytes % 71 Dim CD45 Region % 4 Monocytes % 12 Granulocytes % 13 9:08 AM CDT [facility] PATHOLOG[facility] Flow Cytometry Interpretation The [...] the flow cytometry specimen is reviewed for compliance quality performance analyst purposes. Overall, the peripheral blood specimen shows no evidence of involvement by a non-Hodgkin lymphoma or a high-grade myeloid neoplasm. Correlation with clinical findings is required. KR/MM 9:08 AM CDT [facility] PATH[facility] Reason for test Lymphocytosis 9:08 AM CDT [facility] Client Specimen ID # [id number] 9:08 AM T [facility] PATH[facility] Disclaimer Test performed at [facility], [address] [place] [address], [address]. *The established laboratory minimum viability is 70%. [...] complexity clinical testing. 9 9:08 AM CDT [facility] PATH[facility] Embedded Images 9 9:08 AM CDT [facility] Number of markers 16 were performed. A-2 Flow CD10 A-3 Flow CD13 A-5 Flow CD20 A-11 Flow CD2 A-12 Flow CD4 A-15 Flow CD1a A-1 Flow CD5 A-4 Flow CD19 A-6 Flow CD33 A-7 Flow CD34 A-8 Flow CD45 A-13 Flow CD7 A-14 Flow CD8 A-16 Flow CD30 A-9 Joshua+CD19+ A-10 Lambda+CD19+ 9 9:08 AM CDT [facility] Blood BLOOD SPECIMEN / Unknown 12/19/2018 12:05 PM CDT 12/19/2018 2:51 PM CDT us Imaad Anson Smallwood MD LAB - PATHOLOGY/CYTOLOGY ORD ERABLES Final Result Performing Organization Address City/State/[facility] Co de Phone Number [facility] PATHOLOGY LAB [address] [phone] documented in this encounter Visit Diagnoses Not on filedocumented in this encounter Additional Health Concerns Infection Onset Date Last Indicated Resolved Time COVID-19 Under Investigation 09/15/2020 09/15/2020 09/15/2020 9:18 PM CDT COVID-19 Under Investigation 12/10/2020 12/10/2020 12/11/2020 4:17 AM CDT COVID-19 Confirmed 03/12/2021 04/02/2021 4:33 AM EFFICIENCY EXPERT COVID-19 Under Investigation 03/19/2021 03/19/2021 03/19/2021 4:42 PM EFFICIENCY EXPERT COVID-19 Under Investigation 04/14/2021 04/14/2021 04/25/2021 4:33 AM EFFICIENCY EXPERT COVID-19 Under Investigation 09/29/2021 09/29/2021 09/29/2021 8:59 PM CDT documented as of this encounter Care Teams Bilingual Instructor Relationship Specialty Start Date End Date Gi Pulliam MD [address] [place] [address] PCP - General Family Medicine 10/17/18 Sea Humphries MD [address] [place] [address] Referring Physician Medical Oncology 02/19/20 Kael Negron MD [address] [place] [address] Hematology and Oncology 02/19/20 03/26/21 Jaqui Colin MD [address] OF HEMATOLOGY & [place] [address] Hematology and Oncology 02/19/20 Janene Arriaga MD [address] OF HEMATOLOGY & [place] [address] Hematology and Oncology 02/19/20 Federico Garcia MD [address] OF HEMATOLOGY & [place] [address] Hematology and Oncology 02/19/20 Vijaya Ulrich, PharmD 02/19/20 Chandler Rosario, MartD Pharmacist 02/19/20 11/25/20 Val Pisano RN 02/19/20 Elaine Poole RN 02/19/20 11/25/20 Rina Argueta 02/19/20 Ayanna Winkler, MARINE FIREMAN-SPINNER CONTINUOUS Family Medicine 02/19/20 Yadi Dean, RN Registered Nurse 02/19/20 03/26/21 Nicole Ramos, RN Registered Nurse 02/19/20 11/25/20 Loreto Oliveros, RN Registered Nurse 02/19/20 11/25/20 Aditi Ladd, [facility] Spiral Winding Machine Helper 02/19/20 Kaia Munroe, MARINE FIREMAN-SPINNER CONTINUOUS [address] [facility] OF HEMATOLOGY & [place] [address] Advance Practice Nurse Family Medicine 08/05/20 Kassandra Richard, RN Registered Nurse 03/27/21 Doris Munguia, RN Registered Nurse 06/03/21 documented as of this encounter
--- OUTSIDE RECORDS SUMMARY | 2024-07-31 14:09 | XMS_ITS ---
Author Organization [facility] Address [address] [place], [place] [id number] Care Team Providers Care Messenger Office Name Role Phone LAURENCE BRANCH Unavailable [phone] Gi Pulliam Unavailable Unavailable REASON FOR VISIT *Diabetic foot exam, sick Encounters Encounter Location Date Provider Diagnosis [facility] [place] [address] [id number] 06/11/2024 LAURENCE BRANCH Plan Of Treatment Next Appt Details Provider Name:LAURENCE BRANCH, 02:40:00 PM, [address], [facility], [place], [place], [id number], Progress Notes * LINDA TAPIA RDOB: (68 yo M)Acc No.[id number]:06/11/2024 Patient: Tiara LINDA BONILLA Provider: Jaqui Branch DPM :1955 A ge:68 Y S ex:Male Date:06/11/2024 Address:[address] [place], [place] [id number] Subjective: * Chief Complaints: * 1 . *Diabetic foot exam, sick. * Medical History: Objective: * Vitals: Assessment: Plan: * Treatment: * Billing Information: * Visit Code: * Procedure Codes: * Electronic signature of LAURENCE BRANCH DPM on 07/31/2024 at 02:09 PM CDT Sign off status: Pending * Provider: Jaqui Branch DPM Date: 0 06/11/2024 Generated for Angel mckeon/Allyssa/Jyoti on: 0 07/31/2024 02:09 PM CDT
--- OUTSIDE RECORDS SUMMARY | 2024-07-31 14:09 | XMS_ITS | Encounter Summary ---
Author Organization [facility] Address [address] [facility] [place] [address] Care Team Providers Care Wireless Development Manager Name Role Phone Gi Pulliam MD Primary Care Provider [phone] Sea Humphries MD Unavailable [phone] Kael Negron MD Unavailable [phone] Jaqui Colin MD Unavailable [phone] Janene Arriaga MD Unavailable [phone] Federico Garcia MD Unavailable [phone] Vijaya Ulrich PharmD Unavailable Unavaila Chandler Avila PharmD Unavailable Unavailab Val Lenz RN Unavailable Unavailable Elaine Poole RN Unavailable Unavailab Rina Trinidad Unavailable Letty vailable Cathi, Ayanna John ABRASIVE MIXER HELPER-SPRINKLING SYSTEM INSTALLER Unavailable [phone] Yadi Dean RN Unavailable Unavailable Nicole Ramos RN Unavailable Unavailable Loreto Oliveros RN Unavailable UnavailAditi Marin LCSW Unavailable Unavailab Kaia Agee ABRASIVE MIXER HELPER-SPRINKLING SYSTEM INSTALLER Unavailable [phone] Kassandra Richard RN Unavailable Unavaila ble Ezra, Doris J RN Unavailable Unavailable Encounter Details Date Type Department Care Team (Late Contact Info) Description 03/21/2020 Lab Requisition [facility] Care Pathology Lab [address] [place] [address] [place]ined[place] [address] [address] Illness, unspecified Social History Tobacco Use Types [...] Upcoming Encounters Date Type Department Care Team ([facility] Contact Info) Description 09/11/2024 12:45 PM CDT Appointment [facility] PET [address] [place] [address] Jaqui Colin MD [address] [place] [address] OF HEMATOLOGY & [place] [address] 09/11/2024 1:45 PM CDT Appointment [facility] PET [address] [place] [address] Jaqui Colin MD [address] [place] [address] OF HEMATOLOGY & [place] [address] 09/11/2024 3:00 PM CDT Office Visit [facility] - Hematology/Oncology [address] [place] [address] Jaqui Colin MD [address] [place] [address] OF HEMATOLOGY & [place] [address] documented as of this encounter Procedures Procedure Name Priority Date/Time Associated Diagnosis Comments PATHOLOGY TISSUE Routine 03/19/2020 10:4 3 AM SENIOR CONTROLS ANALYST Illness, unspecified documented in this encounter Results * PATHOLOGY TISSUE (03/19/2020 10:43 AM SENIOR CONTROLS ANALYST) Case Report Surgical Pathology Report Case: [id number] Authorizing Provider: Venkat Pineda MD Collected: 03/19/2020 10:43 AM Ordering Location: [facility] Pathology Lab Received: 03/21/2020 08:29 AM Pathologist: Fredis Peres MD Specimen: Lymph Node Biopsy 03/24/2020 2:02 PM [facility] PATH[facility] Final Diagnosis Lymph node, needle core biopsy: - Small fragments of lymphoid tissue, limited for full evaluation of lymphoma. - See description. 03/24/2020 2:02 PM [facility] PATH[facility] at [address] SENIOR CONTROLS ANALYST Microscopic Description and Comment Review of the lymph node core biopsy specimen reveals small fragments of lymphoid tissue, limited for full evaluation of lymphoma. CD30 and CD15 highlight a single larger cell. However, the specimen is too small for definitive evaluation. All controls worked appropriately. All controls worked appropriately. Recommend excision biopsy for further evaluation, if clinically indicated. Concurrent flow cytometry ([id number]) shows no clonal B-cell population detected, and mildly increased CD4:CD8 ratio in T-cells with no immunophenotypic aberrancies. 03/24/2020 2:02 PM [facility] Clinical History The patient is a 64 year-old man with left supraclavicular lymphadenopathy. 03/24/2020 2:02 PM [facility] Materials Received Received are 6 slide(s) and 1 block (A1) labeled [id number] along with a copy of the outside pathology report. [place] [address]. All original materials are returned to the referring institution, along with a copy of our final report. 03/24/2020 2:02 PM [facility] Disclaimer The performance characteristics of all immunohistochemical and indirect immunofluorescence stains (if any) cited in this report were determined by the Histopathology Laboratory of [facility]. Some of these tests were developed by [...] the attending (teaching) pathologist. 03/24/2020 2:02 PM SENIOR CONTROLS ANALYST [facility] PATHOLOGY LAB Embedded Images 03/24/2020 2:02 PM SENIOR CONTROLS ANALYST [facility] PATH[facility] Pathology/Cytolo gy BIOPSY OF LYMPH NODE / Unknown 03/19/2020 10:43 AM SENIOR CONTROLS ANALYST 03/21/2020 8:29 AM SENIOR CONTROLS ANALYST Venkat Pineda MD LAB - PATHOLOGY/CYTOLOGY ORDER JOSE Final Result [facility] PATH[facility] [address] [phone] documented in this encounter Visit Diagnoses Diagnosis Illness, unspecified documented in this encounter Additional Health Concerns Infection Onset Date Last Indicated Resolved Time COVID-19 Under Investigation 09/15/2020 09/15/2020 09/15/2020 9:18 PM CDT COVID-19 Under Investigation 12/10/2020 12/10/2020 12/11/2020 4:17 AM CDT COVID-19 Confirmed 03/12/2021 04/02/2021 4:33 AM SENIOR CONTROLS ANALYST COVID-19 Under Investigation 03/19/2021 03/19/2021 03/19/2021 4:42 PM SENIOR CONTROLS ANALYST COVID-19 Under Investigation 04/14/2021 04/14/2021 04/25/2021 4:33 AM SENIOR CONTROLS ANALYST COVID-19 Under Investigation 09/29/2021 09/29/2021 09/29/2021 8:59 PM CDT documented as of this encounter Care Teams Wireless Development Manager Relationship Specialty Start Date End Date Gi Pulliam MD [address] [place] [address] PCP - General Family Medicine 10/17/18 Sea Humphries MD [address] [place] [address] Referring Physician Medical Oncology 02/19/20 Kael Negron MD [address] [place] [address] Hematology and Oncology 02/19/20 03/26/21 Jaqui Colin MD [address] OF HEMATOLOGY & [place] [address] Hematology and Oncology 02/19/20 Janene Arriaga MD [address] OF HEMATOLOGY [place] [address] Hematology and Oncology 02/19/20 Federico Garcia MD [address] OF HEMATOLOGY [place] [address] Hematology and Oncology 02/19/20 Vijaya Ulrich, PharmD 02/19/20 Chandler Rosario, PharmD Pharmacist 02/19/20 11/25/20 Val Pisano, RN 02/19/20 Elaine Poole RN 02/19/20 11/25/20 Rina Argueta 02/19/20 Ayanna Winkler APRN-SPRINKLING SYSTEM INSTALLER Family Medicine 02/19/20 Yadi Dean, RN Registered Nurse 02/19/20 03/26/21 Nicole Ramos, RN Registered Nurse 02/19/20 11/25/20 Loreto Oliveros, RN Registered Nurse 02/19/20 11/25/20 Aditi Ladd, CONCRETE PAVER Recreation Therapy Aides Teacher 02/19/20 Kaia Munroe APRN-SPRINKLING SYSTEM INSTALLER [address] [facility] OF HEMATOLOGY & [place] [address] Advance Practice Nurse Family Medicine 08/05/20 Kassandra Richard, RN Registered Nurse 03/27/21 Doris Munguia RN Registered Nurse 06/03/21 documented as of this encounter
--- OUTSIDE RECORDS SUMMARY | 2024-07-31 14:09 | XMS_ITS | Encounter Summary ---
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) Social History Tobacco Use Types Packs/Day Years Used Date Smoking Tobacco: Never Smokeless Tobacco: Never Alcohol Use Standard Drinks/Week Comments No 0 (1 standard drink = 0.6 oz pur e alcohol) Sex and Gender Information Value Date Recorded Sex Assigned at Not on file Legal Sex Male 1:56 PM MANAGER FOOD SAFETY Gender Identity Not on file Sexual Orientation Straight 12/16/2023 2: 59 PM CDT documented as of this encounter Plan of Treatment Upcoming Encounters Date Type Department Care Team (Late Contact Info) Description 08/10/2024 12:45 PM CDT Office Visit [facility] Oncology and Hematology [facility] [address] [place] [address] Sea Humphries MD [address] [place] [address] documented as of this encounter Visit Diagnoses Diagnosis 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
--- OUTSIDE RECORDS SUMMARY | 2024-07-31 14:09 | XMS_ITS | Patient Health Record ---
Author Organization [facility] Address [address] [phone] Care Team Providers Care Ship Washer Name Role Phone LAURENCE BRANCH Unavailable [phone] Gi Pulliam Unavailable Unavailable Allergies Allergen (clinical [...] chloride 2.67 MEQ/ML Oral Solution *Reorder from [facility] for eRx and Interaction Alerts* 12/01/2017 Active metformin hydrochloride 1000 MG Oral Tablet ORAL metformin hydrochloride 1000 MG Oral TabletOriginal Medicationmetformin hydrochloride 1000 MG Oral Tablet *Reorder from [facility] for eRx and Interaction Alerts* 12/01/2017 Active aspirin 81 MG Delayed Release Oral Tablet [Aspir-Low] ORAL aspirin 81 MG Delayed Release Oral Tablet [Aspir-Low]Original Medicationaspirin 81 MG Delayed Release Oral Tablet [Aspir-Low] *Reorder from [facility] for eRx and Interaction Alerts* 12/01/2017 Active 3 ML insulin glargine 100 UNT/ML Pen Injector [Lantus] 3 ML insulin glargine 100 UNT/ML Pen Injector [Lantus]Original Medication3 ML insulin glargine 100 UNT/ML Pen Injector [Lantus] *Reorder from [facility] for eRx and Interaction Alerts* 12/01/2017 Active 0.5 ML dulaglutide 1.5 MG/ML Auto-Injector [Trulicity] 0.5 ML dulaglutide 1.5 MG/ML Auto-Injector [Trulicity]Original Medication0.5 ML dulaglutide 1.5 MG/ML Auto-Injector [Trulicity] *Reorder from [email or web address] for eRx and Interaction Alerts* 12/01/2017 Active Lisinopril 20 MG Oral Tablet ORAL lisinopril 20 MG Oral TabletOriginal Medicationlisinopril 20 MG Oral Tablet *[email or web address] for eRx and Interaction Alerts* 12/01/2017 Active Immunizations Vaccine Route Administration Date Status Comme nts Influenza, high dose seasonal Unknown 02/14/2023 Admini stered Encounters Encounter Location Date Provider Diagnosis [facility] [address] [place] [id number] 07/09/2024 LAURENCE SNOOK Tinea unguium B35.1 ; Pain in right toe(s) M79.674 ; Pain in left toe(s) M79.675 ; Atherosclerosis of [place] arteries of extremities with intermittent claudication, bilateral legs I70.213 and Type 2 diabetes mellitus with other circulatory complications E11.59 [facility] [address] [place] [id number] 08/22/2023 LAURENCE SNOOK Tinea unguium B35.1 ; Pain in right toe(s) M79.674 ; Pain in left toe(s) M79.675 ; Atherosclerosis of [place] arteries of extremities with intermittent claudication, bilateral legs I70.213 and Type 2 diabetes mellitus with other circulatory complications E11.59 [facility] [address] [place] [id number] 12/05/2023 LAURENCE SNOOK Tinea unguium B35.1 ; Type 2 diabetes mellitus with other circulatory complications E11.59 ; Pain in right toe(s) M79.674 ; Pain in left toe(s) M79.675 and Atherosclerosis of [place] arteries of extremities with intermittent claudication, bilateral legs I70.213 [facility] [address] [facility] [address] [place], [place] [phone] 02/01/2024 LAURENCE SNOOK Assessments Encounter Date Diagnosis [...] toe(s) (ICD-10 - M79.675) 08/22/2023 Atherosclerosis of [place] arteries of extremities with intermittent claudication, bilateral legs (ICD-10 - I70.213) 12/05/2023 Pain in left toe(s) (ICD-10 - M79.675) 07/09/2024 Pain in left toe(s) (ICD-10 - M79.675) 07/09/2024 Atherosclerosis of [place] arteries of extremities with intermittent claudication, bilateral legs (ICD-10 - I70.213) 12/05/2023 Atherosclerosis of [place] arteries of extremities with intermittent claudication, bilateral [...] Appt Details Provider Name:LAURENCE BRANCH, 02:40:00 PM, [address], [facility], [place], [place], [phone], Insurance Providers Payer Name Payer Address Payer Phone Subscriber Number Group Number Insured Name Patient Relationship to Insured Coverage Start Date Coverage End Date [employer]. [address] [place] [address] [id number] LINDA HARMON Self - patient is the insured Medical (General) History Medical History History ICD Code Diabetic
--- OUTSIDE RECORDS SUMMARY | 2024-07-31 14:09 | XMS_ITS | Clinical Summary ---
Author Organization [facility] Address [address] [place] [address] Phone Care Team Providers Care Bank Worker Name Role Phone Gi Pulliam MD [...] 80. Assessment & Plan (03/23/2016 4:14 PM FARM EQUIPMENT TECHNICIAN): Mild microcytosis persists, but his hemoglobin is within normal limits. We'll monitor it. Assessment & Plan (04/08/2015 12:23 PM FARM EQUIPMENT TECHNICIAN): Hb is sl better today, but he [...] unchanged. Assessment & Plan (03/23/2016 4:15 PM FARM EQUIPMENT TECHNICIAN): He is stable clinically with no signs [...] questions. 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 ([facility]/HCC) 07/26/2024 External Device Data STL ABSTRACTION Provider, Abstract 07/25/2024 External Device Data STL ABSTRACTION Provider, Abstract 07/24/2024 External Device Data STL ABSTRACTION Provider, Abstract 07/23/2024 Orders Only [facility] Oncology and Hematology - [address] [place] [address] Sea Humphries MD Benign hypertension 07/17/2024 External Device Data STL ABSTRACTION Provider, Abstract 07/16/2024 Orders Only [facility] Oncology and Hematology - [address] [place] [address] Sea Humphries MD 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 ([facility]/HCC) 07/13/2024 1:00 PM CDT Office Visit [facility] Oncology and Hematology - [address] [place] [address] Sea Humphries MD 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) (Primary Dx); Hypothyroidism, unspecified type 07/09/2024 Orders Only [facility] Oncology and Hematology - [address] [place] [address] Sea Humphries MD Benign hypertension 07/06/2024 Telephone [facility] Oncology and Hematology - [address] [place] [address] Sea Humphries MD Upper Respiratory Symptoms 07/02/2024 Orders Only [facility] Oncology and Hematology - [address] [place] [address] Sea Humphries MD 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) 06/25/2024 Orders Only [facility] Oncology and Hematology - [address] [place] [address] Sea Humphries MD Benign hypertension 06/18/2024 Orders Only [facility] Oncology and Hematology - [address] [place] [address] Sea Humphries MD 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) 06/12/2024 Orders Only [facility] Oncology and Hematology - [address] [place] [address] Sea Humphries MD 06/11/2024 Orders Only [facility] Oncology and Hematology - [address] [place] [address] Sea Humphries MD Benign hypertension 06/08/2024 12:30 PM CDT Office Visit [facility] Oncology and Hematology - [address] [place] [address] Sea Humphries MD 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) (Primary Dx) 06/04/2024 Orders Only [facility] Oncology and Hematology - [address] [place] [address] Sea Humphries MD 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) 05/28/2024 Orders Only [facility] Oncology and Hematology - [address] [place] [address] Sea Humphries MD Benign hypertension 05/21/2024 Telephone [facility] Oncology and Hematology - [address] [place] [address] Sea Humphries MD Cough 05/21/2024 Orders Only [facility] Oncology and Hematology - [address] [place] [address] Sea Humphries MD 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) 05/18/2024 Orders Only [facility] Oncology and Hematology - [address] [place] [address] Sea Humphries MD 05/14/2024 Abstract [facility] Oncology and Hematology - [address] [place] [address] Sea Humphries MD 05/14/2024 Orders Only [facility] Oncology and Hematology - [address] [place] [address] Sea Humphries MD Benign hypertension 05/10/2024 Orders Only [facility] Oncology and Hematology - [address] [place] [address] Sea Humphries MD 05/10/2024 Abstract [facility] Oncology and Hematology - [address] [place] [address] Sea Humphries MD 05/07/2024 Orders Only [facility] Oncology and Hematology [facility] [address] [place] [address] Sea Humphries MD 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) 05/04/2024 12:45 PM FARM EQUIPMENT TECHNICIAN Office Visit [facility] Oncology and Hematology [facility] [address] [place] [address] Sea Humphries MD 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) (Primary Dx) from Last 3 Months Immunizations [...] on file Legal Sex Male 1:56 PM FARM EQUIPMENT TECHNICIAN Gender Identity Not on file Sexual Orientation [...] 12:42 PM CDT Height 185.4 cm (6' 1) 11/02/2023 2:51 PM CDT Body Mass Index 38.71 11/02/2023 2:51 PM CDT Plan of Treatment Upcoming Encounters Date Type Department Care Team (Late st Contact Info) Description 08/10/2024 12:45 PM CDT Office Visit [facility] Oncology and Hematology - [place] [place] [address] Sea Humphries MD [address] [facility] [address] [place] [address] Health Maintenance Due Date Last [...] 10/05/2020 COVID-19 Vaccine (8 - Pfizer risk 2023- [...] history exists Medical Devices Explanted Type Area Record Clerk Salesperson Device Identifier Shelf Expiration Date Model / Serial / Lot Stent Polaris Ultra [id number] - [id number] Implanted:Qty : 1 on 03/03/2015 by Chang Tolentino MD at [facility] Explanted:Qty : 1 on 04/21/2015 by Chang Tolentino MD at [facility] Stent Left: [employer] [id number] 10/28/2017 192-134 / / [id number] Procedures Procedure Name Priority Date/Time Associated Diagnosis Comments BASIC METABOLIC PANEL Routine 07/27/2024 11:28 AM CDT COMPREHENSIVE METABOLIC PANEL Routine 07/27/2024 11:27 AM CDT T4 FREE Routine 07/13/2024 11:09 AM CDT [...] CBC WITH DIFFERENTIAL Routine 05/04/2024 1:57 PM FARM EQUIPMENT TECHNICIAN COMPREHENSIVE METABOLIC PANEL Routine 05/04/2024 9:50 AM FARM EQUIPMENT TECHNICIAN HEMOGLOBIN A1C Routine 10/26/2016 11:08 PM CDT from Last 3 Months or Most Recently Relevant to Health Maintenance Results * BASIC METABOLIC PANEL (07/27/2024 11:28 AM CDT) Only the most recent of4 resultswithin the time period is included. Blood us Sea Humphries MD CHEMISTRY ORDERABLES Final Resu lt * COMPREHENSIVE METABOLIC PANEL (07/27/2024 11:27 AM CDT) Only the most recent of5 resultswithin the time period is included. Blood us Sea Humphries MD CHEMISTRY ORDERABLES Final Resu lt * T4 FREE (07/13/2024 11:09 AM CDT) Blood Sea Humphries MD CHEMISTRY ORDERABLES Final Resu lt * CBC MIXED CELL DIFFERENTIAL (06/29/2024 1:04 PM CDT) Blood Sea Humphries MD HEMATOLOGY ORDERABLES Final Res ult * CBC WITH DIFFERENTIAL (05/04/2024 1:57 PM FARM EQUIPMENT TECHNICIAN) Blood Sea Humphries MD HEMATOLOGY ORDERABLES Final Res ult * (ABNORMAL) HEMOGLOBIN A1C (10/26/2016 11:08 PM CDT) HEMOGLOBIN A1C 11.1(H) 4.0 - 6.0 % 10/27/2016 7:21 AM CDT [facility] Comment:Note: Effective as o f 03/28/2015 a new methodology, Turbidimetric inhibition immunoassay (TINIA),has been implemented. EST. AVG GLUCOSE, A1C 272 mg/dL 10/27/2016 7:21 AM CDT [facility] Blood Collection / Unknown 10/26/2016 11:08 PM CDT 10/27/2016 6:57 AM CDT Result [facility] Kaia Solomon MD CHEMISTRY ORDERABLES Final Result [facility] CLIA# [id number] [address] [place] [address] from Last 3 Months or Most Recently Relevant to Health Maintenance Insurance [employer] Commercial Advance Directives For more information, please contact: [phone] * Full Code (Latest Code Status on File) Date Activated Date Inactivated Comments 11/15/2016 10:14 AM 11/15/2016 4:40 PM * Full Code Date Activated Date Inactivated Comments 10/27/2016 4:44 AM 10/27/2016 3:44 PM * Full Code Date Activated Date Inactivated Comments 04/21/2015 7:48 AM 04/21/2015 5:35 PM * Full Code Date Activated Date Inactivated Comments 03/03/2015 10:39 AM 03/03/2015 6:24 PM Care Teams Bank Worker Relationship Specialty Start Date End Date Gi Pulliam MD [address] [place] [address] PCP - General Family Practice 10/10/17
--- OUTSIDE RECORDS SUMMARY | 2024-07-31 14:09 | XMS_ITS ---
Author Organization [facility] Address [address] [place] [address] Phone Care Team Providers Care Environmental Services Supervisor Name Role Phone Gi Pulliam MD [...] 80. Assessment & Plan (03/23/2016 4:14 PM PIGS FEET FINISHER): Mild microcytosis persists, but his hemoglobin is within normal limits. We'll monitor it. Assessment & Plan (04/08/2015 12:23 PM PIGS FEET FINISHER): Hb is sl better today, but he [...] unchanged. Assessment & Plan (03/23/2016 4:15 PM PIGS FEET FINISHER): He is stable clinically with no signs [...] questions. Assessment & Plan (04/08/2015 12:28 PM PIGS FEET FINISHER): I had a long discussion with Zenon [...]
--- OUTSIDE RECORDS SUMMARY | 2024-07-31 14:09 | XMS_ITS | Encounter Summary ---
Author Organization [facility] Address [address] [place] [address] Care Team Providers Care Data Integrity Consultant Name Role Phone Gi Pulliam MD Primary Care Provider [phone] Sea Humphries MD Unavailable [phone] Jaqui Colin MD Unavailable [phone] Janene Arriaga MD Unavailable [phone] Federico Garcia MD Unavailable [phone] Vijaya Ulrich PharmD Unavailable Unavaila Val Licea RN Unavailable [facility]available [facility] Mccloud Unavailable Letty vailable Cathi, Ayanna John AUTO TUNE UP MECHANIC-NEIGHBORHOOD CONSERVATION OFFICER Unavailable [phone] Aditi Ladd LCSW Unavailable Unavailab Kaia Agee AUTO TUNE UP MECHANIC-NEIGHBORHOOD CONSERVATION OFFICER Unavailable [phone] Kassandra Richard RN Unavailable Unavaila Doris Sandy RN Unavailable Unavailable Reason for Visit * Reason Onset Date Comments MEDICATION REFILL 07/27/2024 Encounter Details Date Type Department Care Team (Late st Contact Info) Description 07/27/2024 Refill [facility] - Hematology/Oncology [address] [place] [address] Jaqui Colin MD [address] [facility] OF HEMATOLOGY & [place] [address] MEDICATION REFILL Social History Tobacco Use Types [...] and heating? Not hard at all 07/26/2023 [facility] - Occupational [...] place to sleep or slept in a long term (including now)? No 07/26/2023 Sex and Gender [...] [facility] [address] [place] [address] Jaqui Colin MD [address] [place] [address] OF HEMATOLOGY & [place] [address] 09/11/2024 1:45 PM CDT Appointment [facility] [address] [place] [address] Jaqui Colin MD [address] [place] [address] OF HEMATOLOGY & [place] [address] 09/11/2024 3:00 PM CDT Office Visit [facility] - Hematology/Oncology [address] [place] [address] Jaqui Colin MD [address] OF HEMATOLOGY & [place] [address] documented as of this encounter Goals Goal Patient Goal Type Associated Problems Recent Progress Patient-Stated? 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 (HCC) documented in this encounter Care Teams Data Integrity Consultant Relationship Specialty Start Date End Date Gi Pulliam MD [address] [place] [address] PCP - General Family Medicine 10/17/18 Sea Humphries MD [address] [place] [address] Referring Physician Medical Oncology 02/19/20 Jaqui Colin MD [address] OF HEMATOLOGY & [place] [address] Hematology and Oncology 02/19/20 Janene Arriaga MD [address] OF HEMATOLOGY & [place] [address] Hematology and Oncology 02/19/20 Federico Garcia MD [address] OF HEMATOLOGY & [place] [address] Hematology and Oncology 02/19/20 Vijaya Ulrich, PharmD 02/19/20 Val Pisano, RN 02/19/20 Rina Argueta 02/19/20 Ayanna Winkler APRN-NEIGHBORHOOD CONSERVATION OFFICER Family Medicine 02/19/20 Aditi Ladd, [facility] Skilled Nursing Case Manager 02/19/20 Kaia Munroe APRN-NEIGHBORHOOD CONSERVATION OFFICER [address] [facility] [place] [address] Advance Practice Nurse Family Medicine 08/05/20 Kassandra Richard, RN Registered Nurse 03/27/21 Doris Munguia, RN Registered Nurse 06/03/21 documented as of this encounter
--- OUTSIDE RECORDS SUMMARY | 2024-07-31 14:09 | XMS_ITS | Encounter Summary ---
Author Organization [facility] Address [address] [place] [address] Care Team Providers Care Robotics Mechanic Name Role Phone Gi Pulliam MD Primary Care Provider Encounter Details Date Type Department Care Team (Late Contact Info) Description 07/31/2024 Orders Only [facility] Oncology and Hematology [address] [place] [address] Sea Humphries MD [facility] [address] [place] [address] Social History Tobacco Use Types Packs/Day Years Used Date Smoking Tobacco: Never Smokeless Tobacco: Never Alcohol Use Standard Drinks/Week Comments No 0 (1 standard drink = 0.6 oz pur e alcohol) Sex and Gender Information Value Date Recorded Sex Assigned at Not on file Legal Sex Male 1:56 PM YELLOW PAGES SPACE SALESPERSON Gender Identity Not on file Sexual Orientation Straight 12/16/2023 2: 59 PM CDT documented as of this encounter Plan of Treatment Upcoming Encounters Date Type Department Care Team (Late Contact Info) Description 08/10/2024 12:45 PM CDT Office Visit [facility] Oncology and Hematology [address] [place] [address] Sea Humphries MD [address] [place] [address] documented as of this encounter Procedures Procedure Name Priority Date/Time Associated Diagnosis Comments BASIC METABOLIC PANEL Routine 07/27/2024 11:28 AM CDT COMPREHENSIVE METABOLIC PANEL Routine 07/27/2024 11:27 AM CDT documented in this encounter Results * BASIC METABOLIC PANEL (07/27/2024 11:28 AM CDT) Blood us Sea Humphries MD CHEMISTRY ORDERABLES Final Resu lt * COMPREHENSIVE METABOLIC PANEL (07/27/2024 11:27 AM CDT) Blood us Sea Humphries MD CHEMISTRY ORDERABLES Final Resu lt documented in this encounter Visit Diagnoses Not on filedocumented in this encounter Care Teams Robotics Mechanic Relationship Specialty Start Date End Date Gi Pulliam MD [address] [place] [address] PCP - General Family Practice 10/10/17 documented as of this encounter
--- OUTSIDE RECORDS SUMMARY | 2024-07-31 14:09 | XMS_ITS | Clinical Summary ---
Author Organization [facility] [employer] [employer] Address [address] [facility] [place] [address] Care Team Providers Care Electroplating Technician Name Role Phone Gi Pulliam MD Primary Care Provider [phone] Sea Humphries MD Unavailable [phone] Jaqui Colin MD Unavailable [phone] Janene Arriaga MD Unavailable [phone] Federico Garcia MD Unavailable [phone] Vijaya UlrichD Unavailable Unavaila Val Licea RN Unavailable Unavailable AmadorRina Pineda Unavailable Letty vailable Cathi, Ayanna John STUDY ABROAD COORDINATOR-SUPERVISOR CHAR HOUSE Unavailable [phone] Aditi Ladd LCSW Unavailable Unavailab Kaia Agee STUDY ABROAD COORDINATOR-SUPERVISOR [employer] HOUSE Unavailable [phone] Kassandra Richard RN Unavailable Unavaila Doris Sandy RN Unavailable Unavailable Source Comments [facility],non-owned Affiliates and Associated Physician Practices is amultiple site organization consisting of ambulatory clinics and hospital sitesin [place], [place], [place] and [place]. This disclosure is being madepursuant to the Care Everywhere program and may not contain all information available regarding this patient. Last updated 17.[facility] Allergies Active Allergy Reactions Criticality [...] INJECT 4 TIMES DAILY 04/27/19 22 Active LAWRECNE CONTOUR NEXT TEST test strip USE TO [...] Colon adenomas 03/10/2021 Overview (03/10/2021): 11/15/16 colonoscopy ([facility]): polyps per patient 03/10/21 colonoscopy: multiple [...] Encounters Date Type Department Care Team Description 07/27/2024 Refill [facility] - Hematology/Oncology [address] [place] [address] Yanni Navarro APRN-SUPERVISOR CHAR HOUSE MEDICATION REFILL 07/27/2024 Refill [facility] - Hematology/Oncology [address] [place] [phone] Jaqiu Colin MD MEDICATION REFILL 07/24/2024 Refill [facility] - Hematology/Oncology [address] [place] [phone] Jaqui Colin MD Refill Request 07/22/2024 Refill [facility] - Hematology/Oncology [address] [place] [phone] Jaqui Colin MD Refill Request 05/17/2024 Refill [facility] [address] [place] [phone] Oly NavarrondraJOHNNA-SUPERVISOR CHAR HOUSE Refill Request 05/08/2024 3:40 PM SANITATION LABORER Office Visit [facility] - Hematology/Oncology [address] [place] [phone] Jaqui Colin MD 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) 05/08/2024 2:20 PM SANITATION LABORER - 05/08/2024 11:59 PM SANITATION LABORER Hospital Encounter [facility] [address] [place] [phone] Jaqui Colin MD Discharge Disposition: Home or Self Care 05/08/2024 12:15 PM SANITATION LABORER - 05/08/2024 2:19 PM SANITATION LABORER Hospital Encounter [facility] [address] [place] [address] Jaqui Colin MD Discharge Disposition: Home or Self Care 05/08/2024 11:15 AM SANITATION LABORER - 05/08/2024 12:14 PM SANITATION LABORER Hospital Encounter [facility] [address] [place] [address] Jaqui Colin MD Discharge Disposition: Home or Self Care 05/08/2024 Travel 05/03/2024 Orders Only [facility] - Hematology/Oncology [address] [place] [phone] Jaqui Colin MD Nodular sclerosis Hodgkin lymphoma [...] DOSE 12/14/2023, 4,10/06/2022 HIB-PRP-T 4 DOSE 03/23/2022,01/13/2022, INFLUENZA VACCINE 12/27/2019,11/22/2017,12/12/19 17 INFLUENZA VACCINE, ADJUVANTE D, QUADR. (FLUAD QUADRIVALENT; 65Y+) (AIIV4) 12/14/2023,12/21/2022 INFLUENZA VACCINE, HIGH-DOSE , QUADR. (FLUZONE HIGH-DOSE QUADRIVALENT; 65Y+), 0.7 ML (HD-IIV4) 12/14/2023,01/13/2022,12/22/2020(Defer red: See Comments - held per conversation wt Meron OROPEZA/Dr. Colin, as paitent to receive [...] Not hard at all 07/26/2023 [facility] - Occupational Stress [...] place to sleep or slept in a prison (including now)? No 07/26/2023 Sex and Gender Information Value Date Recorded Sex Assigned at Not on file Legal Sex Male 8:20 PM CDT Gender Identity Male 09/05/2023 9:57 AM CDT Sexual Orientation Not on file Last Filed Vital Signs Vital Sign Reading Time Taken Comments Blood Pressure 137/74 05/08/2024 3:45 PM SANITATION LABORER Pulse 62 05/08/2024 3:45 PM SANITATION LABORER Temperature 36.3 C (97.3 F) 05/08/2024 3:45 PM SANITATION LABORER Respiratory Rate 20 05/08/2024 3:45 PM SANITATION LABORER Oxygen Saturation 97% 05/08/2024 3:45 PM SANITATION LABORER Inhaled Oxygen Concentration - - Weight 136.5 kg (301 lb) 05/08/2024 3:45 PM SANITATION LABORER Height 186.7 cm (6' 1.5) 12/23/2023 12:22 PM CD T Body Mass Index 39.17 12/23/2023 12:22 PM CDT Plan of Treatment Upcoming Encounters Date Type Department Care Team (Late st Contact Info) Description 09/11/2024 12:45 PM CDT Appointment [facility] [address] [place] [phone] Jaqui Colin MD [address] [place] [address] OF HEMATOLOGY & [place] [address] 09/11/2024 1:45 PM CDT Appointment [facility] [address] [place] [phone] Jaqui Colin MD [address] [place] [address] OF HEMATOLOGY & [place] [address] 09/11/2024 3:00 PM CDT Office Visit [facility] - Hematology/Oncology [address] [place] [phone] Jaqui Colin MD [address] [place] [address] OF HEMATOLOGY & [place] [address] Health Maintenance Due Date Last Done Comments [...] RETINOPATHY SCREENING 10/05/2022 10/05/2020, 10/04/2020 COVID-19 VACCINE (2023- season) 2023 02/07/2023, 10/06/2022, 01/13/2022, Additional history [...] Management General On track( 021 9:57 AM SANITATION LABORER) No Mercedes Cooper, RN Note: Expected end date: ongoing Interventions: Take all medications as prescribed Medical Devices Implanted Type Area Shactor Helper Device Identifier Shelf Expiration Date Model / Serial / Lot Tray Cath 12fr 23cm Hkmn Trifusion 3 Lum Implanted:Qty: 1 on 03/12/2021 by Julian Starks MD at [facility] Left: Chest Wall [employer] 10/04/2022 [id number] / / [id number] Procedures Procedure Name Priority Date/Time Associated Diagnosis Comments PET CT SKULL TO MID THIGH Routine 05/08/2024 2:21 PM SANITATION LABORER 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 ERYTHROCYTE SEDIMENTATION RATE STAT 05/08/2024 12:57 PM SANITATION LABORER 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 COMPREHENSIVE METABOLIC PANEL STAT 05/08/2024 12:57 PM SANITATION LABORER 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 CBC W AUTO DIFFERENTIAL STAT 05/08/2024 12:57 PM SANITATION LABORER 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 GLUCOSE SCREEN - POCT (IP) [facility] STAT 05/08/2024 12:40 PM SANITATION LABORER HEMOGLOBIN A1C Routine 07/27/2023 1:11 AM CDT ENDOSCOPY, COLON, SCREENING Routine 03/10/2021 11:38 AM SANITATION LABORER HEPATITIS C ANTIBODY Routine 02/24/2021 11:55 AM SANITATION LABORER Pre-transplant evaluation for stem cell transplant 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 Redemonstrated numerous hypermetabolic lymph nodes [...] exam findings. This study was dictated by vice president of compliance Chris Morocho MD and reviewed and edited by the attending. > Dictated by Chris Morocho (Smoke Inspector) 05/08/2024 1:09 PM ITod DO have personally reviewed and interpreted this examination/study. > Interpreting Provider: Tod Bruno DO on 05/08/2024 3:41 PM Narrative 05/08/2024 3:41 PM SANITATION LABORER PROCEDURE: PET CT SKULL TO MID THIGH [...] exam findings. This study was dictated by vice president of compliance Chris Morocho MD and reviewed and edited by the attending. > Dictated by Chris Morocho (Smoke Inspector) 05/08/2024 1:09 PM ITod DO have personally reviewed and interpreted this examination/study. > Interpreting Provider: Tod Bruno DO on 05/08/2024 3:41 PM Jaqui Colin MD [place] ORDERABLES Final Result * (ABNORMAL) ERYTHROCYTE SEDIMENTATION RATE (05/08/2024 12:57 PM SANITATION LABORER) Erythrocyte Sedimentation Rate Westergren 22(H) 0 - 20 MM/HR 05/08/2024 1:16 PM SANITATION LABORER [facility] Blood BLOOD SPECIMEN / Unknown Venipuncture / Unknown 05/08/2024 12:57 PM SANITATION LABORER 05/08/2024 12:58 PM SANITATION LABORER us Jaqui Colin MD LAB - HEMATOLOGY ORDERABLES Fin al Result [address] [address], [facility] [phone] * (ABNORMAL) CBC W AUTO DIFFERENTIAL (05/08/2024 12:57 PM [facility] WBC 6.8 4.0 - 10.7 x10E9/L 05/08/2024 1:03 PM [facility] RBC Count 3.49(L) 4.30 - 5.80 x10E12/L 05/08/2024 1:03 PM [facility] Hemoglobin 10.1(L) 13.3 - 17.5 g/dL 05/08/2024 1:03 PM [facility] Hematocrit 31.0(L) 38.7 - 51.1 % 05/08/2024 1:03 PM [facility] MCV 88.8 80.0 - 98.0 fL 05/08/2024 1:03 PM [facility] MCH 28.9 26.7 - 33.6 pg 05/08/2024 1:03 PM [facility] MCHC 32.6 31.7 - 36.3 g/dL 05/08/2024 1:03 PM [facility] RDW-CV 14.2 11.3 - 14.8 % 05/08/2024 1:03 PM [facility] Platelet Count 251 150 - 420 x10E9/L 05/08/2024 1:03 PM [facility] MPV 8.6 7.8 - 11.4 fL 05/08/2024 1:03 PM [facility] Preliminary Absolute Neutrophil 4.44 1.60 - 7.50 x10E9/L 05/08/2024 1:03 PM [facility] Neutrophil % 65.9 41.0 - 74.0 % 05/08/2024 1:03 PM [facility] Lymphocyte % 16.4(L) 17.0 - 47.0 % 05/08/2024 1:03 PM [facility] Monocyte % 9.6 3.0 - 11.0 % 05/08/2024 1:03 PM [facility] Eosinophil % 6.5 0.0 - 7.0 % 05/08/2024 1:03 PM [facility] Basophil % 0.3 0.0 - 1.6 % 05/08/2024 1:03 PM [facility] Immature Granulocytes % 1.3(H) 0.0 - 1.0 % 05/08/2024 1:03 PM [facility] Neutrophil Absolute 4.44 1.60 - 7.50 x10E9/L 05/08/2024 1:03 PM [facility] Lymphocyte Absolute 1.11 1.00 - 4.40 x10E9/L 05/08/2024 1:03 PM [facility] Monocyte Absolute 0.65 0.15 - 1.00 x10E9/L 05/08/2024 1:03 PM [facility] Eosinophil Absolute 0.44 0.00 - 0.60 x10E9/L 05/08/2024 1:03 PM [facility] Basophil Absolute 0.02 0.00 - 0.13 x10E9/L 05/08/2024 1:03 PM [facility] Blood BLOOD SPECIMEN / Unknown Venipuncture / Unknown 05/08/2024 12:57 PM SANITATION LABORER 05/08/2024 12:58 PM SANITATION LABORER us Jaqui Colin MD LAB - HEMATOLOGY ORDERABLES Fin al Result Performing Organization Address City/State/[facility] Co de Phone Number [facility] [address] [place] [address], [facility] [phone] * (ABNORMAL) COMPREHENSIVE METABOLIC PANEL (05/08/2024 12:57 PM SANITATION LABORER) BUN 30(H) 7 - 26 mg/dL 05/08/2024 1:28 PM [facility] Creatinine 1.13 0.71 - 1.16 mg/dL 05/08/2024 1:28 PM [facility] Sodium 138 136 - 145 mmol/L 05/08/2024 1:28 PM [facility] Potassium 4.7(H) 3.5 - 4.5 mmol/L 05/08/2024 1:28 PM [facility] Chloride 106 98 - 107 mmol/L 05/08/2024 1:28 PM [facility] CO2 25 22 - 29 mmol/L 05/08/2024 1:28 PM [facility] Glucose 158(H) 70 - 99 mg/dL 05/08/2024 1:28 PM [facility] Calcium 9.6 8.4 - 10.2 mg/dL 05/08/2024 1:28 PM [facility] Protein Total 6.4 6.0 - 8.3 g/dL 05/08/2024 1:28 PM [facility] Albumin 3.9 3.4 - 5.0 g/dL 05/08/2024 1:28 PM [facility] Bilirubin Total 0.7 0.2 - 1.2 mg/dL 05/08/2024 1:28 PM [facility] Alkaline Phosphatase 159(H) 40 - 150 U/L 05/08/2024 1:28 PM [facility] ALT 22 5 - 55 U/L 05/08/2024 1:28 PM [facility] AST 17 5 - 34 U/L 05/08/2024 1:28 PM [facility] Anion Gap 7 6 - 16 05/08/2024 1:28 PM [facility] BUN/Creatinine Ratio 27(H) 7 - 23 05/08/2024 1:28 PM [facility] Osmolality Calculated 295 275 - 295 mOsm/kg 05/08/2024 1:28 PM [facility] Albumin/Globulin Ratio 1.6 1.1 - 2.3 05/08/2024 1:28 PM [facility] eGFR by CKD-EPI 71(L) >=90 mL/min/1.7 3 m2 05/08/2024 1:28 PM [facility] Blood BLOOD SPECIMEN / Unknown Venipuncture / Unknown 05/08/2024 12:57 PM SANITATION LABORER 05/08/2024 12:58 PM SANITATION LABORER us Jaqui Colin MD LAB - CHEMISTRY ORDERABLES Christine burr Result [facility] [address] [place] [address], [place] [phone] * (ABNORMAL) GLUCOSE SCREEN - POCT (IP) [facility] (05/08/2024 12:40 PM SANITATION LABORER) Glucose WB/POC 175(A) 70 - 99 mg/dL [facility] Blood BLOOD SPECIMEN / Unknown 05/08/2024 12:40 PM SANITATION LABORER Jaqui Colin MD LAB - POINT OF CARE ORDERABLES Final Result Performing Organization Address City/[facility]/ZIP Co de Phone Number [facility] PO[facility] [address] [place] [address], [facility] [phone] * (ABNORMAL) HEMOGLOBIN A1C (07/27/2023 1:11 AM CDT) Hemoglobin A1c 6.6(H) <=5.6 % 07/27/2023 9:32 AM CDT [facility] Estimated Average Glucose 143 mg/dL 07/27/2023 9:32 AM CDT [facility] Comment: HbA1c Interpretation: Normal : < 5.7% Pre-diabetes: 5.7-6.4% Diabetes: Equal to or greater than 6.5% Test results diagnostic of diabetes should be repeated for confirmation. Treatment target values recommended by ADA and other clinical organizations should be used to evaluate metabolic control in patients. Reference: [place] [employer], Standards of Care in Diabetes -2020 In patients 70 years and older consider HbA1c target range of 7.0-7.5% (Reference: Timothy Hardy et al. JAMDA. 2012) The Sebia assay for the measurement of HbA1c is a National Glycohemoglobin Standardization Program (NGSP) certified method. Blood BLOOD SPECIMEN / Unknown Venipuncture / Unknown 07/27/2023 1:11 AM CDT 07/27/2023 1:20 AM CDT Kitty Humphreis MD LAB - CHEMISTRY ORDERABLES Final Result Performing Organization Address City/[facility]/ZIP Co de Phone Number [facility] [address] [place] [address], [facility] [phone] * ENDOSCOPY, COLON, SCREENING (03/10/2021 11:38 AM SANITATION LABORER) Report Endoscopy POC Endoscopy Department Report _ [...] bowel preparation was evaluated using the BBPS ([place] Bowel Preparation Scale) with scores of: Right [...] non-banegas portions. Procedure Code(s): --- Professional --- 93081, Colonoscopy, flexible; with removal of tumor(s), polyp(s), or other lesion(s) by snare technique 85644, 59, Colonoscopy, flexible; with biopsy, single or multiple Diagnosis Code(s): --- Professional --- K63.5, Polyp of colon Z86.010, Personal history of colonic polyps CPT copyright 2019 [place] [employer]. All rights reserved. The codes documented in this report are preliminary and upon ems helicopter pilot review may be revised to meet current compliance requirements. Simone Mccallum MD 03/10/2021 1:43:34 PM This report has been signed electronically. Note Initiated On: 03/10/2021 11:38 AM Number of Addenda: [address] [address] [facility] 03/10/2021 11:3 8 AM SANITATION LABORER us Stanton Louis MD GI PROCEDURE ORDERABLES Edited R esult - Final [facility] * HEPATITIS C ANTIBODY (02/24/2021 11:55 AM SANITATION LABORER) Hepatitis C Antibody Non-react marcy Non-reac tive 02/24/2021 1:11 PM SANITATION LABORER [facility] Comment:Hepatitis C Antibody screen indicates no serologic evidence of past or current infection with Hepatitis C Virus. Patients with unexplained liver disease who are immunocompromised or suspected of having acute Hepatitis C infection may benefit from Nucleic Acid Test (AJ) for Hepatitis C Viral RNA to confirm Hepatitis C status. Blood BLOOD SPECIMEN / Unknown Venipuncture / Unknown 02/24/2021 11:55 AM SANITATION LABORER 02/24/2021 12:03 PM SANITATION LABORER Jaqui Colin MD LAB - CHEMISTRY ORDERABLES Christine aminah Result [facility] [address] [place] [address], [facility] [phone] from Last 3 Months or Most Recently Relevant to Health Maintenance Insurance [employer] MANAGED MEDICARE ADV Advance Directives Documents on File Type Date Recorded Patient Registered Nurse Surgical Services Expl anation Adv Directive/Living Will/POA 06/22/2021 6:30 [...] 2:23 PM 10/15/2020 6:04 PM Care Teams Electroplating Technician Relationship Specialty Start Date End Date Gi Pulliam MD [address] [place] [address] PCP - General Family Medicine 10/17/18 Sea Humphries MD [address] [place] [address] Referring Physician Medical Oncology 02/19/20 Jaqui Colin MD [address] DIV OF HEMATOLOGY & [place] [address] Hematology and Oncology 02/19/20 Janene Arriaga MD [address] DIV OF HEMATOLOGY & [place] [address] Hematology and Oncology 02/19/20 Federico Garcia MD [address] DIV OF HEMATOLOGY & [place] [address] Hematology and Oncology 02/19/20 Vijaya Ulrich, PharmD 02/19/20 Val Pisano, RN 02/19/20 Rina Argueta 02/19/20 Ayanna Winkler APRN-TERRIE Family Medicine 02/19/20 Aditi Ladd, MILL [employer] Business Applications Analyst 02/19/20 Kaia Munroe APRN-TERRIE [address] [facility] & [place] [address] Advance Practice Nurse Family Medicine 08/05/20 Kassandra Richard, RN Registered Nurse 03/27/21 Doris Munguia, RN Registered Nurse 06/03/21
--- OUTSIDE RECORDS SUMMARY | 2024-07-31 14:09 | XMS_ITS | Encounter Summary ---
Author Organization [facility] Address [address] [place] [address] Care Team Providers Care Surgical Nurse Practitioner Name Role Phone Gi Pulliam MD Primary Care Provider [phone] Sae Humphries MD Unavailable [phone] Kael Negron MD Unavailable [phone] Jaqui Colin MD Unavailable [phone] Janene Arriaga MD Unavailable [phone] Federico Garcia MD Unavailable [phone] Vijaya Ulrich PharmD Unavailable Unavaila Chandler Avila PharmD Unavailable Unavailab Val Lenz RN Unavailable Unavailable Elaine Poole RN Unavailable Unavailab Rina Trinidad Unavailable Letty vailable Cathi, Ayanna John RENAL DIETITIAN-RECOVERY COACH Unavailable [phone] Yadi Dean RN Unavailable Unavailable Nicole Ramos RN Unavailable Unavailable Loreto Oliveros RN Unavailable UnavailAditi Marin LCSW Unavailable Unavailab Kaia Agee RENAL DIETITIAN-RECOVERY COACH Unavailable [phone] Kassandra Richard RN Unavailable Unavaila ble Ezra, Doris J RN Unavailable Unavailable Encounter Details Date Type Department Care Team (Late Contact Info) Description 03/19/2020 Lab Requisition [facility] Care Pathology Lab [address] [place] [address] Venkat Pineda MD [address] [address] Hodgkin lymphoma, unspecified, unspecified site Social History [...] Upcoming Encounters Date Type Department Care Team ([facility] Contact Info) Description 09/11/2024 12:45 PM CDT Appointment [facility] [address] [place] [phone] Jaqui Colin MD [address] [place] [address] OF HEMATOLOGY & [place] [address] 09/11/2024 1:45 PM CDT Appointment [facility] [address] [place] [phone] Jaqui Colin MD [address] [place] [address] OF HEMATOLOGY & [place] [address] 09/11/2024 3:00 PM CDT Office Visit [facility] - Hematology/Oncology [address] [place] [phone] Jaqui Colin MD [address] [place] [address] OF HEMATOLOGY & [place] [address] documented as of this encounter Procedures Procedure Name Priority Date/Time Associated Diagnosis Comments FLOW CYTOMETRY TISSUE PANEL Routine 03/19/2020 10:43 AM AUTOMATION DRIVER Hodgkin lymphoma, unspecified, unspecified site documented in this encounter Results * FLOW CYTOMETRY TISSUE PANEL (03/19/2020 10:43 AM AUTOMATION DRIVER) Case Report Flow Cytometry Case: [id number] Authorizing Provider: Venkat Pineda MD Collected: 03/19/2020 10:43 AM Ordering Location: [facility] Pathology Lab Received: 03/19/2020 02:29 PM Pathologist: Fredis Peres MD Specimen: 11:47 AM [facility] Final Diagnosis Lymph node, L+ supr a , flow cytometric immunophenotypic analysis: - No clonal B-cell population detected - Mildly increased CD4:CD8 ratio in T-cells with no immunophenotypic aberrancies - See interpretation. 11:47 AM [facility] at [address] AUTOMATION DRIVER Flow Cytometry Interpretation The L+ supra lymph [...] the flow cytometry specimen is reviewed for supplier quality engineering manager purposes. Due to their large size outside the regular gating parameters, certain lymphomas such as Hodgkin lymphoma or anaplastic large cell lymphoma may not be detected by this analysis. Morphologic correlation is recommended. 11:47 AM [facility] Flow Cytometry Results Differential Result Comment Flow Cell Count /uL 1,800 Total Viability % 100.0 Lymphocytes % 940 Dim CD45 Region % 0 Monocytes % 2 Granulocytes % 4 11:[address] [facility] Reason for test Hodgkin lymphoma, unspecified, unspecified site 11:47 AM [facility] Client Specimen ID # [id number] 11:47 AM [facility] Number of markers 16 were performed. A-2 Flow CD3 A-4 Flow CD10 A-6 Flow CD20 A-7 Flow CD23 A-12 Flow CD2 A-13 Flow CD4 A-16 Flow CD1a A-3 Flow CD5 A-5 Flow CD19 A-8 Flow CD34 A-9 Flow CD45 A-14 Flow CD7 A-15 Flow CD8 A-17 Flow CD30 A-10 Winkelman+CD19+ A-11 Lambda+CD19+ 11:47 AM [facility] Disclaimer Test performed at [facility], [address] [place], [place], [address]. *The established laboratory minimum viability is 70%. [...] perform high complexity clinical testing. 11:47 AM [facility] Embedded Images 11:47 AM [facility] Pathology/Cytolo gy 03/19/2020 10:43 AM AUTOMATION DRIVER 03/19/2020 2:29 PM AUTOMATION DRIVER Venkat Pineda MD LAB - PATHOLOGY/CYTOLOGY ORDER JOSE Final Result [facility] [address] [place] [address]. [address] [phone] documented in this encounter Visit Diagnoses Diagnosis Hodgkin lymphoma, unspecified, unspecified site (HCC) documented in this encounter Additional Health Concerns Infection Onset Date Last Indicated Resolved Time COVID-19 Under Investigation 09/15/2020 09/15/2020 09/15/2020 9:18 PM CDT COVID-19 Under Investigation 12/10/2020 12/10/2020 12/11/2020 4:17 AM CDT COVID-19 Confirmed 03/12/2021 04/02/2021 4:33 AM AUTOMATION DRIVER COVID-19 Under Investigation 03/19/2021 03/19/2021 03/19/2021 4:42 PM AUTOMATION DRIVER COVID-19 Under Investigation 04/14/2021 04/14/2021 04/25/2021 4:33 AM AUTOMATION DRIVER COVID-19 Under Investigation 09/29/2021 09/29/2021 09/29/2021 8:59 PM CDT documented as of this encounter Care Teams Surgical Nurse Practitioner Relationship Specialty Start Date End Date Gi Pulliam MD [address] [place] [address] PCP - General Family Medicine 10/17/18 Sea Humphries MD [address] [place] [address] Referring Physician Medical Oncology 02/19/20 Kael Negron MD [address] [place] [address] Hematology and Oncology 02/19/20 03/26/21 Jaqui Colin MD [address] OF HEMATOLOGY & [place] [address] Hematology and Oncology 02/19/20 Janene Arriaga MD [address] OF HEMATOLOGY & [place] [address] Hematology and Oncology 02/19/20 Federico Garcia MD [address] OF HEMATOLOGY & [place] [address] Hematology and Oncology 02/19/20 Vijaya Ulrich, PharmD 02/19/20 Chandler Rosario, PharmD Pharmacist 02/19/20 11/25/20 Val Pisano, RN 02/19/20 Elaine Poole, MELISSA 02/19/20 11/25/20 Rina Argueta 02/19/20 Ayanna Winkler, RENAL DIETITIAN-RECOVERY COACH Family Medicine 02/19/20 Yadi Dean, RN Registered Nurse 02/19/20 03/26/21 Nicole Ramos, RN Registered Nurse 02/19/20 11/25/20 Loreto Oliveros, RN Registered Nurse 02/19/20 11/25/20 Aditi Ladd, [facility] Escalator Constructor 02/19/20 Kaia Munroe, JOHNNA-RECOVERY COACH [address] [facility] OF HEMATOLOGY [place] [address] Advance Practice Nurse Family Medicine 08/05/20 Kassandra Richard, RN Registered Nurse 03/27/21 Doris Munguia, RN Registered Nurse 06/03/21 documented as of this encounter
--- OUTSIDE RECORDS SUMMARY | 2024-07-31 14:09 | XMS_ITS | Encounter Summary ---
Author Organization [facility] Address [address] [facility] [place] [address] Care Team Providers Care Hand Printed Circuit Board Assembler Name Role Phone Gi Pulliam MD Primary Care Provider [phone] Sea Humphries MD Unavailable [phone] Jaqui Colin MD Unavailable [phone] Janene Arriaga MD Unavailable [phone] Federico Garcia MD Unavailable [phone] Vijaya Ulrich PharmD Unavailable Unavaila Val Licea RN Unavailable Unavailable [facility] Mccloud Unavailable Letty vailable Cathi, Ayanna John SYSTEMS DESIGNER-ENVIRONMENTAL ADVISOR Unavailable [phone] Aditi Ladd LCSW Unavailable Unavailab Kaia Agee SYSTEMS DESIGNER-ENVIRONMENTAL ADVISOR Unavailable [phone] Kassandra Richard RN Unavailable Unavaila Doris Sandy RN Unavailable Unavailable Reason for Visit * Reason Onset Date Comments MEDICATION REFILL 07/27/2024 Encounter Details Date Type Department Care Team (Late st Contact Info) Description 07/27/2024 Refill [facility] - Hematology/Oncology [address] [facility] [place] [address] Yanni Navarro APRN-[facility] [address] [place] [address] MEDICATION REFILL Social History Tobacco Use Types [...] and heating? Not hard at all 07/26/2023 [facility] ional [facility] - Occupational Stress [...] place to sleep or slept in a care home (including now)? No 07/26/2023 Sex and Gender [...] CDT Appointment [facility] [address] [place] [address] Jaqui Colin MD [address] [place] [address] OF HEMATOLOGY [place] [address] 09/11/2024 1:45 PM CDT Appointment [facility] [address] [place] [address] Jaqui Colin MD [address] [place] [address] OF HEMATOLOGY [place] [address] 09/11/2024 3:00 PM CDT Office Visit [facility] - Hematology/Oncology [address] [place] [address] Jaqui Colin MD [address] OF HEMATOLOGY [place] [address] documented as of this encounter Goals Goal Patient Goal Type Associated Problems Recent Progress Patient-Stated? Author Medication Management General On track( 021 9:57 AM SUIT ATTENDANT) Mercedes Minor, RN Note: Expected end date: ongoing Interventions: Take all medications as prescribed documented as of this encounter Visit Diagnoses Diagnosis Low iron Iron deficiency anemia, unspecified documented in this encounter Care Teams Hand Printed Circuit Board Assembler Relationship Specialty Start Date End Date Gi Pulliam MD [address] [place] [address] PCP - General Family Medicine 10/17/18 Sea Humphries MD [address] [place] [address] Referring Physician Medical Oncology 02/19/20 Jaqui Colin MD [address] OF HEMATOLOGY [place] [address] Hematology and Oncology 02/19/20 Janene Arriaga MD [address] DIV OF HEMATOLOGY [place] [address] Hematology and Oncology 02/19/20 Federico Garcia MD [address] OF HEMATOLOGY [place] [address] Hematology and Oncology 02/19/20 Vijaya Ulrich, PharmD 02/19/20 Val Pisano, RN 02/19/20 Rina Argueta 02/19/20 Ayanna Winkler, JOHNNA-ENVIRONMENTAL ADVISOR Family Medicine 02/19/20 Aditi Ladd, [facility] Wash House Worker 02/19/20 Kaia Munroe, JOHNNA-ENVIRONMENTAL ADVISOR [address] [facility] OF HEMATOLOGY [place] [address] Advance Practice Nurse Family Medicine 08/05/20 Kassandra Richard, RN Registered Nurse 03/27/21 Doris Munguia, RN Registered Nurse 06/03/21 documented as of this encounter
--- OUTSIDE RECORDS SUMMARY | 2024-07-31 14:10 | XMS_ITS | Clinical Summary ---
Author Organization [facility] Address [address] [place] [address] Care Team Providers Care Combat Engineer Name Role Phone Gi Pulliam MD Primary Care Provider [phone] Allergies Active Allergy Reactions Criticality Noted Date [...] 9:08 AM CDT Height 185.4 cm (6' 1) 10/15/2020 6:23 PM CDT Body Mass Index 38.92 10/15/2020 6:23 PM CDT Plan of Treatment Not on file Advance Directives * Full Resuscitation (Latest Code Status on File) Date Activated Date Inactivated Comments 10/15/2020 7:16 PM 10/24/2020 2:56 PM Care Teams Combat Engineer Relationship Specialty Start Date End Date Gi Pulliam MD [address] [place] [address] PCP - General Family Medicine 10/15/20
--- OUTSIDE RECORDS SUMMARY | 2024-07-31 14:10 | XMS_ITS | Referral Summary ---
Author Organization [facility] Address [address] [place] [address] Care Team Providers Care Power Supply Engineer Name Role Phone Gi Pulliam MD Primary Care Provider Carolin Nguyen MD Unavailable [phone] Kiera Jay MD Unavailable [phone] Medications No known medications Active Problems Problem [...] Comments Blood Pressure 147/79 02/26/2013 1:28 PM SLIVER LAP MACHINE TENDER Pulse 80 02/26/2013 1:28 PM SLIVER LAP MACHINE TENDER Temperature 36.7 C (98 F) 02/26/2013 1:28 PM SLIVER LAP MACHINE TENDER Respiratory Rate - - Oxygen Saturation 97% 02/26/2013 1:28 PM SLIVER LAP MACHINE TENDER Inhaled Oxygen Concentration - - Weight 133.8 kg (295 lb) 02/26/2013 1:28 PM SLIVER LAP MACHINE TENDER Height 193 cm (6' 4) 02/26/2013 1:28 PM SLIVER LAP MACHINE TENDER Body Mass Index 35.91 02/26/2013 1:28 PM SLIVER LAP MACHINE TENDER Plan of Treatment Not on file Insurance [employer] Care Teams Power Supply Engineer Relationship Specialty Start Date End Date Gi Pulliam MD [address] [place] [address] [place] [address] PCP - General Family Practice 01/22/20 Carolin Nguyen MD [address] [address] Referring Physician Internal Medicine 01/23/20 Kiera Jay MD [address] [facility] [address] [place] [address] Consulting Physician Medical Oncology 01/23/20
--- OUTSIDE RECORDS SUMMARY | 2024-07-31 14:10 | XMS_ITS | Encounter Summary ---
Author Organization [facility] Address [facility] [facility] [place] [address] Care Team Providers Care Nickel Plant Operator Name Role Phone Gi Pulliam MD Primary Care Provider [phone] Sea Humphries MD Unavailable [phone] Kael Negron MD Unavailable [phone] Jaqui Colin MD Unavailable [phone] Janene Arriaga MD Unavailable Federico Garcia MD Unavailable [phone] Vijaya Ulrich PharmD Unavailable Unavaila Val Licea RN Unavailable Unavailable [facility] Mccloud Unavailable Letty vailable Cathi, Ayanna John RECONCILIATION ACCOUNTANT-EMERGENCY PLANNER Unavailable [phone] Yadi Dean RN Unavailable Unavailable Aditi Ladd LCSW Unavailable Unavailab Kaia Agee RECONCILIATION ACCOUNTANT-EMERGENCY PLANNER Unavailable [phone] Kassandra Richard RN Unavailable Unavaila Doris Sandy RN Unavailable Unavailable Encounter Details Date Type Department Care Team (Late st Contact Info) Description 12/01/2020 Telephone [facility] [address] [place] [address] Nicole Ramos RN Social History [...] Description 09/11/2024 12:45 PM CDT Appointment [facility] [address] [place] [address] Jaqui Colin MD [address] [facility] DIV OF HEMATOLOGY [place] [address] 09/11/2024 1:45 PM CDT Appointment [facility] PET [address] [place] [phone] Jaqui Colin MD [address] [place] [address] OF HEMATOLOGY [place] [address] 09/11/2024 3:00 PM CDT Office Visit [facility] Group - Hematology/Oncology [address] [place] [address] Jaqui Colin MD [address] [place] [address] OF HEMATOLOGY [place] [address] documented as of this encounter Visit Diagnoses Not on filedocumented in this encounter Additional Health Concerns Infection Onset Date Last Indicated Resolved Time COVID-19 Under Investigation 12/10/2020 12/10/2020 12/11/2020 4:17 AM CDT COVID-19 Confirmed 03/12/2021 04/02/2021 4:33 AM CREW LEADER GLUING COVID-19 Under Investigation 03/19/2021 03/19/2021 03/19/2021 4:42 PM CREW LEADER GLUING COVID-19 Under Investigation 04/14/2021 04/14/2021 04/25/2021 4:33 AM CREW LEADER GLUING COVID-19 Under Investigation 09/29/2021 09/29/2021 09/29/2021 8:59 PM CDT documented as of this encounter Care Teams Nickel Plant Operator Relationship Specialty Start Date End Date Gi Pulliam MD [address] [address] PCP - General Family Medicine 10/17/18 Sea Humphries MD [address] [address] Referring Physician Medical Oncology 02/19/20 [place] [address] [place] [address] Hematology and Oncology 02/19/20 03/26/21 Jaqui Colin MD [address] OF HEMATOLOGY [place] [address] Hematology and Oncology 02/19/20 Janene Arriaga MD [address] DIV OF HEMATOLOGY & [place] [address] Hematology and Oncology 02/19/20 Federico Garcia MD [address] OF HEMATOLOGY & [place] [address] Hematology and Oncology 02/19/20 Vijaya Ulrich, PharmD 02/19/20 Val Pisano, MELISSA 02/19/20 Rina Argueta 02/19/20 Ayanna Winkler APRN-EMERGENCY PLANNER Family Medicine 02/19/20 Yadi Dean, MELISSA Registered Nurse 02/19/20 03/26/21 Aditi Ladd, TECHNICAL PROPOSAL WRITER Operations Inspector 02/19/20 Kaia Munroe RECONCILIATION ACCOUNTANT-EMERGENCY PLANNER [address] OF HEMATOLOGY [place] [address] Advance Practice Nurse Family Medicine 08/05/20 Kassandra Richard, RN Registered Nurse 03/27/21 Doris Munguia, RN Registered Nurse 06/03/21 documented as of this encounter
--- OUTSIDE RECORDS SUMMARY | 2024-07-31 14:10 | XMS_ITS ---
Author Organization [facility] Address [address] [place], [place] [id number] Care Team Providers Care Heel Top Lift Splitter Name Role Phone LAURENCE BRANCH Unavailable [phone] Gi Pulliam Unavailable Unavailable Allergies Allergen (clinical [...] chloride 2.67 MEQ/ML Oral Solution *Reorder from [facility] for eRx and Interaction Alerts* 12/01/2017 Active metformin hydrochloride 1000 MG Oral Tablet ORAL metformin hydrochloride 1000 MG Oral TabletOriginal Medicationmetformin hydrochloride 1000 MG Oral Tablet *Reorder from [facility] for eRx and Interaction Alerts* 12/01/2017 Active aspirin 81 MG Delayed Release Oral Tablet [Aspir-Low] ORAL aspirin 81 MG Delayed Release Oral Tablet [Aspir-Low]Original Medicationaspirin 81 MG Delayed Release Oral Tablet [Aspir-Low] *Reorder from [facility] for eRx and Interaction Alerts* 12/01/2017 Active 0.5 ML dulaglutide 1.5 MG/ML Auto-Injector [Trulicity] 0.5 ML dulaglutide 1.5 MG/ML Auto-Injector [Trulicity]Original Medication0.5 ML dulaglutide 1.5 MG/ML Auto-Injector [Trulicity] *Reorder from [facility] for eRx and Interaction Alerts* 12/01/2017 Active Lisinopril 20 MG Oral Tablet ORAL lisinopril 20 MG Oral TabletOriginal Medicationlisinopril 20 MG Oral Tablet *Reorder from [facility] for eRx and Interaction Alerts* 12/01/2017 Active 3 ML insulin glargine 100 UNT/ML Pen Injector [Lantus] 3 ML insulin glargine 100 UNT/ML Pen Injector [Lantus]Original Medication3 ML insulin glargine 100 UNT/ML Pen Injector [Lantus] *Reorder from [facility] for eRx and Interaction Alerts* 12/01/2017 Active Encounters Encounter Location Date Provider Diagnosis [facility] [address] [id number] 07/09/2024 LAURENCE MATAK Tinea unguium B35.1 ; Pain in right toe(s) M79.674 ; Pain in left toe(s) M79.675 ; Atherosclerosis of [place] arteries of extremities with intermittent claudication, bilateral [...] toe(s) (ICD-10 - M79.675) 07/09/2024 Atherosclerosis of [place] arteries of extremities with intermittent claudication, bilateral [...] Provider Name:LAURENCE BRANCH, 02:40:00 PM, [address], [id number], Progress Notes * LINDA TAPIA RDOB: (68 yo M)Acc No.[id number]:07/09/2024 Patient: LINDA BORREGO Provider: Jaqui Branch DPM :1955 A ge:68 Y S ex:Male Date:07/09/2024 Address:[address] [place] [address] Subjective: * Chief Complaints: * 1 . [...] Medicationlisinopril 20 MG Oral Tablet *Reorder from [facility] for eRx and Interaction Alerts*, Taking 0.5 ML dulaglutide 1.5 MG/ML Auto-Injector [Trulicity] , Notes to Pharmacist: 0.5 ML dulaglutide 1.5 MG/ML Auto-Injector [Trulicity]Original Medication0.5 ML dulaglutide 1.5 MG/ML Auto-Injector [Trulicity] *Reorder from [facility] for eRx and Interaction Alerts*, Taking 3 ML insulin glargine 100 UNT/ML Pen Injector [Lantus] , Notes to Pharmacist: 3 ML insulin glargine 100 UNT/ML Pen Injector [Lantus]Original Medication3 ML insulin glargine 100 UNT/ML Pen Injector [Lantus] *Reorder from [facility] for eRx and Interaction Alerts*, Taking aspirin 81 MG Delayed Release Oral Tablet [Aspir-Low] ORAL , Notes to Pharmacist: aspirin 81 MG Delayed Release Oral Tablet [Aspir-Low]Original Medicationaspirin 81 MG Delayed Release Oral Tablet [Aspir-Low] *Reorder from [facility] for eRx and Interaction Alerts*, Taking metformin hydrochloride 1000 MG Oral Tablet ORAL , Notes to Pharmacist: metformin hydrochloride 1000 MG Oral TabletOriginal Medicationmetformin hydrochloride 1000 MG Oral Tablet *Reorder from [facility] for eRx and Interaction Alerts*, Taking potassium chloride 2.67 MEQ/ML Oral Solution ORAL , Notes to Pharmacist: potassium chloride 2.67 MEQ/ML Oral SolutionOriginal Medicationpotassium chloride 2.67 MEQ/ML Oral Solution *Reorder from [facility] for eRx and Interaction Alerts*, Medication List [...] - M79.675 4 . A therosclerosis of [place] arteries of extremities with intermittent claudication, bilateral [...] develop.) * Billing Information: * Visit Code: 46570 Office Visit, Est Pt., Level 3. * Procedure Codes: * Electronic signature of LAURENCE BRANCH DPM on 07/31/2024 at 02:09 PM CDT Sign off status: Pending * Provider: Jaqui Branch DPM Date: 07/09/2024 Generated for Angel mckeon/Allyssa/Jyoti on: 07/31/2024 02:09 PM CDT History and Physical Notes * HPI [...]
--- OUTSIDE RECORDS SUMMARY | 2024-07-31 14:10 | XMS_ITS | Encounter Summary ---
Author Organization [facility] Address [address] [facility] [place] [address] Care Team Providers Care Collections Associate Name Role Phone Gi Pulliam MD Primary Care Provider [phone] Sea Humphries MD Unavailable [phone] Kael Negron MD Unavailable [phone] Jaqui Colin MD Unavailable [phone] Janene Arriaga MD Unavailable [phone] Federico Garcia MD Unavailable [phone] Vijaya Ulrich PharmD Unavailable Unavaila Chandler Avila PharmD Unavailable Unavailab Val Lenz RN Unavailable Unavailable Elaine Poole RN Unavailable Unavailab Rina Trinidad Unavailable Letty vailable Cathi, Ayanna John MOTORCYCLE DELIVERER-DRIVE AWAY DRIVER Unavailable [phone] Yadi Dean RN Unavailable Unavailable Nicole Ramos RN Unavailable Unavailable Loreto Oliveros RN Unavailable UnavailAditi Marin LCSW Unavailable Unavailab Kaia Agee MOTORCYCLE DELIVERER-DRIVE AWAY DRIVER Unavailable [phone] Kassandra Richard RN Unavailable Unavaila ble Ezra, Doris J RN Unavailable Unavailable Encounter Details Date Type Department Care Team ([facility] Contact Info) Description 10/05/2020 Ophth Exam [facility] [address] [facility], [place] [address] Antoine Kee MD [address] [place] [address] Social History Tobacco Use Types Packs/Day Years [...] Info) Description 09/11/2024 12:45 PM CDT Appointment [facility] [address] [place] [id number] Jaqui Colin MD [address] [place] [address] OF HEMATOLOGY & [place] [address] 09/11/2024 1:45 PM CDT Appointment [facility] [address] [place] [address] Jaqui Colin MD [address] [place] [address] OF HEMATOLOGY & [place] [address] 09/11/2024 3:00 PM CDT Office Visit [facility] - Hematology/Oncology [address] [place] [address] Jaqui Colin MD [address] [place] [address] OF HEMATOLOGY & [place] [address] documented as of this encounter Visit Diagnoses Not on filedocumented in this encounter Additional Health Concerns Infection Onset Date Last Indicated Resolved Time COVID-19 Under Investigation 12/10/2020 12/10/2020 12/11/2020 4:17 AM CDT COVID-19 Confirmed 03/12/2021 04/02/2021 4:33 AM WASTE DISPOSAL ATTENDANT COVID-19 Under Investigation 03/19/2021 03/19/2021 03/19/2021 4:42 PM WASTE DISPOSAL ATTENDANT COVID-19 Under Investigation 04/14/2021 04/14/2021 04/25/2021 4:33 AM WASTE DISPOSAL ATTENDANT COVID-19 Under Investigation 09/29/2021 09/29/2021 09/29/2021 8:59 PM CDT documented as of this encounter Care Teams Collections Associate Relationship Specialty Start Date End Date Gi Pulliam MD [address] [place] [address] PCP - General Family Medicine 10/17/18 Sea Humphries MD [address] [place] [address] Referring Physician Medical Oncology 02/19/20 Kael Negron MD [address] [place] [address] Hematology and Oncology 02/19/20 03/26/21 Jaqui Colin MD [address] DIV OF HEMATOLOGY & [place] [address] Hematology and Oncology 02/19/20 Janene Arriaga MD [address] DIV OF HEMATOLOGY & [place] [address] Hematology and Oncology 02/19/20 Federico Garcia MD [address] DIV OF HEMATOLOGY & [place] [address] Hematology and Oncology 02/19/20 Vijaya Ulrich, PharmD 02/19/20 Chandler Rosario, PharmD [facility] 02/19/20 11/25/20 Val Pisano, RN 02/19/20 Elaine Poole RN 02/19/20 11/25/20 Rina Argueta 02/19/20 Aaynna Winkler APRN-TERRIE Family Medicine 02/19/20 Yadi Dean, RN Registered Nurse 02/19/20 03/26/21 Nicole Ramos RN Registered Nurse 02/19/20 11/25/20 Loreto Oliveros, RN Registered Nurse 02/19/20 11/25/20 Aditi Ladd, DOULA Mva Still Operator 02/19/20 Kaia Munroe, MOTORCYCLE DELIVERER-DRIVE AWAY DRIVER [address] [facility] OF HEMATOLOGY & [place] [address] Advance Practice Nurse Family Medicine 08/05/20 Kassandra Richard, RN Registered Nurse 03/27/21 Doris Munguia, RN Registered Nurse 06/03/21 documented as of this encounter
--- OUTSIDE RECORDS SUMMARY | 2024-07-31 14:10 | XMS_ITS ---
Author Organization [facility] Address [address] [place] [address] Care Team Providers Care Dairy Equipment Specialist Name Role Phone Gi Pulliam MD Primary Care Provider [phone] Sea Humphries MD Unavailable [phone] Jaqui Colin MD Unavailable Janene Arriaga MD Unavailable [phone] Federico Garcia MD Unavailable [phone] Vijaya Ulrich PharmD Unavailable Unavaila Val Licea RN Unavailable Unavailable AmadorRina Pineda Unavailable Letty vailable Cathi, Ayanna John BRADLEY LINEBACKER CREWMEMBER-HOT PLATE PLYWOOD PRESS OPERATOR Unavailable [phone] Aditi Ladd LCSW Unavailable Unavailab Kaia Agee BRADLEY LINEBACKER CREWMEMBER-HOT PLATE PLYWOOD PRESS OPERATOR Unavailable [phone] Kassandra Richard RN Unavailable Unavaila Doris Sandy RN Unavailable Unavailable Active Problems Problem Noted Date Diagnosed Date Hodgkin lymphoma, unspecifie d Hodgkin lymphoma type, unspecified body region 07/19/2023 BMI 40.0-44.9, adult 05/05/2023 Dyslipidemia 05/05/2023 History of auto stem cell transplant 05/26/2022 Colon adenomas 03/10/2021 Overview (03/10/2021): 11/15/16 colonoscopy ([facility]): polyps per patient 03/10/21 colonoscopy: multiple diminutive [...] 8 of 16 cycles started BMT CONDITIONING [id number] SCHEMA A - (BEAM) CARMUSTINE + ETOPOSIDE [...] Treatment Medications Discontinue Reason Plan Provider BMT [facility] USE ONLY 06/16/2020 07/05/2023 No medications [...]
--- OUTSIDE RECORDS SUMMARY | 2024-07-31 14:10 | XMS_ITS | Encounter Summary ---
Author Organization [facility] Address [address] [place] [address] Care Team Providers Care Investor Relations Specialist Name Role Phone Gi Pulliam MD Primary Care Provider [phone] Sea Humphries MD Unavailable [phone] Kael Negron MD Unavailable [phone] Jaqui Colin MD Unavailable [phone] Janene Arriaga MD Unavailable [phone] Federico Garcia MD Unavailable Vijaya Ulrich PharmD Unavailable Unavaila Chandler Avila PharmD Unavailable Unavailab Val Lenz RN Unavailable Unavailable Elaine Poole RN Unavailable Unavailab Rina Trinidad Unavailable Letty vailable Cathi, Ayanna John BUSINESS OPERATIONS SPECIALIST-FIRER KILN Unavailable [phone] Yadi Dean RN Unavailable Unavailable Nicole Ramos RN Unavailable Unavailable Loreto Oliveros RN Unavailable UnavailAditi Marin LCSW Unavailable Unavailab Kaia Agee BUSINESS OPERATIONS SPECIALIST-FIRER KILN Unavailable [phone] Kassandra Richard RN Unavailable Unavaila ble Ezra, Doris J RN Unavailable Unavailable Encounter Details Date Type Department Care Team (Late st Contact Info) Description 10/04/2020 Ophth Exam [facility] [address] [facility], [place] [address] Pi, [place] [address] [facility] [address] [place] [address] Social History Tobacco Use Types [...] CDT Appointment [facility] [address] [place] [address] Jaqui Colin MD [address] [place] [address] OF HEMATOLOGY [place] [address] 09/11/2024 1:45 PM CDT Appointment [facility] [address] [place] [address] Jaqui Colin MD [address] [place] [address] HEMATOLOGY [place] [address] 09/11/2024 3:00 PM CDT Office Visit [facility] Group - Hematology/Oncology [address] [place] [address] Jaqui Colin MD [address] [place] [address] OF HEMATOLOGY [place] [address] documented as of this encounter Visit Diagnoses Not on filedocumented in this encounter Additional Health Concerns Infection Onset Date Last Indicated Resolved Time COVID-19 Under Investigation 12/10/2020 12/10/2020 12/11/2020 4:17 AM CDT COVID-19 Confirmed 03/12/2021 04/02/2021 4:33 AM HYDRO PLANT SITE MANAGER COVID-19 Under Investigation 03/19/2021 03/19/2021 03/19/2021 4:42 PM HYDRO PLANT SITE MANAGER COVID-19 Under Investigation 04/14/2021 04/14/2021 04/25/2021 4:33 AM HYDRO PLANT SITE MANAGER COVID-19 Under Investigation 09/29/2021 09/29/2021 09/29/2021 8:59 PM CDT documented as of this encounter Care Teams Investor Relations Specialist Relationship Specialty Start Date End Date Gi Pulliam MD [facility] [place] [address] PCP - General Family Medicine 10/17/18 Sea Humphries MD [address] [place] [address] Referring Physician Medical Oncology 02/19/20 Kael Negron MD [address] [place] [address] Hematology and Oncology 02/19/20 03/26/21 Jaqui Colin MD [address] DIV OF HEMATOLOGY [place] [address] Hematology and Oncology 02/19/20 Janene Arriaga MD [address] DIV OF HEMATOLOGY [place] [address] Hematology and Oncology 02/19/20 Federico Garcia MD [address] DIV OF HEMATOLOGY [place] [address] Hematology and Oncology 02/19/20 Vijaya Ulrich, PharmD 02/19/20 Chandler Rosario, PharmD Pharmacist 02/19/20 11/25/20 Val Pisano, RN 02/19/20 Elaine Poole RN 02/19/20 11/25/20 Rina Argueta 02/19/20 Ayanna Winkler APRN-TERRIE Family Medicine 02/19/20 Yadi Dean, RN Registered Nurse 02/19/20 03/26/21 Nicole Ramos, RN Registered Nurse 02/19/20 11/25/20 Loreto Oliveros, RN Registered Nurse 02/19/20 11/25/20 Aditi Ladd LCSW Manager Architectural 02/19/20 Kaia Munroe APRN-TERRIE [address] [facility] OF HEMATOLOGY [place] [address] Advance Practice Nurse Family Medicine 08/05/20 Kassandra Richard, RN Registered Nurse 03/27/21 Doris Munguia, RN Registered Nurse 06/03/21 documented as of this encounter
--- OUTSIDE RECORDS SUMMARY | 2024-07-31 14:10 | XMS_ITS | Encounter Summary ---
Author Organization [facility] Address [address] [facility] [place] [address] Care Team Providers Care Poultry Feed Supervisor Name Role Phone Gi Pulliam MD Primary Care Provider [phone] Sea Humphries MD Unavailable [phone] Kael Negron MD Unavailable [phone] Jaqui Colin MD Unavailable [phone] Janene Arriaga MD Unavailable [phone] Federico Garcia MD Unavailable [phone] Vijaya Ulrich PharmD Unavailable Unavaila Chandler Avila PharmD Unavailable Unavailab Val Lenz RN Unavailable Unavailable Elaine Poole RN Unavailable Unavailab Rina Trinidad Unavailable Letty vailable Cathi, Ayanna John SUPERVISOR INSTRUMENT REPAIR-CORPORATE QUALITY MANAGER Unavailable [phone] Yadi Dean RN Unavailable Unavailable Nicole Ramos RN Unavailable Unavailable Loreto Oliveros RN Unavailable UnavailAditi Marin LCSW Unavailable Unavailab Kaia Agee SUPERVISOR INSTRUMENT REPAIR-CORPORATE QUALITY MANAGER Unavailable [phone] Encounter Details Date Type Department Care Team (Latest Contact Info) Description 10/09/2020 10:40 AM CDT Hospital Encounter [facility] [address]rd [place] [address] [place] [address] [place] [address] [facility] [employer] Social History Tobacco Use Types [...] place to sleep or slept in a detention (including now)? No 07/26/2023 Sex and Gender [...] Coronavirus/COVID-19? No / Unsure 01/13/2022 3:54 PM APARTMENT COORDINATOR documented as of this encounter Functional Status [...] Info) Description 09/11/2024 12:45 PM CDT Appointment [facility] [address] [place] [address] Jaqui Colin MD [address] [place] [address] OF HEMATOLOGY & [place] [address] 09/11/2024 1:45 PM CDT Appointment [facility] [address] [place] [address] Jaqui Colin MD [address] [place] [address] HEMATOLOGY & [place] [address] 09/11/2024 3:00 PM CDT Office Visit [facility] - Hematology/Oncology [address] [place] [address] Jaqui Colin MD [address] [place] [address] OF HEMATOLOGY [place] [address] documented as of this encounter Goals Goal Patient Goal Type Associated Problems Recent Progress Patient-Stated? Author Medication Management General On track( 021 9:57 AM APARTMENT COORDINATOR) Mercedes Minor, RN Note: Expected end date: ongoing Interventions: Take all medications as prescribed documented as of this encounter Visit Diagnoses Not on filedocumented in this encounter Additional Health Concerns Infection Onset Date Last Indicated Resolved Time COVID-19 Under Investigation 12/10/2020 12/10/2020 12/11/2020 4:17 AM CDT COVID-19 Confirmed 03/12/2021 04/02/2021 4:33 AM APARTMENT COORDINATOR COVID-19 Under Investigation 03/19/2021 03/19/202103/19/2021 4:42 PM APARTMENT COORDINATOR COVID-19 Under Investigation 04/14/2021 04/14/2021 04/25/2021 4:33 AM APARTMENT COORDINATOR COVID-19 Under Investigation 09/29/2021 09/29/2021 09/29/2021 8:59 PM CDT documented as of this encounter Care Teams Poultry Feed Supervisor Relationship Specialty Start Date End Date Gi Pulliam MD [address] [facility] [place] [id number] PCP - General Family Medicine 10/17/18 Sea Humphries MD [address] [facility] [place] [id number] Referring Physician Medical Oncology 02/19/20 Kael Negron MD [address] [facility] [place] [id number] Hematology and Oncology 02/19/20 03/26/21 Jaqui Colin MD [address] DIV OF HEMATOLOGY [place] [address] Hematology and Oncology 02/19/20 Janene Arriaga MD [address] DIV OF HEMATOLOGY & [place] [address] Hematology and Oncology 02/19/20 Federico Garcia MD [address] DIV OF HEMATOLOGY [place] [address] Hematology and Oncology 02/19/20 Vijaya Ulrich, PharmD 02/19/20 Chandler Rosario, MartD Pharmacist 02/19/20 11/25/20 Val Psiano, RN 02/19/20 Elaine Poole RN 02/19/20 11/25/20 Rina Argueta 02/19/20 Ayanna Winkler APRN-CNP Family Medicine 02/19/20 Yadi Dean, RN Registered Nurse 02/19/20 03/26/21 Nicole Ramos RN Registered Nurse 02/19/20 11/25/20 Loreto Oliveros, MELISSA Registered Nurse 02/19/20 11/25/20 Aditi Ladd TELEGRAPH OFFICE MANAGER Supervisor Screen Printing 02/19/20 Kaia Munroe APRN-TERRIE [address] [facility] OF HEMATOLOGY [place] [address] Advance Practice Nurse Family Medicine 08/05/20 documented as of this encounter
--- OUTSIDE RECORDS SUMMARY | 2024-07-31 14:10 | XMS_ITS | Encounter Summary ---
Author Organization [facility] Address [address] [facility] [place] [address] Care Team Providers Care Shove Up Name Role Phone Gi Pulliam MD Primary Care Provider [phone] Sea Humphries MD Unavailable [phone] Jaqui Colin MD Unavailable [phone] Janene Arriaga MD Unavailable [phone] Federico Garcia MD Unavailable [phone] Vijaya Ulrich PharmD Unavailable Unavaila Val Licea RN Unavailable Unavailable [facility] Unavailable Letty vailable Cathi, Ayanna John JAVA DEVELOPER CONSULTANT-CHILDBIRTH AND INFANT CARE TEACHER Unavailable [phone] Aditi Ladd LCSW Unavailable Unavailab Kaia Agee JAVA DEVELOPER CONSULTANT-CHILDBIRTH AND INFANT CARE TEACHER Unavailable [phone] Kassandra Richard RN Unavailable Unavaila Doris Sandy RN Unavailable Unavailable Reason for Visit * Reason Onset Date Comments MEDICATION REFILL 04/13/2024 Encounter Details Date Type Department Care Team (Late st Contact Info) Description 04/13/2024 Refill [facility] [address] [place] [address] Yanni Navarro APRN-TERRIE [address] [place] [address] MEDICATION REFILL Social History Tobacco Use Types [...] and heating? Not hard at all 07/26/2023 [facility] - [...] in a senior care (including now)? No 07/26/2023 Sex and Gender [...] Info) Description 09/11/2024 12:45 PM CDT Appointment [facility] [address] [place] [address] Jaqui Colin MD [address] [place] [address] OF HEMATOLOGY & [place] [address] 09/11/2024 1:45 PM CDT Appointment [facility] [address] [place] [address] Jaqui Colin MD [address] [place] [address] OF HEMATOLOGY & [place] [address] 09/11/2024 3:00 PM CDT Office Visit [facility] Physician Group - Hematology/Oncology [address] [place] [address] Jaqui Colin MD [address] DIV OF HEMATOLOGY & [place] [address] documented as of this encounter Goals Goal Patient Goal Type Associated Problems Recent Progress Patient-Stated? Author Medication Management General On track( 021 9:57 AM DIGITAL PHOTO PRINTER) Mercedes Minor, RN Note: Expected end date: ongoing Interventions: Take all medications as prescribed documented as of this encounter Visit Diagnoses Diagnosis Low iron Iron deficiency anemia, unspecified documented in this encounter Care Teams Shove Up Relationship Specialty Start Date End Date Gi Pulliam MD [address] [place] [address] PCP - General Family Medicine 10/17/18 Sea Humphries MD [address] [place] [address] Referring Physician Medical Oncology 02/19/20 Jaqui Colin MD [address] DIV OF HEMATOLOGY & [place] [address] Hematology and Oncology 02/19/20 Janene Arriaga MD [address] DIV OF HEMATOLOGY & [place] [address] Hematology and Oncology 02/19/20 Federico Garcia MD [address] DIV OF HEMATOLOGY & [place] [address] Hematology and Oncology 02/19/20 Vijaya Ulrich PharmD 02/19/20 Val Pisano, RN 02/19/20 Rina Argueta 02/19/20 Ayanna Winkler APRN-TERRIE Family Medicine 02/19/20 Aditi Ladd, [facility] Clerical Order Filler 02/19/20 Kaia Munroe APRN-CHILDBIRTH AND INFANT CARE TEACHER [facility] [facility] OF HEMATOLOGY & [place] [address] Advance Practice Nurse Family Medicine 08/05/20 Kassandra Richard, RN Registered Nurse 03/27/21 Doris Munguia, RN Registered Nurse 06/03/21 documented as of this encounter
--- OUTSIDE RECORDS SUMMARY | 2024-07-31 14:10 | XMS_ITS | Clinical Summary ---
Author Organization [facility] Address [place] [address] Care Team Providers Care Wood Strip Block Floor Installer Name Role Phone Gi Pulliam MD Primary Care Provider Carolin Nguyen MD Unavailable [phone] Kiera Jay MD Unavailable [phone] Medications No known medications Active Problems Problem [...] Comments Blood Pressure 147/79 02/26/2013 1:28 PM GUEST SERVICE AIDE Pulse 80 02/26/2013 1:28 PM GUEST SERVICE AIDE Temperature 36.7 C (98 F) 02/26/2013 1:28 PM GUEST SERVICE AIDE Respiratory Rate - - Oxygen Saturation 97% 02/26/2013 1:28 PM GUEST SERVICE AIDE Inhaled Oxygen Concentration - - Weight 133.8 kg (295 lb) 02/26/2013 1:28 PM GUEST SERVICE AIDE Height 193 cm (6' 4) 02/26/2013 1:28 PM GUEST SERVICE AIDE Body Mass Index 35.91 02/26/2013 1:28 PM GUEST SERVICE AIDE Plan of Treatment Health Maintenance Due Date [...] 023, 03/23/2022, 01/13/2022, Additional history exists Insurance [employer] Care Teams Wood Strip Block Floor Installer Relationship Specialty Start Date End Date Gi Pulliam MD [address] [facility] [place] [address] PCP - General Family Practice 01/22/20 Carolin Nguyen MD [address] [address] Referring Physician Internal Medicine 01/23/20 Kiera Jay MD [address] [address] Consulting Physician Medical Oncology 01/23/20
== END 2024-07-31 14:00 | disposition home or self-care (01) ==
PROVIDERS: Visit Provider Urology
DX: N20.0 Calculus of kidney (principal)
CPT/HCPCS: 74018